=== PATIENT | male | born 1940 | race Caucasian/White ===

== ENCOUNTER 2017-06-05 19:45 | Inpatient (IN) | payer MEDICARE ==
[~2017-06-05] VITALS: Ht 175.3 cm; Wt 98.1 kg
--- NOTE | 2017-06-05 19:52 | PHYS DOC ---
Adult General Chief Complaint Chief Complaint: PSYCH EVALUATION HPI HPI Patient is a 77 year old M who presents with medical clearance for [facility]. Patient is a direct transfer from [facility] [place] as a direct admit to [facility]. Its hospital's policy to have the patient stop in emergency room for medical clearance and have routine blood work drawn prior to being admitted to [facility]. Patient has no complaints. Review of Systems Review of Systems GEN: Denies fevers, chills, sweats HEENT: Denies blurred vision, sore throat CV: Denies chest pain RESP: Denies shortness of air, cough GI: Denies n/v/d NEURO: Denies confusion, dizziness MSK: Denies weakness, joint pain/swelling All other systems were reviewed and found to be within normal limits, except as documented in this note. Allergies Allergies Allergies Coded Allergies Type Severity Reaction Last Updated Verified No Known Drug Allergies 06/05/17 No Physical Exam Physical Exam GEN.: No apparent distress. Alert and oriented. HEENT: Head is normocephalic, atraumatic NECK: Supple. LUNGS: CTAB. HEART: RRR, S1, S2 present. Peripheral pulses intact ABDOMEN: Soft, nontender. Positive bowel sounds. EXTREMITIES: Without any cyanosis. NEUROLOGIC: Normal speech, normal tone PSYCHIATRIC: Normal affect, normal mood. SKIN: No ulcerations Current Patient Data Vital Signs Laboratory Tests Test 06/05/17 19:52 06/05/17 20:05 White Blood Count 6.3 x10^3/uL Red Blood Count 4.32 x10^6/uL Hemoglobin 13.4 g/dL Hematocrit 39.6 % Mean Corpuscular Volume 92 fL Mean Corpuscular Hemoglobin 31 pg Mean Corpuscular Hemoglobin Concent 34 g/dL Red Cell Distribution Width 14.2 % Platelet Count 213 x10^3/uL Neutrophils (%) (Auto) 70 % Lymphocytes (%) (Auto) 17 % Monocytes (%) (Auto) 8 % Eosinophils (%) (Auto) 5 % Basophils (%) (Auto) 1 % Neutrophils # (Auto) 4.4 x10^3uL Lymphocytes # (Auto) 1.0 x10^3/uL Monocytes # (Auto) 0.5 x10^3/uL Eosinophils # (Auto) 0.3 x10^3/uL Basophils # (Auto) 0.0 x10^3/uL Sodium Level 137 mmol/L Potassium Level 3.9 mmol/L Chloride Level 101 mmol/L Carbon Dioxide Level 27 mmol/L Anion Gap 9 Blood Urea Nitrogen 21 mg/dL Creatinine 1.3 mg/dL Estimated GFR (Cockcroft-Gault) 53.5 BUN/Creatinine Ratio 16 Glucose Level 142 mg/dL Calcium Level 8.5 mg/dL Magnesium Level 1.9 mg/dL Total Bilirubin 0.4 mg/dL Aspartate Amino Transf (AST/SGOT) 22 U/L Alanine Aminotransferase (ALT/SGPT) 24 U/L Alkaline Phosphatase 62 U/L Total Protein 7.8 g/dL Albumin 3.6 g/dL Albumin/Globulin Ratio 0.9 Urine Collection Type U cath Urine Color Straw Urine Clarity Clear Urine pH 6.0 Urine Specific [place] 1.015 Urine Protein 30 mg/dl Urine Glucose (UA) Neg mg/dL Urine Ketones (Stick) Neg mg/dL Urine Blood Large Urine Nitrite Neg Urine Bilirubin Neg Urine Urobilinogen Dipstick 1 mg/dL Urine Leukocyte Esterase Neg Urine RBC >40 /HPF Urine WBC 5-10 /HPF Urine Squamous Epithelial Cells Occ /LPF Urine Bacteria 0 /HPF Urine Hyaline Casts Mod /HPF Urine Mucus Mod /LPF Urine Opiates Screen Neg Urine Methadone Screen Neg Urine Barbiturates Neg Urine Phencyclidine Screen Neg Urine Amphetamine/Methamphetamine Neg Urine Benzodiazepines Screen Neg Urine Cocaine Screen Neg Urine Cannabinoids Screen Neg Urine Ethyl Alcohol Neg EKG EKG 2004: EKG shows normal sinus rhythm rate of 61 no STEMI, left bundle-branch block[] Radiology/Procedures Radiology/Procedures [] Course & Med Decision Making Course & Med Decision Making Pertinent Labs and Imaging studies reviewed. (See chart for details) ED course: Patient was seen and examined emergency room [facility] screening labs are ordered Labs were unremarkable patient's cleared to be admitted to [facility] MDM: After reviewing the chart, CC/HPI/PMH, physical exam, [lab results], I do not believe the patient has emergent medical condition warranting further workup and /or admission at this time. Patient is stable to be transferred to [facility] for further psychiatric evaluation and management. [] Dragon Disclaimer Dragon Disclaimer This electronic medical record was generated, in whole or in part, using a voice recognition dictation system. Departure Departure: Impression: Primary Impression: Aggressive behavior Disposition: 65 XFER TO PSYCH HOSP/UNIT Condition: STABLE TOY MUNSON DO Jun 05, 2017 19:52
--- NOTE | 2017-06-05 20:09 | EKG ---
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
[2017-06-05 20:13] LABS: BASO % 1 % (0-3); EOS # 0.3 x10^3/uL (0.0-0.7); EOS % 5 % (0-3); HEMATOCRIT 39.6 % (39.0-53.0); HEMOGLOBIN 13.4 g/dL (13.0-17.5); LYMPH % 17 % (24-48); MEAN CORPUSCULAR HEMOGLOBIN 31 pg (25-35); MEAN CORPUSCULAR HGB CONC 34 g/dL (31-37); MEAN CORPUSCULAR VOLUME 92 fL (79-100); MONO # 0.5 x10^3/uL (0.0-1.1); MONO % 8 % (0-9); NEUT # 4.4 x10^3uL (1.8-7.7); NEUT % 70 % (31-73); PLATELET COUNT 213 x10^3/uL (140-400); RED BLOOD COUNT 4.32 x10^6/uL (4.30-5.70); RED CELL DISTRIBUTION WIDTH 14.2 % (11.5-14.5); WHITE BLOOD COUNT 6.3 x10^3/uL (4.0-11.0)
[2017-06-05 20:24] LABS: ALBUMIN 3.6 g/dL (3.4-5.0); ALBUMIN/GLOBULIN RATIO 0.9 (1.0-1.7); CALCIUM 8.5 mg/dL (8.5-10.1); CREATININE 1.3 mg/dL (0.7-1.3); GFR 53.5; MAGNESIUM 1.9 mg/dL (1.8-2.4); POTASSIUM 3.9 mmol/L (3.5-5.1); TOTAL BILIRUBIN 0.4 mg/dL (0.2-1.0); TOTAL PROTEIN 7.8 g/dL (6.4-8.2)
[2017-06-05 20:55] LABS: BACTERIA,URINE 0 /HPF (0-FEW); BILIRUBIN,URINE NEG (NEG); CLARITY,URINE CLEAR; COLOR,URINE STRAW; GLUCOSE,URINE NEG (NEG); NITRITE,URINE NEG (NEG); RBC,URINE >40 /HPF (0-2); SQUAMOUS EPITHELIAL CELL,UR OCC /LPF; UROBILINOGEN,URINE 1 mg/dL (0.2 mg/dL)
[2017-06-05 20:56] LABS: AMPHETAMINE/METHAMPHETAMINE NEG (NEG); BARBITURATES NEG (NEG); BENZODIAZEPINES NEG (NEG); CANNABINOIDS NEG (NEG); COCAINE NEG (NEG); METHADONE NEG (NEG); OPIATES NEG (NEG); PHENCYCLIDINE NEG (NEG)
[2017-06-05] MEDS ORDERED: MELA3TAB2 PO (20:57)
[2017-06-05] MEDS ORDERED: NYST15CR TP (20:57)
[2017-06-05] MEDS ORDERED: SOTA80TA48 PO (20:57)
[2017-06-05] MEDS ORDERED: LEVO25TA4 PO (20:57)
[2017-06-05] MEDS ORDERED: VITA1TAB3 PO (20:57)
[2017-06-05] MEDS ORDERED: ERGO500027 PO (20:57)
[2017-06-05] MEDS ORDERED: TRAM50TA PO ×2 (20:57)
[2017-06-05] MEDS ORDERED: POLY255P PO (20:57)
[2017-06-05] MEDS ORDERED: ESCITALOPRAM OX10 MG PO (20:57)
[2017-06-05] MEDS ORDERED: AMLO10TA2 PO (20:57)
[2017-06-05] MEDS ORDERED: ATOR20TA58 PO (20:57)
[2017-06-05] MEDS ORDERED: ACET325T9 PO (20:57)
[2017-06-05] MEDS ORDERED: RISP1TAB3 PO (20:57)
[2017-06-05] MEDS ORDERED: LOSA25TA4 PO (20:57)
[2017-06-05] MEDS ORDERED: FOLI100T PO (20:57)
[2017-06-05] MEDS ORDERED: APIX5TAB3 PO (20:57)
[2017-06-05] MEDS ORDERED: LORA2ORA8 SL (20:57)
[2017-06-05 20:58] LABS: HYALINE CASTS, URINE MOD /HPF
[2017-06-05] MEDS ORDERED: METHYL SALICYLATE/MENTHOL TOPICAL OINTMENT 29GM TUBE. TP PRN (22:15)
[2017-06-05] MEDS ORDERED: MAG HYDROX/AL HYDROX/SIMETH 30 ML ORAL.SUSP PO PRN (22:15)
[2017-06-05] MEDS ORDERED: ACETAMINOPHEN 325 MG TABLET PO PRN (22:15)
[2017-06-05] MEDS ORDERED: LORazepam INTENSOL 2 MG/ML BOTTLE SL PRN (22:30)
[2017-06-05] MEDS ORDERED: MELATONIN 3 MG TABLET PO PRN (22:30)
[2017-06-05] MEDS ORDERED: LORazepam 1 MG TABLET PO PRN ×2 (22:45)
[2017-06-06 00:01] VITALS: BP 132/66
[2017-06-06 06:28] VITALS: BP 129/72
[2017-06-06] MEDS: risperiDONE 1 MG TABLET. PO SCH ×2 (09:15→21:20)
[2017-06-06] MEDS: CITALOPRAM 20 MG TABLET. PO SCH (09:15)
[2017-06-06] MEDS ORDERED: ACETAMINOPHEN 325 MG TABLET PO PRN (10:30)
[2017-06-06] MEDS ORDERED: POLYETHYLENE GLYCOL 3350 17 GM PACKET. PO PRN (10:39)
[2017-06-06] MEDS: VITAMIN B COMPLEX CAPSULE. PO SCH (11:55)
[2017-06-06] MEDS: MULTIVITAMIN with MINERAL TABLET. PO SCH (11:55)
[2017-06-06 12:07] VITALS: BP 124/63
[2017-06-06] MEDS: LOSARTAN 25 MG TABLET. PO SCH (12:07)
[2017-06-06] MEDS: traMADol 50 MG TABLET PO SCH (12:08)
[2017-06-06] MEDS: amLODIPine BESYLATE 10 MG TABLET PO SCH (12:08)
[2017-06-06 14:11] LABS: THYROID STIM HORMONE (TSH) 4.73 uIU/mL (0.358-3.740)
[2017-06-06 16:28] VITALS: BP 94/60
--- NOTE | 2017-06-06 19:56 | PDOC ---
Exam Note: Jordy Note: Please also refer to the separate dictated note~for this date of service dictated separately.~Patient seen individually. Discussed the patient with Nursing staff reviewed the chart.~Reviewed interim history and current functioning. Reviewed vital signs,~Labs/ Radiology~and current medications noted below. Continue current treatment with the changes noted in the dictated addendum note Assessment: Vital Signs: Vital Signs Date Time Temp Pulse Resp B/P (MAP) Pulse Ox O2 Delivery O2 Flow Rate FiO2 06/06/17 16:28 97.5 60 18 94/60 (71) 92 Room Air I&O Intake and Output 06/06/17 07:00 Intake Total 0 ml Balance 0 ml Intake Oral 0 ml Labs: Laboratory Tests Test 06/05/17 20:05 Urine Collection Type U cath Urine Color Straw Urine Clarity Clear Urine pH 6.0 Urine Specific [place] 1.015 Urine Protein 30 mg/dl (NEG-TRACE) Urine Glucose (UA) Neg mg/dL (NEG) Urine Ketones (Stick) Neg mg/dL (NEG) Urine Blood Large (NEG) Urine Nitrite Neg (NEG) Urine Bilirubin Neg (NEG) Urine Urobilinogen Dipstick 1 mg/dL (0.2 mg/dL) Urine Leukocyte Esterase Neg (NEG) Urine RBC >40 /HPF (0-2) Urine WBC 5-10 /HPF (0-4) Urine Squamous Epithelial Cells Occ /LPF Urine Bacteria 0 /HPF (0-FEW) Urine Hyaline Casts Mod /HPF Urine Mucus Mod /LPF Urine Opiates Screen Neg (NEG) Urine Methadone Screen Neg (NEG) Urine Barbiturates Neg (NEG) Urine Phencyclidine Screen Neg (NEG) Urine Amphetamine/Methamphetamine Neg (NEG) Urine Benzodiazepines Screen Neg (NEG) Urine Cocaine Screen Neg (NEG) Urine Cannabinoids Screen Neg (NEG) Urine Ethyl Alcohol Neg (NEG) Current Medications: Meds: Current Medications Acetaminophen (Tylenol) 650 mg PRN Q6HRS PRN PO PAIN / TEMP; Start 06/05/17 at 22:15 Multi-Ingredient Ointment (Analgesic [place]) 1 feliciano PRN QID PRN TP MUSCLE PAIN; Start 06/05/17 at 22:15 Al Hydroxide/Mg Hydroxide (Mylanta Plus Xs) 15 ml PRN AFTMEALHC PRN PO DYSPEPSIA; Start 06/05/17 at 22:15 Magnesium Hydroxide (Milk Of Magnesia) 2,400 mg PRN QHS PRN PO CONSTIPATION; Start 06/05/17 at 22:15 Risperidone (RisperDAL) 1 mg BID PO Last administered on 06/06/17at 09:15; Start 06/06/17 at 09:00 Citalopram Hydrobromide (CeleXA) 20 mg DAILY PO Last administered on 06/06/17at 09:15; Start 06/06/17 at 09:00 Melatonin 3 mg PRN QHS PRN PO INSOMNIA; Start 06/05/17 at 22:30 Lorazepam (Ativan Intensol) Give 0.5 ml sublingually every ... PRN Q2HR PRN SL ANXIETY / AGITATION; Start 06/05/17 at 22:30; Status UNV Lorazepam (Ativan) 1 mg PRN Q2HR PRN PO ANXIETY / AGITATION; Start 06/05/17 at 22:45 Lorazepam (Ativan) 2 mg PRN Q2HR PRN PO ANXIETY / AGITATION; Start 06/05/17 at 22:45 Acetaminophen (Tylenol) 650 mg PRN Q4HRS PRN PO PAIN / TEMP; Start 06/06/17 at 10:30 Amlodipine Besylate (Norvasc) 10 mg DAILY PO Last administered on 06/06/17at 12: 08; Start 06/06/17 at 12:00 Apixaban (Eliquis) 5 mg BID PO ; Start 06/06/17 at 21:00 Atorvastatin Calcium (Lipitor) 20 mg QHS PO ; Start 06/06/17 at 21:00 Levothyroxine Sodium (Synthroid) 25 mcg DAILYAC PO ; Start 06/07/17 at 07:30 Losartan Potassium (Cozaar) 25 mg DAILY PO Last administered on 06/06/17at 12:07 ; Start 06/06/17 at 12:00 Nystatin (Mycostatin) 1 feliciano BID TP ; Start 06/06/17 at 21:00 Polyethylene Glycol (miraLAX) 17 gm PRN DAILY PRN PO CONSTIPATION; Start at 10:39 Sotalol HCl (Betapace) 80 mg BID PO ; Start 06/06/17 at 21:00 Tramadol HCl (Ultram) 50 mg DAILY PO Last administered on 06/06/17at 12:08; Start 06/06/17 at 12:00 Tramadol HCl (Ultram) 50 mg PRN Q8HRS PRN PO PAIN; Start 06/06/17 at 10:30 Vitamin D (Vitamin D3) 50,000 unit WEEKLY PO ; Start 06/12/17 at 09:00 Multivitamins/ Calcium (Thera-M Plus) 1 tab DAILY PO Last administered on at 11:55; Start 06/06/17 at 12:00 Vitamin B Complex 1 cap DAILY PO Last administered on 06/06/17at 11:55; Start at 12:00 Active Scripts Active Reported Vitamin B Complex 1 Each Tablet 1 Tab PO DAILY Tramadol Hcl (Tramadol HCl) 50 Mg Tablet 50 Mg PO DAILY Tramadol Hcl (Tramadol HCl) 50 Mg Tablet 50 Mg PO PRN Q4HRS PRN Sotalol (Sotalol Hcl) 80 Mg Tablet 80 Mg PO BID Risperidone 1 Mg Tablet 1 Mg PO BID Polyethylene Glycol 3350 255 Gm Powder 17 Gm PO PRN DAILY PRN Nystatin 15 Gm Cream..g. 1 Feliciano TP BID Centrum Flavor Burst Adult (Multivit with Minerals No.55) 1 Each Tab.chew 1 Tab PO DAILY Melatonin 3 Mg Tablet 3 Mg PO PRN QHS PRN Losartan Potassium 25 Mg Tablet 25 Mg PO DAILY Lorazepam Intensol (Lorazepam) 2 Mg/1 Ml Oral.conc 0.5-1 Ml SL PRN Q2HR PRN Escitalopram Oxalate 10 Mg Tablet 10 Mg PO DAILY Levothyroxine Sodium 25 Mcg Tablet 25 Mcg PO DAILYAC Vitamin D2 (Ergocalciferol (Vitamin D2)) 50,000 Unit Capsule 50,000 Unit PO WEEKLY Eliquis (Apixaban) 5 Mg Tablet 5 Mg PO BID Atorvastatin Calcium 20 Mg Tablet 20 Mg PO QHS Amlodipine Besylate 10 Mg Tablet 10 Mg PO DAILY Tylenol (Acetaminophen) 325 Mg Tablet 650 Mg PO PRN Q4HRS PRN I have reviewed the current psychotropics carefully including drug interactions. Risk benefit ratio favors no change other than as noted in my dictated progress note. 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
--- NOTE | 2017-06-06 20:32 | HP ---
ADMIT DATE: 06/05/2017 This is a late entry for 06/06/2017 and covers elements not covered in my initial note of 06/06/2017. IDENTIFYING DATA: The patient is a 77-year-old male who is referred to us from the [facility] by Dr. Oliver Hodges, his primary care physician on account of yelling, cursing at staff, throwing himself out of the wheelchair, refusing meals and showers. He has had increased anxiety, agitation, delusions, has appeared increasingly confused within the context of his dementia, Alzheimer's vascular type. He has failed outpatient psychiatric interventions resulting in this referral due to failure of outpatient psychiatric interventions. CHIEF COMPLAINT: "No." The patient is seated in his wheelchair, head bent forward, somewhat drooling, oriented just to himself. HISTORY OF PRESENT ILLNESS: The patient has a history of dementia, vascular, status post CVA with worsening symptoms of depression. More recently, he has had marked sleep and appetite changes, worsening agitation, delusions, aggression and using worsening profanities. All of these have worsened for the past 1-2 weeks. Ativan has been ineffective and he has had increased propensity for falls resulting in him being sent to the Emergency Room the night before he was admitted here. No clear history of bipolar disorder, suicidal or homicidal ideation. PAST PSYCHIATRIC HISTORY: As above. MEDICAL HISTORY: Status post CVA, cardiac arrhythmia, dysphagia, hemiparesis, hypothyroidism, hypertension, hyperlipidemia, history of cerebral infarct. DRUG ALLERGIES: Negative. CODE STATUS: Full code. Accu-Cheks None. Diet: Mechanical, soft thin liquids, ambulates in wheelchair and [place] transfer. CURRENT PSYCHOTROPICS: Lexapro 20 mg a day, Ativan p.r.n., Risperdal 1 mg b.i.d., melatonin 3 mg at bedtime. FAMILY HISTORY: Noncontributory. SOCIAL HISTORY: No history of alcohol, drug abuse, physical, sexual or elder abuse history is noted. Not known to be a perpetrator. The patient is not very verbally interactive at all and able to tell me even what work he did in the past. MENTAL STATUS EXAMINATION: Oriented to himself. Insight, judgment, recent and remote memory, attention, concentration, fund of knowledge poor, consistent with his diagnosis. He is oriented, perhaps to himself. Head bent forward, drooling, sitting in group therapy morning of 06/06/2017. No suicidal or homicidal ideation. Reaction to hospitalization: The patient oblivious to this. Assets: Stable living at the [facility], supportive family. 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 Rest as above. PLAN: Admit to geropsychiatry unit at [facility]. I will see the patient daily individually from a psychiatric standpoint, medical followup per Dr. Torres/Dr. Isidro. Continue the patient on current psychotropics, reduce Risperdal down to 0.5 mg twice a day. Consider Depakote as a mood stabilizer, BuSpar for anxiety, but we will make further decisions as the hospitalization progresses. We will also add Remeron 7.5 mg at bedtime to help with insomnia and anxiety. MAN Laverne RIZVI MD DR: YESSENIA/linnette JOB#: [id number] / [id number]
[2017-06-06] MEDS: APIXABAN 5 MG TABLET. PO SCH (21:20)
[2017-06-06] MEDS: ATORVASTATIN CALCIUM 20 MG TABLET PO SCH (21:20)
[2017-06-06] MEDS: SOTALOL 80 MG TABLET. PO SCH (21:20)
[2017-06-06] MEDS: NYSTATIN 100,000 UNIT/GM TOPICAL CREAM 15GM TUBE. TP SCH (21:21)
[2017-06-06 21:25] LABS: T3 TOTAL 74 ng/dL (71-180); THYROXINE 7.4 ug/dL (4.5-12.0)
[2017-06-07 01:11] LABS: HEMOGLOBIN A1C 5.1 % (4.8-5.6)
[2017-06-07 06:21] VITALS: BP 130/71
[2017-06-07] MEDS: VITAMIN B COMPLEX CAPSULE. PO SCH (08:16)
[2017-06-07] MEDS: LEVOTHYROXINE 25 MCG TABLET. PO SCH (08:16)
[2017-06-07] MEDS: amLODIPine BESYLATE 10 MG TABLET PO SCH (08:16)
[2017-06-07] MEDS: LOSARTAN 25 MG TABLET. PO SCH (08:16)
[2017-06-07] MEDS: CITALOPRAM 20 MG TABLET. PO SCH (08:16)
[2017-06-07] MEDS: MULTIVITAMIN with MINERAL TABLET. PO SCH (08:17)
[2017-06-07] MEDS: APIXABAN 5 MG TABLET. PO SCH ×2 (08:17→20:47)
[2017-06-07] MEDS: risperiDONE 1 MG TABLET. PO SCH (08:17)
[2017-06-07] MEDS: traMADol 50 MG TABLET PO SCH (08:19)
[2017-06-07] MEDS: NYSTATIN 100,000 UNIT/GM TOPICAL CREAM 15GM TUBE. TP SCH ×2 (08:19→20:47)
[2017-06-07] MEDS: SOTALOL 80 MG TABLET. PO SCH ×2 (08:20→20:49)
--- NOTE | 2017-06-07 14:21 | HP ---
ADMIT DATE: 06/05/2017 CONTINUATION OF HISTORY AND PHYSICAL ASSESSMENT: 1. Dementia with behavior disturbance. 2. History of stroke. 3. Left hemiplegia. 4. Impaired mobility. 5. History of falls. 6. History of cardiac arrhythmias. 7. Long-term use of anticoagulants, on Coumadin. 8. Major depressive disorder. PLAN: Try PT and OT. Follow along with Dr. Burk. Treat his medical conditions. LATRICE THOMPSON DO DR: GISELLA/linnette JOB#: [id number] / [id number]
[2017-06-07 16:04] VITALS: BP 144/78
--- NOTE | 2017-06-07 19:45 | PDOC ---
Exam Note: Jordy Note: Please also refer to the separate dictated note~for this date of service dictated separately.~Patient seen individually. Discussed the patient with Nursing staff reviewed the chart.~Reviewed interim history and current functioning. Reviewed vital signs,~Labs/ Radiology~and current medications noted below. Continue current treatment with the changes noted in the dictated addendum note Assessment: Vital Signs: Vital Signs Date Time Temp Pulse Resp B/P (MAP) Pulse Ox O2 Delivery O2 Flow Rate FiO2 06/07/17 16:04 97.6 66 18 144/78 (100) 92 06/06/17 16:28 Room Air I&O Intake and Output 06/07/17 07:00 Intake Total 700 ml Balance 700 ml Intake Oral 700 ml Current Medications: Meds: Current Medications Acetaminophen (Tylenol) 650 mg PRN Q6HRS PRN PO PAIN / TEMP; Start 06/05/17 at 22:15 Multi-Ingredient Ointment (Analgesic [place]) 1 feliciano PRN QID PRN TP MUSCLE PAIN; Start 06/05/17 at 22:15 Al Hydroxide/Mg Hydroxide (Mylanta Plus Xs) 15 ml PRN AFTMEALHC PRN PO DYSPEPSIA; Start 06/05/17 at 22:15 Magnesium Hydroxide (Milk Of Magnesia) 2,400 mg PRN QHS PRN PO CONSTIPATION; Start 06/05/17 at 22:15 Risperidone (RisperDAL) 1 mg BID PO Last administered on 06/07/17at 08:17; Start 06/06/17 at 09:00; Stop 06/07/17 at 17:15; Status DC Citalopram Hydrobromide (CeleXA) 20 mg DAILY PO Last administered on 06/07/17at 08:16; Start 06/06/17 at 09:00; Stop 06/07/17 at 18:54; Status DC Melatonin 3 mg PRN QHS PRN PO INSOMNIA; Start 06/05/17 at 22:30 Lorazepam (Ativan Intensol) Give 0.5 ml sublingually every ... PRN Q2HR PRN SL ANXIETY / AGITATION; Start 06/05/17 at 22:30; Status UNV Lorazepam (Ativan) 1 mg PRN Q2HR PRN PO ANXIETY / AGITATION; Start 06/05/17 at 22:45 Lorazepam (Ativan) 2 mg PRN Q2HR PRN PO ANXIETY / AGITATION; Start 06/05/17 at 22:45 Acetaminophen (Tylenol) 650 mg PRN Q4HRS PRN PO PAIN / TEMP; Start 06/06/17 at 10:30 Amlodipine Besylate (Norvasc) 10 mg DAILY PO Last administered on 06/07/17at 08: 16; Start 06/06/17 at 12:00 Apixaban (Eliquis) 5 mg BID PO Last administered on 06/07/17at 08:17; Start at 21:00 Atorvastatin Calcium (Lipitor) 20 mg QHS PO Last administered on 06/06/17at 21: 20; Start 06/06/17 at 21:00 Levothyroxine Sodium (Synthroid) 25 mcg DAILYAC PO Last administered on at 08:16; Start 06/07/17 at 07:30 Losartan Potassium (Cozaar) 25 mg DAILY PO Last administered on 06/07/17at 08:16 ; Start 06/06/17 at 12:00 Nystatin (Mycostatin) 1 feliciano BID TP Last administered on 06/07/17at 08:19; Start 06/06/17 at 21:00 Polyethylene Glycol (miraLAX) 17 gm PRN DAILY PRN PO CONSTIPATION; Start at 10:39 Sotalol HCl (Betapace) 80 mg BID PO Last administered on 06/07/17at 08:20; Start 06/06/17 at 21:00 Tramadol HCl (Ultram) 50 mg DAILY PO Last administered on 06/07/17at 08:19; Start 06/06/17 at 12:00 Tramadol HCl (Ultram) 50 mg PRN Q8HRS PRN PO PAIN; Start 06/06/17 at 10:30 Vitamin D (Vitamin D3) 50,000 unit WEEKLY PO ; Start 06/12/17 at 09:00 Multivitamins/ Calcium (Thera-M Plus) 1 tab DAILY PO Last administered on at 08:17; Start 06/06/17 at 12:00 Vitamin B Complex 1 cap DAILY PO Last administered on 06/07/17at 08:16; Start at 12:00 Warfarin Sodium (Coumadin Per Pharmacy) 1 each PRN DAILY PRN [facility] SEE COMMENTS; Start 06/07/17 at 14:00; Status UNV Risperidone (RisperDAL) 0.5 mg BID PO ; Start 06/07/17 at 21:00 Mirtazapine (Remeron) 7.5 mg QHS PO ; Start 06/07/17 at 21:00 Fluvoxamine Maleate (Luvox) 25 mg DAILY PO ; Start 06/08/17 at 09:00; Stop 06/10 at 08:59 Fluvoxamine Maleate (Luvox) 50 mg DAILY PO ; Start 06/10/17 at 09:00 Active Scripts Active Reported Vitamin B Complex 1 Each Tablet 1 Tab PO DAILY Tramadol Hcl (Tramadol HCl) 50 Mg Tablet 50 Mg PO DAILY Tramadol Hcl (Tramadol HCl) 50 Mg Tablet 50 Mg PO PRN Q4HRS PRN Sotalol (Sotalol Hcl) 80 Mg Tablet 80 Mg PO BID Risperidone 1 Mg Tablet 1 Mg PO BID Polyethylene Glycol 3350 255 Gm Powder 17 Gm PO PRN DAILY PRN Nystatin 15 Gm Cream..g. 1 Feliciano TP BID Centrum Flavor Burst Adult (Multivit with Minerals No.55) 1 Each Tab.chew 1 Tab PO DAILY Melatonin 3 Mg Tablet 3 Mg PO PRN QHS PRN Losartan Potassium 25 Mg Tablet 25 Mg PO DAILY Lorazepam Intensol (Lorazepam) 2 Mg/1 Ml Oral.conc 0.5-1 Ml SL PRN Q2HR PRN Escitalopram Oxalate 10 Mg Tablet 10 Mg PO DAILY Levothyroxine Sodium 25 Mcg Tablet 25 Mcg PO DAILYAC Vitamin D2 (Ergocalciferol (Vitamin D2)) 50,000 Unit Capsule 50,000 Unit PO WEEKLY Eliquis (Apixaban) 5 Mg Tablet 5 Mg PO BID Atorvastatin Calcium 20 Mg Tablet 20 Mg PO QHS Amlodipine Besylate 10 Mg Tablet 10 Mg PO DAILY Tylenol (Acetaminophen) 325 Mg Tablet 650 Mg PO PRN Q4HRS PRN I have reviewed the current psychotropics carefully including drug interactions. Risk benefit ratio favors no change other than as noted in my dictated progress note. 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
[2017-06-07] MEDS: ATORVASTATIN CALCIUM 20 MG TABLET PO SCH (20:48)
[2017-06-07] MEDS: risperiDONE 0.5 MG TABLET. PO SCH (20:50)
[2017-06-07] MEDS: MIRTAZAPINE 7.5 MG TABLET. PO SCH (20:50)
[2017-06-08 06:44] VITALS: BP 144/72
[2017-06-08] MEDS: amLODIPine BESYLATE 10 MG TABLET PO SCH (08:03)
[2017-06-08] MEDS: LEVOTHYROXINE 25 MCG TABLET. PO SCH (08:03)
[2017-06-08] MEDS: risperiDONE 0.5 MG TABLET. PO SCH (08:03)
[2017-06-08] MEDS: VITAMIN B COMPLEX CAPSULE. PO SCH (08:03)
[2017-06-08] MEDS: APIXABAN 5 MG TABLET. PO SCH ×2 (08:04→21:35)
[2017-06-08] MEDS: LOSARTAN 25 MG TABLET. PO SCH (08:04)
[2017-06-08] MEDS: MULTIVITAMIN with MINERAL TABLET. PO SCH (08:04)
[2017-06-08] MEDS: SOTALOL 80 MG TABLET. PO SCH ×2 (08:05→21:37)
[2017-06-08] MEDS: NYSTATIN 100,000 UNIT/GM TOPICAL CREAM 15GM TUBE. TP SCH ×2 (08:06→21:38)
[2017-06-08] MEDS: traMADol 50 MG TABLET PO SCH (08:07)
[2017-06-08 16:11] VITALS: BP 156/59
--- NOTE | 2017-06-08 16:37 | HP ---
ADMIT DATE: MEDICAL HISTORY AND PHYSICAL FOR THE [facility] The patient was seen on 06/07/2017 due to the fact that he was not available on 06/06/2017. REASON FOR ADMISSION TO [facility]IOR [facility]: This is a 77-year-old male who came from the [facility] [place] where he has been yelling, cursing at staff, throwing himself out of his wheelchair, refusing meals, increased anxiety, and refusing showers. Onset of symptoms, 1-2 weeks. Ativan has been tried and has not been effective. He was taken to the Emergency Room the evening of 06/04/2017, because of a fall. PAST MEDICAL HISTORY: CVA with left hemiplegia, major depressive disorder, cardiac arrhythmia , dysphagia, insomnia, anxiety, dementia, hypothyroidism, hypertension, hyperlipidemia, cerebral infarct. ALLERGIES: None. MEDICATIONS: Reviewed and are available on the MAR. SOCIAL HISTORY: Resides in a nursing facility. Smoking status is not known. IMMUNIZATIONS: Received a flu shot in 01/2017. He also was on hospice, which was stopped on 05/29/2017. FUNCTIONALITY: The patient is patient is a Paul lift. Currently, Paul transfer. Previous it states, ambulates with feet and wheelchair. REVIEW OF SYSTEMS: The patient voices no complaints. OBJECTIVE: VITAL SIGNS: Blood pressure 130/71, pulse 60, respirations 20, pulse ox 92% on room air. HEENT: The patient is confined to a Broda chair, 77-year-old, who looks a little bit younger than his stated age. He has a baires. HEENT: Eyes are clear. Vision appears normal. He can identify 2 fingers in the [place]. Hearing is normal. Nose is patent. Throat was clear. NECK: Supple. LUNGS: Clear to auscultation. CARDIOVASCULAR: Regular rhythm and rate. ABDOMEN: Soft, nontender. EXTREMITIES: Without edema. NEUROLOGIC: He has severe left upper arm contracture with hemiplegia and milder left lower extremity hemiplegia. Ankles are swollen. Gait was not examined. Bulk of the cranial nerves are intact. Does not have a facial droop. ____ weakness on left side. LABORATORY DATA: Slight iron deficiency. Normal vitamin D and vitamin B12. DICTATION ENDS HERE LATRICE M. DONNA, DO DR: Luis JOB#: [id number] / [id number]
[2017-06-08] MEDS: ATORVASTATIN CALCIUM 20 MG TABLET PO SCH (21:35)
[2017-06-08] MEDS: MIRTAZAPINE 7.5 MG TABLET. PO SCH (21:35)
[2017-06-08] MEDS: risperiDONE 0.25 MG TABLET. PO SCH (21:38)
--- NOTE | 2017-06-08 22:00 | PDOC ---
Exam Note: Jordy Note: Please also refer to the separate dictated note~for this date of service dictated separately.~Patient seen individually. Discussed the patient with Nursing staff reviewed the chart.~Reviewed interim history and current functioning. Reviewed vital signs,~Labs/ Radiology~and current medications noted below. Continue current treatment with the changes noted in the dictated addendum note Assessment: Vital Signs: Vital Signs Date Time Temp Pulse Resp B/P (MAP) Pulse Ox O2 Delivery O2 Flow Rate FiO2 06/08/17 21:37 60 156/59 06/08/17 16:11 97.6 18 96 06/06/17 16:28 Room Air I&O Intake and Output 06/08/17 07:00 Intake Total 440 ml Balance 440 ml Intake Oral 440 ml Labs: Laboratory Tests Test 06/08/17 07:19 Prothrombin Time 11.8 SEC (9.4-11.4) H Prothrombin Time INR 1.2 (0.9-1.1) H Current Medications: Meds: Current Medications Acetaminophen (Tylenol) 650 mg PRN Q6HRS PRN PO PAIN / TEMP; Start 06/05/17 at 22:15 Multi-Ingredient Ointment (Analgesic [place]) 1 feliciano PRN QID PRN TP MUSCLE PAIN; Start 06/05/17 at 22:15 Al Hydroxide/Mg Hydroxide (Mylanta Plus Xs) 15 ml PRN AFTMEALHC PRN PO DYSPEPSIA; Start 06/05/17 at 22:15 Magnesium Hydroxide (Milk Of Magnesia) 2,400 mg PRN QHS PRN PO CONSTIPATION; Start 06/05/17 at 22:15 Risperidone (RisperDAL) 1 mg BID PO Last administered on 06/07/17at 08:17; Start 06/06/17 at 09:00; Stop 06/07/17 at 17:15; Status DC Citalopram Hydrobromide (CeleXA) 20 mg DAILY PO Last administered on 06/07/17at 08:16; Start 06/06/17 at 09:00; Stop 06/07/17 at 18:54; Status DC Melatonin 3 mg PRN QHS PRN PO INSOMNIA; Start 06/05/17 at 22:30 Lorazepam (Ativan Intensol) Give 0.5 ml sublingually every ... PRN Q2HR PRN SL ANXIETY / AGITATION; Start 06/05/17 at 22:30; Status UNV Lorazepam (Ativan) 1 mg PRN Q2HR PRN PO ANXIETY / AGITATION; Start 06/05/17 at 22:45 Lorazepam (Ativan) 2 mg PRN Q2HR PRN PO ANXIETY / AGITATION; Start 06/05/17 at 22:45 Acetaminophen (Tylenol) 650 mg PRN Q4HRS PRN PO PAIN / TEMP; Start 06/06/17 at 10:30 Amlodipine Besylate (Norvasc) 10 mg DAILY PO Last administered on 06/08/17 08: 03; Start 06/06/17 at 12:00 Apixaban (Eliquis) 5 mg BID PO Last administered on 06/08/17 21:35; Start at 21:00 Atorvastatin Calcium (Lipitor) 20 mg QHS PO Last administered on 06/08/17 21: 35; Start 06/06/17 at 21:00 Levothyroxine Sodium (Synthroid) 25 mcg DAILYAC PO Last administered on 08:03; Start 06/07/17 at 07:30 Losartan Potassium (Cozaar) 25 mg DAILY PO Last administered on 06/08/17 08:04 ; Start 06/06/17 at 12:00 Nystatin (Mycostatin) 1 feliciano BID TP Last administered on 06/08/17 21:38; Start 06/06/17 at 21:00 Polyethylene Glycol (miraLAX) 17 gm PRN DAILY PRN PO CONSTIPATION; Start at 10:39 Sotalol HCl (Betapace) 80 mg BID PO Last administered on 06/08/17 21:37; Start 06/06/17 at 21:00 Tramadol HCl (Ultram) 50 mg DAILY PO Last administered on 06/08/17 08:07; Start 06/06/17 at 12:00 Tramadol HCl (Ultram) 50 mg PRN Q8HRS PRN PO PAIN; Start 06/06/17 at 10:30 Vitamin D (Vitamin D3) 50,000 unit WEEKLY PO ; Start 06/12/17 at 09:00 Multivitamins/ Calcium (Thera-M Plus) 1 tab DAILY PO Last administered on at 08:04; Start 06/06/17 at 12:00 Vitamin B Complex 1 cap DAILY PO Last administered on 06/08/17at 08:03; Start at 12:00 Warfarin Sodium (Coumadin Per Pharmacy) 1 each PRN DAILY PRN [facility] SEE COMMENTS; Start 06/07/17 at 14:00; Status UNV Risperidone (RisperDAL) 0.5 mg BID PO Last administered on 06/08/17at 08:03; Start 06/07/17 at 21:00; Stop 06/08/17 at 19:26; Status DC Mirtazapine (Remeron) 7.5 mg QHS PO Last administered on 06/08/17at 21:35; Start 06/07/17 at 21:00 Fluvoxamine Maleate (Luvox) 25 mg DAILY PO Last administered on 06/08/17at 08:06 ; Start 06/08/17 at 09:00; Stop 06/10/17 at 08:59 Fluvoxamine Maleate (Luvox) 50 mg DAILY PO ; Start 06/10/17 at 09:00 Risperidone (RisperDAL) 0.25 mg BID PO Last administered on 06/08/17at 21:38; Start 06/08/17 at 21:00 Active Scripts Active Reported Vitamin B Complex 1 Each Tablet 1 Tab PO DAILY Tramadol Hcl (Tramadol HCl) 50 Mg Tablet 50 Mg PO DAILY Tramadol Hcl (Tramadol HCl) 50 Mg Tablet 50 Mg PO PRN Q4HRS PRN Sotalol (Sotalol Hcl) 80 Mg Tablet 80 Mg PO BID Risperidone 1 Mg Tablet 1 Mg PO BID Polyethylene Glycol 3350 255 Gm Powder 17 Gm PO PRN DAILY PRN Nystatin 15 Gm Cream..g. 1 Feliciano TP BID Centrum Flavor Burst Adult (Multivit with Minerals No.55) 1 Each Tab.chew 1 Tab PO DAILY Melatonin 3 Mg Tablet 3 Mg PO PRN QHS PRN Losartan Potassium 25 Mg Tablet 25 Mg PO DAILY Lorazepam Intensol (Lorazepam) 2 Mg/1 Ml Oral.conc 0.5-1 Ml SL PRN Q2HR PRN Escitalopram Oxalate 10 Mg Tablet 10 Mg PO DAILY Levothyroxine Sodium 25 Mcg Tablet 25 Mcg PO DAILYAC Vitamin D2 (Ergocalciferol (Vitamin D2)) 50,000 Unit Capsule 50,000 Unit PO WEEKLY Eliquis (Apixaban) 5 Mg Tablet 5 Mg PO BID Atorvastatin Calcium 20 Mg Tablet 20 Mg PO QHS Amlodipine Besylate 10 Mg Tablet 10 Mg PO DAILY Tylenol (Acetaminophen) 325 Mg Tablet 650 Mg PO PRN Q4HRS PRN I have reviewed the current psychotropics carefully including drug interactions. Risk benefit ratio favors no change other than as noted in my dictated progress note. 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
[2017-06-09 06:14] VITALS: BP 161/74
[2017-06-09] MEDS: APIXABAN 5 MG TABLET. PO SCH ×2 (07:49→20:36)
[2017-06-09] MEDS: LEVOTHYROXINE 25 MCG TABLET. PO SCH (07:49)
[2017-06-09] MEDS: traMADol 50 MG TABLET PO SCH (07:49)
[2017-06-09] MEDS: MULTIVITAMIN with MINERAL TABLET. PO SCH (07:49)
[2017-06-09] MEDS: LOSARTAN 25 MG TABLET. PO SCH (07:49)
[2017-06-09] MEDS: VITAMIN B COMPLEX CAPSULE. PO SCH (07:50)
[2017-06-09] MEDS: amLODIPine BESYLATE 10 MG TABLET PO SCH (07:50)
[2017-06-09] MEDS: risperiDONE 0.25 MG TABLET. PO SCH ×2 (07:50→20:36)
[2017-06-09] MEDS: NYSTATIN 100,000 UNIT/GM TOPICAL CREAM 15GM TUBE. TP SCH ×2 (07:52→20:39)
[2017-06-09] MEDS: SOTALOL 80 MG TABLET. PO SCH ×2 (07:52→20:38)
[2017-06-09 16:30] VITALS: BP 128/70
--- NOTE | 2017-06-09 19:37 | PDOC ---
Exam Note: Jordy Note: Please also refer to the separate dictated note~for this date of service dictated separately.~Patient seen individually. Discussed the patient with Nursing staff reviewed the chart.~Reviewed interim history and current functioning. Reviewed vital signs,~Labs/ Radiology~and current medications noted below. Continue current treatment with the changes noted in the dictated addendum note Assessment: Vital Signs: Vital Signs Date Time Temp Pulse Resp B/P (MAP) Pulse Ox O2 Delivery O2 Flow Rate FiO2 06/09/17 16:30 98.7 60 19 128/70 (89) 96 06/06/17 16:28 Room Air I&O Intake and Output 06/09/17 07:00 Intake Total 480 ml Balance 480 ml Intake Oral 480 ml # Voids 1 Current Medications: Meds: Current Medications Acetaminophen (Tylenol) 650 mg PRN Q6HRS PRN PO PAIN / TEMP; Start 06/05/17 at 22:15 Multi-Ingredient Ointment (Analgesic [place]) 1 feliciano PRN QID PRN TP MUSCLE PAIN; Start 06/05/17 at 22:15 Al Hydroxide/Mg Hydroxide (Mylanta Plus Xs) 15 ml PRN AFTMEALHC PRN PO DYSPEPSIA; Start 06/05/17 at 22:15 Magnesium Hydroxide (Milk Of Magnesia) 2,400 mg PRN QHS PRN PO CONSTIPATION; Start 06/05/17 at 22:15 Risperidone (RisperDAL) 1 mg BID PO Last administered on 06/07/17at 08:17; Start 06/06/17 at 09:00; Stop 06/07/17 at 17:15; Status DC Citalopram Hydrobromide (CeleXA) 20 mg DAILY PO Last administered on 06/07/17at 08:16; Start 06/06/17 at 09:00; Stop 06/07/17 at 18:54; Status DC Melatonin 3 mg PRN QHS PRN PO INSOMNIA; Start 06/05/17 at 22:30 Lorazepam (Ativan Intensol) Give 0.5 ml sublingually every ... PRN Q2HR PRN SL ANXIETY / AGITATION; Start 06/05/17 at 22:30; Status UNV Lorazepam (Ativan) 1 mg PRN Q2HR PRN PO ANXIETY / AGITATION; Start 06/05/17 at 22:45 Lorazepam (Ativan) 2 mg PRN Q2HR PRN PO ANXIETY / AGITATION; Start 06/05/17 at 22:45 Acetaminophen (Tylenol) 650 mg PRN Q4HRS PRN PO PAIN / TEMP; Start 06/06/17 at 10:30 Amlodipine Besylate (Norvasc) 10 mg DAILY PO Last administered on 06/09/17 07: 50; Start 06/06/17 at 12:00 Apixaban (Eliquis) 5 mg BID PO Last administered on 06/09/17 07:49; Start at 21:00 Atorvastatin Calcium (Lipitor) 20 mg QHS PO Last administered on 06/08/17 21: 35; Start 06/06/17 at 21:00 Levothyroxine Sodium (Synthroid) 25 mcg DAILYAC PO Last administered on 07:49; Start 06/07/17 at 07:30 Losartan Potassium (Cozaar) 25 mg DAILY PO Last administered on 06/09/17 07:49 ; Start 06/06/17 at 12:00 Nystatin (Mycostatin) 1 feliciano BID TP Last administered on 06/09/17 07:52; Start 06/06/17 at 21:00 Polyethylene Glycol (miraLAX) 17 gm PRN DAILY PRN PO CONSTIPATION; Start at 10:39 Sotalol HCl (Betapace) 80 mg BID PO Last administered on 06/09/17 07:52; Start 06/06/17 at 21:00 Tramadol HCl (Ultram) 50 mg DAILY PO Last administered on 06/09/17 07:49; Start 06/06/17 at 12:00 Tramadol HCl (Ultram) 50 mg PRN Q8HRS PRN PO PAIN; Start 06/06/17 at 10:30 Vitamin D (Vitamin D3) 50,000 unit WEEKLY PO ; Start 06/12/17 at 09:00 Multivitamins/ Calcium (Thera-M Plus) 1 tab DAILY PO Last administered on 07:49; Start 06/06/17 at 12:00 Vitamin B Complex 1 cap DAILY PO Last administered on 06/09/17 07:50; Start at 12:00 Warfarin Sodium (Coumadin Per Pharmacy) 1 each PRN DAILY PRN [facility] SEE COMMENTS; Start 06/07/17 at 14:00; Status UNV Risperidone (RisperDAL) 0.5 mg BID PO Last administered on 06/08/17at 08:03; Start 06/07/17 at 21:00; Stop 06/08/17 at 19:26; Status DC Mirtazapine (Remeron) 7.5 mg QHS PO Last administered on 06/08/17at 21:35; Start 06/07/17 at 21:00 Fluvoxamine Maleate (Luvox) 25 mg DAILY PO Last administered on 06/09/17at 07:49 ; Start 06/08/17 at 09:00; Stop 06/10/17 at 08:59 Fluvoxamine Maleate (Luvox) 50 mg DAILY PO ; Start 06/10/17 at 09:00 Risperidone (RisperDAL) 0.25 mg BID PO Last administered on 06/09/17at 07:50; Start 06/08/17 at 21:00 Active Scripts Active Reported Vitamin B Complex 1 Each Tablet 1 Tab PO DAILY Tramadol Hcl (Tramadol HCl) 50 Mg Tablet 50 Mg PO DAILY Tramadol Hcl (Tramadol HCl) 50 Mg Tablet 50 Mg PO PRN Q4HRS PRN Sotalol (Sotalol Hcl) 80 Mg Tablet 80 Mg PO BID Risperidone 1 Mg Tablet 1 Mg PO BID Polyethylene Glycol 3350 255 Gm Powder 17 Gm PO PRN DAILY PRN Nystatin 15 Gm Cream..g. 1 Feliciano TP BID Centrum Flavor Burst Adult (Multivit with Minerals No.55) 1 Each Tab.chew 1 Tab PO DAILY Melatonin 3 Mg Tablet 3 Mg PO PRN QHS PRN Losartan Potassium 25 Mg Tablet 25 Mg PO DAILY Lorazepam Intensol (Lorazepam) 2 Mg/1 Ml Oral.conc 0.5-1 Ml SL PRN Q2HR PRN Escitalopram Oxalate 10 Mg Tablet 10 Mg PO DAILY Levothyroxine Sodium 25 Mcg Tablet 25 Mcg PO DAILYAC Vitamin D2 (Ergocalciferol (Vitamin D2)) 50,000 Unit Capsule 50,000 Unit PO WEEKLY Eliquis (Apixaban) 5 Mg Tablet 5 Mg PO BID Atorvastatin Calcium 20 Mg Tablet 20 Mg PO QHS Amlodipine Besylate 10 Mg Tablet 10 Mg PO DAILY Tylenol (Acetaminophen) 325 Mg Tablet 650 Mg PO PRN Q4HRS PRN I have reviewed the current psychotropics carefully including drug interactions. Risk benefit ratio favors no change other than as noted in my dictated progress note. 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
[2017-06-09] MEDS: ATORVASTATIN CALCIUM 20 MG TABLET PO SCH (20:35)
[2017-06-09] MEDS: MIRTAZAPINE 7.5 MG TABLET. PO SCH (20:35)
--- NOTE | 2017-06-10 00:57 | PN ---
DATE: 06/07/2017 This late entry 06/07/2017 covers elements not covered in my initial note 06/07/2017. I met with the patient in the evening of 06/07/2017. The patient remains confused, withdrawn, was calm and cooperative. Previous evening, slept 6-1/2 hours, oriented to himself, took his meds whole in the morning, quite obsessive, ruminative, compulsively calling out "help me, help me, help me" and when nursing staff approach him in fact, he needs nothing. MENTAL STATUS EXAM: Oriented to himself. Insight, judgment, recent and remote memory, attention, concentration, fund of knowledge poor consistent with his diagnosis mentioned in my initial note. IMPRESSION: Major neurocognitive disorder, vascular with delusion; depression; behavioral disturbance; anxiety disorder, unspecified. Rest unchanged from initial note. PLAN: Change Lexapro to Luvox 25 mg a day, increasing to 50 mg a day. Maintain the rest unchanged. Risperdal is being reduced given his history of CVA. HANDY RIZVI MD DR: YESSENIA/linnette JOB#: [id number] / [id number]
[2017-06-10] MEDS: LEVOTHYROXINE 25 MCG TABLET. PO SCH ×2 (05:22→06:35)
[2017-06-10 06:55] VITALS: BP 132/73
[2017-06-10] MEDS: VITAMIN B COMPLEX CAPSULE. PO SCH (08:29)
[2017-06-10] MEDS: amLODIPine BESYLATE 10 MG TABLET PO SCH (08:30)
[2017-06-10] MEDS: APIXABAN 5 MG TABLET. PO SCH ×2 (08:30→20:41)
[2017-06-10] MEDS: risperiDONE 0.25 MG TABLET. PO SCH ×2 (08:30→20:41)
[2017-06-10] MEDS: MULTIVITAMIN with MINERAL TABLET. PO SCH (08:30)
[2017-06-10] MEDS: traMADol 50 MG TABLET PO SCH (08:31)
[2017-06-10] MEDS: SOTALOL 80 MG TABLET. PO SCH ×2 (08:33→20:41)
[2017-06-10] MEDS: LOSARTAN 25 MG TABLET. PO SCH (08:33)
[2017-06-10] MEDS: NYSTATIN 100,000 UNIT/GM TOPICAL CREAM 15GM TUBE. TP SCH ×2 (08:33→20:41)
--- NOTE | 2017-06-10 09:13 | PN ---
DATE: 06/08/2017 This late entry 06/08/2017 covers elements not covered in my initial note 06/08/2017. SUBJECTIVE: I met with the patient in the evening of 06/08/2017. The patient remains confused, withdrawn, somewhat sedated. In the morning, he was yelling to go to the bathroom, oriented to himself. REVIEW OF SYSTEMS: Ambulation impaired, in Broda chair. No CV, , pulmonary, eye, ENT system symptoms on review. Reliability poor. MENTAL STATUS EXAM: Oriented to himself. Insight, judgment, recent and remote memory, attention, concentration, fund of knowledge poor, consistent with his diagnosis mentioned in my initial note. IMPRESSION: Major neurocognitive disorder, Alzheimer, vascular with delusion, depression, behavioral disturbance. PLAN: Hold his psychotropics evening of 06/08/2017 due to the sedation and then reduce the Risperdal from 0.5 mg b.i.d. to 0.25 mg b.i.d. given his history of CVA, gradually increase the Luvox. Rest unchanged. Maintain Remeron. MAN Laverne RIZVI MD DR: YESSENIA/linnette JOB#: [id number] / [id number]
[2017-06-10 15:50] VITALS: BP 122/62
--- NOTE | 2017-06-10 18:56 | PDOC ---
Exam Note: Jordy Note: Please also refer to the separate dictated note~for this date of service dictated separately.~Patient seen individually. Discussed the patient with Nursing staff reviewed the chart.~Reviewed interim history and current functioning. Reviewed vital signs,~Labs/ Radiology~and current medications noted below. Continue current treatment with the changes noted in the dictated addendum note Assessment: Vital Signs: Vital Signs Date Time Temp Pulse Resp B/P (MAP) Pulse Ox O2 Delivery O2 Flow Rate FiO2 06/10/17 15:50 98.0 60 20 122/62 (82) 93 06/06/17 16:28 Room Air I&O Intake and Output 06/10/17 07:00 Intake Total 780 ml Balance 780 ml Intake Oral 780 ml # Voids 3 Current Medications: Meds: Current Medications Acetaminophen (Tylenol) 650 mg PRN Q6HRS PRN PO PAIN / TEMP; Start 06/05/17 at 22:15 Multi-Ingredient Ointment (Analgesic [place]) 1 feliciano PRN QID PRN TP MUSCLE PAIN; Start 06/05/17 at 22:15 Al Hydroxide/Mg Hydroxide (Mylanta Plus Xs) 15 ml PRN AFTMEALHC PRN PO DYSPEPSIA; Start 06/05/17 at 22:15 Magnesium Hydroxide (Milk Of Magnesia) 2,400 mg PRN QHS PRN PO CONSTIPATION; Start 06/05/17 at 22:15 Risperidone (RisperDAL) 1 mg BID PO Last administered on 06/07/17at 08:17; Start 06/06/17 at 09:00; Stop 06/07/17 at 17:15; Status DC Citalopram Hydrobromide (CeleXA) 20 mg DAILY PO Last administered on 06/07/17at 08:16; Start 06/06/17 at 09:00; Stop 06/07/17 at 18:54; Status DC Melatonin 3 mg PRN QHS PRN PO INSOMNIA; Start 06/05/17 at 22:30 Lorazepam (Ativan Intensol) Give 0.5 ml sublingually every ... PRN Q2HR PRN SL ANXIETY / AGITATION; Start 06/05/17 at 22:30; Status UNV Lorazepam (Ativan) 1 mg PRN Q2HR PRN PO ANXIETY / AGITATION; Start 06/05/17 at 22:45; Stop 06/10/17 at 18:30; Status DC Lorazepam (Ativan) 2 mg PRN Q2HR PRN PO ANXIETY / AGITATION; Start 06/05/17 at 22:45; Stop 06/10/17 at 18:30; Status DC Acetaminophen (Tylenol) 650 mg PRN Q4HRS PRN PO PAIN / TEMP; Start 06/06/17 at 10:30 Amlodipine Besylate (Norvasc) 10 mg DAILY PO Last administered on 06/10/17 08: 30; Start 06/06/17 at 12:00 Apixaban (Eliquis) 5 mg BID PO Last administered on 06/10/17 08:30; Start at 21:00 Atorvastatin Calcium (Lipitor) 20 mg QHS PO Last administered on 06/09/17 20: 35; Start 06/06/17 at 21:00 Levothyroxine Sodium (Synthroid) 25 mcg DAILYAC PO Last administered on 07:49; Start 06/07/17 at 07:30 Losartan Potassium (Cozaar) 25 mg DAILY PO Last administered on 06/10/17 08:33 ; Start 06/06/17 at 12:00 Nystatin (Mycostatin) 1 feliciano BID TP Last administered on 06/10/17 08:33; Start 06/06/17 at 21:00 Polyethylene Glycol (miraLAX) 17 gm PRN DAILY PRN PO CONSTIPATION; Start at 10:39 Sotalol HCl (Betapace) 80 mg BID PO Last administered on 06/10/17 08:33; Start 06/06/17 at 21:00 Tramadol HCl (Ultram) 50 mg DAILY PO Last administered on 06/10/17at 08:31; Start 06/06/17 at 12:00 Tramadol HCl (Ultram) 50 mg PRN Q8HRS PRN PO PAIN; Start 06/06/17 at 10:30 Vitamin D (Vitamin D3) 50,000 unit WEEKLY PO ; Start 06/12/17 at 09:00 Multivitamins/ Calcium (Thera-M Plus) 1 tab DAILY PO Last administered on at 08:30; Start 06/06/17 at 12:00 Vitamin B Complex 1 cap DAILY PO Last administered on 06/10/17at 08:29; Start at 12:00 Warfarin Sodium (Coumadin Per Pharmacy) 1 each PRN DAILY PRN [facility] SEE COMMENTS; Start 06/07/17 at 14:00; Status UNV Risperidone (RisperDAL) 0.5 mg BID PO Last administered on 06/08/17at 08:03; Start 06/07/17 at 21:00; Stop 06/08/17 at 19:26; Status DC Mirtazapine (Remeron) 7.5 mg QHS PO Last administered on 06/09/17at 20:35; Start 06/07/17 at 21:00 Fluvoxamine Maleate (Luvox) 25 mg DAILY PO Last administered on 06/09/17at 07:49 ; Start 06/08/17 at 09:00; Stop 06/10/17 at 08:59; Status DC Fluvoxamine Maleate (Luvox) 50 mg DAILY PO Last administered on 06/10/17at 08:30 ; Start 06/10/17 at 09:00 Risperidone (RisperDAL) 0.25 mg BID PO Last administered on 06/10/17at 08:30; Start 06/08/17 at 21:00; Stop 06/12/17 at 08:59 Lorazepam (Ativan) 0.25 mg PRN Q2HR PRN PO ANXIETY / AGITATION; Start 06/10/17 at 18:30 Risperidone (RisperDAL) 0.25 mg DAILY PO ; Start 06/12/17 at 09:00; Stop at 08:59 Active Scripts Active Reported Vitamin B Complex 1 Each Tablet 1 Tab PO DAILY Tramadol Hcl (Tramadol HCl) 50 Mg Tablet 50 Mg PO DAILY Tramadol Hcl (Tramadol HCl) 50 Mg Tablet 50 Mg PO PRN Q4HRS PRN Sotalol (Sotalol Hcl) 80 Mg Tablet 80 Mg PO BID Risperidone 1 Mg Tablet 1 Mg PO BID Polyethylene Glycol 3350 255 Gm Powder 17 Gm PO PRN DAILY PRN Nystatin 15 Gm Cream..g. 1 Feliciano TP BID Centrum Flavor Burst Adult (Multivit with Minerals No.55) 1 Each Tab.chew 1 Tab PO DAILY Melatonin 3 Mg Tablet 3 Mg PO PRN QHS PRN Losartan Potassium 25 Mg Tablet 25 Mg PO DAILY Lorazepam Intensol (Lorazepam) 2 Mg/1 Ml Oral.conc 0.5-1 Ml SL PRN Q2HR PRN Escitalopram Oxalate 10 Mg Tablet 10 Mg PO DAILY Levothyroxine Sodium 25 Mcg Tablet 25 Mcg PO DAILYAC Vitamin D2 (Ergocalciferol (Vitamin D2)) 50,000 Unit Capsule 50,000 Unit PO WEEKLY Eliquis (Apixaban) 5 Mg Tablet 5 Mg PO BID Atorvastatin Calcium 20 Mg Tablet 20 Mg PO QHS Amlodipine Besylate 10 Mg Tablet 10 Mg PO DAILY Tylenol (Acetaminophen) 325 Mg Tablet 650 Mg PO PRN Q4HRS PRN I have reviewed the current psychotropics carefully including drug interactions. Risk benefit ratio favors no change other than as noted in my dictated progress note. 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
[2017-06-10] MEDS: MIRTAZAPINE 7.5 MG TABLET. PO SCH (20:41)
[2017-06-10] MEDS: ATORVASTATIN CALCIUM 20 MG TABLET PO SCH (20:41)
[2017-06-11] MEDS: MAGNESIUM HYDROXIDE 2,400 MG/30 ML ORAL.SUSP. PO PRN (05:51)
[2017-06-11 06:36] VITALS: BP 130/66
[2017-06-11] MEDS: LORazepam 0.5 MG TABLET PO PRN (06:59)
[2017-06-11] MEDS: LEVOTHYROXINE 25 MCG TABLET. PO SCH (07:47)
[2017-06-11] MEDS: VITAMIN B COMPLEX CAPSULE. PO SCH (09:11)
[2017-06-11] MEDS: LOSARTAN 25 MG TABLET. PO SCH (09:12)
[2017-06-11] MEDS: traMADol 50 MG TABLET PO SCH (09:12)
[2017-06-11] MEDS: amLODIPine BESYLATE 10 MG TABLET PO SCH (09:13)
[2017-06-11] MEDS: MULTIVITAMIN with MINERAL TABLET. PO SCH (09:13)
[2017-06-11] MEDS: APIXABAN 5 MG TABLET. PO SCH ×2 (09:13→19:10)
[2017-06-11] MEDS: risperiDONE 0.25 MG TABLET. PO SCH ×2 (09:13→19:10)
[2017-06-11] MEDS: NYSTATIN 100,000 UNIT/GM TOPICAL CREAM 15GM TUBE. TP SCH (09:15)
[2017-06-11] MEDS: SOTALOL 80 MG TABLET. PO SCH ×2 (09:15→19:12)
[2017-06-11] MEDS: NYSTATIN TOPICAL POWDER 15GM BOTTLE. TP SCH (09:48)
--- NOTE | 2017-06-11 10:03 | PN ---
DATE: 06/09/2017 This late entry, 06/09/2017, covers elements not covered in my initial note of 06/09/2017. SUBJECTIVE: I met with the patient the evening of 06/09/2017. The patient did reasonably well in the morning, was yelling around breakfast time, agitated, complained of pain, received tramadol. Deferred medical management to Dr. Bae. Slept reasonably well previous evening. REVIEW OF SYSTEMS: No CV, , pulmonary, eye, ENT system symptoms on review. Reliability poor. Gait, in wheelchair. MENTAL STATUS EXAM: Oriented to himself. Insight, judgment, recent and remote memory, attention, concentration, fund of knowledge poor, consistent with his diagnosis mentioned in my initial note. IMPRESSION: Major neurocognitive disorder, Alzheimer, vascular with delusion, depression, behavioral disturbance. PLAN: Risperdal is being tapered. Luvox increased for his obsessive, repetitive compulsive behaviors. Maintain Remeron and melatonin. MAN Laverne RIZVI MD DR: YESSENIA/linnette JOB#: [id number] / [id number]
[2017-06-11] MEDS: DIVALPROEX 125 MG CAP.SPRINK PO SCH ×2 (12:30→17:34)
[2017-06-11 16:33] VITALS: BP 149/80
[2017-06-11] MEDS ORDERED: MAGNESIUM CITRATE 296 ML SOLUTION. PO PRN (18:15)
[2017-06-11] MEDS: ATORVASTATIN CALCIUM 20 MG TABLET PO SCH (19:10)
[2017-06-11] MEDS: MIRTAZAPINE 7.5 MG TABLET. PO SCH (19:10)
--- NOTE | 2017-06-11 19:35 | PDOC ---
Exam Note: Jordy Note: Please also refer to the separate dictated note~for this date of service dictated separately.~Patient seen individually. Discussed the patient with Nursing staff reviewed the chart.~Reviewed interim history and current functioning. Reviewed vital signs,~Labs/ Radiology~and current medications noted below. Continue current treatment with the changes noted in the dictated addendum note Assessment: Vital Signs: Vital Signs Date Time Temp Pulse Resp B/P (MAP) Pulse Ox O2 Delivery O2 Flow Rate FiO2 06/11/17 19:12 60 149/80 06/11/17 16:33 97.4 20 97 06/06/17 16:28 Room Air I&O Intake and Output 06/11/17 07:00 Intake Total 820 ml Balance 820 ml Intake Oral 820 ml # Voids 2 Current Medications: Meds: Current Medications Acetaminophen (Tylenol) 650 mg PRN Q6HRS PRN PO PAIN / TEMP; Start 06/05/17 at 22:15 Multi-Ingredient Ointment (Analgesic [place]) 1 feliciano PRN QID PRN TP MUSCLE PAIN; Start 06/05/17 at 22:15 Al Hydroxide/Mg Hydroxide (Mylanta Plus Xs) 15 ml PRN AFTMEALHC PRN PO DYSPEPSIA; Start 06/05/17 at 22:15 Magnesium Hydroxide (Milk Of Magnesia) 2,400 mg PRN QHS PRN PO CONSTIPATION Last administered on 06/11/17at 05:51; Start 06/05/17 at 22:15 Risperidone (RisperDAL) 1 mg BID PO Last administered on 06/07/17at 08:17; Start 06/06/17 at 09:00; Stop 06/07/17 at 17:15; Status DC Citalopram Hydrobromide (CeleXA) 20 mg DAILY PO Last administered on 06/07/17at 08:16; Start 06/06/17 at 09:00; Stop 06/07/17 at 18:54; Status DC Melatonin 3 mg PRN QHS PRN PO INSOMNIA; Start 06/05/17 at 22:30 Lorazepam (Ativan Intensol) Give 0.5 ml sublingually every ... PRN Q2HR PRN SL ANXIETY / AGITATION; Start 06/05/17 at 22:30; Status UNV Lorazepam (Ativan) 1 mg PRN Q2HR PRN PO ANXIETY / AGITATION; Start 06/05/17 at 22:45; Stop 06/10/17 at 18:30; Status DC Lorazepam (Ativan) 2 mg PRN Q2HR PRN PO ANXIETY / AGITATION; Start 06/05/17 at 22:45; Stop 06/10/17 at 18:30; Status DC Acetaminophen (Tylenol) 650 mg PRN Q4HRS PRN PO PAIN / TEMP; Start 06/06/17 at 10:30 Amlodipine Besylate (Norvasc) 10 mg DAILY PO Last administered on 06/11/17at 09: 13; Start 06/06/17 at 12:00 Apixaban (Eliquis) 5 mg BID PO Last administered on 06/11/17 19:10; Start at 21:00 Atorvastatin Calcium (Lipitor) 20 mg QHS PO Last administered on 06/11/17 19: 10; Start 06/06/17 at 21:00 Levothyroxine Sodium (Synthroid) 25 mcg DAILYAC PO Last administered on at 07:49; Start 06/07/17 at 07:30; Stop 06/11/17 at 07:33; Status DC Losartan Potassium (Cozaar) 25 mg DAILY PO Last administered on 06/11/17 09:12 ; Start 06/06/17 at 12:00 Nystatin (Mycostatin) 1 feliciano BID TP Last administered on 06/11/17 09:15; Start 06/06/17 at 21:00; Stop 06/11/17 at 09:19; Status DC Polyethylene Glycol (miraLAX) 17 gm PRN DAILY PRN PO CONSTIPATION; Start at 10:39 Sotalol HCl (Betapace) 80 mg BID PO Last administered on 06/11/17at 19:12; Start 06/06/17 at 21:00 Tramadol HCl (Ultram) 50 mg DAILY PO Last administered on 06/11/17at 09:12; Start 06/06/17 at 12:00 Tramadol HCl (Ultram) 50 mg PRN Q8HRS PRN PO PAIN; Start 06/06/17 at 10:30 Vitamin D (Vitamin D3) 50,000 unit WEEKLY PO ; Start 06/12/17 at 09:00 Multivitamins/ Calcium (Thera-M Plus) 1 tab DAILY PO Last administered on 09:13; Start 06/06/17 at 12:00 Vitamin B Complex 1 cap DAILY PO Last administered on 06/11/17 09:11; Start at 12:00 Warfarin Sodium (Coumadin Per Pharmacy) 1 each PRN DAILY PRN MC SEE COMMENTS; Start 06/07/17 at 14:00; Status UNV Risperidone (RisperDAL) 0.5 mg BID PO Last administered on 06/08/17 08:03; Start 06/07/17 at 21:00; Stop 06/08/17 at 19:26; Status DC Mirtazapine (Remeron) 7.5 mg QHS PO Last administered on 06/11/17 19:10; Start 06/07/17 at 21:00 Fluvoxamine Maleate (Luvox) 25 mg DAILY PO Last administered on 06/09/17 07:49 ; Start 06/08/17 at 09:00; Stop 06/10/17 at 08:59; Status DC Fluvoxamine Maleate (Luvox) 50 mg DAILY PO Last administered on 06/11/17 09:13 ; Start 06/10/17 at 09:00 Risperidone (RisperDAL) 0.25 mg BID PO Last administered on 06/11/17 19:10; Start 06/08/17 at 21:00; Stop 06/12/17 at 08:59 Lorazepam (Ativan) 0.25 mg PRN Q2HR PRN PO ANXIETY / AGITATION Last administered on 06/11/17 06:59; Start 06/10/17 at 18:30 Risperidone (RisperDAL) 0.25 mg DAILY PO ; Start 06/12/17 at 09:00; Stop at 08:59 Levothyroxine Sodium (Synthroid) 25 mcg DAILY06 PO Last administered on 07:47; Start 06/11/17 at 07:45 Nystatin (Nystop) 1 feliciano BID TP Last administered on 06/11/17 09:48; Start at 09:30 Divalproex Sodium (Depakote Sprinkles) 125 mg TID@0900,1300,1700 PO Last administered on 2/27/18at 17:34; Start 06/11/17 at 13:00 Docusate Sodium (Colace) 100 mg BID PO ; Start 06/11/17 at 21:00 Polyethylene Glycol (miraLAX) 17 gm DAILY PO ; Start 06/12/17 at 09:00 Magnesium Citrate (Citroma) 296 ml PRN 1X PRN PO CONSTIPATION; Start 06/11/17 at 18:15 Active Scripts Active Reported Vitamin B Complex 1 Each Tablet 1 Tab PO DAILY Tramadol Hcl (Tramadol HCl) 50 Mg Tablet 50 Mg PO DAILY Tramadol Hcl (Tramadol HCl) 50 Mg Tablet 50 Mg PO PRN Q4HRS PRN Sotalol (Sotalol Hcl) 80 Mg Tablet 80 Mg PO BID Risperidone 1 Mg Tablet 1 Mg PO BID Polyethylene Glycol 3350 255 Gm Powder 17 Gm PO PRN DAILY PRN Nystatin 15 Gm Cream..g. 1 Feliciano TP BID Centrum Flavor Burst Adult (Multivit with Minerals No.55) 1 Each Tab.chew 1 Tab PO DAILY Melatonin 3 Mg Tablet 3 Mg PO PRN QHS PRN Losartan Potassium 25 Mg Tablet 25 Mg PO DAILY Lorazepam Intensol (Lorazepam) 2 Mg/1 Ml Oral.conc 0.5-1 Ml SL PRN Q2HR PRN Escitalopram Oxalate 10 Mg Tablet 10 Mg PO DAILY Levothyroxine Sodium 25 Mcg Tablet 25 Mcg PO DAILYAC Vitamin D2 (Ergocalciferol (Vitamin D2)) 50,000 Unit Capsule 50,000 Unit PO WEEKLY Eliquis (Apixaban) 5 Mg Tablet 5 Mg PO BID Atorvastatin Calcium 20 Mg Tablet 20 Mg PO QHS Amlodipine Besylate 10 Mg Tablet 10 Mg PO DAILY Tylenol (Acetaminophen) 325 Mg Tablet 650 Mg PO PRN Q4HRS PRN I have reviewed the current psychotropics carefully including drug interactions. Risk benefit ratio favors no change other than as noted in my dictated progress note. 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
[2017-06-11] MEDS: DOCUSATE SODIUM 100 MG CAPSULE PO SCH (21:00)
[2017-06-12] MEDS: NYSTATIN TOPICAL POWDER 15GM BOTTLE. TP SCH ×3 (05:04→21:16)
[2017-06-12 06:10] VITALS: BP 123/70
[2017-06-12] MEDS: LEVOTHYROXINE 25 MCG TABLET. PO SCH (06:44)
[2017-06-12] MEDS: DIVALPROEX 125 MG CAP.SPRINK PO SCH ×3 (08:39→17:01)
[2017-06-12] MEDS: MULTIVITAMIN with MINERAL TABLET. PO SCH (08:39)
[2017-06-12] MEDS: VITAMIN B COMPLEX CAPSULE. PO SCH (08:40)
[2017-06-12] MEDS: DOCUSATE SODIUM 100 MG CAPSULE PO SCH ×2 (08:40→21:13)
[2017-06-12] MEDS: APIXABAN 5 MG TABLET. PO SCH ×2 (08:40→21:14)
[2017-06-12] MEDS: risperiDONE 0.25 MG TABLET. PO SCH (08:40)
[2017-06-12] MEDS: amLODIPine BESYLATE 10 MG TABLET PO SCH (08:41)
[2017-06-12] MEDS: LOSARTAN 25 MG TABLET. PO SCH (08:41)
[2017-06-12] MEDS: SOTALOL 80 MG TABLET. PO SCH ×2 (08:43→21:14)
[2017-06-12] MEDS: POLYETHYLENE GLYCOL 3350 17 GM PACKET. PO SCH (08:44)
[2017-06-12] MEDS: traMADol 50 MG TABLET PO SCH (08:44)
[2017-06-12] MEDS: CHOLECALCIFEROL (VITAMIN D3) 50,000 UNIT CAPSULE PO SCH (08:44)
[2017-06-12 09:51] LABS: BASO % 1 % (0-3); EOS # 0.3 x10^3/uL (0.0-0.7); EOS % 6 % (0-3); HEMATOCRIT 37.5 % (39.0-53.0); HEMOGLOBIN 12.9 g/dL (13.0-17.5); LYMPH # 0.9 x10^3/uL (1.0-4.8); LYMPH % 18 % (24-48); MEAN CORPUSCULAR HEMOGLOBIN 31 pg (25-35); MEAN CORPUSCULAR HGB CONC 34 g/dL (31-37); MEAN CORPUSCULAR VOLUME 91 fL (79-100); MONO # 0.5 x10^3/uL (0.0-1.1); MONO % 10 % (0-9); NEUT # 3.1 x10^3uL (1.8-7.7); NEUT % 65 % (31-73); PLATELET COUNT 256 x10^3/uL (140-400); RED BLOOD COUNT 4.15 x10^6/uL (4.30-5.70); RED CELL DISTRIBUTION WIDTH 13.9 % (11.5-14.5); WHITE BLOOD COUNT 4.8 x10^3/uL (4.0-11.0)
[2017-06-12 10:11] LABS: ALBUMIN 2.9 g/dL (3.4-5.0); ALBUMIN/GLOBULIN RATIO 0.7 (1.0-1.7); CALCIUM 8.4 mg/dL (8.5-10.1); CREATININE 1.1 mg/dL (0.7-1.3); GFR 64.9; POTASSIUM 3.6 mmol/L (3.5-5.1); TOTAL BILIRUBIN 0.5 mg/dL (0.2-1.0); TOTAL PROTEIN 7.1 g/dL (6.4-8.2)
--- NOTE | 2017-06-12 11:22 | PN ---
DATE: 06/10/2017 This late entry, 06/10/2017, covers elements not covered in my initial note of 06/10/2017. SUBJECTIVE: I met with the patient the evening of 06/10/2017. The patient slept 8 hours previous evening, quite irritable previous night, resistive to medications, combative, yelling out at times. REVIEW OF SYSTEMS: Ambulation impaired, in Broda chair. No CV, , pulmonary, eye, ENT system symptoms on review. Reliability poor. MENTAL STATUS EXAM: Oriented to himself. Insight, judgment, recent and remote memory, attention, concentration, fund of knowledge poor, consistent with his diagnosis mentioned in my initial note. IMPRESSION: Major neurocognitive disorder, vascular with delusion, depression, behavioral disturbance. Rest unchanged. PLAN: Continued to increase the Luvox and taper the Risperdal, especially given his CVA and vascular dementia. At the time of this dictation, the patient's yelling and mood lability has been much worse and we will start him on Depakote and gradually adjust this to reach a therapeutic level. Follow CBC, CMP, valproic acid level and taper and stop the Risperdal as noted. We are also tapering the Ativan. HANDY RIZVI MD DR: YESSENIA/linnette JOB#: [id number] / [id number]
[2017-06-12] MEDS: LORazepam 0.5 MG TABLET PO PRN (15:22)
[2017-06-12 15:54] VITALS: BP 133/71
--- NOTE | 2017-06-12 19:56 | PDOC ---
Exam Note: Jordy Note: Please also refer to the separate dictated note~for this date of service dictated separately.~Patient seen individually. Discussed the patient with Nursing staff reviewed the chart.~Reviewed interim history and current functioning. Reviewed vital signs,~Labs/ Radiology~and current medications noted below. Continue current treatment with the changes noted in the dictated addendum note Assessment: Vital Signs: Vital Signs Date Time Temp Pulse Resp B/P (MAP) Pulse Ox O2 Delivery O2 Flow Rate FiO2 06/12/17 15:54 98.6 62 18 133/71 (91) 93 06/06/17 16:28 Room Air I&O Intake and Output 06/12/17 07:00 Intake Total 340 ml Balance 340 ml Intake Oral 340 ml # Voids 2 # Bowel Movements 1 Labs: Laboratory Tests Test 06/12/17 09:33 White Blood Count 4.8 x10^3/uL (4.0-11.0) Red Blood Count 4.15 x10^6/uL (4.30-5.70) L Hemoglobin 12.9 g/dL (13.0-17.5) L Hematocrit 37.5 % (39.0-53.0) L Mean Corpuscular Volume 91 fL (79-100) Mean Corpuscular Hemoglobin 31 pg (25-35) Mean Corpuscular Hemoglobin Concent 34 g/dL (31-37) Red Cell Distribution Width 13.9 % (11.5-14.5) Platelet Count 256 x10^3/uL (140-400) Neutrophils (%) (Auto) 65 % (31-73) Lymphocytes (%) (Auto) 18 % (24-48) L Monocytes (%) (Auto) 10 % (0-9) H Eosinophils (%) (Auto) 6 % (0-3) H Basophils (%) (Auto) 1 % (0-3) Neutrophils # (Auto) 3.1 x10^3uL (1.8-7.7) Lymphocytes # (Auto) 0.9 x10^3/uL (1.0-4.8) L Monocytes # (Auto) 0.5 x10^3/uL (0.0-1.1) Eosinophils # (Auto) 0.3 x10^3/uL (0.0-0.7) Basophils # (Auto) 0.0 x10^3/uL (0.0-0.2) Sodium Level 137 mmol/L (136-145) Potassium Level 3.6 mmol/L (3.5-5.1) Chloride Level 100 mmol/L (98-107) Carbon Dioxide Level 32 mmol/L (21-32) Anion Gap 5 (6-14) L Blood Urea Nitrogen 16 mg/dL (8-26) Creatinine 1.1 mg/dL (0.7-1.3) Estimated GFR (Cockcroft-Gault) 64.9 BUN/Creatinine Ratio 15 (6-20) Glucose Level 116 mg/dL (70-99) H Calcium Level 8.4 mg/dL (8.5-10.1) L Magnesium Level 2.0 mg/dL (1.8-2.4) Total Bilirubin 0.5 mg/dL (0.2-1.0) Aspartate Amino Transferase (AST) 23 U/L (15-37) Alanine Aminotransferase (ALT) 25 U/L (16-63) Alkaline Phosphatase 54 U/L (46-116) Total Protein 7.1 g/dL (6.4-8.2) Albumin 2.9 g/dL (3.4-5.0) L Albumin/Globulin Ratio 0.7 (1.0-1.7) L Current Medications: Meds: Current Medications Acetaminophen (Tylenol) 650 mg PRN Q6HRS PRN PO PAIN / TEMP; Start 06/05/17 at 22:15 Multi-Ingredient Ointment (Analgesic [place]) 1 feliciano PRN QID PRN TP MUSCLE PAIN; Start 06/05/17 at 22:15 Al Hydroxide/Mg Hydroxide (Mylanta Plus Xs) 15 ml PRN AFTMEALHC PRN PO DYSPEPSIA; Start 06/05/17 at 22:15 Magnesium Hydroxide (Milk Of Magnesia) 2,400 mg PRN QHS PRN PO CONSTIPATION Last administered on 06/11/17at 05:51; Start 06/05/17 at 22:15 Risperidone (RisperDAL) 1 mg BID PO Last administered on 06/07/17at 08:17; Start 06/06/17 at 09:00; Stop 06/07/17 at 17:15; Status DC Citalopram Hydrobromide (CeleXA) 20 mg DAILY PO Last administered on 06/07/17at 08:16; Start 06/06/17 at 09:00; Stop 06/07/17 at 18:54; Status DC Melatonin 3 mg PRN QHS PRN PO INSOMNIA; Start 06/05/17 at 22:30 Lorazepam (Ativan Intensol) Give 0.5 ml sublingually every ... PRN Q2HR PRN SL ANXIETY / AGITATION; Start 06/05/17 at 22:30; Status UNV Lorazepam (Ativan) 1 mg PRN Q2HR PRN PO ANXIETY / AGITATION; Start 06/05/17 at 22:45; Stop 06/10/17 at 18:30; Status DC Lorazepam (Ativan) 2 mg PRN Q2HR PRN PO ANXIETY / AGITATION; Start 06/05/17 at 22:45; Stop 06/10/17 at 18:30; Status DC Acetaminophen (Tylenol) 650 mg PRN Q4HRS PRN PO PAIN / TEMP; Start 06/06/17 at 10:30 Amlodipine Besylate (Norvasc) 10 mg DAILY PO Last administered on 06/12/17at 08: 41; Start 06/06/17 at 12:00 Apixaban (Eliquis) 5 mg BID PO Last administered on 06/12/17 08:40; Start at 21:00 Atorvastatin Calcium (Lipitor) 20 mg QHS PO Last administered on 06/11/17at 19: 10; Start 06/06/17 at 21:00 Levothyroxine Sodium (Synthroid) 25 mcg DAILYAC PO Last administered on 07:49; Start 06/07/17 at 07:30; Stop 06/11/17 at 07:33; Status DC Losartan Potassium (Cozaar) 25 mg DAILY PO Last administered on 06/12/17 08:41 ; Start 06/06/17 at 12:00 Nystatin (Mycostatin) 1 feliciano BID TP Last administered on 06/11/17at 09:15; Start 06/06/17 at 21:00; Stop 06/11/17 at 09:19; Status DC Polyethylene Glycol (miraLAX) 17 gm PRN DAILY PRN PO CONSTIPATION; Start at 10:39 Sotalol HCl (Betapace) 80 mg BID PO Last administered on 06/12/17 08:43; Start 06/06/17 at 21:00 Tramadol HCl (Ultram) 50 mg DAILY PO Last administered on 06/12/17 08:44; Start 06/06/17 at 12:00 Tramadol HCl (Ultram) 50 mg PRN Q8HRS PRN PO PAIN; Start 06/06/17 at 10:30 Vitamin D (Vitamin D3) 50,000 unit WEEKLY PO Last administered on 06/12/17 08: 44; Start 06/12/17 at 09:00 Multivitamins/ Calcium (Thera-M Plus) 1 tab DAILY PO Last administered on 08:39; Start 06/06/17 at 12:00 Vitamin B Complex 1 cap DAILY PO Last administered on 06/12/17 08:40; Start at 12:00 Warfarin Sodium (Coumadin Per Pharmacy) 1 each PRN DAILY PRN MC SEE COMMENTS; Start 06/07/17 at 14:00; Status UNV Risperidone (RisperDAL) 0.5 mg BID PO Last administered on 06/08/17 08:03; Start 06/07/17 at 21:00; Stop 06/08/17 at 19:26; Status DC Mirtazapine (Remeron) 7.5 mg QHS PO Last administered on 06/11/17 19:10; Start 06/07/17 at 21:00 Fluvoxamine Maleate (Luvox) 25 mg DAILY PO Last administered on 06/09/17 07:49 ; Start 06/08/17 at 09:00; Stop 06/10/17 at 08:59; Status DC Fluvoxamine Maleate (Luvox) 50 mg DAILY PO Last administered on 06/12/17 08:40 ; Start 06/10/17 at 09:00 Risperidone (RisperDAL) 0.25 mg BID PO Last administered on 06/11/17 19:10; Start 06/08/17 at 21:00; Stop 06/12/17 at 08:59; Status DC Lorazepam (Ativan) 0.25 mg PRN Q2HR PRN PO ANXIETY / AGITATION Last administered on 06/12/17 15:22; Start 06/10/17 at 18:30 Risperidone (RisperDAL) 0.25 mg DAILY PO Last administered on 06/12/17 08:40; Start 06/12/17 at 09:00; Stop 06/15/17 at 08:59 Levothyroxine Sodium (Synthroid) 25 mcg DAILY06 PO Last administered on at 06:44; Start 06/11/17 at 07:45 Nystatin (Nystop) 1 feliciano BID TP Last administered on 06/12/17at 08:39; Start at 09:30 Divalproex Sodium (Depakote Sprinkles) 125 mg TID@0900,1300,1700 PO Last administered on 06/12/17 17:01; Start 06/11/17 at 13:00 Docusate Sodium (Colace) 100 mg BID PO Last administered on 06/12/17at 08:40; Start 06/11/17 at 21:00 Polyethylene Glycol (miraLAX) 17 gm DAILY PO Last administered on 06/12/17at 08: 44; Start 06/12/17 at 09:00 Magnesium Citrate (Citroma) 296 ml PRN 1X PRN PO CONSTIPATION; Start 06/11/17 at 18:15 Active Scripts Active Reported Vitamin B Complex 1 Each Tablet 1 Tab PO DAILY Tramadol Hcl (Tramadol HCl) 50 Mg Tablet 50 Mg PO DAILY Tramadol Hcl (Tramadol HCl) 50 Mg Tablet 50 Mg PO PRN Q4HRS PRN Sotalol (Sotalol Hcl) 80 Mg Tablet 80 Mg PO BID Risperidone 1 Mg Tablet 1 Mg PO BID Polyethylene Glycol 3350 255 Gm Powder 17 Gm PO PRN DAILY PRN Nystatin 15 Gm Cream..g. 1 Feliciano TP BID Centrum Flavor Burst Adult (Multivit with Minerals No.55) 1 Each Tab.chew 1 Tab PO DAILY Melatonin 3 Mg Tablet 3 Mg PO PRN QHS PRN Losartan Potassium 25 Mg Tablet 25 Mg PO DAILY Lorazepam Intensol (Lorazepam) 2 Mg/1 Ml Oral.conc 0.5-1 Ml SL PRN Q2HR PRN Escitalopram Oxalate 10 Mg Tablet 10 Mg PO DAILY Levothyroxine Sodium 25 Mcg Tablet 25 Mcg PO DAILYAC Vitamin D2 (Ergocalciferol (Vitamin D2)) 50,000 Unit Capsule 50,000 Unit PO WEEKLY Eliquis (Apixaban) 5 Mg Tablet 5 Mg PO BID Atorvastatin Calcium 20 Mg Tablet 20 Mg PO QHS Amlodipine Besylate 10 Mg Tablet 10 Mg PO DAILY Tylenol (Acetaminophen) 325 Mg Tablet 650 Mg PO PRN Q4HRS PRN I have reviewed the current psychotropics carefully including drug interactions. Risk benefit ratio favors no change other than as noted in my dictated progress note. Diagnosis: Problems: (1) Anxiety disorder (2) Agitation (3) Confusion (4) Panic disorder with agoraphobia and severe panic attacks (5) Dementia in Alzheimer's disease with delusions (6) Dementia in Alzheimer's disease with depression (7) Dementia, vascular, with delusions (8) Dementia, vascular, with depression (9) Impulse control disorder HANDY RIZVI MD Jun 12, 2017 19:56
[2017-06-12] MEDS: ATORVASTATIN CALCIUM 20 MG TABLET PO SCH (21:14)
[2017-06-12] MEDS: MIRTAZAPINE 7.5 MG TABLET. PO SCH (21:14)
[2017-06-13 05:39] VITALS: BP 121/66
[2017-06-13] MEDS: LEVOTHYROXINE 25 MCG TABLET. PO SCH (06:31)
--- NOTE | 2017-06-13 07:35 | PN ---
DATE: 06/11/2017 This is a late entry for 06/11/2017 and covers elements not covered in my initial note of 06/11/2017. I met with the patient the evening of 06/11/2017. The patient slept 9 hours previous evening. He was extremely loud, disruptive, yelling constantly from 6:00 a.m. to 8:00 a.m. Received Ativan at 6:50 a.m., then little better, saying he needs to go to work. REVIEW OF SYSTEMS: Ambulation impaired, in Broda chair. No CV, , pulmonary, eye, ENT system symptoms on review. Reliability poor. MENTAL STATUS EXAM: Oriented to himself. Insight, judgment, recent and remote memory, attention, concentration, fund of knowledge poor, consistent with his diagnosis as mentioned in my initial note. IMPRESSION: Major neurocognitive disorder, Alzheimer, vascular with depression, delusion, behavioral disturbance. Rest unchanged. PLAN: The patient's Risperdal is being tapered, Luvox adjusted for his OCD and Depakote adjusted poor impulse control problems. MAN Laverne RIZVI MD DR: YESSENIA/linnette JOB#: [id number] / [id number]
[2017-06-13] MEDS: VITAMIN B COMPLEX CAPSULE. PO SCH (08:28)
[2017-06-13] MEDS: DIVALPROEX 125 MG CAP.SPRINK PO SCH ×3 (08:28→16:57)
[2017-06-13] MEDS: DOCUSATE SODIUM 100 MG CAPSULE PO SCH ×2 (08:28→20:11)
[2017-06-13] MEDS: risperiDONE 0.25 MG TABLET. PO SCH (08:28)
[2017-06-13] MEDS: APIXABAN 5 MG TABLET. PO SCH ×2 (08:29→20:11)
[2017-06-13] MEDS: traMADol 50 MG TABLET PO SCH (08:29)
[2017-06-13] MEDS: amLODIPine BESYLATE 10 MG TABLET PO SCH (08:29)
[2017-06-13] MEDS: POLYETHYLENE GLYCOL 3350 17 GM PACKET. PO SCH (08:30)
[2017-06-13] MEDS: MULTIVITAMIN with MINERAL TABLET. PO SCH (08:30)
[2017-06-13] MEDS: LOSARTAN 25 MG TABLET. PO SCH (08:30)
[2017-06-13] MEDS: NYSTATIN TOPICAL POWDER 15GM BOTTLE. TP SCH ×2 (08:31→21:30)
[2017-06-13] MEDS: SOTALOL 80 MG TABLET. PO SCH ×2 (08:31→20:11)
[2017-06-13] MEDS: QUEtiapine 25 MG TABLET. PO SCH ×2 (12:06→16:57)
[2017-06-13 15:43] VITALS: BP 146/71
--- NOTE | 2017-06-13 20:08 | PDOC ---
Exam Note: Jordy Note: Please also refer to the separate dictated note~for this date of service dictated separately.~Patient seen individually. Discussed the patient with Nursing staff reviewed the chart.~Reviewed interim history and current functioning. Reviewed vital signs,~Labs/ Radiology~and current medications noted below. Continue current treatment with the changes noted in the dictated addendum note Assessment: Vital Signs: Vital Signs Date Time Temp Pulse Resp B/P (MAP) Pulse Ox O2 Delivery O2 Flow Rate FiO2 06/13/17 15:43 98.0 62 19 146/71 (96) 98 Room Air I&O Intake and Output 06/13/17 07:00 Intake Total 960 ml Balance 960 ml Intake Oral 960 ml # Bowel Movements 2 Current Medications: Meds: Current Medications Acetaminophen (Tylenol) 650 mg PRN Q6HRS PRN PO PAIN / TEMP; Start 06/05/17 at 22:15 Multi-Ingredient Ointment (Analgesic [place]) 1 feliciano PRN QID PRN TP MUSCLE PAIN; Start 06/05/17 at 22:15 Al Hydroxide/Mg Hydroxide (Mylanta Plus Xs) 15 ml PRN AFTMEALHC PRN PO DYSPEPSIA; Start 06/05/17 at 22:15 Magnesium Hydroxide (Milk Of Magnesia) 2,400 mg PRN QHS PRN PO CONSTIPATION Last administered on 06/11/17at 05:51; Start 06/05/17 at 22:15 Risperidone (RisperDAL) 1 mg BID PO Last administered on 06/07/17at 08:17; Start 06/06/17 at 09:00; Stop 06/07/17 at 17:15; Status DC Citalopram Hydrobromide (CeleXA) 20 mg DAILY PO Last administered on 06/07/17at 08:16; Start 06/06/17 at 09:00; Stop 06/07/17 at 18:54; Status DC Melatonin 3 mg PRN QHS PRN PO INSOMNIA; Start 06/05/17 at 22:30 Lorazepam (Ativan Intensol) Give 0.5 ml sublingually every ... PRN Q2HR PRN SL ANXIETY / AGITATION; Start 06/05/17 at 22:30; Status UNV Lorazepam (Ativan) 1 mg PRN Q2HR PRN PO ANXIETY / AGITATION; Start 06/05/17 at 22:45; Stop 06/10/17 at 18:30; Status DC Lorazepam (Ativan) 2 mg PRN Q2HR PRN PO ANXIETY / AGITATION; Start 06/05/17 at 22:45; Stop 06/10/17 at 18:30; Status DC Acetaminophen (Tylenol) 650 mg PRN Q4HRS PRN PO PAIN / TEMP; Start 06/06/17 at 10:30 Amlodipine Besylate (Norvasc) 10 mg DAILY PO Last administered on 06/13/17 08: 29; Start 06/06/17 at 12:00 Apixaban (Eliquis) 5 mg BID PO Last administered on 06/13/17 08:29; Start 06/06 at 21:00 Atorvastatin Calcium (Lipitor) 20 mg QHS PO Last administered on 06/12/17at 21: 14; Start 06/06/17 at 21:00 Levothyroxine Sodium (Synthroid) 25 mcg DAILYAC PO Last administered on at 07:49; Start 06/07/17 at 07:30; Stop 06/11/17 at 07:33; Status DC Losartan Potassium (Cozaar) 25 mg DAILY PO Last administered on 06/13/17 08:30 ; Start 06/06/17 at 12:00 Nystatin (Mycostatin) 1 feliciano BID TP Last administered on 06/11/17at 09:15; Start 06/06/17 at 21:00; Stop 06/11/17 at 09:19; Status DC Polyethylene Glycol (miraLAX) 17 gm PRN DAILY PRN PO CONSTIPATION; Start at 10:39 Sotalol HCl (Betapace) 80 mg BID PO Last administered on 06/13/17at 08:31; Start 06/06/17 at 21:00 Tramadol HCl (Ultram) 50 mg DAILY PO Last administered on 06/13/17 08:29; Start 06/06/17 at 12:00 Tramadol HCl (Ultram) 50 mg PRN Q8HRS PRN PO PAIN; Start 06/06/17 at 10:30 Vitamin D (Vitamin D3) 50,000 unit WEEKLY PO Last administered on 06/12/17at 08: 44; Start 06/12/17 at 09:00 Multivitamins/ Calcium (Thera-M Plus) 1 tab DAILY PO Last administered on 08:30; Start 06/06/17 at 12:00 Vitamin B Complex 1 cap DAILY PO Last administered on 06/13/17 08:28; Start at 12:00 Warfarin Sodium (Coumadin Per Pharmacy) 1 each PRN DAILY PRN MC SEE COMMENTS; Start 06/07/17 at 14:00; Status UNV Risperidone (RisperDAL) 0.5 mg BID PO Last administered on 06/08/17 08:03; Start 06/07/17 at 21:00; Stop 06/08/17 at 19:26; Status DC Mirtazapine (Remeron) 7.5 mg QHS PO Last administered on 06/12/17at 21:14; Start 06/07/17 at 21:00 Fluvoxamine Maleate (Luvox) 25 mg DAILY PO Last administered on 06/09/17 07:49 ; Start 06/08/17 at 09:00; Stop 06/10/17 at 08:59; Status DC Fluvoxamine Maleate (Luvox) 50 mg DAILY PO Last administered on 06/13/17 08:28 ; Start 06/10/17 at 09:00 Risperidone (RisperDAL) 0.25 mg BID PO Last administered on 06/11/17 19:10; Start 06/08/17 at 21:00; Stop 06/12/17 at 08:59; Status DC Lorazepam (Ativan) 0.25 mg PRN Q2HR PRN PO ANXIETY / AGITATION Last administered on 06/12/17at 15:22; Start 06/10/17 at 18:30 Risperidone (RisperDAL) 0.25 mg DAILY PO Last administered on 06/13/17 08:28; Start 06/12/17 at 09:00; Stop 06/15/17 at 08:59 Levothyroxine Sodium (Synthroid) 25 mcg DAILY06 PO Last administered on 06:31; Start 06/11/17 at 07:45 Nystatin (Nystop) 1 feliciano BID TP Last administered on 06/13/17 08:31; Start 06/11 at 09:30 Divalproex Sodium (Depakote Sprinkles) 125 mg TID@0900,1300,1700 PO Last administered on 06/13/17at 16:57; Start 06/11/17 at 13:00 Docusate Sodium (Colace) 100 mg BID PO Last administered on 06/13/17at 08:28; Start 06/11/17 at 21:00 Polyethylene Glycol (miraLAX) 17 gm DAILY PO Last administered on 06/13/17at 08: 30; Start 06/12/17 at 09:00 Magnesium Citrate (Citroma) 296 ml PRN 1X PRN PO CONSTIPATION; Start 06/11/17 at 18:15 Quetiapine Fumarate (SEROquel) 12.5 mg TID@0600,1200,1700 PO Last administered on 06/13/17at 16:57; Start 06/13/17 at 12:00; Stop 06/13/17 at 19:16; Status DC Quetiapine Fumarate (SEROquel) 12.5 mg DAILY@1200 PO ; Start 06/14/17 at 12:00 Quetiapine Fumarate (SEROquel) 25 mg BID@0600,1700 PO ; Start 06/14/17 at 06:00 Active Scripts Active Reported Vitamin B Complex 1 Each Tablet 1 Tab PO DAILY Tramadol Hcl (Tramadol HCl) 50 Mg Tablet 50 Mg PO DAILY Tramadol Hcl (Tramadol HCl) 50 Mg Tablet 50 Mg PO PRN Q4HRS PRN Sotalol (Sotalol Hcl) 80 Mg Tablet 80 Mg PO BID Risperidone 1 Mg Tablet 1 Mg PO BID Polyethylene Glycol 3350 255 Gm Powder 17 Gm PO PRN DAILY PRN Nystatin 15 Gm Cream..g. 1 Feliciano TP BID Centrum Flavor Burst Adult (Multivit with Minerals No.55) 1 Each Tab.chew 1 Tab PO DAILY Melatonin 3 Mg Tablet 3 Mg PO PRN QHS PRN Losartan Potassium 25 Mg Tablet 25 Mg PO DAILY Lorazepam Intensol (Lorazepam) 2 Mg/1 Ml Oral.conc 0.5-1 Ml SL PRN Q2HR PRN Escitalopram Oxalate 10 Mg Tablet 10 Mg PO DAILY Levothyroxine Sodium 25 Mcg Tablet 25 Mcg PO DAILYAC Vitamin D2 (Ergocalciferol (Vitamin D2)) 50,000 Unit Capsule 50,000 Unit PO WEEKLY Eliquis (Apixaban) 5 Mg Tablet 5 Mg PO BID Atorvastatin Calcium 20 Mg Tablet 20 Mg PO QHS Amlodipine Besylate 10 Mg Tablet 10 Mg PO DAILY Tylenol (Acetaminophen) 325 Mg Tablet 650 Mg PO PRN Q4HRS PRN I have reviewed the current psychotropics carefully including drug interactions. Risk benefit ratio favors no change other than as noted in my dictated progress note. Diagnosis: Problems: (1) Anxiety disorder (2) Agitation (3) Confusion (4) Panic disorder with agoraphobia and severe panic attacks (5) Dementia in Alzheimer's disease with delusions (6) Dementia in Alzheimer's disease with depression (7) Dementia, vascular, with delusions (8) Dementia, vascular, with depression (9) Impulse control disorder HANDY RIZVI MD Jun 13, 2017 20:08
[2017-06-13] MEDS: ATORVASTATIN CALCIUM 20 MG TABLET PO SCH (20:11)
[2017-06-13] MEDS: MIRTAZAPINE 7.5 MG TABLET. PO SCH (20:11)
[2017-06-13] MEDS: traMADol 50 MG TABLET PO PRN (20:15)
[2017-06-14] MEDS: LEVOTHYROXINE 25 MCG TABLET. PO SCH (06:07)
[2017-06-14] MEDS: QUEtiapine 25 MG TABLET. PO SCH ×3 (06:07→17:46)
[2017-06-14] MEDS ORDERED: QUEtiapine 25 MG TABLET. PO ONE (07:15)
[2017-06-14 10:21] VITALS: BP 118/55
[2017-06-14] MEDS: LOSARTAN 25 MG TABLET. PO SCH (10:21)
[2017-06-14] MEDS: MULTIVITAMIN with MINERAL TABLET. PO SCH (10:21)
[2017-06-14] MEDS: DIVALPROEX 125 MG CAP.SPRINK PO SCH ×3 (10:22→17:46)
[2017-06-14] MEDS: SOTALOL 80 MG TABLET. PO SCH ×2 (10:22→20:41)
[2017-06-14] MEDS: DOCUSATE SODIUM 100 MG CAPSULE PO SCH ×2 (10:22→19:35)
[2017-06-14] MEDS: risperiDONE 0.25 MG TABLET. PO SCH (10:22)
[2017-06-14] MEDS: VITAMIN B COMPLEX CAPSULE. PO SCH (10:22)
[2017-06-14] MEDS: amLODIPine BESYLATE 10 MG TABLET PO SCH (10:22)
[2017-06-14] MEDS: traMADol 50 MG TABLET PO SCH (10:22)
[2017-06-14] MEDS: APIXABAN 5 MG TABLET. PO SCH ×2 (10:23→19:35)
[2017-06-14] MEDS: POLYETHYLENE GLYCOL 3350 17 GM PACKET. PO SCH (10:25)
[2017-06-14] MEDS: NYSTATIN TOPICAL POWDER 15GM BOTTLE. TP SCH ×2 (10:25→21:27)
[2017-06-14] MEDS ORDERED: LIDOCAINE 5% TOPICAL OINTMENT 35GM TUBE. TP ONE (13:30)
[2017-06-14 16:20] VITALS: BP 94/65
[2017-06-14] MEDS ORDERED: LIDOCAINE 1% Multi-Dose 20 ML VIAL. INJ ONE (17:15)
[2017-06-14] MEDS ORDERED: NEOMY/BACITR/POLYMYXIN OINT PACKET. TP ONE (18:15)
[2017-06-14] MEDS: MIRTAZAPINE 7.5 MG TABLET. PO SCH (19:35)
[2017-06-14] MEDS: ATORVASTATIN CALCIUM 20 MG TABLET PO SCH (19:35)
[2017-06-14] MEDS: LORazepam 0.5 MG TABLET PO PRN (20:53)
--- NOTE | 2017-06-14 22:24 | PDOC ---
Exam Note: Jordy Note: Please also refer to the separate dictated note~for this date of service dictated separately.~Patient seen individually. Discussed the patient with Nursing staff reviewed the chart.~Reviewed interim history and current functioning. Reviewed vital signs,~Labs/ Radiology~and current medications noted below. Continue current treatment with the changes noted in the dictated addendum note Assessment: Vital Signs: Vital Signs Date Time Temp Pulse Resp B/P (MAP) Pulse Ox O2 Delivery O2 Flow Rate FiO2 06/14/17 20:41 72 138/58 06/14/17 16:20 98.4 18 93 Room Air I&O Intake and Output 06/14/17 07:00 Intake Total 1080 ml Balance 1080 ml Intake Oral 1080 ml Current Medications: Meds: Current Medications Acetaminophen (Tylenol) 650 mg PRN Q6HRS PRN PO PAIN / TEMP; Start 06/05/17 at 22:15; Stop 06/14/17 at 13:43; Status DC Multi-Ingredient Ointment (Analgesic [place]) 1 feliciano PRN QID PRN TP MUSCLE PAIN; Start 06/05/17 at 22:15 Al Hydroxide/Mg Hydroxide (Mylanta Plus Xs) 15 ml PRN AFTMEALHC PRN PO DYSPEPSIA; Start 06/05/17 at 22:15 Magnesium Hydroxide (Milk Of Magnesia) 2,400 mg PRN QHS PRN PO CONSTIPATION Last administered on 06/11/17at 05:51; Start 06/05/17 at 22:15 Risperidone (RisperDAL) 1 mg BID PO Last administered on 06/07/17at 08:17; Start 06/06/17 at 09:00; Stop 06/07/17 at 17:15; Status DC Citalopram Hydrobromide (CeleXA) 20 mg DAILY PO Last administered on 06/07/17at 08:16; Start 06/06/17 at 09:00; Stop 06/07/17 at 18:54; Status DC Melatonin 3 mg PRN QHS PRN PO INSOMNIA; Start 06/05/17 at 22:30 Lorazepam (Ativan Intensol) Give 0.5 ml sublingually every ... PRN Q2HR PRN SL ANXIETY / AGITATION; Start 06/05/17 at 22:30; Status UNV Lorazepam (Ativan) 1 mg PRN Q2HR PRN PO ANXIETY / AGITATION; Start 06/05/17 at 22:45; Stop 06/10/17 at 18:30; Status DC Lorazepam (Ativan) 2 mg PRN Q2HR PRN PO ANXIETY / AGITATION; Start 06/05/17 at 22:45; Stop 06/10/17 at 18:30; Status DC Acetaminophen (Tylenol) 650 mg PRN Q4HRS PRN PO PAIN / TEMP; Start 06/06/17 at 10:30 Amlodipine Besylate (Norvasc) 10 mg DAILY PO Last administered on 06/14/17 10: 22; Start 06/06/17 at 12:00 Apixaban (Eliquis) 5 mg BID PO Last administered on 06/14/17 19:35; Start 06/06 at 21:00 Atorvastatin Calcium (Lipitor) 20 mg QHS PO Last administered on 06/14/17 19:35 ; Start 06/06/17 at 21:00 Levothyroxine Sodium (Synthroid) 25 mcg DAILYAC PO Last administered on 07:49; Start 06/07/17 at 07:30; Stop 06/11/17 at 07:33; Status DC Losartan Potassium (Cozaar) 25 mg DAILY PO Last administered on 06/14/17 10:21 ; Start 06/06/17 at 12:00 Nystatin (Mycostatin) 1 feliciano BID TP Last administered on 06/11/17 09:15; Start 06/06/17 at 21:00; Stop 06/11/17 at 09:19; Status DC Polyethylene Glycol (miraLAX) 17 gm PRN DAILY PRN PO CONSTIPATION; Start at 10:39 Sotalol HCl (Betapace) 80 mg BID PO Last administered on 06/14/17 20:41; Start 06/06/17 at 21:00 Tramadol HCl (Ultram) 50 mg DAILY PO Last administered on 06/14/17 10:22; Start 06/06/17 at 12:00 Tramadol HCl (Ultram) 50 mg PRN Q8HRS PRN PO PAIN Last administered on 20:15; Start 06/06/17 at 10:30 Vitamin D (Vitamin D3) 50,000 unit WEEKLY PO Last administered on 06/12/17at 08: 44; Start 06/12/17 at 09:00 Multivitamins/ Calcium (Thera-M Plus) 1 tab DAILY PO Last administered on 10:21; Start 06/06/17 at 12:00 Vitamin B Complex 1 cap DAILY PO Last administered on 06/14/17 10:22; Start at 12:00 Warfarin Sodium (Coumadin Per Pharmacy) 1 each PRN DAILY PRN MC SEE COMMENTS; Start 06/07/17 at 14:00; Status UNV Risperidone (RisperDAL) 0.5 mg BID PO Last administered on 06/08/17 08:03; Start 06/07/17 at 21:00; Stop 06/08/17 at 19:26; Status DC Mirtazapine (Remeron) 7.5 mg QHS PO Last administered on 06/14/17 19:35; Start 06/07/17 at 21:00 Fluvoxamine Maleate (Luvox) 25 mg DAILY PO Last administered on 06/09/17 07:49 ; Start 06/08/17 at 09:00; Stop 06/10/17 at 08:59; Status DC Fluvoxamine Maleate (Luvox) 50 mg DAILY PO Last administered on 06/14/17 10:23 ; Start 06/10/17 at 09:00 Risperidone (RisperDAL) 0.25 mg BID PO Last administered on 06/11/17 19:10; Start 06/08/17 at 21:00; Stop 06/12/17 at 08:59; Status DC Lorazepam (Ativan) 0.25 mg PRN Q2HR PRN PO ANXIETY / AGITATION Last administered on 06/14/17 20:53; Start 06/10/17 at 18:30 Risperidone (RisperDAL) 0.25 mg DAILY PO Last administered on 06/14/17 10:22; Start 06/12/17 at 09:00; Stop 06/15/17 at 08:59 Levothyroxine Sodium (Synthroid) 25 mcg DAILY06 PO Last administered on 06:07; Start 06/11/17 at 07:45 Nystatin (Nystop) 1 feliciano BID TP Last administered on 06/14/17 21:27; Start 06/11 at 09:30 Divalproex Sodium (Depakote Sprinkles) 125 mg TID@0900,1300,1700 PO Last administered on 06/14/17 17:46; Start 06/11/17 at 13:00 Docusate Sodium (Colace) 100 mg BID PO Last administered on 06/14/17 19:35; Start 06/11/17 at 21:00 Polyethylene Glycol (miraLAX) 17 gm DAILY PO Last administered on 06/14/17at 10: 25; Start 06/12/17 at 09:00 Magnesium Citrate (Citroma) 296 ml PRN 1X PRN PO CONSTIPATION; Start 06/11/17 at 18:15 Quetiapine Fumarate (SEROquel) 12.5 mg TID@0600,1200,1700 PO Last administered on 06/13/17at 16:57; Start 06/13/17 at 12:00; Stop 06/13/17 at 19:16; Status DC Quetiapine Fumarate (SEROquel) 12.5 mg DAILY@1200 PO Last administered on 12:19; Start 06/14/17 at 12:00 Quetiapine Fumarate (SEROquel) 25 mg BID@0600,1700 PO Last administered on 17:46; Start 06/14/17 at 06:00 Quetiapine Fumarate (SEROquel) 25 mg 1X ONCE PO Last administered on 06/14/17 07:07; Start 06/14/17 at 07:15; Stop 06/14/17 at 07:16; Status DC Lidocaine (Xylocaine) 1 feliciano 1X ONCE TP Last administered on 06/14/17 13:30; Start 06/14/17 at 13:30; Stop 06/14/17 at 13:31; Status DC Lidocaine HCl 20 ml 1X ONCE INJ Last administered on 06/14/17 17:47; Start 06/14/17 at 17:15; Stop 06/14/17 at 17:16; Status DC Neomycin/ Polymyxin/ Bacitracin (Triple Antibiotic Ointment) 1 pkt 1X ONCE TP Last administered on 06/14/17 18:15; Start 06/14/17 at 18:15; Stop 06/14/17 at 18: 16; Status DC Active Scripts Active Reported Vitamin B Complex 1 Each Tablet 1 Tab PO DAILY Tramadol Hcl (Tramadol HCl) 50 Mg Tablet 50 Mg PO DAILY Tramadol Hcl (Tramadol HCl) 50 Mg Tablet 50 Mg PO PRN Q4HRS PRN Sotalol (Sotalol Hcl) 80 Mg Tablet 80 Mg PO BID Risperidone 1 Mg Tablet 1 Mg PO BID Polyethylene Glycol 3350 255 Gm Powder 17 Gm PO PRN DAILY PRN Nystatin 15 Gm Cream..g. 1 Feliciano TP BID Centrum Flavor Burst Adult (Multivit with Minerals No.55) 1 Each Tab.chew 1 Tab PO DAILY Melatonin 3 Mg Tablet 3 Mg PO PRN QHS PRN Losartan Potassium 25 Mg Tablet 25 Mg PO DAILY Lorazepam Intensol (Lorazepam) 2 Mg/1 Ml Oral.conc 0.5-1 Ml SL PRN Q2HR PRN Escitalopram Oxalate 10 Mg Tablet 10 Mg PO DAILY Levothyroxine Sodium 25 Mcg Tablet 25 Mcg PO DAILYAC Vitamin D2 (Ergocalciferol (Vitamin D2)) 50,000 Unit Capsule 50,000 Unit PO WEEKLY Eliquis (Apixaban) 5 Mg Tablet 5 Mg PO BID Atorvastatin Calcium 20 Mg Tablet 20 Mg PO QHS Amlodipine Besylate 10 Mg Tablet 10 Mg PO DAILY Tylenol (Acetaminophen) 325 Mg Tablet 650 Mg PO PRN Q4HRS PRN I have reviewed the current psychotropics carefully including drug interactions. Risk benefit ratio favors no change other than as noted in my dictated progress note. 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
--- NOTE | 2017-06-15 00:14 | PN ---
DATE: 06/13/2017 This late entry, 06/13/2017, covers elements not covered in my initial note of 06/13/2017. SUBJECTIVE: I met with the patient the evening of 06/13/2017 and staffed at treatment team meeting with the entire team morning of 06/13/2017. The patient has been yelling out at times, starting in the morning, worsening at times, better at other times, repetitive, labile. She is quite confused. REVIEW OF SYSTEMS: Ambulation impaired, in [employer] chair. No CV, , pulmonary, eye, ENT system symptoms on review. Reliability poor. MENTAL STATUS EXAM: Oriented to himself. Insight, judgment, recent and remote memory, attention, concentration, fund of knowledge poor, consistent with his diagnosis mentioned in my initial note. IMPRESSION: Major neurocognitive disorder, vascular with delusion, depression, behavioral disturbance. PLAN: Increase the 0600 and 1700 Seroquel from 12.5 mg to 25 mg to improve mood, anxiety, and agitation. Continue rest unchanged from initial note. MAN Laverne RIZVI MD DR: YESSENIA/linnette JOB#: [id number] / [id number]
[2017-06-15] MEDS: QUEtiapine 25 MG TABLET. PO SCH ×3 (06:16→18:34)
[2017-06-15] MEDS: LEVOTHYROXINE 25 MCG TABLET. PO SCH (06:16)
[2017-06-15 06:36] VITALS: BP 124/70
[2017-06-15] MEDS: POLYETHYLENE GLYCOL 3350 17 GM PACKET. PO SCH (07:39)
[2017-06-15] MEDS: VITAMIN B COMPLEX CAPSULE. PO SCH (07:39)
[2017-06-15] MEDS: LOSARTAN 25 MG TABLET. PO SCH (07:40)
[2017-06-15] MEDS: DIVALPROEX 125 MG CAP.SPRINK PO SCH ×3 (07:40→18:34)
[2017-06-15] MEDS: SOTALOL 80 MG TABLET. PO SCH ×2 (07:40→20:20)
[2017-06-15] MEDS: DOCUSATE SODIUM 100 MG CAPSULE PO SCH ×2 (07:40→20:19)
[2017-06-15] MEDS: amLODIPine BESYLATE 10 MG TABLET PO SCH (07:41)
[2017-06-15] MEDS: APIXABAN 5 MG TABLET. PO SCH ×2 (07:41→20:19)
[2017-06-15] MEDS: MULTIVITAMIN with MINERAL TABLET. PO SCH (07:41)
[2017-06-15] MEDS: NYSTATIN TOPICAL POWDER 15GM BOTTLE. TP SCH ×2 (07:44→20:21)
[2017-06-15] MEDS: traMADol 50 MG TABLET PO SCH ×2 (07:46→14:16)
[2017-06-15 08:50] LABS: BASO # 0.1 x10^3/uL (0.0-0.2); BASO % 1 % (0-3); EOS # 0.3 x10^3/uL (0.0-0.7); EOS % 4 % (0-3); HEMOGLOBIN 12.6 g/dL (13.0-17.5); LYMPH # 1.2 x10^3/uL (1.0-4.8); LYMPH % 15 % (24-48); MEAN CORPUSCULAR HEMOGLOBIN 31 pg (25-35); MEAN CORPUSCULAR HGB CONC 34 g/dL (31-37); MEAN CORPUSCULAR VOLUME 91 fL (79-100); MONO # 0.7 x10^3/uL (0.0-1.1); MONO % 9 % (0-9); NEUT # 5.7 x10^3uL (1.8-7.7); NEUT % 71 % (31-73); PLATELET COUNT 265 x10^3/uL (140-400); RED BLOOD COUNT 4.06 x10^6/uL (4.30-5.70); RED CELL DISTRIBUTION WIDTH 13.8 % (11.5-14.5)
[2017-06-15 09:03] LABS: ALBUMIN/GLOBULIN RATIO 0.7 (1.0-1.7); ALK PHOS 52 U/L (46-116); ALT (SGPT) 10 U/L (16-63); ANION GAP 8 (6-14); AST (SGOT) 17 U/L (15-37); BLOOD UREA NITROGEN 21 mg/dL (8-26); BUN/CREATININE RATIO 18 (6-20); CALCIUM 8.6 mg/dL (8.5-10.1); CARBON DIOXIDE 28 mmol/L (21-32); CHLORIDE 102 mmol/L (98-107); CREATININE 1.2 mg/dL (0.7-1.3); GFR 58.7; GLUCOSE 91 mg/dL (70-99); POTASSIUM 3.8 mmol/L (3.5-5.1); SODIUM 138 mmol/L (136-145); TOTAL BILIRUBIN 0.4 mg/dL (0.2-1.0); TOTAL PROTEIN 7.3 g/dL (6.4-8.2)
[2017-06-15 09:11] LABS: VAL ACID 21 mcg/mL (50-100)
[2017-06-15 16:42] VITALS: BP 119/70
[2017-06-15] MEDS: ATORVASTATIN CALCIUM 20 MG TABLET PO SCH (20:19)
[2017-06-15] MEDS: MIRTAZAPINE 7.5 MG TABLET. PO SCH (20:19)
--- NOTE | 2017-06-15 21:10 | PDOC ---
Exam Note: Jordy Note: Please also refer to the separate dictated note~for this date of service dictated separately.~Patient seen individually. Discussed the patient with Nursing staff reviewed the chart.~Reviewed interim history and current functioning. Reviewed vital signs,~Labs/ Radiology~and current medications noted below. Continue current treatment with the changes noted in the dictated addendum note Assessment: Vital Signs: Vital Signs Date Time Temp Pulse Resp B/P (MAP) Pulse Ox O2 Delivery O2 Flow Rate FiO2 06/15/17 16:42 97.6 60 19 119/70 (86) 96 Room Air I&O Intake and Output 06/15/17 07:00 Intake Total 720 ml Balance 720 ml Intake Oral 720 ml Labs: Laboratory Tests Test 06/15/17 07:53 White Blood Count 8.0 x10^3/uL (4.0-11.0) # Red Blood Count 4.06 x10^6/uL (4.30-5.70) L Hemoglobin 12.6 g/dL (13.0-17.5) L Hematocrit 37.0 % (39.0-53.0) L Mean Corpuscular Volume 91 fL (79-100) Mean Corpuscular Hemoglobin 31 pg (25-35) Mean Corpuscular Hemoglobin Concent 34 g/dL (31-37) Red Cell Distribution Width 13.8 % (11.5-14.5) Platelet Count 265 x10^3/uL (140-400) Neutrophils (%) (Auto) 71 % (31-73) Lymphocytes (%) (Auto) 15 % (24-48) L Monocytes (%) (Auto) 9 % (0-9) Eosinophils (%) (Auto) 4 % (0-3) H Basophils (%) (Auto) 1 % (0-3) Neutrophils # (Auto) 5.7 x10^3uL (1.8-7.7) Lymphocytes # (Auto) 1.2 x10^3/uL (1.0-4.8) Monocytes # (Auto) 0.7 x10^3/uL (0.0-1.1) Eosinophils # (Auto) 0.3 x10^3/uL (0.0-0.7) Basophils # (Auto) 0.1 x10^3/uL (0.0-0.2) Sodium Level 138 mmol/L (136-145) Potassium Level 3.8 mmol/L (3.5-5.1) Chloride Level 102 mmol/L (98-107) Carbon Dioxide Level 28 mmol/L (21-32) Anion Gap 8 (6-14) Blood Urea Nitrogen 21 mg/dL (8-26) Creatinine 1.2 mg/dL (0.7-1.3) Estimated GFR (Cockcroft-Gault) 58.7 BUN/Creatinine Ratio 18 (6-20) Glucose Level 91 mg/dL (70-99) Calcium Level 8.6 mg/dL (8.5-10.1) Total Bilirubin 0.4 mg/dL (0.2-1.0) Aspartate Amino Transferase (AST) 17 U/L (15-37) Alanine Aminotransferase (ALT) 10 U/L (16-63) L Alkaline Phosphatase 52 U/L (46-116) Total Protein 7.3 g/dL (6.4-8.2) Albumin 3.0 g/dL (3.4-5.0) L Albumin/Globulin Ratio 0.7 (1.0-1.7) L Valproic Acid Level 21 mcg/mL (50-100) L Valproic Acid Last Dose Date 06/14/2017 Valproic Acid Last Dose Time 1700 Current Medications: Meds: Current Medications Acetaminophen (Tylenol) 650 mg PRN Q6HRS PRN PO PAIN / TEMP; Start 06/05/17 at 22:15; Stop 06/14/17 at 13:43; Status DC Multi-Ingredient Ointment (Analgesic [place]) 1 feliciano PRN QID PRN TP MUSCLE PAIN; Start 06/05/17 at 22:15 Al Hydroxide/Mg Hydroxide (Mylanta Plus Xs) 15 ml PRN AFTMEALHC PRN PO DYSPEPSIA; Start 06/05/17 at 22:15 Magnesium Hydroxide (Milk Of Magnesia) 2,400 mg PRN QHS PRN PO CONSTIPATION Last administered on 06/11/17at 05:51; Start 06/05/17 at 22:15 Risperidone (RisperDAL) 1 mg BID PO Last administered on 06/07/17at 08:17; Start 06/06/17 at 09:00; Stop 06/07/17 at 17:15; Status DC Citalopram Hydrobromide (CeleXA) 20 mg DAILY PO Last administered on 06/07/17at 08:16; Start 06/06/17 at 09:00; Stop 06/07/17 at 18:54; Status DC Melatonin 3 mg PRN QHS PRN PO INSOMNIA; Start 06/05/17 at 22:30 Lorazepam (Ativan Intensol) Give 0.5 ml sublingually every ... PRN Q2HR PRN SL ANXIETY / AGITATION; Start 06/05/17 at 22:30; Status UNV Lorazepam (Ativan) 1 mg PRN Q2HR PRN PO ANXIETY / AGITATION; Start 06/05/17 at 22:45; Stop 06/10/17 at 18:30; Status DC Lorazepam (Ativan) 2 mg PRN Q2HR PRN PO ANXIETY / AGITATION; Start 06/05/17 at 22:45; Stop 06/10/17 at 18:30; Status DC Acetaminophen (Tylenol) 650 mg PRN Q4HRS PRN PO PAIN / TEMP; Start 06/06/17 at 10:30 Amlodipine Besylate (Norvasc) 10 mg DAILY PO Last administered on 06/15/17at 07: 41; Start 06/06/17 at 12:00 Apixaban (Eliquis) 5 mg BID PO Last administered on 06/15/17at 07:41; Start 06/06 at 21:00 Atorvastatin Calcium (Lipitor) 20 mg QHS PO Last administered on 06/14/17at 19:35 ; Start 06/06/17 at 21:00 Levothyroxine Sodium (Synthroid) 25 mcg DAILYAC PO Last administered on at 07:49; Start 06/07/17 at 07:30; Stop 06/11/17 at 07:33; Status DC Losartan Potassium (Cozaar) 25 mg DAILY PO Last administered on 06/15/17at 07:40 ; Start 06/06/17 at 12:00 Nystatin (Mycostatin) 1 feliciano BID TP Last administered on 06/11/17at 09:15; Start 06/06/17 at 21:00; Stop 06/11/17 at 09:19; Status DC Polyethylene Glycol (miraLAX) 17 gm PRN DAILY PRN PO CONSTIPATION; Start at 10:39 Sotalol HCl (Betapace) 80 mg BID PO Last administered on 06/15/17 07:40; Start 06/06/17 at 21:00 Tramadol HCl (Ultram) 50 mg DAILY PO Last administered on 06/15/17 14:16; Start 06/06/17 at 12:00 Tramadol HCl (Ultram) 50 mg PRN Q8HRS PRN PO PAIN Last administered on 20:15; Start 06/06/17 at 10:30 Vitamin D (Vitamin D3) 50,000 unit WEEKLY PO Last administered on 06/12/17 08: 44; Start 06/12/17 at 09:00 Multivitamins/ Calcium (Thera-M Plus) 1 tab DAILY PO Last administered on 07:41; Start 06/06/17 at 12:00 Vitamin B Complex 1 cap DAILY PO Last administered on 06/15/17 07:39; Start at 12:00 Warfarin Sodium (Coumadin Per Pharmacy) 1 each PRN DAILY PRN MC SEE COMMENTS; Start 06/07/17 at 14:00; Status UNV Risperidone (RisperDAL) 0.5 mg BID PO Last administered on 06/08/17 08:03; Start 06/07/17 at 21:00; Stop 06/08/17 at 19:26; Status DC Mirtazapine (Remeron) 7.5 mg QHS PO Last administered on 06/14/17 19:35; Start 06/07/17 at 21:00 Fluvoxamine Maleate (Luvox) 25 mg DAILY PO Last administered on 06/09/17 07:49 ; Start 06/08/17 at 09:00; Stop 06/10/17 at 08:59; Status DC Fluvoxamine Maleate (Luvox) 50 mg DAILY PO Last administered on 06/15/17 07:41 ; Start 06/10/17 at 09:00 Risperidone (RisperDAL) 0.25 mg BID PO Last administered on 06/11/17 19:10; Start 06/08/17 at 21:00; Stop 06/12/17 at 08:59; Status DC Lorazepam (Ativan) 0.25 mg PRN Q2HR PRN PO ANXIETY / AGITATION Last administered on 06/14/17 20:53; Start 06/10/17 at 18:30 Risperidone (RisperDAL) 0.25 mg DAILY PO Last administered on 06/14/17 10:22; Start 06/12/17 at 09:00; Stop 06/15/17 at 08:59; Status DC Levothyroxine Sodium (Synthroid) 25 mcg DAILY06 PO Last administered on 06:16; Start 06/11/17 at 07:45 Nystatin (Nystop) 1 feliciano BID TP Last administered on 06/15/17 07:44; Start 06/11 at 09:30 Divalproex Sodium (Depakote Sprinkles) 125 mg TID@0900,1300,1700 PO Last administered on 06/15/17 18:34; Start 06/11/17 at 13:00 Docusate Sodium (Colace) 100 mg BID PO Last administered on 06/15/17 07:40; Start 06/11/17 at 21:00 Polyethylene Glycol (miraLAX) 17 gm DAILY PO Last administered on 06/15/17 07: 39; Start 06/12/17 at 09:00 Magnesium Citrate (Citroma) 296 ml PRN 1X PRN PO CONSTIPATION; Start 06/11/17 at 18:15 Quetiapine Fumarate (SEROquel) 12.5 mg TID@0600,1200,1700 PO Last administered on 06/13/17 16:57; Start 06/13/17 at 12:00; Stop 06/13/17 at 19:16; Status DC Quetiapine Fumarate (SEROquel) 12.5 mg DAILY@1200 PO Last administered on 14:16; Start 06/14/17 at 12:00 Quetiapine Fumarate (SEROquel) 25 mg BID@0600,1700 PO Last administered on 18:34; Start 06/14/17 at 06:00 Quetiapine Fumarate (SEROquel) 25 mg 1X ONCE PO Last administered on 06/14/17 07:07; Start 06/14/17 at 07:15; Stop 06/14/17 at 07:16; Status DC Lidocaine (Xylocaine) 1 feliciano 1X ONCE TP Last administered on 06/14/17at 13:30; Start 06/14/17 at 13:30; Stop 06/14/17 at 13:31; Status DC Lidocaine HCl 20 ml 1X ONCE INJ Last administered on 06/14/17at 17:47; Start 06/14/17 at 17:15; Stop 06/14/17 at 17:16; Status DC Neomycin/ Polymyxin/ Bacitracin (Triple Antibiotic Ointment) 1 pkt 1X ONCE TP Last administered on 06/14/17at 18:15; Start 06/14/17 at 18:15; Stop 06/14/17 at 18: 16; Status DC Active Scripts Active Reported Vitamin B Complex 1 Each Tablet 1 Tab PO DAILY Tramadol Hcl (Tramadol HCl) 50 Mg Tablet 50 Mg PO DAILY Tramadol Hcl (Tramadol HCl) 50 Mg Tablet 50 Mg PO PRN Q4HRS PRN Sotalol (Sotalol Hcl) 80 Mg Tablet 80 Mg PO BID Risperidone 1 Mg Tablet 1 Mg PO BID Polyethylene Glycol 3350 255 Gm Powder 17 Gm PO PRN DAILY PRN Nystatin 15 Gm Cream..g. 1 Feliciano TP BID Centrum Flavor Burst Adult (Multivit with Minerals No.55) 1 Each Tab.chew 1 Tab PO DAILY Melatonin 3 Mg Tablet 3 Mg PO PRN QHS PRN Losartan Potassium 25 Mg Tablet 25 Mg PO DAILY Lorazepam Intensol (Lorazepam) 2 Mg/1 Ml Oral.conc 0.5-1 Ml SL PRN Q2HR PRN Escitalopram Oxalate 10 Mg Tablet 10 Mg PO DAILY Levothyroxine Sodium 25 Mcg Tablet 25 Mcg PO DAILYAC Vitamin D2 (Ergocalciferol (Vitamin D2)) 50,000 Unit Capsule 50,000 Unit PO WEEKLY Eliquis (Apixaban) 5 Mg Tablet 5 Mg PO BID Atorvastatin Calcium 20 Mg Tablet 20 Mg PO QHS Amlodipine Besylate 10 Mg Tablet 10 Mg PO DAILY Tylenol (Acetaminophen) 325 Mg Tablet 650 Mg PO PRN Q4HRS PRN I have reviewed the current psychotropics carefully including drug interactions. Risk benefit ratio favors no change other than as noted in my dictated progress note. 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
[2017-06-16] MEDS: QUEtiapine 25 MG TABLET. PO SCH ×3 (05:23→18:17)
[2017-06-16] MEDS: LEVOTHYROXINE 25 MCG TABLET. PO SCH (05:23)
[2017-06-16] MEDS: MAGNESIUM HYDROXIDE 2,400 MG/30 ML ORAL.SUSP. PO PRN ×2 (05:24→05:27)
[2017-06-16 06:28] VITALS: BP 113/61
[2017-06-16] MEDS: LOSARTAN 25 MG TABLET. PO SCH (07:40)
[2017-06-16] MEDS: POLYETHYLENE GLYCOL 3350 17 GM PACKET. PO SCH (07:40)
[2017-06-16] MEDS: SOTALOL 80 MG TABLET. PO SCH ×2 (07:41→20:40)
[2017-06-16] MEDS: MULTIVITAMIN with MINERAL TABLET. PO SCH (07:41)
[2017-06-16] MEDS: amLODIPine BESYLATE 10 MG TABLET PO SCH (07:41)
[2017-06-16] MEDS: NYSTATIN TOPICAL POWDER 15GM BOTTLE. TP SCH ×2 (07:41→21:35)
[2017-06-16] MEDS: VITAMIN B COMPLEX CAPSULE. PO SCH (07:41)
[2017-06-16] MEDS: APIXABAN 5 MG TABLET. PO SCH ×2 (07:41→20:36)
[2017-06-16] MEDS: DOCUSATE SODIUM 100 MG CAPSULE PO SCH ×2 (07:41→20:36)
[2017-06-16] MEDS: DIVALPROEX 125 MG CAP.SPRINK PO SCH ×3 (07:43→18:17)
[2017-06-16 16:15] VITALS: BP 134/56
--- NOTE | 2017-06-16 19:27 | PN ---
DATE: 06/14/2017 This late entry 06/14/2017 covers elements not covered in my initial note 06/14/2017. SUBJECTIVE: I met with the patient evening of 06/14/2017. The patient has been quite demanding, loud, repetitive, yelling out at times, spends much time in bed between meals, obsessed about his arm band as I met with him wanting it removed. I explained to him the reason for safety checks, especially for medications given by nursing staff. He was oblivious of this. Slept 7-1/2 hours previous evening. 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 REVIEW OF SYSTEMS: No CV, , pulmonary, eye, ENT system symptoms on review. Reliability poor. MENTAL STATUS EXAM: Oriented to himself. Insight, judgment, recent and remote memory, attention, concentration, fund of knowledge poor, consistent with his diagnosis mentioned in my initial note. IMPRESSION: Major neurocognitive disorder, Alzheimer, vascular with delusion, depression, behavioral disturbance. Rest unchanged. PLAN: Increase Seroquel to 25 mg at bedtime. Continue rest unchanged from initial note. MAN Laverne RIZVI MD DR: YESSENIA/linnette JOB#: [id number] / [id number]
--- NOTE | 2017-06-16 19:36 | PN ---
DATE: 06/15/2017 This is a late entry for 06/15/2017 and covers elements not covered in my initial note of 06/15/2017. I met with the patient the evening of 06/15/2017. Per nursing report, he has been hollering a lot at shift change, obsessive, yelling, has a sore throat probably consequent to his yelling. No CV, , pulmonary, eye system symptoms on review. Gait unsteady, in Broda chair. MENTAL STATUS EXAM: Oriented to himself. Insight, judgment, recent and remote memory, attention, concentration, fund of knowledge poor, consistent with his diagnosis. LABORATORY DATA: Reviewed. IMPRESSION: Major neurocognitive disorder, vascular with delusion, depression, behavioral disturbance. Rest unchanged. Valproic acid level 21. PLAN: Increase Depakote from 125 mg t.i.d. to 250 mg t.i.d. Check labs level in 3 days. Continue Luvox, Seroquel, Risperdal was stopped, rest unchanged. MAN Laverne RIZVI MD DR: YESSENIA/linnette JOB#: [id number] / [id number]
--- NOTE | 2017-06-16 20:14 | PDOC ---
Exam Note: Jordy Note: Please also refer to the separate dictated note~for this date of service dictated separately.~Patient seen individually. Discussed the patient with Nursing staff reviewed the chart.~Reviewed interim history and current functioning. Reviewed vital signs,~Labs/ Radiology~and current medications noted below. Continue current treatment with the changes noted in the dictated addendum note Assessment: Vital Signs: Vital Signs Date Time Temp Pulse Resp B/P (MAP) Pulse Ox O2 Delivery O2 Flow Rate FiO2 06/16/17 16:15 97.7 61 18 134/56 (82) 93 06/15/17 16:42 Room Air I&O Intake and Output 06/16/17 07:00 Intake Total 800 ml Balance 800 ml Intake Oral 800 ml Current Medications: Meds: Current Medications Acetaminophen (Tylenol) 650 mg PRN Q6HRS PRN PO PAIN / TEMP; Start 06/05/17 at 22:15; Stop 06/14/17 at 13:43; Status DC Multi-Ingredient Ointment (Analgesic [place]) 1 feliciano PRN QID PRN TP MUSCLE PAIN; Start 06/05/17 at 22:15 Al Hydroxide/Mg Hydroxide (Mylanta Plus Xs) 15 ml PRN AFTMEALHC PRN PO DYSPEPSIA; Start 06/05/17 at 22:15 Magnesium Hydroxide (Milk Of Magnesia) 2,400 mg PRN QHS PRN PO CONSTIPATION Last administered on 06/11/17at 05:51; Start 06/05/17 at 22:15 Risperidone (RisperDAL) 1 mg BID PO Last administered on 06/07/17at 08:17; Start 06/06/17 at 09:00; Stop 06/07/17 at 17:15; Status DC Citalopram Hydrobromide (CeleXA) 20 mg DAILY PO Last administered on 06/07/17at 08:16; Start 06/06/17 at 09:00; Stop 06/07/17 at 18:54; Status DC Melatonin 3 mg PRN QHS PRN PO INSOMNIA; Start 06/05/17 at 22:30 Lorazepam (Ativan Intensol) Give 0.5 ml sublingually every ... PRN Q2HR PRN SL ANXIETY / AGITATION; Start 06/05/17 at 22:30; Status UNV Lorazepam (Ativan) 1 mg PRN Q2HR PRN PO ANXIETY / AGITATION; Start 06/05/17 at 22:45; Stop 06/10/17 at 18:30; Status DC Lorazepam (Ativan) 2 mg PRN Q2HR PRN PO ANXIETY / AGITATION; Start 06/05/17 at 22:45; Stop 06/10/17 at 18:30; Status DC Acetaminophen (Tylenol) 650 mg PRN Q4HRS PRN PO PAIN / TEMP; Start 06/06/17 at 10:30 Amlodipine Besylate (Norvasc) 10 mg DAILY PO Last administered on 06/16/17 07: 41; Start 06/06/17 at 12:00 Apixaban (Eliquis) 5 mg BID PO Last administered on 06/16/17 07:41; Start 06/06 at 21:00 Atorvastatin Calcium (Lipitor) 20 mg QHS PO Last administered on 06/15/17 20:19 ; Start 06/06/17 at 21:00 Levothyroxine Sodium (Synthroid) 25 mcg DAILYAC PO Last administered on 07:49; Start 06/07/17 at 07:30; Stop 06/11/17 at 07:33; Status DC Losartan Potassium (Cozaar) 25 mg DAILY PO Last administered on 06/16/17 07:40 ; Start 06/06/17 at 12:00 Nystatin (Mycostatin) 1 feliciano BID TP Last administered on 06/11/17 09:15; Start 06/06/17 at 21:00; Stop 06/11/17 at 09:19; Status DC Polyethylene Glycol (miraLAX) 17 gm PRN DAILY PRN PO CONSTIPATION; Start at 10:39 Sotalol HCl (Betapace) 80 mg BID PO Last administered on 06/16/17 07:41; Start 06/06/17 at 21:00 Tramadol HCl (Ultram) 50 mg DAILY PO Last administered on 06/15/17 14:16; Start 06/06/17 at 12:00 Tramadol HCl (Ultram) 50 mg PRN Q8HRS PRN PO PAIN Last administered on 20:15; Start 06/06/17 at 10:30 Vitamin D (Vitamin D3) 50,000 unit WEEKLY PO Last administered on 06/12/17 08: 44; Start 06/12/17 at 09:00 Multivitamins/ Calcium (Thera-M Plus) 1 tab DAILY PO Last administered on 07:41; Start 06/06/17 at 12:00 Vitamin B Complex 1 cap DAILY PO Last administered on 06/16/17 07:41; Start at 12:00 Warfarin Sodium (Coumadin Per Pharmacy) 1 each PRN DAILY PRN MC SEE COMMENTS; Start 06/07/17 at 14:00; Status UNV Risperidone (RisperDAL) 0.5 mg BID PO Last administered on 06/08/17 08:03; Start 06/07/17 at 21:00; Stop 06/08/17 at 19:26; Status DC Mirtazapine (Remeron) 7.5 mg QHS PO Last administered on 06/15/17 20:19; Start 06/07/17 at 21:00 Fluvoxamine Maleate (Luvox) 25 mg DAILY PO Last administered on 06/09/17 07:49 ; Start 06/08/17 at 09:00; Stop 06/10/17 at 08:59; Status DC Fluvoxamine Maleate (Luvox) 50 mg DAILY PO Last administered on 06/16/17 07:41 ; Start 06/10/17 at 09:00; Stop 06/16/17 at 18:42; Status DC Risperidone (RisperDAL) 0.25 mg BID PO Last administered on 06/11/17at 19:10; Start 06/08/17 at 21:00; Stop 06/12/17 at 08:59; Status DC Lorazepam (Ativan) 0.25 mg PRN Q2HR PRN PO ANXIETY / AGITATION Last administered on 06/14/17 20:53; Start 06/10/17 at 18:30 Risperidone (RisperDAL) 0.25 mg DAILY PO Last administered on 06/14/17 10:22; Start 06/12/17 at 09:00; Stop 06/15/17 at 08:59; Status DC Levothyroxine Sodium (Synthroid) 25 mcg DAILY06 PO Last administered on 05:23; Start 06/11/17 at 07:45 Nystatin (Nystop) 1 feliciano BID TP Last administered on 06/16/17 07:41; Start 06/11 at 09:30 Divalproex Sodium (Depakote Sprinkles) 125 mg TID@0900,1300,1700 PO Last administered on 06/15/17 18:34; Start 06/11/17 at 13:00; Stop 06/15/17 at 22:29; Status DC Docusate Sodium (Colace) 100 mg BID PO Last administered on 06/16/17at 07:41; Start 06/11/17 at 21:00 Polyethylene Glycol (miraLAX) 17 gm DAILY PO Last administered on 06/16/17at 07: 40; Start 06/12/17 at 09:00 Magnesium Citrate (Citroma) 296 ml PRN 1X PRN PO CONSTIPATION; Start 06/11/17 at 18:15 Quetiapine Fumarate (SEROquel) 12.5 mg TID@0600,1200,1700 PO Last administered on 06/13/17at 16:57; Start 06/13/17 at 12:00; Stop 06/13/17 at 19:16; Status DC Quetiapine Fumarate (SEROquel) 12.5 mg DAILY@1200 PO Last administered on at 12:00; Start 06/14/17 at 12:00; Stop 06/16/17 at 18:42; Status DC Quetiapine Fumarate (SEROquel) 25 mg BID@0600,1700 PO Last administered on at 18:17; Start 06/14/17 at 06:00 Quetiapine Fumarate (SEROquel) 25 mg 1X ONCE PO Last administered on 06/14/17at 07:07; Start 06/14/17 at 07:15; Stop 06/14/17 at 07:16; Status DC Lidocaine (Xylocaine) 1 feliciano 1X ONCE TP Last administered on 06/14/17 13:30; Start 06/14/17 at 13:30; Stop 06/14/17 at 13:31; Status DC Lidocaine HCl 20 ml 1X ONCE INJ Last administered on 06/14/17at 17:47; Start 06/14/17 at 17:15; Stop 06/14/17 at 17:16; Status DC Neomycin/ Polymyxin/ Bacitracin (Triple Antibiotic Ointment) 1 pkt 1X ONCE TP Last administered on 06/14/17at 18:15; Start 06/14/17 at 18:15; Stop 06/14/17 at 18: 16; Status DC Divalproex Sodium (Depakote Sprinkles) 250 mg TID@0900,1300,1700 PO Last administered on 06/16/17at 18:17; Start 06/16/17 at 09:00 Fluvoxamine Maleate (Luvox) 75 mg DAILY PO ; Start 06/17/17 at 09:00 Quetiapine Fumarate (SEROquel) 25 mg DAILY@1200 PO ; Start 06/17/17 at 12:00 Hydrocortisone (Cortaid) 1 feliciano BID TP ; Start 06/16/17 at 21:00 Active Scripts Active Reported Vitamin B Complex 1 Each Tablet 1 Tab PO DAILY Tramadol Hcl (Tramadol HCl) 50 Mg Tablet 50 Mg PO DAILY Tramadol Hcl (Tramadol HCl) 50 Mg Tablet 50 Mg PO PRN Q4HRS PRN Sotalol (Sotalol Hcl) 80 Mg Tablet 80 Mg PO BID Risperidone 1 Mg Tablet 1 Mg PO BID Polyethylene Glycol 3350 255 Gm Powder 17 Gm PO PRN DAILY PRN Nystatin 15 Gm Cream..g. 1 Feliciano TP BID Centrum Flavor Burst Adult (Multivit with Minerals No.55) 1 Each Tab.chew 1 Tab PO DAILY Melatonin 3 Mg Tablet 3 Mg PO PRN QHS PRN Losartan Potassium 25 Mg Tablet 25 Mg PO DAILY Lorazepam Intensol (Lorazepam) 2 Mg/1 Ml Oral.conc 0.5-1 Ml SL PRN Q2HR PRN Escitalopram Oxalate 10 Mg Tablet 10 Mg PO DAILY Levothyroxine Sodium 25 Mcg Tablet 25 Mcg PO DAILYAC Vitamin D2 (Ergocalciferol (Vitamin D2)) 50,000 Unit Capsule 50,000 Unit PO WEEKLY Eliquis (Apixaban) 5 Mg Tablet 5 Mg PO BID Atorvastatin Calcium 20 Mg Tablet 20 Mg PO QHS Amlodipine Besylate 10 Mg Tablet 10 Mg PO DAILY Tylenol (Acetaminophen) 325 Mg Tablet 650 Mg PO PRN Q4HRS PRN I have reviewed the current psychotropics carefully including drug interactions. Risk benefit ratio favors no change other than as noted in my dictated progress note. 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
[2017-06-16] MEDS: MIRTAZAPINE 7.5 MG TABLET. PO SCH (20:36)
[2017-06-16] MEDS: ATORVASTATIN CALCIUM 20 MG TABLET PO SCH (20:36)
[2017-06-16] MEDS: HYDROCORTISONE 1% TOPICAL OINTMENT 30GM TUBE. TP SCH (21:00)
[2017-06-17] MEDS: QUEtiapine 25 MG TABLET. PO SCH ×3 (06:11→16:27)
[2017-06-17] MEDS: LEVOTHYROXINE 25 MCG TABLET. PO SCH (06:12)
[2017-06-17 06:28] VITALS: BP 106/67
[2017-06-17] MEDS: VITAMIN B COMPLEX CAPSULE. PO SCH (08:10)
[2017-06-17] MEDS: DOCUSATE SODIUM 100 MG CAPSULE PO SCH ×2 (08:10→20:21)
[2017-06-17] MEDS: SOTALOL 80 MG TABLET. PO SCH ×2 (08:10→20:42)
[2017-06-17] MEDS: DIVALPROEX 125 MG CAP.SPRINK PO SCH ×3 (08:10→16:27)
[2017-06-17] MEDS: POLYETHYLENE GLYCOL 3350 17 GM PACKET. PO SCH (08:10)
[2017-06-17] MEDS: APIXABAN 5 MG TABLET. PO SCH ×2 (08:10→20:21)
[2017-06-17] MEDS: amLODIPine BESYLATE 10 MG TABLET PO SCH (08:11)
[2017-06-17] MEDS: MULTIVITAMIN with MINERAL TABLET. PO SCH (08:11)
[2017-06-17] MEDS: LOSARTAN 25 MG TABLET. PO SCH (08:11)
[2017-06-17] MEDS: traMADol 50 MG TABLET PO SCH (08:11)
[2017-06-17] MEDS: NYSTATIN TOPICAL POWDER 15GM BOTTLE. TP SCH ×2 (08:13→20:24)
--- NOTE | 2017-06-17 09:04 | PN ---
DATE: 06/12/2017 PSYCHIATRIC PROGRESS NOTE This is a late entry for 06/12/2017, covers elements not covered in my initial note of 06/12/2017. SUBJECTIVE: I met with the patient the evening of 06/12/2017. The patient slept 8-1/2 hours previous evening. He was yelling out repeatedly starting at 6:00 a.m., quite confused, delusional, believes he is running a [employer]. REVIEW OF SYSTEMS: Ambulation impaired, in Broda chair. No CV, , pulmonary, eye system symptoms on review. 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 MENTAL STATUS EXAM: Oriented to himself. Insight, judgment, recent and remote memory, attention, concentration, fund of knowledge poor, consistent with his diagnosis mentioned in my initial note. IMPRESSION: Major neurocognitive disorder, vascular with delusion, depression, behavioral disturbance. Rest unchanged. OCD symptoms. PLAN: Continue current psychotropics mentioned in my initial note. Luvox has been adjusted. MAN Laverne RIZVI MD DR: YESSENIA/linnette JOB#: [id number] / [id number]
[2017-06-17] MEDS: HYDROCORTISONE 1% TOPICAL OINTMENT 30GM TUBE. TP SCH ×2 (09:31→20:24)
[2017-06-17 16:07] VITALS: BP 105/55
[2017-06-17] MEDS ORDERED: traZODone 50 MG TABLET. PO ONE (18:00)
[2017-06-17] MEDS: traMADol 50 MG TABLET PO PRN (18:24)
--- NOTE | 2017-06-17 20:02 | PDOC ---
Exam Note: Jordy Note: Please also refer to the separate dictated note~for this date of service dictated separately.~Patient seen individually. Discussed the patient with Nursing staff reviewed the chart.~Reviewed interim history and current functioning. Reviewed vital signs,~Labs/ Radiology~and current medications noted below. Continue current treatment with the changes noted in the dictated addendum note Assessment: Vital Signs: Vital Signs Date Time Temp Pulse Resp B/P (MAP) Pulse Ox O2 Delivery O2 Flow Rate FiO2 06/17/17 16:29 98.6 60 22 92 06/17/17 16:07 105/55 (72) 06/15/17 16:42 Room Air I&O Intake and Output 06/17/17 07:00 Intake Total 1200 ml Balance 1200 ml Intake Oral 1200 ml # Bowel Movements 1 Current Medications: Meds: Current Medications Acetaminophen (Tylenol) 650 mg PRN Q6HRS PRN PO PAIN / TEMP; Start 06/05/17 at 22:15; Stop 06/14/17 at 13:43; Status DC Multi-Ingredient Ointment (Analgesic [place]) 1 feliciano PRN QID PRN TP MUSCLE PAIN; Start 06/05/17 at 22:15 Al Hydroxide/Mg Hydroxide (Mylanta Plus Xs) 15 ml PRN AFTMEALHC PRN PO DYSPEPSIA; Start 06/05/17 at 22:15 Magnesium Hydroxide (Milk Of Magnesia) 2,400 mg PRN QHS PRN PO CONSTIPATION Last administered on 06/11/17at 05:51; Start 06/05/17 at 22:15 Risperidone (RisperDAL) 1 mg BID PO Last administered on 06/07/17at 08:17; Start 06/06/17 at 09:00; Stop 06/07/17 at 17:15; Status DC Citalopram Hydrobromide (CeleXA) 20 mg DAILY PO Last administered on 06/07/17at 08:16; Start 06/06/17 at 09:00; Stop 06/07/17 at 18:54; Status DC Melatonin 3 mg PRN QHS PRN PO INSOMNIA Last administered on 06/16/17at 20:40; Start 06/05/17 at 22:30 Lorazepam (Ativan Intensol) Give 0.5 ml sublingually every ... PRN Q2HR PRN SL ANXIETY / AGITATION; Start 06/05/17 at 22:30; Status UNV Lorazepam (Ativan) 1 mg PRN Q2HR PRN PO ANXIETY / AGITATION; Start 06/05/17 at 22:45; Stop 06/10/17 at 18:30; Status DC Lorazepam (Ativan) 2 mg PRN Q2HR PRN PO ANXIETY / AGITATION; Start 06/05/17 at 22:45; Stop 06/10/17 at 18:30; Status DC Acetaminophen (Tylenol) 650 mg PRN Q4HRS PRN PO PAIN / TEMP; Start 06/06/17 at 10:30 Amlodipine Besylate (Norvasc) 10 mg DAILY PO Last administered on 06/17/17 08: 11; Start 06/06/17 at 12:00 Apixaban (Eliquis) 5 mg BID PO Last administered on 06/17/17 08:10; Start 06/06 at 21:00 Atorvastatin Calcium (Lipitor) 20 mg QHS PO Last administered on 06/16/17at 20:36 ; Start 06/06/17 at 21:00 Levothyroxine Sodium (Synthroid) 25 mcg DAILYAC PO Last administered on 07:49; Start 06/07/17 at 07:30; Stop 06/11/17 at 07:33; Status DC Losartan Potassium (Cozaar) 25 mg DAILY PO Last administered on 06/17/17 08:11 ; Start 06/06/17 at 12:00 Nystatin (Mycostatin) 1 feliciano BID TP Last administered on 06/11/17 09:15; Start 06/06/17 at 21:00; Stop 06/11/17 at 09:19; Status DC Polyethylene Glycol (miraLAX) 17 gm PRN DAILY PRN PO CONSTIPATION; Start at 10:39 Sotalol HCl (Betapace) 80 mg BID PO Last administered on 06/17/17 08:10; Start 06/06/17 at 21:00 Tramadol HCl (Ultram) 50 mg DAILY PO Last administered on 06/17/17 08:11; Start 06/06/17 at 12:00 Tramadol HCl (Ultram) 50 mg PRN Q8HRS PRN PO PAIN Last administered on 18:24; Start 06/06/17 at 10:30 Vitamin D (Vitamin D3) 50,000 unit WEEKLY PO Last administered on 06/12/17 08: 44; Start 06/12/17 at 09:00 Multivitamins/ Calcium (Thera-M Plus) 1 tab DAILY PO Last administered on 08:11; Start 06/06/17 at 12:00 Vitamin B Complex 1 cap DAILY PO Last administered on 06/17/17 08:10; Start at 12:00 Warfarin Sodium (Coumadin Per Pharmacy) 1 each PRN DAILY PRN MC SEE COMMENTS; Start 06/07/17 at 14:00; Status UNV Risperidone (RisperDAL) 0.5 mg BID PO Last administered on 06/08/17 08:03; Start 06/07/17 at 21:00; Stop 06/08/17 at 19:26; Status DC Mirtazapine (Remeron) 7.5 mg QHS PO Last administered on 06/16/17 20:36; Start 06/07/17 at 21:00 Fluvoxamine Maleate (Luvox) 25 mg DAILY PO Last administered on 06/09/17 07:49 ; Start 06/08/17 at 09:00; Stop 06/10/17 at 08:59; Status DC Fluvoxamine Maleate (Luvox) 50 mg DAILY PO Last administered on 06/16/17 07:41 ; Start 06/10/17 at 09:00; Stop 06/16/17 at 18:42; Status DC Risperidone (RisperDAL) 0.25 mg BID PO Last administered on 06/11/17at 19:10; Start 06/08/17 at 21:00; Stop 06/12/17 at 08:59; Status DC Lorazepam (Ativan) 0.25 mg PRN Q2HR PRN PO ANXIETY / AGITATION Last administered on 06/14/17 20:53; Start 06/10/17 at 18:30 Risperidone (RisperDAL) 0.25 mg DAILY PO Last administered on 06/14/17 10:22; Start 06/12/17 at 09:00; Stop 06/15/17 at 08:59; Status DC Levothyroxine Sodium (Synthroid) 25 mcg DAILY06 PO Last administered on 3/5/ 18at 06:12; Start 06/11/17 at 07:45 Nystatin (Nystop) 1 feliciano BID TP Last administered on 06/17/17 08:13; Start 06/11 at 09:30 Divalproex Sodium (Depakote Sprinkles) 125 mg TID@0900,1300,1700 PO Last administered on 06/15/17 18:34; Start 06/11/17 at 13:00; Stop 06/15/17 at 22:29; Status DC Docusate Sodium (Colace) 100 mg BID PO Last administered on 06/17/17 08:10; Start 06/11/17 at 21:00 Polyethylene Glycol (miraLAX) 17 gm DAILY PO Last administered on 06/17/17 08: 10; Start 06/12/17 at 09:00 Magnesium Citrate (Citroma) 296 ml PRN 1X PRN PO CONSTIPATION; Start 06/11/17 at 18:15 Quetiapine Fumarate (SEROquel) 12.5 mg TID@0600,1200,1700 PO Last administered on 06/13/17at 16:57; Start 06/13/17 at 12:00; Stop 06/13/17 at 19:16; Status DC Quetiapine Fumarate (SEROquel) 12.5 mg DAILY@1200 PO Last administered on at 12:00; Start 06/14/17 at 12:00; Stop 06/16/17 at 18:42; Status DC Quetiapine Fumarate (SEROquel) 25 mg BID@0600,1700 PO Last administered on at 16:27; Start 06/14/17 at 06:00 Quetiapine Fumarate (SEROquel) 25 mg 1X ONCE PO Last administered on 06/14/17 07:07; Start 06/14/17 at 07:15; Stop 06/14/17 at 07:16; Status DC Lidocaine (Xylocaine) 1 feliciano 1X ONCE TP Last administered on 06/14/17 13:30; Start 06/14/17 at 13:30; Stop 06/14/17 at 13:31; Status DC Lidocaine HCl 20 ml 1X ONCE INJ Last administered on 06/14/17 17:47; Start 06/14/17 at 17:15; Stop 06/14/17 at 17:16; Status DC Neomycin/ Polymyxin/ Bacitracin (Triple Antibiotic Ointment) 1 pkt 1X ONCE TP Last administered on 06/14/17at 18:15; Start 06/14/17 at 18:15; Stop 06/14/17 at 18: 16; Status DC Divalproex Sodium (Depakote Sprinkles) 250 mg TID@0900,1300,1700 PO Last administered on 06/17/17at 16:27; Start 06/16/17 at 09:00 Fluvoxamine Maleate (Luvox) 75 mg DAILY PO Last administered on 06/17/17at 08:13 ; Start 06/17/17 at 09:00 Quetiapine Fumarate (SEROquel) 25 mg DAILY@1200 PO Last administered on at 13:23; Start 06/17/17 at 12:00 Hydrocortisone (Cortaid) 1 feliciano BID TP Last administered on 06/17/17at 09:31; Start 06/16/17 at 21:00 Trazodone HCl (Desyrel) 25 mg 1X ONCE PO Last administered on 06/17/17at 18:00; Start 06/17/17 at 18:00; Stop 06/17/17 at 18:02; Status DC Trazodone HCl (Desyrel) 12.5 mg TID@0900,1300,1700 PO ; Start 06/18/17 at 09:00 Active Scripts Active Reported Vitamin B Complex 1 Each Tablet 1 Tab PO DAILY Tramadol Hcl (Tramadol HCl) 50 Mg Tablet 50 Mg PO DAILY Tramadol Hcl (Tramadol HCl) 50 Mg Tablet 50 Mg PO PRN Q4HRS PRN Sotalol (Sotalol Hcl) 80 Mg Tablet 80 Mg PO BID Risperidone 1 Mg Tablet 1 Mg PO BID Polyethylene Glycol 3350 255 Gm Powder 17 Gm PO PRN DAILY PRN Nystatin 15 Gm Cream..g. 1 Feliciano TP BID Centrum Flavor Burst Adult (Multivit with Minerals No.55) 1 Each Tab.chew 1 Tab PO DAILY Melatonin 3 Mg Tablet 3 Mg PO PRN QHS PRN Losartan Potassium 25 Mg Tablet 25 Mg PO DAILY Lorazepam Intensol (Lorazepam) 2 Mg/1 Ml Oral.conc 0.5-1 Ml SL PRN Q2HR PRN Escitalopram Oxalate 10 Mg Tablet 10 Mg PO DAILY Levothyroxine Sodium 25 Mcg Tablet 25 Mcg PO DAILYAC Vitamin D2 (Ergocalciferol (Vitamin D2)) 50,000 Unit Capsule 50,000 Unit PO WEEKLY Eliquis (Apixaban) 5 Mg Tablet 5 Mg PO BID Atorvastatin Calcium 20 Mg Tablet 20 Mg PO QHS Amlodipine Besylate 10 Mg Tablet 10 Mg PO DAILY Tylenol (Acetaminophen) 325 Mg Tablet 650 Mg PO PRN Q4HRS PRN I have reviewed the current psychotropics carefully including drug interactions. Risk benefit ratio favors no change other than as noted in my dictated progress note. 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
[2017-06-17] MEDS: MIRTAZAPINE 7.5 MG TABLET. PO SCH (20:21)
[2017-06-17] MEDS: ATORVASTATIN CALCIUM 20 MG TABLET PO SCH (20:21)
[2017-06-18 06:13] VITALS: BP 177/75
[2017-06-18] MEDS: LEVOTHYROXINE 25 MCG TABLET. PO SCH (06:35)
[2017-06-18] MEDS: QUEtiapine 25 MG TABLET. PO SCH ×3 (06:36→17:04)
[2017-06-18] MEDS: VITAMIN B COMPLEX CAPSULE. PO SCH (07:59)
[2017-06-18] MEDS: LOSARTAN 25 MG TABLET. PO SCH (08:00)
[2017-06-18] MEDS: MULTIVITAMIN with MINERAL TABLET. PO SCH (08:00)
[2017-06-18] MEDS: DIVALPROEX 125 MG CAP.SPRINK PO SCH ×3 (08:00→17:05)
[2017-06-18] MEDS: amLODIPine BESYLATE 10 MG TABLET PO SCH (08:01)
[2017-06-18] MEDS: APIXABAN 5 MG TABLET. PO SCH ×2 (08:01→19:26)
[2017-06-18] MEDS: DOCUSATE SODIUM 100 MG CAPSULE PO SCH ×2 (08:01→19:26)
[2017-06-18] MEDS: POLYETHYLENE GLYCOL 3350 17 GM PACKET. PO SCH (08:02)
[2017-06-18] MEDS: traZODone 50 MG TABLET. PO SCH ×3 (08:04→17:04)
[2017-06-18] MEDS: SOTALOL 80 MG TABLET. PO SCH ×2 (08:05→19:29)
[2017-06-18] MEDS: HYDROCORTISONE 1% TOPICAL OINTMENT 30GM TUBE. TP SCH ×2 (08:05→21:00)
[2017-06-18] MEDS: traMADol 50 MG TABLET PO SCH (08:05)
[2017-06-18] MEDS: NYSTATIN TOPICAL POWDER 15GM BOTTLE. TP SCH ×2 (08:06→21:00)
--- NOTE | 2017-06-18 08:50 | PN ---
DATE: 06/16/2017 This is a late entry for 06/16/2017, covers elements not covered in my initial note of 06/16/2017. SUBJECTIVE: I met with the patient the evening of 06/16/2017. The patient slept 5-1/4 hours previous evening, was yelling in the evening, still obsessive, loud, disruptive, more so in the evening, difficult to redirect. REVIEW OF SYSTEMS: Ambulation impaired, in Broda chair. No CV, , pulmonary, eye, ENT system symptoms on review. Reliability poor. MENTAL STATUS EXAMINATION: Oriented to himself. Insight, judgment, recent and remote memory, attention, concentration, fund of knowledge poor, consistent with his diagnosis mentioned in my initial note. PLAN: Increase Luvox to 75 mg p.o. daily, Seroquel will be increased to 25 mg at 0600 hours, noon and 1700 hours. Rest unchanged including Depakote and check CBC, CMP, valproic acid level 37, adjust Depakote thereafter. MAN Laverne RIZVI MD DR: YESSENIA/linnette JOB#: [id number] / [id number]
[2017-06-18] MEDS: LORazepam 0.5 MG TABLET PO PRN ×2 (10:39→19:26)
[2017-06-18 15:57] VITALS: BP 128/68
[2017-06-18] MEDS: traMADol 50 MG TABLET PO PRN (18:15)
[2017-06-18] MEDS: ATORVASTATIN CALCIUM 20 MG TABLET PO SCH (19:26)
[2017-06-18] MEDS: MIRTAZAPINE 7.5 MG TABLET. PO SCH (19:26)
--- NOTE | 2017-06-18 19:57 | PDOC ---
Exam Note: Jordy Note: Please also refer to the separate dictated note~for this date of service dictated separately.~Patient seen individually. Discussed the patient with Nursing staff reviewed the chart.~Reviewed interim history and current functioning. Reviewed vital signs,~Labs/ Radiology~and current medications noted below. Continue current treatment with the changes noted in the dictated addendum note Assessment: Vital Signs: Vital Signs Date Time Temp Pulse Resp B/P (MAP) Pulse Ox O2 Delivery O2 Flow Rate FiO2 06/18/17 19:29 60 128/68 06/18/17 19:25 18 Room Air 06/18/17 15:57 98.8 95 I&O Intake and Output 06/18/17 07:00 Intake Total 1220 ml Balance 1220 ml Intake Oral 1220 ml Current Medications: Meds: Current Medications Acetaminophen (Tylenol) 650 mg PRN Q6HRS PRN PO PAIN / TEMP; Start 06/05/17 at 22:15; Stop 06/14/17 at 13:43; Status DC Multi-Ingredient Ointment (Analgesic [place]) 1 feliciano PRN QID PRN TP MUSCLE PAIN; Start 06/05/17 at 22:15 Al Hydroxide/Mg Hydroxide (Mylanta Plus Xs) 15 ml PRN AFTMEALHC PRN PO DYSPEPSIA; Start 06/05/17 at 22:15 Magnesium Hydroxide (Milk Of Magnesia) 2,400 mg PRN QHS PRN PO CONSTIPATION Last administered on 06/11/17at 05:51; Start 06/05/17 at 22:15 Risperidone (RisperDAL) 1 mg BID PO Last administered on 06/07/17at 08:17; Start 06/06/17 at 09:00; Stop 06/07/17 at 17:15; Status DC Citalopram Hydrobromide (CeleXA) 20 mg DAILY PO Last administered on 06/07/17at 08:16; Start 06/06/17 at 09:00; Stop 06/07/17 at 18:54; Status DC Melatonin 3 mg PRN QHS PRN PO INSOMNIA Last administered on 06/16/17at 20:40; Start 06/05/17 at 22:30 Lorazepam (Ativan Intensol) Give 0.5 ml sublingually every ... PRN Q2HR PRN SL ANXIETY / AGITATION; Start 06/05/17 at 22:30; Status UNV Lorazepam (Ativan) 1 mg PRN Q2HR PRN PO ANXIETY / AGITATION; Start 06/05/17 at 22:45; Stop 06/10/17 at 18:30; Status DC Lorazepam (Ativan) 2 mg PRN Q2HR PRN PO ANXIETY / AGITATION; Start 06/05/17 at 22:45; Stop 06/10/17 at 18:30; Status DC Acetaminophen (Tylenol) 650 mg PRN Q4HRS PRN PO PAIN / TEMP Last administered on 06/18/17 19:31; Start 06/06/17 at 10:30 Amlodipine Besylate (Norvasc) 10 mg DAILY PO Last administered on 06/18/17 08: 01; Start 06/06/17 at 12:00 Apixaban (Eliquis) 5 mg BID PO Last administered on 06/18/17 19:26; Start 06/06 at 21:00 Atorvastatin Calcium (Lipitor) 20 mg QHS PO Last administered on 06/18/17 19:26 ; Start 06/06/17 at 21:00 Levothyroxine Sodium (Synthroid) 25 mcg DAILYAC PO Last administered on 07:49; Start 06/07/17 at 07:30; Stop 06/11/17 at 07:33; Status DC Losartan Potassium (Cozaar) 25 mg DAILY PO Last administered on 06/18/17 08:00 ; Start 06/06/17 at 12:00 Nystatin (Mycostatin) 1 feliciano BID TP Last administered on 06/11/17 09:15; Start 06/06/17 at 21:00; Stop 06/11/17 at 09:19; Status DC Polyethylene Glycol (miraLAX) 17 gm PRN DAILY PRN PO CONSTIPATION; Start at 10:39 Sotalol HCl (Betapace) 80 mg BID PO Last administered on 06/18/17 19:29; Start 06/06/17 at 21:00 Tramadol HCl (Ultram) 50 mg DAILY PO Last administered on 06/18/17 08:05; Start 06/06/17 at 12:00 Tramadol HCl (Ultram) 50 mg PRN Q8HRS PRN PO PAIN Last administered on 18:15; Start 06/06/17 at 10:30 Vitamin D (Vitamin D3) 50,000 unit WEEKLY PO Last administered on 06/12/17 08: 44; Start 06/12/17 at 09:00 Multivitamins/ Calcium (Thera-M Plus) 1 tab DAILY PO Last administered on 08:00; Start 06/06/17 at 12:00 Vitamin B Complex 1 cap DAILY PO Last administered on 06/18/17 07:59; Start at 12:00 Warfarin Sodium (Coumadin Per Pharmacy) 1 each PRN DAILY PRN MC SEE COMMENTS; Start 06/07/17 at 14:00; Status UNV Risperidone (RisperDAL) 0.5 mg BID PO Last administered on 06/08/17 08:03; Start 06/07/17 at 21:00; Stop 06/08/17 at 19:26; Status DC Mirtazapine (Remeron) 7.5 mg QHS PO Last administered on 06/18/17 19:26; Start 06/07/17 at 21:00 Fluvoxamine Maleate (Luvox) 25 mg DAILY PO Last administered on 06/09/17 07:49 ; Start 06/08/17 at 09:00; Stop 06/10/17 at 08:59; Status DC Fluvoxamine Maleate (Luvox) 50 mg DAILY PO Last administered on 06/16/17 07:41 ; Start 06/10/17 at 09:00; Stop 06/16/17 at 18:42; Status DC Risperidone (RisperDAL) 0.25 mg BID PO Last administered on 06/11/17 19:10; Start 06/08/17 at 21:00; Stop 06/12/17 at 08:59; Status DC Lorazepam (Ativan) 0.25 mg PRN Q2HR PRN PO ANXIETY / AGITATION Last administered on 06/18/17 19:26; Start 06/10/17 at 18:30 Risperidone (RisperDAL) 0.25 mg DAILY PO Last administered on 06/14/17 10:22; Start 06/12/17 at 09:00; Stop 06/15/17 at 08:59; Status DC Levothyroxine Sodium (Synthroid) 25 mcg DAILY06 PO Last administered on at 06:35; Start 06/11/17 at 07:45 Nystatin (Nystop) 1 feliciano BID TP Last administered on 06/18/17 08:06; Start 06/11 at 09:30 Divalproex Sodium (Depakote Sprinkles) 125 mg TID@0900,1300,1700 PO Last administered on 06/15/17 18:34; Start 06/11/17 at 13:00; Stop 06/15/17 at 22:29; Status DC Docusate Sodium (Colace) 100 mg BID PO Last administered on 06/18/17 19:26; Start 06/11/17 at 21:00 Polyethylene Glycol (miraLAX) 17 gm DAILY PO Last administered on 06/18/17 08: 02; Start 06/12/17 at 09:00 Magnesium Citrate (Citroma) 296 ml PRN 1X PRN PO CONSTIPATION; Start 06/11/17 at 18:15 Quetiapine Fumarate (SEROquel) 12.5 mg TID@0600,1200,1700 PO Last administered on 06/13/17at 16:57; Start 06/13/17 at 12:00; Stop 06/13/17 at 19:16; Status DC Quetiapine Fumarate (SEROquel) 12.5 mg DAILY@1200 PO Last administered on at 12:00; Start 06/14/17 at 12:00; Stop 06/16/17 at 18:42; Status DC Quetiapine Fumarate (SEROquel) 25 mg BID@0600,1700 PO Last administered on at 17:04; Start 06/14/17 at 06:00 Quetiapine Fumarate (SEROquel) 25 mg 1X ONCE PO Last administered on 06/14/17 07:07; Start 06/14/17 at 07:15; Stop 06/14/17 at 07:16; Status DC Lidocaine (Xylocaine) 1 feliciano 1X ONCE TP Last administered on 06/14/17at 13:30; Start 06/14/17 at 13:30; Stop 06/14/17 at 13:31; Status DC Lidocaine HCl 20 ml 1X ONCE INJ Last administered on 06/14/17at 17:47; Start 06/14/17 at 17:15; Stop 06/14/17 at 17:16; Status DC Neomycin/ Polymyxin/ Bacitracin (Triple Antibiotic Ointment) 1 pkt 1X ONCE TP Last administered on 06/14/17at 18:15; Start 06/14/17 at 18:15; Stop 06/14/17 at 18: 16; Status DC Divalproex Sodium (Depakote Sprinkles) 250 mg TID@0900,1300,1700 PO Last administered on 06/18/17at 17:05; Start 06/16/17 at 09:00 Fluvoxamine Maleate (Luvox) 75 mg DAILY PO Last administered on 06/18/17at 08:00 ; Start 06/17/17 at 09:00 Quetiapine Fumarate (SEROquel) 25 mg DAILY@1200 PO Last administered on at 11:50; Start 06/17/17 at 12:00 Hydrocortisone (Cortaid) 1 feliciano BID TP Last administered on 06/18/17at 08:05; Start 06/16/17 at 21:00 Trazodone HCl (Desyrel) 25 mg 1X ONCE PO Last administered on 06/17/17at 18:00; Start 06/17/17 at 18:00; Stop 06/17/17 at 18:02; Status DC Trazodone HCl (Desyrel) 12.5 mg TID@0900,1300,1700 PO Last administered on at 17:04; Start 06/18/17 at 09:00; Stop 06/18/17 at 18:09; Status DC Trazodone HCl (Desyrel) 12.5 mg BID@1300,1700 PO ; Start 06/19/17 at 13:00 Trazodone HCl (Desyrel) 25 mg DAILY PO ; Start 06/19/17 at 09:00 Active Scripts Active Reported Vitamin B Complex 1 Each Tablet 1 Tab PO DAILY Tramadol Hcl (Tramadol HCl) 50 Mg Tablet 50 Mg PO DAILY Tramadol Hcl (Tramadol HCl) 50 Mg Tablet 50 Mg PO PRN Q4HRS PRN Sotalol (Sotalol Hcl) 80 Mg Tablet 80 Mg PO BID Risperidone 1 Mg Tablet 1 Mg PO BID Polyethylene Glycol 3350 255 Gm Powder 17 Gm PO PRN DAILY PRN Nystatin 15 Gm Cream..g. 1 Feliciano TP BID Centrum Flavor Burst Adult (Multivit with Minerals No.55) 1 Each Tab.chew 1 Tab PO DAILY Melatonin 3 Mg Tablet 3 Mg PO PRN QHS PRN Losartan Potassium 25 Mg Tablet 25 Mg PO DAILY Lorazepam Intensol (Lorazepam) 2 Mg/1 Ml Oral.conc 0.5-1 Ml SL PRN Q2HR PRN Escitalopram Oxalate 10 Mg Tablet 10 Mg PO DAILY Levothyroxine Sodium 25 Mcg Tablet 25 Mcg PO DAILYAC Vitamin D2 (Ergocalciferol (Vitamin D2)) 50,000 Unit Capsule 50,000 Unit PO WEEKLY Eliquis (Apixaban) 5 Mg Tablet 5 Mg PO BID Atorvastatin Calcium 20 Mg Tablet 20 Mg PO QHS Amlodipine Besylate 10 Mg Tablet 10 Mg PO DAILY Tylenol (Acetaminophen) 325 Mg Tablet 650 Mg PO PRN Q4HRS PRN I have reviewed the current psychotropics carefully including drug interactions. Risk benefit ratio favors no change other than as noted in my dictated progress note. 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
--- NOTE | 2017-06-18 21:37 | PN ---
DATE: 06/17/2017 This is a late entry for 06/17/2017 covers elements not covered in my initial note of 06/17/2017. SUBJECTIVE: I met with the patient evening of 06/17/2017. The patient has had a rather difficult day. He has been yelling, screaming, labile, rude, physically attacking staff when they attempt to change his clothes and do other ADLs. REVIEW OF SYSTEMS: Ambulation impaired, in Broda chair. No CV, , pulmonary, eye, ENT system symptoms on review. Reliability poor. MENTAL STATUS EXAM: Oriented to himself. Insight, judgment, recent and remote memory, attention, concentration, fund of knowledge poor, consistent with his diagnosis mentioned in my initial note. PLAN: Carefully reviewed the patient's psychotropics. Mood has been extremely labile, loud, yelling, disruptive, intrusive for the entire unit. Start trazodone 12.5 mg 3 times a day. Continue rest unchanged. MAN Laverne RIZVI MD DR: YESSENIA/linnette JOB#: [id number] / [id number]
[2017-06-19] MEDS: LEVOTHYROXINE 25 MCG TABLET. PO SCH (06:22)
[2017-06-19] MEDS: QUEtiapine 25 MG TABLET. PO SCH ×3 (06:22→16:54)
[2017-06-19 06:26] VITALS: BP 96/60
[2017-06-19] MEDS: APIXABAN 5 MG TABLET. PO SCH ×2 (09:14→19:10)
[2017-06-19] MEDS: DIVALPROEX 125 MG CAP.SPRINK PO SCH ×3 (09:14→16:55)
[2017-06-19] MEDS: POLYETHYLENE GLYCOL 3350 17 GM PACKET. PO SCH (09:14)
[2017-06-19] MEDS: DOCUSATE SODIUM 100 MG CAPSULE PO SCH ×2 (09:14→19:10)
[2017-06-19] MEDS: MULTIVITAMIN with MINERAL TABLET. PO SCH (09:14)
[2017-06-19] MEDS: VITAMIN B COMPLEX CAPSULE. PO SCH (09:14)
[2017-06-19 09:34] VITALS: BP 103/65
[2017-06-19] MEDS: LOSARTAN 25 MG TABLET. PO SCH (09:36)
[2017-06-19] MEDS: amLODIPine BESYLATE 10 MG TABLET PO SCH (09:37)
[2017-06-19] MEDS: NYSTATIN TOPICAL POWDER 15GM BOTTLE. TP SCH ×2 (09:40→19:10)
[2017-06-19] MEDS: traZODone 50 MG TABLET. PO SCH ×3 (09:41→16:54)
[2017-06-19] MEDS: CHOLECALCIFEROL (VITAMIN D3) 50,000 UNIT CAPSULE PO SCH (09:41)
[2017-06-19] MEDS: SOTALOL 80 MG TABLET. PO SCH ×2 (09:41→19:10)
[2017-06-19] MEDS: traMADol 50 MG TABLET PO SCH (09:42)
[2017-06-19] MEDS: HYDROCORTISONE 1% TOPICAL OINTMENT 30GM TUBE. TP SCH ×2 (09:42→19:11)
[2017-06-19 09:43] LABS: HEMATOCRIT 37.6 % (39.0-53.0); HEMOGLOBIN 12.7 g/dL (13.0-17.5); RED BLOOD COUNT 4.14 x10^6/uL (4.30-5.70); WHITE BLOOD COUNT 8.1 x10^3/uL (4.0-11.0)
[2017-06-19 10:01] LABS: ALBUMIN 2.8 g/dL (3.4-5.0); ALBUMIN/GLOBULIN RATIO 0.7 (1.0-1.7); ALK PHOS 44 U/L (46-116); ALT (SGPT) 26 U/L (16-63); ANION GAP 4 (6-14); AST (SGOT) 18 U/L (15-37); BLOOD UREA NITROGEN 25 mg/dL (8-26); BUN/CREATININE RATIO 23 (6-20); CALCIUM 8.5 mg/dL (8.5-10.1); CARBON DIOXIDE 32 mmol/L (21-32); CHLORIDE 104 mmol/L (98-107); CREATININE 1.1 mg/dL (0.7-1.3); GFR 64.9; GLUCOSE 101 mg/dL (70-99); POTASSIUM 4.1 mmol/L (3.5-5.1); SODIUM 140 mmol/L (136-145); TOTAL BILIRUBIN 0.3 mg/dL (0.2-1.0)
[2017-06-19 10:07] LABS: VAL ACID 35 mcg/mL (50-100)
[2017-06-19 16:24] VITALS: BP 114/57
[2017-06-19] MEDS: MIRTAZAPINE 7.5 MG TABLET. PO SCH (19:10)
[2017-06-19] MEDS: ATORVASTATIN CALCIUM 20 MG TABLET PO SCH (19:10)
--- NOTE | 2017-06-19 19:52 | PN ---
DATE: 06/18/2017 PSYCHIATRIC PROGRESS NOTE This is a late entry for 06/18/2017, covers elements not covered in my initial note of 06/18/2017. SUBJECTIVE: I met with the patient the evening of 06/18/2017. The patient was better in the morning until about 10:00 a.m., then he has been yelling in the day room, loud, disruptive, swinging and hitting at staff, calling patients by rather derogatory names, repeatedly calling out "help me, help me, help me" for no real reason. Confused, talking about getting buckets for chicken, believes [place] is [place] a farm. REVIEW OF SYSTEMS: Ambulation impaired, in Broda chair. No CV, , pulmonary, eye, ENT system symptoms on review. Reliability poor. MENTAL STATUS EXAM: Oriented to himself. Insight, judgment, recent and remote memory, attention, concentration, fund of knowledge poor, consistent with his diagnosis mentioned in my initial note. IMPRESSION: Major neurocognitive disorder, vascular, Alzheimer with delusion, depression, behavioral disturbance. Rest unchanged. PLAN: Increased scheduled trazodone from 12.5 mg 3 times a day to 25 mg in the morning and 12.5 mg twice a day. Continue rest unchanged per initial note. HANDY RIZVI MD DR: YESSENIA/linnette JOB#: [id number] / [id number]
--- NOTE | 2017-06-19 20:01 | PDOC ---
Exam Note: Jordy Note: Please also refer to the separate dictated note~for this date of service dictated separately.~Patient seen individually. Discussed the patient with Nursing staff reviewed the chart.~Reviewed interim history and current functioning. Reviewed vital signs,~Labs/ Radiology~and current medications noted below. Continue current treatment with the changes noted in the dictated addendum note Assessment: Vital Signs: Vital Signs Date Time Temp Pulse Resp B/P (MAP) Pulse Ox O2 Delivery O2 Flow Rate FiO2 06/19/17 19:10 67 114/57 06/19/17 16:24 98.2 24 93 06/18/17 19:25 Room Air I&O Intake and Output 06/19/17 07:00 Intake Total 1200 ml Balance 1200 ml Intake Oral 1200 ml # Voids 1 Labs: Laboratory Tests Test 06/19/17 09:25 White Blood Count 8.1 x10^3/uL (4.0-11.0) Red Blood Count 4.14 x10^6/uL (4.30-5.70) L Hemoglobin 12.7 g/dL (13.0-17.5) L Hematocrit 37.6 % (39.0-53.0) L Mean Corpuscular Volume 91 fL (79-100) Mean Corpuscular Hemoglobin 31 pg (25-35) Mean Corpuscular Hemoglobin Concent 34 g/dL (31-37) Red Cell Distribution Width 14.0 % (11.5-14.5) Platelet Count 294 x10^3/uL (140-400) Sodium Level 140 mmol/L (136-145) Potassium Level 4.1 mmol/L (3.5-5.1) Chloride Level 104 mmol/L (98-107) Carbon Dioxide Level 32 mmol/L (21-32) Anion Gap 4 (6-14) L Blood Urea Nitrogen 25 mg/dL (8-26) Creatinine 1.1 mg/dL (0.7-1.3) Estimated GFR (Cockcroft-Gault) 64.9 BUN/Creatinine Ratio 23 (6-20) H Glucose Level 101 mg/dL (70-99) H Calcium Level 8.5 mg/dL (8.5-10.1) Total Bilirubin 0.3 mg/dL (0.2-1.0) Aspartate Amino Transferase (AST) 18 U/L (15-37) Alanine Aminotransferase (ALT) 26 U/L (16-63) Alkaline Phosphatase 44 U/L (46-116) L Total Protein 7.0 g/dL (6.4-8.2) Albumin 2.8 g/dL (3.4-5.0) L Albumin/Globulin Ratio 0.7 (1.0-1.7) L Valproic Acid Level 35 mcg/mL (50-100) L Valproic Acid Last Dose Date 06/18/2016 Valproic Acid Last Dose Time 1700 Current Medications: Meds: Current Medications Acetaminophen (Tylenol) 650 mg PRN Q6HRS PRN PO PAIN / TEMP; Start 06/05/17 at 22:15; Stop 06/14/17 at 13:43; Status DC Multi-Ingredient Ointment (Analgesic [place]) 1 feliciano PRN QID PRN TP MUSCLE PAIN; Start 06/05/17 at 22:15 Al Hydroxide/Mg Hydroxide (Mylanta Plus Xs) 15 ml PRN AFTMEALHC PRN PO DYSPEPSIA; Start 06/05/17 at 22:15 Magnesium Hydroxide (Milk Of Magnesia) 2,400 mg PRN QHS PRN PO CONSTIPATION Last administered on 06/11/17at 05:51; Start 06/05/17 at 22:15 Risperidone (RisperDAL) 1 mg BID PO Last administered on 06/07/17at 08:17; Start 06/06/17 at 09:00; Stop 06/07/17 at 17:15; Status DC Citalopram Hydrobromide (CeleXA) 20 mg DAILY PO Last administered on 06/07/17at 08:16; Start 06/06/17 at 09:00; Stop 06/07/17 at 18:54; Status DC Melatonin 3 mg PRN QHS PRN PO INSOMNIA Last administered on 06/16/17at 20:40; Start 06/05/17 at 22:30 Lorazepam (Ativan Intensol) Give 0.5 ml sublingually every ... PRN Q2HR PRN SL ANXIETY / AGITATION; Start 06/05/17 at 22:30; Status UNV Lorazepam (Ativan) 1 mg PRN Q2HR PRN PO ANXIETY / AGITATION; Start 06/05/17 at 22:45; Stop 06/10/17 at 18:30; Status DC Lorazepam (Ativan) 2 mg PRN Q2HR PRN PO ANXIETY / AGITATION; Start 06/05/17 at 22:45; Stop 06/10/17 at 18:30; Status DC Acetaminophen (Tylenol) 650 mg PRN Q4HRS PRN PO PAIN / TEMP Last administered on 06/18/17 19:31; Start 06/06/17 at 10:30 Amlodipine Besylate (Norvasc) 10 mg DAILY PO Last administered on 06/19/17 09: 37; Start 06/06/17 at 12:00 Apixaban (Eliquis) 5 mg BID PO Last administered on 06/19/17 19:10; Start 06/06 at 21:00 Atorvastatin Calcium (Lipitor) 20 mg QHS PO Last administered on 06/19/17 19:10 ; Start 06/06/17 at 21:00 Levothyroxine Sodium (Synthroid) 25 mcg DAILYAC PO Last administered on 07:49; Start 06/07/17 at 07:30; Stop 06/11/17 at 07:33; Status DC Losartan Potassium (Cozaar) 25 mg DAILY PO Last administered on 06/19/17 09:36 ; Start 06/06/17 at 12:00 Nystatin (Mycostatin) 1 feliciano BID TP Last administered on 06/11/17 09:15; Start 06/06/17 at 21:00; Stop 06/11/17 at 09:19; Status DC Polyethylene Glycol (miraLAX) 17 gm PRN DAILY PRN PO CONSTIPATION; Start at 10:39 Sotalol HCl (Betapace) 80 mg BID PO Last administered on 06/19/17 19:10; Start 06/06/17 at 21:00 Tramadol HCl (Ultram) 50 mg DAILY PO Last administered on 06/19/17 09:42; Start 06/06/17 at 12:00 Tramadol HCl (Ultram) 50 mg PRN Q8HRS PRN PO PAIN Last administered on 18:15; Start 06/06/17 at 10:30 Vitamin D (Vitamin D3) 50,000 unit WEEKLY PO Last administered on 06/19/17 09: 41; Start 06/12/17 at 09:00 Multivitamins/ Calcium (Thera-M Plus) 1 tab DAILY PO Last administered on 09:14; Start 06/06/17 at 12:00 Vitamin B Complex 1 cap DAILY PO Last administered on 06/19/17 09:14; Start at 12:00 Warfarin Sodium (Coumadin Per Pharmacy) 1 each PRN DAILY PRN MC SEE COMMENTS; Start 06/07/17 at 14:00; Status UNV Risperidone (RisperDAL) 0.5 mg BID PO Last administered on 06/08/17 08:03; Start 06/07/17 at 21:00; Stop 06/08/17 at 19:26; Status DC Mirtazapine (Remeron) 7.5 mg QHS PO Last administered on 06/19/17 19:10; Start 06/07/17 at 21:00 Fluvoxamine Maleate (Luvox) 25 mg DAILY PO Last administered on 06/09/17 07:49 ; Start 06/08/17 at 09:00; Stop 06/10/17 at 08:59; Status DC Fluvoxamine Maleate (Luvox) 50 mg DAILY PO Last administered on 06/16/17 07:41 ; Start 06/10/17 at 09:00; Stop 06/16/17 at 18:42; Status DC Risperidone (RisperDAL) 0.25 mg BID PO Last administered on 06/11/17 19:10; Start 06/08/17 at 21:00; Stop 06/12/17 at 08:59; Status DC Lorazepam (Ativan) 0.25 mg PRN Q2HR PRN PO ANXIETY / AGITATION Last administered on 06/18/17 19:26; Start 06/10/17 at 18:30 Risperidone (RisperDAL) 0.25 mg DAILY PO Last administered on 06/14/17 10:22; Start 06/12/17 at 09:00; Stop 06/15/17 at 08:59; Status DC Levothyroxine Sodium (Synthroid) 25 mcg DAILY06 PO Last administered on 06:22; Start 06/11/17 at 07:45 Nystatin (Nystop) 1 feliciano BID TP Last administered on 06/19/17 19:10; Start 06/11 at 09:30 Divalproex Sodium (Depakote Sprinkles) 125 mg TID@0900,1300,1700 PO Last administered on 06/15/17 18:34; Start 06/11/17 at 13:00; Stop 06/15/17 at 22:29; Status DC Docusate Sodium (Colace) 100 mg BID PO Last administered on 06/19/17at 19:10; Start 06/11/17 at 21:00 Polyethylene Glycol (miraLAX) 17 gm DAILY PO Last administered on 06/19/17at 09: 14; Start 06/12/17 at 09:00 Magnesium Citrate (Citroma) 296 ml PRN 1X PRN PO CONSTIPATION; Start 06/11/17 at 18:15 Quetiapine Fumarate (SEROquel) 12.5 mg TID@0600,1200,1700 PO Last administered on 06/13/17at 16:57; Start 06/13/17 at 12:00; Stop 06/13/17 at 19:16; Status DC Quetiapine Fumarate (SEROquel) 12.5 mg DAILY@1200 PO Last administered on at 12:00; Start 06/14/17 at 12:00; Stop 06/16/17 at 18:42; Status DC Quetiapine Fumarate (SEROquel) 25 mg BID@0600,1700 PO Last administered on at 16:54; Start 06/14/17 at 06:00 Quetiapine Fumarate (SEROquel) 25 mg 1X ONCE PO Last administered on 06/14/17at 07:07; Start 06/14/17 at 07:15; Stop 06/14/17 at 07:16; Status DC Lidocaine (Xylocaine) 1 feliciano 1X ONCE TP Last administered on 06/14/17at 13:30; Start 06/14/17 at 13:30; Stop 06/14/17 at 13:31; Status DC Lidocaine HCl 20 ml 1X ONCE INJ Last administered on 06/14/17at 17:47; Start 06/14/17 at 17:15; Stop 06/14/17 at 17:16; Status DC Neomycin/ Polymyxin/ Bacitracin (Triple Antibiotic Ointment) 1 pkt 1X ONCE TP Last administered on 06/14/17at 18:15; Start 06/14/17 at 18:15; Stop 06/14/17 at 18: 16; Status DC Divalproex Sodium (Depakote Sprinkles) 250 mg TID@0900,1300,1700 PO Last administered on 06/19/17at 16:55; Start 06/16/17 at 09:00; Stop 06/19/17 at 18:30; Status DC Fluvoxamine Maleate (Luvox) 75 mg DAILY PO Last administered on 06/19/17at 09:15 ; Start 06/17/17 at 09:00 Quetiapine Fumarate (SEROquel) 25 mg DAILY@1200 PO Last administered on at 12:19; Start 06/17/17 at 12:00 Hydrocortisone (Cortaid) 1 feliciano BID TP Last administered on 06/19/17at 19:11; Start 06/16/17 at 21:00 Trazodone HCl (Desyrel) 25 mg 1X ONCE PO Last administered on 06/17/17at 18:00; Start 06/17/17 at 18:00; Stop 06/17/17 at 18:02; Status DC Trazodone HCl (Desyrel) 12.5 mg TID@0900,1300,1700 PO Last administered on at 17:04; Start 06/18/17 at 09:00; Stop 06/18/17 at 18:09; Status DC Trazodone HCl (Desyrel) 12.5 mg BID@1300,1700 PO Last administered on 06/19/17at 16:54; Start 06/19/17 at 13:00 Trazodone HCl (Desyrel) 25 mg DAILY PO Last administered on 06/19/17at 09:41; Start 06/19/17 at 09:00 Divalproex Sodium (Depakote Sprinkles) 375 mg TID@0900,1300,1700 PO ; Start 06/20 at 09:00 Active Scripts Active Reported Vitamin B Complex 1 Each Tablet 1 Tab PO DAILY Tramadol Hcl (Tramadol HCl) 50 Mg Tablet 50 Mg PO DAILY Tramadol Hcl (Tramadol HCl) 50 Mg Tablet 50 Mg PO PRN Q4HRS PRN Sotalol (Sotalol Hcl) 80 Mg Tablet 80 Mg PO BID Risperidone 1 Mg Tablet 1 Mg PO BID Polyethylene Glycol 3350 255 Gm Powder 17 Gm PO PRN DAILY PRN Nystatin 15 Gm Cream..g. 1 Feliciano TP BID Centrum Flavor Burst Adult (Multivit with Minerals No.55) 1 Each Tab.chew 1 Tab PO DAILY Melatonin 3 Mg Tablet 3 Mg PO PRN QHS PRN Losartan Potassium 25 Mg Tablet 25 Mg PO DAILY Lorazepam Intensol (Lorazepam) 2 Mg/1 Ml Oral.conc 0.5-1 Ml SL PRN Q2HR PRN Escitalopram Oxalate 10 Mg Tablet 10 Mg PO DAILY Levothyroxine Sodium 25 Mcg Tablet 25 Mcg PO DAILYAC Vitamin D2 (Ergocalciferol (Vitamin D2)) 50,000 Unit Capsule 50,000 Unit PO WEEKLY Eliquis (Apixaban) 5 Mg Tablet 5 Mg PO BID Atorvastatin Calcium 20 Mg Tablet 20 Mg PO QHS Amlodipine Besylate 10 Mg Tablet 10 Mg PO DAILY Tylenol (Acetaminophen) 325 Mg Tablet 650 Mg PO PRN Q4HRS PRN I have reviewed the current psychotropics carefully including drug interactions. Risk benefit ratio favors no change other than as noted in my dictated progress note. 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
[2017-06-20] MEDS: LEVOTHYROXINE 25 MCG TABLET. PO SCH (06:13)
[2017-06-20] MEDS: QUEtiapine 25 MG TABLET. PO SCH ×3 (06:14→16:51)
[2017-06-20 06:18] VITALS: BP 107/54
[2017-06-20] MEDS: MULTIVITAMIN with MINERAL TABLET. PO SCH (08:56)
[2017-06-20] MEDS: APIXABAN 5 MG TABLET. PO SCH ×2 (08:56→19:51)
[2017-06-20] MEDS: VITAMIN B COMPLEX CAPSULE. PO SCH (08:56)
[2017-06-20] MEDS: POLYETHYLENE GLYCOL 3350 17 GM PACKET. PO SCH (08:56)
[2017-06-20] MEDS: traZODone 50 MG TABLET. PO SCH ×4 (08:57→16:52)
[2017-06-20] MEDS: SOTALOL 80 MG TABLET. PO SCH ×2 (08:58→19:52)
[2017-06-20] MEDS: LOSARTAN 25 MG TABLET. PO SCH (08:58)
[2017-06-20] MEDS: DOCUSATE SODIUM 100 MG CAPSULE PO SCH ×2 (08:58→19:51)
[2017-06-20] MEDS: NYSTATIN TOPICAL POWDER 15GM BOTTLE. TP SCH ×2 (09:01→19:51)
[2017-06-20] MEDS: traMADol 50 MG TABLET PO SCH (09:02)
[2017-06-20] MEDS: DIVALPROEX 125 MG CAP.SPRINK PO SCH ×3 (09:02→16:52)
[2017-06-20] MEDS: HYDROCORTISONE 1% TOPICAL OINTMENT 30GM TUBE. TP SCH ×2 (09:02→19:52)
[2017-06-20] MEDS: amLODIPine BESYLATE 10 MG TABLET PO SCH (09:07)
[2017-06-20 16:21] VITALS: BP 104/68
[2017-06-20] MEDS: MIRTAZAPINE 7.5 MG TABLET. PO SCH (19:51)
[2017-06-20] MEDS: ATORVASTATIN CALCIUM 20 MG TABLET PO SCH (19:51)
--- NOTE | 2017-06-20 20:04 | PDOC ---
Exam Note: Jordy Note: Please also refer to the separate dictated note~for this date of service dictated separately.~Patient seen individually. Discussed the patient with Nursing staff reviewed the chart.~Reviewed interim history and current functioning. Reviewed vital signs,~Labs/ Radiology~and current medications noted below. Continue current treatment with the changes noted in the dictated addendum note Assessment: Vital Signs: Vital Signs Date Time Temp Pulse Resp B/P (MAP) Pulse Ox O2 Delivery O2 Flow Rate FiO2 06/20/17 19:52 75 104/68 06/20/17 16:21 97.6 19 94 06/18/17 19:25 Room Air I&O Intake and Output 06/20/17 07:00 Intake Total 720 ml Balance 720 ml Intake Oral 720 ml # Voids 2 # Bowel Movements 1 Current Medications: Meds: Current Medications Acetaminophen (Tylenol) 650 mg PRN Q6HRS PRN PO PAIN / TEMP; Start 06/05/17 at 22:15; Stop 06/14/17 at 13:43; Status DC Multi-Ingredient Ointment (Analgesic [place]) 1 feliciano PRN QID PRN TP MUSCLE PAIN; Start 06/05/17 at 22:15 Al Hydroxide/Mg Hydroxide (Mylanta Plus Xs) 15 ml PRN AFTMEALHC PRN PO DYSPEPSIA; Start 06/05/17 at 22:15 Magnesium Hydroxide (Milk Of Magnesia) 2,400 mg PRN QHS PRN PO CONSTIPATION Last administered on 06/11/17at 05:51; Start 06/05/17 at 22:15 Risperidone (RisperDAL) 1 mg BID PO Last administered on 06/07/17at 08:17; Start 06/06/17 at 09:00; Stop 06/07/17 at 17:15; Status DC Citalopram Hydrobromide (CeleXA) 20 mg DAILY PO Last administered on 06/07/17at 08:16; Start 06/06/17 at 09:00; Stop 06/07/17 at 18:54; Status DC Melatonin 3 mg PRN QHS PRN PO INSOMNIA Last administered on 06/16/17at 20:40; Start 06/05/17 at 22:30 Lorazepam (Ativan Intensol) Give 0.5 ml sublingually every ... PRN Q2HR PRN SL ANXIETY / AGITATION; Start 06/05/17 at 22:30; Status UNV Lorazepam (Ativan) 1 mg PRN Q2HR PRN PO ANXIETY / AGITATION; Start 06/05/17 at 22:45; Stop 06/10/17 at 18:30; Status DC Lorazepam (Ativan) 2 mg PRN Q2HR PRN PO ANXIETY / AGITATION; Start 06/05/17 at 22:45; Stop 06/10/17 at 18:30; Status DC Acetaminophen (Tylenol) 650 mg PRN Q4HRS PRN PO PAIN / TEMP Last administered on 06/18/17 19:31; Start 06/06/17 at 10:30 Amlodipine Besylate (Norvasc) 10 mg DAILY PO Last administered on 06/20/17 09: 07; Start 06/06/17 at 12:00 Apixaban (Eliquis) 5 mg BID PO Last administered on 06/20/17 19:51; Start 06/06 at 21:00 Atorvastatin Calcium (Lipitor) 20 mg QHS PO Last administered on 06/20/17 19:51 ; Start 06/06/17 at 21:00 Levothyroxine Sodium (Synthroid) 25 mcg DAILYAC PO Last administered on 07:49; Start 06/07/17 at 07:30; Stop 06/11/17 at 07:33; Status DC Losartan Potassium (Cozaar) 25 mg DAILY PO Last administered on 06/20/17 08:58 ; Start 06/06/17 at 12:00 Nystatin (Mycostatin) 1 feliciano BID TP Last administered on 06/11/17 09:15; Start 06/06/17 at 21:00; Stop 06/11/17 at 09:19; Status DC Polyethylene Glycol (miraLAX) 17 gm PRN DAILY PRN PO CONSTIPATION; Start at 10:39 Sotalol HCl (Betapace) 80 mg BID PO Last administered on 06/20/17 19:52; Start 06/06/17 at 21:00 Tramadol HCl (Ultram) 50 mg DAILY PO Last administered on 06/20/17 09:02; Start 06/06/17 at 12:00 Tramadol HCl (Ultram) 50 mg PRN Q8HRS PRN PO PAIN Last administered on 18:15; Start 06/06/17 at 10:30 Vitamin D (Vitamin D3) 50,000 unit WEEKLY PO Last administered on 06/19/17 09: 41; Start 06/12/17 at 09:00 Multivitamins/ Calcium (Thera-M Plus) 1 tab DAILY PO Last administered on 08:56; Start 06/06/17 at 12:00 Vitamin B Complex 1 cap DAILY PO Last administered on 06/20/17 08:56; Start at 12:00 Warfarin Sodium (Coumadin Per Pharmacy) 1 each PRN DAILY PRN MC SEE COMMENTS; Start 06/07/17 at 14:00; Status UNV Risperidone (RisperDAL) 0.5 mg BID PO Last administered on 06/08/17 08:03; Start 06/07/17 at 21:00; Stop 06/08/17 at 19:26; Status DC Mirtazapine (Remeron) 7.5 mg QHS PO Last administered on 06/20/17 19:51; Start 06/07/17 at 21:00 Fluvoxamine Maleate (Luvox) 25 mg DAILY PO Last administered on 06/09/17 07:49 ; Start 06/08/17 at 09:00; Stop 06/10/17 at 08:59; Status DC Fluvoxamine Maleate (Luvox) 50 mg DAILY PO Last administered on 06/16/17 07:41 ; Start 06/10/17 at 09:00; Stop 06/16/17 at 18:42; Status DC Risperidone (RisperDAL) 0.25 mg BID PO Last administered on 06/11/17 19:10; Start 06/08/17 at 21:00; Stop 06/12/17 at 08:59; Status DC Lorazepam (Ativan) 0.25 mg PRN Q2HR PRN PO ANXIETY / AGITATION Last administered on 06/18/17 19:26; Start 06/10/17 at 18:30 Risperidone (RisperDAL) 0.25 mg DAILY PO Last administered on 06/14/17 10:22; Start 06/12/17 at 09:00; Stop 06/15/17 at 08:59; Status DC Levothyroxine Sodium (Synthroid) 25 mcg DAILY06 PO Last administered on 06:13; Start 06/11/17 at 07:45 Nystatin (Nystop) 1 feliciano BID TP Last administered on 06/20/17 19:51; Start 06/11 at 09:30 Divalproex Sodium (Depakote Sprinkles) 125 mg TID@0900,1300,1700 PO Last administered on 06/15/17 18:34; Start 06/11/17 at 13:00; Stop 06/15/17 at 22:29; Status DC Docusate Sodium (Colace) 100 mg BID PO Last administered on 06/20/17 19:51; Start 06/11/17 at 21:00 Polyethylene Glycol (miraLAX) 17 gm DAILY PO Last administered on 06/20/17 08: 56; Start 06/12/17 at 09:00 Magnesium Citrate (Citroma) 296 ml PRN 1X PRN PO CONSTIPATION; Start 06/11/17 at 18:15 Quetiapine Fumarate (SEROquel) 12.5 mg TID@0600,1200,1700 PO Last administered on 06/13/17 16:57; Start 06/13/17 at 12:00; Stop 06/13/17 at 19:16; Status DC Quetiapine Fumarate (SEROquel) 12.5 mg DAILY@1200 PO Last administered on at 12:00; Start 06/14/17 at 12:00; Stop 06/16/17 at 18:42; Status DC Quetiapine Fumarate (SEROquel) 25 mg BID@0600,1700 PO Last administered on 16:51; Start 06/14/17 at 06:00 Quetiapine Fumarate (SEROquel) 25 mg 1X ONCE PO Last administered on 06/14/17 07:07; Start 06/14/17 at 07:15; Stop 06/14/17 at 07:16; Status DC Lidocaine (Xylocaine) 1 feliciano 1X ONCE TP Last administered on 06/14/17 13:30; Start 06/14/17 at 13:30; Stop 06/14/17 at 13:31; Status DC Lidocaine HCl 20 ml 1X ONCE INJ Last administered on 06/14/17 17:47; Start 06/14/17 at 17:15; Stop 06/14/17 at 17:16; Status DC Neomycin/ Polymyxin/ Bacitracin (Triple Antibiotic Ointment) 1 pkt 1X ONCE TP Last administered on 06/14/17 18:15; Start 06/14/17 at 18:15; Stop 06/14/17 at 18: 16; Status DC Divalproex Sodium (Depakote Sprinkles) 250 mg TID@0900,1300,1700 PO Last administered on 06/19/17 16:55; Start 06/16/17 at 09:00; Stop 06/19/17 at 18:30; Status DC Fluvoxamine Maleate (Luvox) 75 mg DAILY PO Last administered on 06/20/17 08:56 ; Start 06/17/17 at 09:00 Quetiapine Fumarate (SEROquel) 25 mg DAILY@1200 PO Last administered on 12:11; Start 06/17/17 at 12:00 Hydrocortisone (Cortaid) 1 feliciano BID TP Last administered on 06/20/17 19:52; Start 06/16/17 at 21:00 Trazodone HCl (Desyrel) 25 mg 1X ONCE PO Last administered on 06/17/17 18:00; Start 06/17/17 at 18:00; Stop 06/17/17 at 18:02; Status DC Trazodone HCl (Desyrel) 12.5 mg TID@0900,1300,1700 PO Last administered on 17:04; Start 06/18/17 at 09:00; Stop 06/18/17 at 18:09; Status DC Trazodone HCl (Desyrel) 12.5 mg BID@1300,1700 PO Last administered on 06/20/17 12:12; Start 06/19/17 at 13:00; Stop 06/20/17 at 12:28; Status DC Trazodone HCl (Desyrel) 25 mg DAILY PO Last administered on 06/20/17 08:57; Start 06/19/17 at 09:00 Divalproex Sodium (Depakote Sprinkles) 375 mg TID@0900,1300,1700 PO Last administered on 3/8/18at 16:52; Start 06/20/17 at 09:00 Trazodone HCl (Desyrel) 25 mg BID@1300,1700 PO Last administered on 06/20/17at 16 :52; Start 06/20/17 at 13:00 Active Scripts Active Reported Vitamin B Complex 1 Each Tablet 1 Tab PO DAILY Tramadol Hcl (Tramadol HCl) 50 Mg Tablet 50 Mg PO DAILY Tramadol Hcl (Tramadol HCl) 50 Mg Tablet 50 Mg PO PRN Q4HRS PRN Sotalol (Sotalol Hcl) 80 Mg Tablet 80 Mg PO BID Risperidone 1 Mg Tablet 1 Mg PO BID Polyethylene Glycol 3350 255 Gm Powder 17 Gm PO PRN DAILY PRN Nystatin 15 Gm Cream..g. 1 Feliciano TP BID Centrum Flavor Burst Adult (Multivit with Minerals No.55) 1 Each Tab.chew 1 Tab PO DAILY Melatonin 3 Mg Tablet 3 Mg PO PRN QHS PRN Losartan Potassium 25 Mg Tablet 25 Mg PO DAILY Lorazepam Intensol (Lorazepam) 2 Mg/1 Ml Oral.conc 0.5-1 Ml SL PRN Q2HR PRN Escitalopram Oxalate 10 Mg Tablet 10 Mg PO DAILY Levothyroxine Sodium 25 Mcg Tablet 25 Mcg PO DAILYAC Vitamin D2 (Ergocalciferol (Vitamin D2)) 50,000 Unit Capsule 50,000 Unit PO WEEKLY Eliquis (Apixaban) 5 Mg Tablet 5 Mg PO BID Atorvastatin Calcium 20 Mg Tablet 20 Mg PO QHS Amlodipine Besylate 10 Mg Tablet 10 Mg PO DAILY Tylenol (Acetaminophen) 325 Mg Tablet 650 Mg PO PRN Q4HRS PRN I have reviewed the current psychotropics carefully including drug interactions. Risk benefit ratio favors no change other than as noted in my dictated progress note. Diagnosis: Problems: (1) Anxiety disorder (2) Agitation (3) Confusion (4) Panic disorder with agoraphobia and severe panic attacks (5) Dementia in Alzheimer's disease with delusions (6) Dementia in Alzheimer's disease with depression (7) Dementia, vascular, with delusions (8) Dementia, vascular, with depression (9) Impulse control disorder HANDY RIZVI MD Jun 20, 2017 20:04
[2017-06-21 05:30] LABS: BACTERIA,URINE MOD /HPF (0-FEW); BILIRUBIN,URINE NEG (NEG); CLARITY,URINE HAZY; COLOR,URINE YELLOW; GLUCOSE,URINE NEG (NEG); NITRITE,URINE NEG (NEG); RBC,URINE >40 /HPF (0-2); SQUAMOUS EPITHELIAL CELL,UR OCC /LPF; UROBILINOGEN,URINE 0.2 mg/dL (0.2 mg/dL); WBC,URINE >40 /HPF (0-4)
[2017-06-21] MEDS: QUEtiapine 25 MG TABLET. PO SCH ×3 (05:50→16:57)
[2017-06-21] MEDS: LEVOTHYROXINE 25 MCG TABLET. PO SCH (05:50)
[2017-06-21 06:19] VITALS: BP 168/75
[2017-06-21] MEDS: DOCUSATE SODIUM 100 MG CAPSULE PO SCH ×2 (08:35→19:45)
[2017-06-21] MEDS: VITAMIN B COMPLEX CAPSULE. PO SCH (08:35)
[2017-06-21] MEDS: POLYETHYLENE GLYCOL 3350 17 GM PACKET. PO SCH (08:35)
[2017-06-21] MEDS: traZODone 50 MG TABLET. PO SCH ×3 (08:36→16:57)
[2017-06-21] MEDS: MULTIVITAMIN with MINERAL TABLET. PO SCH (08:36)
[2017-06-21] MEDS: APIXABAN 5 MG TABLET. PO SCH ×2 (08:36→19:46)
[2017-06-21] MEDS: amLODIPine BESYLATE 10 MG TABLET PO SCH (08:37)
[2017-06-21] MEDS: LOSARTAN 25 MG TABLET. PO SCH (08:37)
[2017-06-21] MEDS: traMADol 50 MG TABLET PO SCH (08:38)
[2017-06-21] MEDS: DIVALPROEX 125 MG CAP.SPRINK PO SCH ×3 (08:38→16:56)
[2017-06-21] MEDS: NYSTATIN TOPICAL POWDER 15GM BOTTLE. TP SCH ×2 (08:39→19:45)
[2017-06-21] MEDS: HYDROCORTISONE 1% TOPICAL OINTMENT 30GM TUBE. TP SCH ×2 (08:39→19:57)
[2017-06-21] MEDS: SOTALOL 80 MG TABLET. PO SCH ×2 (08:40→19:55)
[2017-06-21 16:31] VITALS: BP 95/53
[2017-06-21] MEDS: ATORVASTATIN CALCIUM 20 MG TABLET PO SCH (19:46)
[2017-06-21] MEDS: MIRTAZAPINE 7.5 MG TABLET. PO SCH (19:46)
--- NOTE | 2017-06-21 20:01 | PDOC ---
Exam Note: Jordy Note: Please also refer to the separate dictated note~for this date of service dictated separately.~Patient seen individually. Discussed the patient with Nursing staff reviewed the chart.~Reviewed interim history and current functioning. Reviewed vital signs,~Labs/ Radiology~and current medications noted below. Continue current treatment with the changes noted in the dictated addendum note Assessment: Vital Signs: Vital Signs Date Time Temp Pulse Resp B/P (MAP) Pulse Ox O2 Delivery O2 Flow Rate FiO2 06/21/17 19:55 70 115/64 06/21/17 16:31 97.4 17 93 06/18/17 19:25 Room Air I&O Intake and Output 06/21/17 07:00 Intake Total 1320 ml Balance 1320 ml Intake Oral 1320 ml # Voids 2 Labs: Laboratory Tests Test 06/21/17 05:13 Urine Collection Type U cath Urine Color Yellow Urine Clarity Hazy Urine pH 8.0 Urine Specific [place] 1.015 Urine Protein Neg (NEG-TRACE) Urine Glucose (UA) Neg mg/dL (NEG) Urine Ketones (Stick) Neg mg/dL (NEG) Urine Blood Large (NEG) Urine Nitrite Neg (NEG) Urine Bilirubin Neg (NEG) Urine Urobilinogen Dipstick 0.2 mg/dL (0.2 mg/dL) Urine Leukocyte Esterase Mod (NEG) Urine RBC >40 /HPF (0-2) Urine WBC >40 /HPF (0-4) Urine Squamous Epithelial Cells Occ /LPF Urine Transitional Epithelial Cells Occ /LPF Urine Renal Epithelial Cells Occ /LPF Urine Bacteria Mod /HPF (0-FEW) Current Medications: Meds: Current Medications Acetaminophen (Tylenol) 650 mg PRN Q6HRS PRN PO PAIN / TEMP; Start 06/05/17 at 22:15; Stop 06/14/17 at 13:43; Status DC Multi-Ingredient Ointment (Analgesic [place]) 1 feliciano PRN QID PRN TP MUSCLE PAIN; Start 06/05/17 at 22:15 Al Hydroxide/Mg Hydroxide (Mylanta Plus Xs) 15 ml PRN AFTMEALHC PRN PO DYSPEPSIA; Start 06/05/17 at 22:15 Magnesium Hydroxide (Milk Of Magnesia) 2,400 mg PRN QHS PRN PO CONSTIPATION Last administered on 06/11/17at 05:51; Start 06/05/17 at 22:15 Risperidone (RisperDAL) 1 mg BID PO Last administered on 06/07/17 08:17; Start 06/06/17 at 09:00; Stop 06/07/17 at 17:15; Status DC Citalopram Hydrobromide (CeleXA) 20 mg DAILY PO Last administered on 06/07/17 08:16; Start 06/06/17 at 09:00; Stop 06/07/17 at 18:54; Status DC Melatonin 3 mg PRN QHS PRN PO INSOMNIA Last administered on 06/16/17at 20:40; Start 06/05/17 at 22:30 Lorazepam (Ativan Intensol) Give 0.5 ml sublingually every ... PRN Q2HR PRN SL ANXIETY / AGITATION; Start 06/05/17 at 22:30; Status UNV Lorazepam (Ativan) 1 mg PRN Q2HR PRN PO ANXIETY / AGITATION; Start 06/05/17 at 22:45; Stop 06/10/17 at 18:30; Status DC Lorazepam (Ativan) 2 mg PRN Q2HR PRN PO ANXIETY / AGITATION; Start 06/05/17 at 22:45; Stop 06/10/17 at 18:30; Status DC Acetaminophen (Tylenol) 650 mg PRN Q4HRS PRN PO PAIN / TEMP Last administered on 06/18/17 19:31; Start 06/06/17 at 10:30 Amlodipine Besylate (Norvasc) 10 mg DAILY PO Last administered on 06/21/17 08: 37; Start 06/06/17 at 12:00 Apixaban (Eliquis) 5 mg BID PO Last administered on 06/21/17 19:46; Start 06/06 at 21:00 Atorvastatin Calcium (Lipitor) 20 mg QHS PO Last administered on 06/21/17 19:46 ; Start 06/06/17 at 21:00 Levothyroxine Sodium (Synthroid) 25 mcg DAILYAC PO Last administered on 07:49; Start 06/07/17 at 07:30; Stop 06/11/17 at 07:33; Status DC Losartan Potassium (Cozaar) 25 mg DAILY PO Last administered on 06/21/17 08:37 ; Start 06/06/17 at 12:00 Nystatin (Mycostatin) 1 feliciano BID TP Last administered on 06/11/17 09:15; Start 06/06/17 at 21:00; Stop 06/11/17 at 09:19; Status DC Polyethylene Glycol (miraLAX) 17 gm PRN DAILY PRN PO CONSTIPATION; Start at 10:39 Sotalol HCl (Betapace) 80 mg BID PO Last administered on 06/21/17 19:55; Start 06/06/17 at 21:00 Tramadol HCl (Ultram) 50 mg DAILY PO Last administered on 06/21/17 08:38; Start 06/06/17 at 12:00 Tramadol HCl (Ultram) 50 mg PRN Q8HRS PRN PO PAIN Last administered on 18:15; Start 06/06/17 at 10:30 Vitamin D (Vitamin D3) 50,000 unit WEEKLY PO Last administered on 06/19/17 09: 41; Start 06/12/17 at 09:00 Multivitamins/ Calcium (Thera-M Plus) 1 tab DAILY PO Last administered on 08:36; Start 06/06/17 at 12:00 Vitamin B Complex 1 cap DAILY PO Last administered on 06/21/17 08:35; Start at 12:00 Warfarin Sodium (Coumadin Per Pharmacy) 1 each PRN DAILY PRN MC SEE COMMENTS; Start 06/07/17 at 14:00; Status UNV Risperidone (RisperDAL) 0.5 mg BID PO Last administered on 06/08/17 08:03; Start 06/07/17 at 21:00; Stop 06/08/17 at 19:26; Status DC Mirtazapine (Remeron) 7.5 mg QHS PO Last administered on 06/21/17 19:46; Start 06/07/17 at 21:00 Fluvoxamine Maleate (Luvox) 25 mg DAILY PO Last administered on 06/09/17 07:49 ; Start 06/08/17 at 09:00; Stop 06/10/17 at 08:59; Status DC Fluvoxamine Maleate (Luvox) 50 mg DAILY PO Last administered on 06/16/17 07:41 ; Start 06/10/17 at 09:00; Stop 06/16/17 at 18:42; Status DC Risperidone (RisperDAL) 0.25 mg BID PO Last administered on 06/11/17 19:10; Start 06/08/17 at 21:00; Stop 06/12/17 at 08:59; Status DC Lorazepam (Ativan) 0.25 mg PRN Q2HR PRN PO ANXIETY / AGITATION Last administered on 06/18/17 19:26; Start 06/10/17 at 18:30 Risperidone (RisperDAL) 0.25 mg DAILY PO Last administered on 06/14/17 10:22; Start 06/12/17 at 09:00; Stop 06/15/17 at 08:59; Status DC Levothyroxine Sodium (Synthroid) 25 mcg DAILY06 PO Last administered on 05:50; Start 06/11/17 at 07:45 Nystatin (Nystop) 1 feliciano BID TP Last administered on 06/21/17 19:45; Start 06/11 at 09:30 Divalproex Sodium (Depakote Sprinkles) 125 mg TID@0900,1300,1700 PO Last administered on 06/15/17 18:34; Start 06/11/17 at 13:00; Stop 06/15/17 at 22:29; Status DC Docusate Sodium (Colace) 100 mg BID PO Last administered on 06/21/17 19:45; Start 06/11/17 at 21:00 Polyethylene Glycol (miraLAX) 17 gm DAILY PO Last administered on 06/21/17at 08: 35; Start 06/12/17 at 09:00 Magnesium Citrate (Citroma) 296 ml PRN 1X PRN PO CONSTIPATION; Start 06/11/17 at 18:15 Quetiapine Fumarate (SEROquel) 12.5 mg TID@0600,1200,1700 PO Last administered on 06/13/17 16:57; Start 06/13/17 at 12:00; Stop 06/13/17 at 19:16; Status DC Quetiapine Fumarate (SEROquel) 12.5 mg DAILY@1200 PO Last administered on at 12:00; Start 06/14/17 at 12:00; Stop 06/16/17 at 18:42; Status DC Quetiapine Fumarate (SEROquel) 25 mg BID@0600,1700 PO Last administered on 16:57; Start 06/14/17 at 06:00 Quetiapine Fumarate (SEROquel) 25 mg 1X ONCE PO Last administered on 06/14/17 07:07; Start 06/14/17 at 07:15; Stop 06/14/17 at 07:16; Status DC Lidocaine (Xylocaine) 1 feliciano 1X ONCE TP Last administered on 06/14/17 13:30; Start 06/14/17 at 13:30; Stop 06/14/17 at 13:31; Status DC Lidocaine HCl 20 ml 1X ONCE INJ Last administered on 06/14/17 17:47; Start 06/14/17 at 17:15; Stop 06/14/17 at 17:16; Status DC Neomycin/ Polymyxin/ Bacitracin (Triple Antibiotic Ointment) 1 pkt 1X ONCE TP Last administered on 06/14/17 18:15; Start 06/14/17 at 18:15; Stop 06/14/17 at 18: 16; Status DC Divalproex Sodium (Depakote Sprinkles) 250 mg TID@0900,1300,1700 PO Last administered on 06/19/17 16:55; Start 06/16/17 at 09:00; Stop 06/19/17 at 18:30; Status DC Fluvoxamine Maleate (Luvox) 75 mg DAILY PO Last administered on 06/21/17 08:36 ; Start 06/17/17 at 09:00 Quetiapine Fumarate (SEROquel) 25 mg DAILY@1200 PO Last administered on 12:21; Start 06/17/17 at 12:00 Hydrocortisone (Cortaid) 1 feliciano BID TP Last administered on 06/21/17 19:57; Start 06/16/17 at 21:00 Trazodone HCl (Desyrel) 25 mg 1X ONCE PO Last administered on 06/17/17 18:00; Start 06/17/17 at 18:00; Stop 06/17/17 at 18:02; Status DC Trazodone HCl (Desyrel) 12.5 mg TID@0900,1300,1700 PO Last administered on at 17:04; Start 06/18/17 at 09:00; Stop 06/18/17 at 18:09; Status DC Trazodone HCl (Desyrel) 12.5 mg BID@1300,1700 PO Last administered on 06/20/17at 12:12; Start 06/19/17 at 13:00; Stop 06/20/17 at 12:28; Status DC Trazodone HCl (Desyrel) 25 mg DAILY PO Last administered on 06/21/17at 08:36; Start 06/19/17 at 09:00 Divalproex Sodium (Depakote Sprinkles) 375 mg TID@0900,1300,1700 PO Last administered on 06/21/17at 16:56; Start 06/20/17 at 09:00 Trazodone HCl (Desyrel) 25 mg BID@1300,1700 PO Last administered on 06/21/17at 16 :57; Start 06/20/17 at 13:00 Active Scripts Active Reported Vitamin B Complex 1 Each Tablet 1 Tab PO DAILY Tramadol Hcl (Tramadol HCl) 50 Mg Tablet 50 Mg PO DAILY Tramadol Hcl (Tramadol HCl) 50 Mg Tablet 50 Mg PO PRN Q4HRS PRN Sotalol (Sotalol Hcl) 80 Mg Tablet 80 Mg PO BID Risperidone 1 Mg Tablet 1 Mg PO BID Polyethylene Glycol 3350 255 Gm Powder 17 Gm PO PRN DAILY PRN Nystatin 15 Gm Cream..g. 1 Feliciano TP BID Centrum Flavor Burst Adult (Multivit with Minerals No.55) 1 Each Tab.chew 1 Tab PO DAILY Melatonin 3 Mg Tablet 3 Mg PO PRN QHS PRN Losartan Potassium 25 Mg Tablet 25 Mg PO DAILY Lorazepam Intensol (Lorazepam) 2 Mg/1 Ml Oral.conc 0.5-1 Ml SL PRN Q2HR PRN Escitalopram Oxalate 10 Mg Tablet 10 Mg PO DAILY Levothyroxine Sodium 25 Mcg Tablet 25 Mcg PO DAILYAC Vitamin D2 (Ergocalciferol (Vitamin D2)) 50,000 Unit Capsule 50,000 Unit PO WEEKLY Eliquis (Apixaban) 5 Mg Tablet 5 Mg PO BID Atorvastatin Calcium 20 Mg Tablet 20 Mg PO QHS Amlodipine Besylate 10 Mg Tablet 10 Mg PO DAILY Tylenol (Acetaminophen) 325 Mg Tablet 650 Mg PO PRN Q4HRS PRN I have reviewed the current psychotropics carefully including drug interactions. Risk benefit ratio favors no change other than as noted in my dictated progress note. Diagnosis: Problems: (1) Anxiety disorder (2) Agitation (3) Confusion (4) Panic disorder with agoraphobia and severe panic attacks (5) Dementia in Alzheimer's disease with delusions (6) Dementia in Alzheimer's disease with depression (7) Dementia, vascular, with delusions (8) Dementia, vascular, with depression (9) Impulse control disorder HANDY RIZVI MD Jun 21, 2017 20:01
--- NOTE | 2017-06-21 20:54 | PN ---
DATE: 06/19/2017 This is a late entry, 06/19/2017, covers the elements not covered in my initial note, 06/19/2017. SUBJECTIVE: I met with the patient evening of 06/19/2017. Previous evening, the patient was yelling, remained on one-on-one status. Slept 7-3/4 hours previous evening, compliant with medications, yelling about wanting to feed the cats and dogs, [place]. REVIEW OF SYSTEMS: Ambulation impaired, in Broda chair. No CV, , pulmonary, eye, ENT system symptoms on review. Reliability poor. MENTAL STATUS EXAM: Oriented to himself. Insight, judgment, recent and remote memory, attention, concentration, fund of knowledge poor, consistent with his diagnosis. IMPRESSION: Major neurocognitive disorder, vascular with delusion, depression, behavioral disturbance. PLAN: Valproic acid level subtherapeutic at 35. Increase Depakote from 250 three times a day to 375 mg three times a day. Check CBC, CMP, valproic acid level in 3 days to reach the therapeutic level. Continue rest unchanged. MAN Laverne RIZVI MD DR: YESSENIA/linnette JOB#: [id number] / [id number]
--- NOTE | 2017-06-21 23:36 | PN ---
DATE: 06/20/2017 PSYCHIATRIC PROGRESS NOTE This is a late entry 06/20/2017 covers elements not covered in my initial note 06/20/2017. SUBJECTIVE: I met with the patient evening of 06/20/2017, staffed at a treatment team meeting with the entire team morning of 06/20/2017. The patient's yelling is better during the day, sleeping 7 to 7-1/2 hours, appetite 60%, yells killed for lab draw help help gianna katz. Questionably psychotic at times, felt a hanging above his bed, does not participate in occupational therapy groups per report. REVIEW OF SYSTEMS: Ambulation impaired, in Broda chair. No CV, , pulmonary, eye, ENT system symptoms on review. Reliability poor. MENTAL STATUS EXAM: Oriented to himself. Insight, judgment, recent and remote memory, attention, concentration, fund of knowledge poor, consistent with his diagnosis mentioned in my initial note. PLAN: Increase trazodone from 12.5 mg b.i.d. to 25 mg 3 times a day. Maintain rest psychotropics unchanged. Check UA to make sure UTI is not worsening his agitation. MAN Laverne RIZVI MD DR: YESSENIA/linnette JOB#: [id number] / [id number]
[2017-06-22] MEDS: LEVOTHYROXINE 25 MCG TABLET. PO SCH (06:08)
[2017-06-22] MEDS: QUEtiapine 25 MG TABLET. PO SCH ×3 (06:08→16:47)
[2017-06-22 07:13] VITALS: BP 120/60
[2017-06-22] MEDS: DOCUSATE SODIUM 100 MG CAPSULE PO SCH ×2 (09:00→19:34)
[2017-06-22] MEDS: POLYETHYLENE GLYCOL 3350 17 GM PACKET. PO SCH (09:00)
[2017-06-22] MEDS: APIXABAN 5 MG TABLET. PO SCH ×2 (09:00→19:34)
[2017-06-22] MEDS: VITAMIN B COMPLEX CAPSULE. PO SCH (09:00)
[2017-06-22] MEDS: MULTIVITAMIN with MINERAL TABLET. PO SCH (09:00)
[2017-06-22] MEDS: DIVALPROEX 125 MG CAP.SPRINK PO SCH ×3 (09:01→16:48)
[2017-06-22] MEDS: NYSTATIN TOPICAL POWDER 15GM BOTTLE. TP SCH ×2 (09:02→19:35)
[2017-06-22] MEDS: traMADol 50 MG TABLET PO SCH (09:02)
[2017-06-22] MEDS: HYDROCORTISONE 1% TOPICAL OINTMENT 30GM TUBE. TP SCH ×2 (09:02→19:35)
[2017-06-22] MEDS: LOSARTAN 25 MG TABLET. PO SCH (09:02)
[2017-06-22] MEDS: traZODone 50 MG TABLET. PO SCH ×3 (09:03→16:48)
[2017-06-22] MEDS: SOTALOL 80 MG TABLET. PO SCH ×2 (09:04→19:35)
[2017-06-22] MEDS: amLODIPine BESYLATE 10 MG TABLET PO SCH (09:11)
[2017-06-22 16:28] VITALS: BP 126/57
[2017-06-22] MEDS: ATORVASTATIN CALCIUM 20 MG TABLET PO SCH (19:34)
[2017-06-22] MEDS: MIRTAZAPINE 7.5 MG TABLET. PO SCH (19:34)
--- NOTE | 2017-06-22 21:15 | PDOC ---
Exam Note: Jordy Note: Please also refer to the separate dictated note~for this date of service dictated separately.~Patient seen individually. Discussed the patient with Nursing staff reviewed the chart.~Reviewed interim history and current functioning. Reviewed vital signs,~Labs/ Radiology~and current medications noted below. Continue current treatment with the changes noted in the dictated addendum note Assessment: Vital Signs: Vital Signs Date Time Temp Pulse Resp B/P (MAP) Pulse Ox O2 Delivery O2 Flow Rate FiO2 06/22/17 19:35 60 126/68 06/22/17 16:28 97.2 20 96 Room Air I&O Intake and Output 06/22/17 07:00 Intake Total 1020 ml Balance 1020 ml Intake Oral 1020 ml # Voids 1 Current Medications: Meds: Current Medications Acetaminophen (Tylenol) 650 mg PRN Q6HRS PRN PO PAIN / TEMP; Start 06/05/17 at 22:15; Stop 06/14/17 at 13:43; Status DC Multi-Ingredient Ointment (Analgesic [place]) 1 feliciano PRN QID PRN TP MUSCLE PAIN; Start 06/05/17 at 22:15 Al Hydroxide/Mg Hydroxide (Mylanta Plus Xs) 15 ml PRN AFTMEALHC PRN PO DYSPEPSIA; Start 06/05/17 at 22:15 Magnesium Hydroxide (Milk Of Magnesia) 2,400 mg PRN QHS PRN PO CONSTIPATION Last administered on 06/11/17at 05:51; Start 06/05/17 at 22:15 Risperidone (RisperDAL) 1 mg BID PO Last administered on 06/07/17at 08:17; Start 06/06/17 at 09:00; Stop 06/07/17 at 17:15; Status DC Citalopram Hydrobromide (CeleXA) 20 mg DAILY PO Last administered on 06/07/17at 08:16; Start 06/06/17 at 09:00; Stop 06/07/17 at 18:54; Status DC Melatonin 3 mg PRN QHS PRN PO INSOMNIA Last administered on 06/16/17at 20:40; Start 06/05/17 at 22:30 Lorazepam (Ativan Intensol) Give 0.5 ml sublingually every ... PRN Q2HR PRN SL ANXIETY / AGITATION; Start 06/05/17 at 22:30; Status UNV Lorazepam (Ativan) 1 mg PRN Q2HR PRN PO ANXIETY / AGITATION; Start 06/05/17 at 22:45; Stop 06/10/17 at 18:30; Status DC Lorazepam (Ativan) 2 mg PRN Q2HR PRN PO ANXIETY / AGITATION; Start 06/05/17 at 22:45; Stop 06/10/17 at 18:30; Status DC Acetaminophen (Tylenol) 650 mg PRN Q4HRS PRN PO PAIN / TEMP Last administered on 06/18/17 19:31; Start 06/06/17 at 10:30 Amlodipine Besylate (Norvasc) 10 mg DAILY PO Last administered on 06/22/17 09: 11; Start 06/06/17 at 12:00 Apixaban (Eliquis) 5 mg BID PO Last administered on 06/22/17 19:34; Start at 21:00 Atorvastatin Calcium (Lipitor) 20 mg QHS PO Last administered on 06/22/17 19: 34; Start 06/06/17 at 21:00 Levothyroxine Sodium (Synthroid) 25 mcg DAILYAC PO Last administered on 07:49; Start 06/07/17 at 07:30; Stop 06/11/17 at 07:33; Status DC Losartan Potassium (Cozaar) 25 mg DAILY PO Last administered on 06/22/17 09:02 ; Start 06/06/17 at 12:00 Nystatin (Mycostatin) 1 feliciano BID TP Last administered on 06/11/17 09:15; Start 06/06/17 at 21:00; Stop 06/11/17 at 09:19; Status DC Polyethylene Glycol (miraLAX) 17 gm PRN DAILY PRN PO CONSTIPATION; Start at 10:39 Sotalol HCl (Betapace) 80 mg BID PO Last administered on 06/22/17 19:35; Start 06/06/17 at 21:00 Tramadol HCl (Ultram) 50 mg DAILY PO Last administered on 06/22/17 09:02; Start 06/06/17 at 12:00 Tramadol HCl (Ultram) 50 mg PRN Q8HRS PRN PO PAIN Last administered on 18:15; Start 06/06/17 at 10:30 Vitamin D (Vitamin D3) 50,000 unit WEEKLY PO Last administered on 06/19/17 09: 41; Start 06/12/17 at 09:00 Multivitamins/ Calcium (Thera-M Plus) 1 tab DAILY PO Last administered on 09:00; Start 06/06/17 at 12:00 Vitamin B Complex 1 cap DAILY PO Last administered on 06/22/17 09:00; Start at 12:00 Warfarin Sodium (Coumadin Per Pharmacy) 1 each PRN DAILY PRN MC SEE COMMENTS; Start 06/07/17 at 14:00; Status UNV Risperidone (RisperDAL) 0.5 mg BID PO Last administered on 06/08/17 08:03; Start 06/07/17 at 21:00; Stop 06/08/17 at 19:26; Status DC Mirtazapine (Remeron) 7.5 mg QHS PO Last administered on 06/22/17 19:34; Start 06/07/17 at 21:00 Fluvoxamine Maleate (Luvox) 25 mg DAILY PO Last administered on 06/09/17 07:49 ; Start 06/08/17 at 09:00; Stop 06/10/17 at 08:59; Status DC Fluvoxamine Maleate (Luvox) 50 mg DAILY PO Last administered on 06/16/17 07:41 ; Start 06/10/17 at 09:00; Stop 06/16/17 at 18:42; Status DC Risperidone (RisperDAL) 0.25 mg BID PO Last administered on 06/11/17 19:10; Start 06/08/17 at 21:00; Stop 06/12/17 at 08:59; Status DC Lorazepam (Ativan) 0.25 mg PRN Q2HR PRN PO ANXIETY / AGITATION Last administered on 06/18/17 19:26; Start 06/10/17 at 18:30 Risperidone (RisperDAL) 0.25 mg DAILY PO Last administered on 06/14/17 10:22; Start 06/12/17 at 09:00; Stop 06/15/17 at 08:59; Status DC Levothyroxine Sodium (Synthroid) 25 mcg DAILY06 PO Last administered on 06:08; Start 06/11/17 at 07:45 Nystatin (Nystop) 1 feliciano BID TP Last administered on 06/22/17 19:35; Start at 09:30 Divalproex Sodium (Depakote Sprinkles) 125 mg TID@0900,1300,1700 PO Last administered on 06/15/17 18:34; Start 06/11/17 at 13:00; Stop 06/15/17 at 22:29; Status DC Docusate Sodium (Colace) 100 mg BID PO Last administered on 06/22/17 19:34; Start 06/11/17 at 21:00 Polyethylene Glycol (miraLAX) 17 gm DAILY PO Last administered on 06/22/17 09: 00; Start 06/12/17 at 09:00 Magnesium Citrate (Citroma) 296 ml PRN 1X PRN PO CONSTIPATION; Start 06/11/17 at 18:15 Quetiapine Fumarate (SEROquel) 12.5 mg TID@0600,1200,1700 PO Last administered on 06/13/17at 16:57; Start 06/13/17 at 12:00; Stop 06/13/17 at 19:16; Status DC Quetiapine Fumarate (SEROquel) 12.5 mg DAILY@1200 PO Last administered on at 12:00; Start 06/14/17 at 12:00; Stop 06/16/17 at 18:42; Status DC Quetiapine Fumarate (SEROquel) 25 mg BID@0600,1700 PO Last administered on 06/22at 16:47; Start 06/14/17 at 06:00 Quetiapine Fumarate (SEROquel) 25 mg 1X ONCE PO Last administered on 06/14/17 07:07; Start 06/14/17 at 07:15; Stop 06/14/17 at 07:16; Status DC Lidocaine (Xylocaine) 1 feliciano 1X ONCE TP Last administered on 06/14/17 13:30; Start 06/14/17 at 13:30; Stop 06/14/17 at 13:31; Status DC Lidocaine HCl 20 ml 1X ONCE INJ Last administered on 06/14/17at 17:47; Start 06/14/17 at 17:15; Stop 06/14/17 at 17:16; Status DC Neomycin/ Polymyxin/ Bacitracin (Triple Antibiotic Ointment) 1 pkt 1X ONCE TP Last administered on 06/14/17at 18:15; Start 06/14/17 at 18:15; Stop 06/14/17 at 18: 16; Status DC Divalproex Sodium (Depakote Sprinkles) 250 mg TID@0900,1300,1700 PO Last administered on 06/19/17at 16:55; Start 06/16/17 at 09:00; Stop 06/19/17 at 18:30; Status DC Fluvoxamine Maleate (Luvox) 75 mg DAILY PO Last administered on 06/22/17 09:01 ; Start 06/17/17 at 09:00 Quetiapine Fumarate (SEROquel) 25 mg DAILY@1200 PO Last administered on 12:50; Start 06/17/17 at 12:00 Hydrocortisone (Cortaid) 1 feliciano BID TP Last administered on 06/22/17 19:35; Start 06/16/17 at 21:00 Trazodone HCl (Desyrel) 25 mg 1X ONCE PO Last administered on 06/17/17at 18:00; Start 06/17/17 at 18:00; Stop 06/17/17 at 18:02; Status DC Trazodone HCl (Desyrel) 12.5 mg TID@0900,1300,1700 PO Last administered on 17:04; Start 06/18/17 at 09:00; Stop 06/18/17 at 18:09; Status DC Trazodone HCl (Desyrel) 12.5 mg BID@1300,1700 PO Last administered on 06/20/17 12:12; Start 06/19/17 at 13:00; Stop 06/20/17 at 12:28; Status DC Trazodone HCl (Desyrel) 25 mg DAILY PO Last administered on 06/22/17at 09:03; Start 06/19/17 at 09:00 Divalproex Sodium (Depakote Sprinkles) 375 mg TID@0900,1300,1700 PO Last administered on 06/22/17at 16:48; Start 06/20/17 at 09:00 Trazodone HCl (Desyrel) 25 mg BID@1300,1700 PO Last administered on 06/22/17at 16:48; Start 06/20/17 at 13:00 Active Scripts Active Reported Vitamin B Complex 1 Each Tablet 1 Tab PO DAILY Tramadol Hcl (Tramadol HCl) 50 Mg Tablet 50 Mg PO DAILY Tramadol Hcl (Tramadol HCl) 50 Mg Tablet 50 Mg PO PRN Q4HRS PRN Sotalol (Sotalol Hcl) 80 Mg Tablet 80 Mg PO BID Risperidone 1 Mg Tablet 1 Mg PO BID Polyethylene Glycol 3350 255 Gm Powder 17 Gm PO PRN DAILY PRN Nystatin 15 Gm Cream..g. 1 Feliciano TP BID Centrum Flavor Burst Adult (Multivit with Minerals No.55) 1 Each Tab.chew 1 Tab PO DAILY Melatonin 3 Mg Tablet 3 Mg PO PRN QHS PRN Losartan Potassium 25 Mg Tablet 25 Mg PO DAILY Lorazepam Intensol (Lorazepam) 2 Mg/1 Ml Oral.conc 0.5-1 Ml SL PRN Q2HR PRN Escitalopram Oxalate 10 Mg Tablet 10 Mg PO DAILY Levothyroxine Sodium 25 Mcg Tablet 25 Mcg PO DAILYAC Vitamin D2 (Ergocalciferol (Vitamin D2)) 50,000 Unit Capsule 50,000 Unit PO WEEKLY Eliquis (Apixaban) 5 Mg Tablet 5 Mg PO BID Atorvastatin Calcium 20 Mg Tablet 20 Mg PO QHS Amlodipine Besylate 10 Mg Tablet 10 Mg PO DAILY Tylenol (Acetaminophen) 325 Mg Tablet 650 Mg PO PRN Q4HRS PRN I have reviewed the current psychotropics carefully including drug interactions. Risk benefit ratio favors no change other than as noted in my dictated progress note. 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
[2017-06-23 06:28] VITALS: BP 168/68
[2017-06-23] MEDS: LEVOTHYROXINE 25 MCG TABLET. PO SCH (06:37)
[2017-06-23] MEDS: QUEtiapine 25 MG TABLET. PO SCH ×3 (06:37→17:03)
[2017-06-23 07:30] LABS: BASO % 0 % (0-3); EOS # 0.1 x10^3/uL (0.0-0.7); EOS % 2 % (0-3); HEMATOCRIT 32.6 % (39.0-53.0); HEMOGLOBIN 11.1 g/dL (13.0-17.5); LYMPH # 1.7 x10^3/uL (1.0-4.8); LYMPH % 17 % (24-48); MEAN CORPUSCULAR HEMOGLOBIN 31 pg (25-35); MEAN CORPUSCULAR HGB CONC 34 g/dL (31-37); MEAN CORPUSCULAR VOLUME 91 fL (79-100); MONO # 0.6 x10^3/uL (0.0-1.1); MONO % 7 % (0-9); NEUT # 7.3 x10^3uL (1.8-7.7); NEUT % 75 % (31-73); PLATELET COUNT 252 x10^3/uL (140-400); RED BLOOD COUNT 3.56 x10^6/uL (4.30-5.70); RED CELL DISTRIBUTION WIDTH 13.6 % (11.5-14.5); WHITE BLOOD COUNT 9.8 x10^3/uL (4.0-11.0)
[2017-06-23 07:36] LABS: ALBUMIN 2.4 g/dL (3.4-5.0); ALBUMIN/GLOBULIN RATIO 0.6 (1.0-1.7); ALK PHOS 37 U/L (46-116); ALT (SGPT) 26 U/L (16-63); AST (SGOT) 20 U/L (15-37); BLOOD UREA NITROGEN 31 mg/dL (8-26); BUN/CREATININE RATIO 28 (6-20); CALCIUM 7.9 mg/dL (8.5-10.1); CHLORIDE 103 mmol/L (98-107); CREATININE 1.1 mg/dL (0.7-1.3); GFR 64.9; GLUCOSE 78 mg/dL (70-99); POTASSIUM 4.2 mmol/L (3.5-5.1); SODIUM 138 mmol/L (136-145); TOTAL BILIRUBIN 0.2 mg/dL (0.2-1.0); TOTAL PROTEIN 6.5 g/dL (6.4-8.2)
[2017-06-23 07:52] LABS: ANION GAP 7 (6-14); CARBON DIOXIDE 28 mmol/L (21-32); VAL ACID 65 mcg/mL (50-100)
[2017-06-23] MEDS: traZODone 50 MG TABLET. PO SCH ×4 (09:00→17:03)
[2017-06-23] MEDS: VITAMIN B COMPLEX CAPSULE. PO SCH (09:32)
[2017-06-23] MEDS: MULTIVITAMIN with MINERAL TABLET. PO SCH (09:32)
[2017-06-23] MEDS: APIXABAN 5 MG TABLET. PO SCH ×2 (09:33→19:44)
[2017-06-23] MEDS: POLYETHYLENE GLYCOL 3350 17 GM PACKET. PO SCH (09:33)
[2017-06-23] MEDS: DOCUSATE SODIUM 100 MG CAPSULE PO SCH ×2 (09:33→19:44)
[2017-06-23] MEDS: DIVALPROEX 125 MG CAP.SPRINK PO SCH ×3 (09:34→17:03)
[2017-06-23] MEDS: LOSARTAN 25 MG TABLET. PO SCH (09:35)
[2017-06-23] MEDS: traMADol 50 MG TABLET PO SCH (09:35)
[2017-06-23] MEDS: amLODIPine BESYLATE 10 MG TABLET PO SCH (09:36)
[2017-06-23] MEDS: HYDROCORTISONE 1% TOPICAL OINTMENT 30GM TUBE. TP SCH ×2 (09:38→19:50)
[2017-06-23] MEDS: NYSTATIN TOPICAL POWDER 15GM BOTTLE. TP SCH ×2 (09:38→19:50)
[2017-06-23] MEDS: SOTALOL 80 MG TABLET. PO SCH ×2 (09:38→19:46)
--- NOTE | 2017-06-23 14:29 | PN ---
DATE: 06/21/2017 This late entry 06/21/2017 covers elements not covered in my initial note of 06/21/2017. SUBJECTIVE: I met with the patient evening of 06/21/2017. The patient continues to yell out unless he is sleepy and tired. I discussed with nursing staff providing him headphones and music to help stimulate him without him having to shout to stimulate himself auditorily. Ambulation impaired, in Broda chair. REVIEW OF SYSTEMS: No CV, , pulmonary, eye system symptoms on review. Reliability poor. MENTAL STATUS EXAM: Oriented to himself. Insight, judgment, recent and remote memory, attention, concentration, fund of knowledge poor, consistent with his diagnosis. IMPRESSION: Major neurocognitive disorder, vascular with depression, delusion, behavioral disturbance. Rest unchanged including obsessive-compulsive disorder. PLAN: Continue current psychotropics, Luvox along with Ativan p.r.n., melatonin, Remeron, Depakote, Seroquel, ____ trazodone 25 mg t.i.d. Depakote has been adjusted since the previous level was subtherapeutic at 35. We will repeat labs level on 06/23/2017. HANDY RIZVI MD DR: YESSENIA/linnette JOB#: [id number] / [id number]
[2017-06-23 16:24] VITALS: BP 114/70
--- NOTE | 2017-06-23 19:29 | PN ---
DATE: 06/22/2017 This is a late entry for 06/22/2017 and covers the elements not covered in my initial note of 06/22/2017. SUBJECTIVE: I met with the patient afternoon of 06/22/2017 in his room. Previous night, he was yelling, loud, disruptive. 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 Isidro. Discussed with nursing staff to provide him headphones and music to help stimulate himself, so he is not yelling as much post self-stimulation. REVIEW OF SYSTEMS: No CV, , pulmonary, eye, ENT system symptoms on review. Reliability poor. MENTAL STATUS EXAM: Oriented to himself. Insight, judgment, recent and remote memory, attention, concentration, fund of knowledge poor, consistent with his diagnosis mentioned in my initial note. PLAN: Continue current psychotropics mentioned in my initial note. Repeat labs level on the increased Depakote on 06/23/2017. Adjust as clinically indicated. MAN Laverne RIZVI MD DR: YESSENIA/linnette JOB#: [id number] / [id number]
[2017-06-23] MEDS: MIRTAZAPINE 7.5 MG TABLET. PO SCH (19:44)
[2017-06-23] MEDS: ATORVASTATIN CALCIUM 20 MG TABLET PO SCH (19:44)
[2017-06-23] MEDS: CEPHALEXIN 250 MG CAPSULE PO SCH (19:46)
--- NOTE | 2017-06-23 21:11 | PDOC ---
Exam Note: Jordy Note: Please also refer to the separate dictated note~for this date of service dictated separately.~Patient seen individually. Discussed the patient with Nursing staff reviewed the chart.~Reviewed interim history and current functioning. Reviewed vital signs,~Labs/ Radiology~and current medications noted below. Continue current treatment with the changes noted in the dictated addendum note Assessment: Vital Signs: Vital Signs Date Time Temp Pulse Resp B/P (MAP) Pulse Ox O2 Delivery O2 Flow Rate FiO2 06/23/17 19:46 66 114/70 06/23/17 16:24 97.7 17 91 06/22/17 16:28 Room Air I&O Intake and Output 06/23/17 07:00 Intake Total 1180 ml Balance 1180 ml Intake Oral 1180 ml # Voids 1 # Bowel Movements 1 Labs: Laboratory Tests Test 06/23/17 07:01 White Blood Count 9.8 x10^3/uL (4.0-11.0) Red Blood Count 3.56 x10^6/uL (4.30-5.70) L Hemoglobin 11.1 g/dL (13.0-17.5) L Hematocrit 32.6 % (39.0-53.0) L Mean Corpuscular Volume 91 fL (79-100) Mean Corpuscular Hemoglobin 31 pg (25-35) Mean Corpuscular Hemoglobin Concent 34 g/dL (31-37) Red Cell Distribution Width 13.6 % (11.5-14.5) Platelet Count 252 x10^3/uL (140-400) Neutrophils (%) (Auto) 75 % (31-73) H Lymphocytes (%) (Auto) 17 % (24-48) L Monocytes (%) (Auto) 7 % (0-9) Eosinophils (%) (Auto) 2 % (0-3) Basophils (%) (Auto) 0 % (0-3) Neutrophils # (Auto) 7.3 x10^3uL (1.8-7.7) Lymphocytes # (Auto) 1.7 x10^3/uL (1.0-4.8) Monocytes # (Auto) 0.6 x10^3/uL (0.0-1.1) Eosinophils # (Auto) 0.1 x10^3/uL (0.0-0.7) Basophils # (Auto) 0.0 x10^3/uL (0.0-0.2) Sodium Level 138 mmol/L (136-145) Potassium Level 4.2 mmol/L (3.5-5.1) Chloride Level 103 mmol/L (98-107) Carbon Dioxide Level 28 mmol/L (21-32) Anion Gap 7 (6-14) Blood Urea Nitrogen 31 mg/dL (8-26) H Creatinine 1.1 mg/dL (0.7-1.3) Estimated GFR (Cockcroft-Gault) 64.9 BUN/Creatinine Ratio 28 (6-20) H Glucose Level 78 mg/dL (70-99) Calcium Level 7.9 mg/dL (8.5-10.1) L Magnesium Level 2.0 mg/dL (1.8-2.4) Total Bilirubin 0.2 mg/dL (0.2-1.0) Aspartate Amino Transferase (AST) 20 U/L (15-37) Alanine Aminotransferase (ALT) 26 U/L (16-63) Alkaline Phosphatase 37 U/L (46-116) L Total Protein 6.5 g/dL (6.4-8.2) Albumin 2.4 g/dL (3.4-5.0) L Albumin/Globulin Ratio 0.6 (1.0-1.7) L Valproic Acid Level 65 mcg/mL (50-100) Valproic Acid Last Dose Date 06/22/17 Valproic Acid Last Dose Time 1700 Current Medications: Meds: Current Medications Acetaminophen (Tylenol) 650 mg PRN Q6HRS PRN PO PAIN / TEMP; Start 06/05/17 at 22:15; Stop 06/14/17 at 13:43; Status DC Multi-Ingredient Ointment (Analgesic [place]) 1 feliciano PRN QID PRN TP MUSCLE PAIN; Start 06/05/17 at 22:15 Al Hydroxide/Mg Hydroxide (Mylanta Plus Xs) 15 ml PRN AFTMEALHC PRN PO DYSPEPSIA; Start 06/05/17 at 22:15 Magnesium Hydroxide (Milk Of Magnesia) 2,400 mg PRN QHS PRN PO CONSTIPATION Last administered on 06/11/17at 05:51; Start 06/05/17 at 22:15 Risperidone (RisperDAL) 1 mg BID PO Last administered on 06/07/17 08:17; Start 06/06/17 at 09:00; Stop 06/07/17 at 17:15; Status DC Citalopram Hydrobromide (CeleXA) 20 mg DAILY PO Last administered on 06/07/17 08:16; Start 06/06/17 at 09:00; Stop 06/07/17 at 18:54; Status DC Melatonin 3 mg PRN QHS PRN PO INSOMNIA Last administered on 06/16/17 20:40; Start 06/05/17 at 22:30 Lorazepam (Ativan Intensol) Give 0.5 ml sublingually every ... PRN Q2HR PRN SL ANXIETY / AGITATION; Start 06/05/17 at 22:30; Status UNV Lorazepam (Ativan) 1 mg PRN Q2HR PRN PO ANXIETY / AGITATION; Start 06/05/17 at 22:45; Stop 06/10/17 at 18:30; Status DC Lorazepam (Ativan) 2 mg PRN Q2HR PRN PO ANXIETY / AGITATION; Start 06/05/17 at 22:45; Stop 06/10/17 at 18:30; Status DC Acetaminophen (Tylenol) 650 mg PRN Q4HRS PRN PO PAIN / TEMP Last administered on 06/18/17 19:31; Start 06/06/17 at 10:30 Amlodipine Besylate (Norvasc) 10 mg DAILY PO Last administered on 06/23/17 09: 36; Start 06/06/17 at 12:00 Apixaban (Eliquis) 5 mg BID PO Last administered on 06/23/17 19:44; Start at 21:00 Atorvastatin Calcium (Lipitor) 20 mg QHS PO Last administered on 06/23/17 19: 44; Start 06/06/17 at 21:00 Levothyroxine Sodium (Synthroid) 25 mcg DAILYAC PO Last administered on 07:49; Start 06/07/17 at 07:30; Stop 06/11/17 at 07:33; Status DC Losartan Potassium (Cozaar) 25 mg DAILY PO Last administered on 06/23/17 09:35 ; Start 06/06/17 at 12:00 Nystatin (Mycostatin) 1 feliciano BID TP Last administered on 06/11/17 09:15; Start 06/06/17 at 21:00; Stop 06/11/17 at 09:19; Status DC Polyethylene Glycol (miraLAX) 17 gm PRN DAILY PRN PO CONSTIPATION; Start at 10:39 Sotalol HCl (Betapace) 80 mg BID PO Last administered on 06/23/17 19:46; Start 06/06/17 at 21:00 Tramadol HCl (Ultram) 50 mg DAILY PO Last administered on 06/23/17 09:35; Start 06/06/17 at 12:00 Tramadol HCl (Ultram) 50 mg PRN Q8HRS PRN PO PAIN Last administered on 18:15; Start 06/06/17 at 10:30 Vitamin D (Vitamin D3) 50,000 unit WEEKLY PO Last administered on 06/19/17 09: 41; Start 06/12/17 at 09:00 Multivitamins/ Calcium (Thera-M Plus) 1 tab DAILY PO Last administered on 09:32; Start 06/06/17 at 12:00 Vitamin B Complex 1 cap DAILY PO Last administered on 06/23/17 09:32; Start at 12:00 Warfarin Sodium (Coumadin Per Pharmacy) 1 each PRN DAILY PRN MC SEE COMMENTS; Start 06/07/17 at 14:00; Status UNV Risperidone (RisperDAL) 0.5 mg BID PO Last administered on 06/08/17 08:03; Start 06/07/17 at 21:00; Stop 06/08/17 at 19:26; Status DC Mirtazapine (Remeron) 7.5 mg QHS PO Last administered on 06/23/17 19:44; Start 06/07/17 at 21:00 Fluvoxamine Maleate (Luvox) 25 mg DAILY PO Last administered on 06/09/17 07:49 ; Start 06/08/17 at 09:00; Stop 06/10/17 at 08:59; Status DC Fluvoxamine Maleate (Luvox) 50 mg DAILY PO Last administered on 06/16/17 07:41 ; Start 06/10/17 at 09:00; Stop 06/16/17 at 18:42; Status DC Risperidone (RisperDAL) 0.25 mg BID PO Last administered on 06/11/17 19:10; Start 06/08/17 at 21:00; Stop 06/12/17 at 08:59; Status DC Lorazepam (Ativan) 0.25 mg PRN Q2HR PRN PO ANXIETY / AGITATION Last administered on 06/18/17 19:26; Start 06/10/17 at 18:30 Risperidone (RisperDAL) 0.25 mg DAILY PO Last administered on 06/14/17 10:22; Start 06/12/17 at 09:00; Stop 06/15/17 at 08:59; Status DC Levothyroxine Sodium (Synthroid) 25 mcg DAILY06 PO Last administered on 06:37; Start 06/11/17 at 07:45 Nystatin (Nystop) 1 feliciano BID TP Last administered on 06/23/17 19:50; Start at 09:30 Divalproex Sodium (Depakote Sprinkles) 125 mg TID@0900,1300,1700 PO Last administered on 06/15/17 18:34; Start 06/11/17 at 13:00; Stop 06/15/17 at 22:29; Status DC Docusate Sodium (Colace) 100 mg BID PO Last administered on 06/23/17 19:44; Start 06/11/17 at 21:00 Polyethylene Glycol (miraLAX) 17 gm DAILY PO Last administered on 06/23/17 09: 33; Start 06/12/17 at 09:00 Magnesium Citrate (Citroma) 296 ml PRN 1X PRN PO CONSTIPATION; Start 06/11/17 at 18:15 Quetiapine Fumarate (SEROquel) 12.5 mg TID@0600,1200,1700 PO Last administered on 06/13/17 16:57; Start 06/13/17 at 12:00; Stop 06/13/17 at 19:16; Status DC Quetiapine Fumarate (SEROquel) 12.5 mg DAILY@1200 PO Last administered on at 12:00; Start 06/14/17 at 12:00; Stop 06/16/17 at 18:42; Status DC Quetiapine Fumarate (SEROquel) 25 mg BID@0600,1700 PO Last administered on 06/23at 17:03; Start 06/14/17 at 06:00 Quetiapine Fumarate (SEROquel) 25 mg 1X ONCE PO Last administered on 06/14/17 07:07; Start 06/14/17 at 07:15; Stop 06/14/17 at 07:16; Status DC Lidocaine (Xylocaine) 1 feliciano 1X ONCE TP Last administered on 06/14/17at 13:30; Start 06/14/17 at 13:30; Stop 06/14/17 at 13:31; Status DC Lidocaine HCl 20 ml 1X ONCE INJ Last administered on 06/14/17at 17:47; Start 06/14/17 at 17:15; Stop 06/14/17 at 17:16; Status DC Neomycin/ Polymyxin/ Bacitracin (Triple Antibiotic Ointment) 1 pkt 1X ONCE TP Last administered on 06/14/17at 18:15; Start 06/14/17 at 18:15; Stop 06/14/17 at 18: 16; Status DC Divalproex Sodium (Depakote Sprinkles) 250 mg TID@0900,1300,1700 PO Last administered on 06/19/17at 16:55; Start 06/16/17 at 09:00; Stop 06/19/17 at 18:30; Status DC Fluvoxamine Maleate (Luvox) 75 mg DAILY PO Last administered on 06/23/17at 09:34 ; Start 06/17/17 at 09:00; Stop 06/23/17 at 19:27; Status DC Quetiapine Fumarate (SEROquel) 25 mg DAILY@1200 PO Last administered on at 12:28; Start 06/17/17 at 12:00 Hydrocortisone (Cortaid) 1 feliciano BID TP Last administered on 06/23/17at 19:50; Start 06/16/17 at 21:00 Trazodone HCl (Desyrel) 25 mg 1X ONCE PO Last administered on 06/17/17at 18:00; Start 06/17/17 at 18:00; Stop 06/17/17 at 18:02; Status DC Trazodone HCl (Desyrel) 12.5 mg TID@0900,1300,1700 PO Last administered on 3/6/ 18at 17:04; Start 06/18/17 at 09:00; Stop 06/18/17 at 18:09; Status DC Trazodone HCl (Desyrel) 12.5 mg BID@1300,1700 PO Last administered on 06/20/17at 12:12; Start 06/19/17 at 13:00; Stop 06/20/17 at 12:28; Status DC Trazodone HCl (Desyrel) 25 mg DAILY PO Last administered on 06/22/17at 09:03; Start 06/19/17 at 09:00; Stop 06/23/17 at 03:43; Status DC Divalproex Sodium (Depakote Sprinkles) 375 mg TID@0900,1300,1700 PO Last administered on 06/23/17at 17:03; Start 06/20/17 at 09:00 Trazodone HCl (Desyrel) 25 mg BID@1300,1700 PO Last administered on 06/22/17at 16:48; Start 06/20/17 at 13:00; Stop 06/23/17 at 03:43; Status DC Trazodone HCl (Desyrel) 25 mg TID@0900,1300,1700 PO Last administered on at 17:03; Start 06/23/17 at 09:00 Cephalexin HCl (Keflex) 500 mg TID PO Last administered on 06/23/17at 19:46; Start 06/23/17 at 21:00; Stop 06/30/17 at 20:59 Fluvoxamine Maleate (Luvox) 100 mg DAILY PO ; Start 06/24/17 at 09:00 Active Scripts Active Reported Vitamin B Complex 1 Each Tablet 1 Tab PO DAILY Tramadol Hcl (Tramadol HCl) 50 Mg Tablet 50 Mg PO DAILY Tramadol Hcl (Tramadol HCl) 50 Mg Tablet 50 Mg PO PRN Q4HRS PRN Sotalol (Sotalol Hcl) 80 Mg Tablet 80 Mg PO BID Risperidone 1 Mg Tablet 1 Mg PO BID Polyethylene Glycol 3350 255 Gm Powder 17 Gm PO PRN DAILY PRN Nystatin 15 Gm Cream..g. 1 Feliciano TP BID Centrum Flavor Burst Adult (Multivit with Minerals No.55) 1 Each Tab.chew 1 Tab PO DAILY Melatonin 3 Mg Tablet 3 Mg PO PRN QHS PRN Losartan Potassium 25 Mg Tablet 25 Mg PO DAILY Lorazepam Intensol (Lorazepam) 2 Mg/1 Ml Oral.conc 0.5-1 Ml SL PRN Q2HR PRN Escitalopram Oxalate 10 Mg Tablet 10 Mg PO DAILY Levothyroxine Sodium 25 Mcg Tablet 25 Mcg PO DAILYAC Vitamin D2 (Ergocalciferol (Vitamin D2)) 50,000 Unit Capsule 50,000 Unit PO WEEKLY Eliquis (Apixaban) 5 Mg Tablet 5 Mg PO BID Atorvastatin Calcium 20 Mg Tablet 20 Mg PO QHS Amlodipine Besylate 10 Mg Tablet 10 Mg PO DAILY Tylenol (Acetaminophen) 325 Mg Tablet 650 Mg PO PRN Q4HRS PRN I have reviewed the current psychotropics carefully including drug interactions. Risk benefit ratio favors no change other than as noted in my dictated progress note. Diagnosis: Problems: (1) Anxiety disorder (2) Agitation (3) Confusion (4) Panic disorder with agoraphobia and severe panic attacks (5) Dementia in Alzheimer's disease with delusions (6) Dementia in Alzheimer's disease with depression (7) Dementia, vascular, with delusions (8) Dementia, vascular, with depression (9) Impulse control disorder HANDY RIZVI MD Jun 23, 2017 21:11
[2017-06-24] MEDS: QUEtiapine 25 MG TABLET. PO SCH ×3 (04:59→17:29)
[2017-06-24] MEDS: LEVOTHYROXINE 25 MCG TABLET. PO SCH (04:59)
[2017-06-24 06:01] VITALS: BP 107/60
[2017-06-24] MEDS: APIXABAN 5 MG TABLET. PO SCH ×2 (08:50→20:20)
[2017-06-24] MEDS: MULTIVITAMIN with MINERAL TABLET. PO SCH (08:50)
[2017-06-24] MEDS: DIVALPROEX 125 MG CAP.SPRINK PO SCH ×3 (08:50→17:29)
[2017-06-24] MEDS: CEPHALEXIN 250 MG CAPSULE PO SCH ×3 (08:51→20:20)
[2017-06-24] MEDS: DOCUSATE SODIUM 100 MG CAPSULE PO SCH ×2 (08:51→20:20)
[2017-06-24] MEDS: traMADol 50 MG TABLET PO SCH (08:51)
[2017-06-24] MEDS: VITAMIN B COMPLEX CAPSULE. PO SCH (08:51)
[2017-06-24] MEDS: amLODIPine BESYLATE 10 MG TABLET PO SCH (08:52)
[2017-06-24] MEDS: LOSARTAN 25 MG TABLET. PO SCH (08:52)
[2017-06-24] MEDS: POLYETHYLENE GLYCOL 3350 17 GM PACKET. PO SCH (08:52)
[2017-06-24] MEDS: traZODone 50 MG TABLET. PO SCH ×3 (08:52→17:29)
[2017-06-24] MEDS: NYSTATIN TOPICAL POWDER 15GM BOTTLE. TP SCH ×2 (08:54→20:20)
[2017-06-24] MEDS: HYDROCORTISONE 1% TOPICAL OINTMENT 30GM TUBE. TP SCH ×2 (08:54→20:20)
[2017-06-24] MEDS: SOTALOL 80 MG TABLET. PO SCH ×2 (08:57→20:21)
[2017-06-24 16:10] VITALS: BP 139/72
[2017-06-24] MEDS: MIRTAZAPINE 7.5 MG TABLET. PO SCH (20:20)
[2017-06-24] MEDS: ATORVASTATIN CALCIUM 20 MG TABLET PO SCH (20:20)
--- NOTE | 2017-06-24 20:34 | PDOC ---
Exam Note: Jordy Note: Please also refer to the separate dictated note~for this date of service dictated separately.~Patient seen individually. Discussed the patient with Nursing staff reviewed the chart.~Reviewed interim history and current functioning. Reviewed vital signs,~Labs/ Radiology~and current medications noted below. Continue current treatment with the changes noted in the dictated addendum note Assessment: Vital Signs: Vital Signs Date Time Temp Pulse Resp B/P (MAP) Pulse Ox O2 Delivery O2 Flow Rate FiO2 06/24/17 20:21 60 139/72 06/24/17 16:10 98.1 20 92 06/22/17 16:28 Room Air I&O Intake and Output 06/24/17 07:00 Intake Total 340 ml Balance 340 ml Intake Oral 340 ml # Voids 1 Current Medications: Meds: Current Medications Acetaminophen (Tylenol) 650 mg PRN Q6HRS PRN PO PAIN / TEMP; Start 06/05/17 at 22:15; Stop 06/14/17 at 13:43; Status DC Multi-Ingredient Ointment (Analgesic [place]) 1 feliciano PRN QID PRN TP MUSCLE PAIN; Start 06/05/17 at 22:15 Al Hydroxide/Mg Hydroxide (Mylanta Plus Xs) 15 ml PRN AFTMEALHC PRN PO DYSPEPSIA; Start 06/05/17 at 22:15 Magnesium Hydroxide (Milk Of Magnesia) 2,400 mg PRN QHS PRN PO CONSTIPATION Last administered on 06/11/17at 05:51; Start 06/05/17 at 22:15 Risperidone (RisperDAL) 1 mg BID PO Last administered on 06/07/17at 08:17; Start 06/06/17 at 09:00; Stop 06/07/17 at 17:15; Status DC Citalopram Hydrobromide (CeleXA) 20 mg DAILY PO Last administered on 06/07/17at 08:16; Start 06/06/17 at 09:00; Stop 06/07/17 at 18:54; Status DC Melatonin 3 mg PRN QHS PRN PO INSOMNIA Last administered on 06/16/17at 20:40; Start 06/05/17 at 22:30 Lorazepam (Ativan Intensol) Give 0.5 ml sublingually every ... PRN Q2HR PRN SL ANXIETY / AGITATION; Start 06/05/17 at 22:30; Status UNV Lorazepam (Ativan) 1 mg PRN Q2HR PRN PO ANXIETY / AGITATION; Start 06/05/17 at 22:45; Stop 06/10/17 at 18:30; Status DC Lorazepam (Ativan) 2 mg PRN Q2HR PRN PO ANXIETY / AGITATION; Start 06/05/17 at 22:45; Stop 06/10/17 at 18:30; Status DC Acetaminophen (Tylenol) 650 mg PRN Q4HRS PRN PO PAIN / TEMP Last administered on 06/18/17 19:31; Start 06/06/17 at 10:30 Amlodipine Besylate (Norvasc) 10 mg DAILY PO Last administered on 06/24/17 08: 52; Start 06/06/17 at 12:00 Apixaban (Eliquis) 5 mg BID PO Last administered on 06/24/17 20:20; Start at 21:00 Atorvastatin Calcium (Lipitor) 20 mg QHS PO Last administered on 06/24/17 20: 20; Start 06/06/17 at 21:00 Levothyroxine Sodium (Synthroid) 25 mcg DAILYAC PO Last administered on 07:49; Start 06/07/17 at 07:30; Stop 06/11/17 at 07:33; Status DC Losartan Potassium (Cozaar) 25 mg DAILY PO Last administered on 06/24/17 08:52 ; Start 06/06/17 at 12:00 Nystatin (Mycostatin) 1 feliciano BID TP Last administered on 06/11/17 09:15; Start 06/06/17 at 21:00; Stop 06/11/17 at 09:19; Status DC Polyethylene Glycol (miraLAX) 17 gm PRN DAILY PRN PO CONSTIPATION; Start at 10:39 Sotalol HCl (Betapace) 80 mg BID PO Last administered on 06/24/17 20:21; Start 06/06/17 at 21:00 Tramadol HCl (Ultram) 50 mg DAILY PO Last administered on 06/24/17 08:51; Start 06/06/17 at 12:00 Tramadol HCl (Ultram) 50 mg PRN Q8HRS PRN PO PAIN Last administered on 18:15; Start 06/06/17 at 10:30 Vitamin D (Vitamin D3) 50,000 unit WEEKLY PO Last administered on 06/19/17 09: 41; Start 06/12/17 at 09:00 Multivitamins/ Calcium (Thera-M Plus) 1 tab DAILY PO Last administered on 08:50; Start 06/06/17 at 12:00 Vitamin B Complex 1 cap DAILY PO Last administered on 06/24/17 08:51; Start at 12:00 Warfarin Sodium (Coumadin Per Pharmacy) 1 each PRN DAILY PRN MC SEE COMMENTS; Start 06/07/17 at 14:00; Status UNV Risperidone (RisperDAL) 0.5 mg BID PO Last administered on 06/08/17 08:03; Start 06/07/17 at 21:00; Stop 06/08/17 at 19:26; Status DC Mirtazapine (Remeron) 7.5 mg QHS PO Last administered on 06/24/17at 20:20; Start 06/07/17 at 21:00 Fluvoxamine Maleate (Luvox) 25 mg DAILY PO Last administered on 06/09/17 07:49 ; Start 06/08/17 at 09:00; Stop 06/10/17 at 08:59; Status DC Fluvoxamine Maleate (Luvox) 50 mg DAILY PO Last administered on 06/16/17 07:41 ; Start 06/10/17 at 09:00; Stop 06/16/17 at 18:42; Status DC Risperidone (RisperDAL) 0.25 mg BID PO Last administered on 06/11/17at 19:10; Start 06/08/17 at 21:00; Stop 06/12/17 at 08:59; Status DC Lorazepam (Ativan) 0.25 mg PRN Q2HR PRN PO ANXIETY / AGITATION Last administered on 06/18/17 19:26; Start 06/10/17 at 18:30 Risperidone (RisperDAL) 0.25 mg DAILY PO Last administered on 06/14/17 10:22; Start 06/12/17 at 09:00; Stop 06/15/17 at 08:59; Status DC Levothyroxine Sodium (Synthroid) 25 mcg DAILY06 PO Last administered on at 04:59; Start 06/11/17 at 07:45 Nystatin (Nystop) 1 feliciano BID TP Last administered on 06/24/17at 20:20; Start at 09:30 Divalproex Sodium (Depakote Sprinkles) 125 mg TID@0900,1300,1700 PO Last administered on 06/15/17 18:34; Start 06/11/17 at 13:00; Stop 06/15/17 at 22:29; Status DC Docusate Sodium (Colace) 100 mg BID PO Last administered on 06/24/17 20:20; Start 06/11/17 at 21:00 Polyethylene Glycol (miraLAX) 17 gm DAILY PO Last administered on 06/24/17 08: 52; Start 06/12/17 at 09:00 Magnesium Citrate (Citroma) 296 ml PRN 1X PRN PO CONSTIPATION; Start 06/11/17 at 18:15 Quetiapine Fumarate (SEROquel) 12.5 mg TID@0600,1200,1700 PO Last administered on 06/13/17at 16:57; Start 06/13/17 at 12:00; Stop 06/13/17 at 19:16; Status DC Quetiapine Fumarate (SEROquel) 12.5 mg DAILY@1200 PO Last administered on at 12:00; Start 06/14/17 at 12:00; Stop 06/16/17 at 18:42; Status DC Quetiapine Fumarate (SEROquel) 25 mg BID@0600,1700 PO Last administered on 06/24at 17:29; Start 06/14/17 at 06:00 Quetiapine Fumarate (SEROquel) 25 mg 1X ONCE PO Last administered on 06/14/17 07:07; Start 06/14/17 at 07:15; Stop 06/14/17 at 07:16; Status DC Lidocaine (Xylocaine) 1 feliciano 1X ONCE TP Last administered on 06/14/17at 13:30; Start 06/14/17 at 13:30; Stop 06/14/17 at 13:31; Status DC Lidocaine HCl 20 ml 1X ONCE INJ Last administered on 06/14/17at 17:47; Start 06/14/17 at 17:15; Stop 06/14/17 at 17:16; Status DC Neomycin/ Polymyxin/ Bacitracin (Triple Antibiotic Ointment) 1 pkt 1X ONCE TP Last administered on 06/14/17at 18:15; Start 06/14/17 at 18:15; Stop 06/14/17 at 18: 16; Status DC Divalproex Sodium (Depakote Sprinkles) 250 mg TID@0900,1300,1700 PO Last administered on 06/19/17at 16:55; Start 06/16/17 at 09:00; Stop 06/19/17 at 18:30; Status DC Fluvoxamine Maleate (Luvox) 75 mg DAILY PO Last administered on 06/23/17at 09:34 ; Start 06/17/17 at 09:00; Stop 06/23/17 at 19:27; Status DC Quetiapine Fumarate (SEROquel) 25 mg DAILY@1200 PO Last administered on at 12:48; Start 06/17/17 at 12:00 Hydrocortisone (Cortaid) 1 feliciano BID TP Last administered on 06/24/17at 20:20; Start 06/16/17 at 21:00 Trazodone HCl (Desyrel) 25 mg 1X ONCE PO Last administered on 06/17/17at 18:00; Start 06/17/17 at 18:00; Stop 06/17/17 at 18:02; Status DC Trazodone HCl (Desyrel) 12.5 mg TID@0900,1300,1700 PO Last administered on at 17:04; Start 06/18/17 at 09:00; Stop 06/18/17 at 18:09; Status DC Trazodone HCl (Desyrel) 12.5 mg BID@1300,1700 PO Last administered on 06/20/17at 12:12; Start 06/19/17 at 13:00; Stop 06/20/17 at 12:28; Status DC Trazodone HCl (Desyrel) 25 mg DAILY PO Last administered on 06/22/17at 09:03; Start 06/19/17 at 09:00; Stop 06/23/17 at 03:43; Status DC Divalproex Sodium (Depakote Sprinkles) 375 mg TID@0900,1300,1700 PO Last administered on 06/24/17at 17:29; Start 06/20/17 at 09:00 Trazodone HCl (Desyrel) 25 mg BID@1300,1700 PO Last administered on 06/22/17at 16:48; Start 06/20/17 at 13:00; Stop 06/23/17 at 03:43; Status DC Trazodone HCl (Desyrel) 25 mg TID@0900,1300,1700 PO Last administered on at 17:29; Start 06/23/17 at 09:00 Cephalexin HCl (Keflex) 500 mg TID PO Last administered on 06/24/17at 20:20; Start 06/23/17 at 21:00; Stop 06/30/17 at 20:59 Fluvoxamine Maleate (Luvox) 100 mg DAILY PO Last administered on 06/24/17at 08: 54; Start 06/24/17 at 09:00 Active Scripts Active Reported Vitamin B Complex 1 Each Tablet 1 Tab PO DAILY Tramadol Hcl (Tramadol HCl) 50 Mg Tablet 50 Mg PO DAILY Tramadol Hcl (Tramadol HCl) 50 Mg Tablet 50 Mg PO PRN Q4HRS PRN Sotalol (Sotalol Hcl) 80 Mg Tablet 80 Mg PO BID Risperidone 1 Mg Tablet 1 Mg PO BID Polyethylene Glycol 3350 255 Gm Powder 17 Gm PO PRN DAILY PRN Nystatin 15 Gm Cream..g. 1 Fel[place] TP BID Centrum Flavor Burst Adult (Multivit with Minerals No.55) 1 Each Tab.chew 1 Tab PO DAILY Melatonin 3 Mg Tablet 3 Mg PO PRN QHS PRN Losartan Potassium 25 Mg Tablet 25 Mg PO DAILY Lorazepam Intensol (Lorazepam) 2 Mg/1 Ml Oral.conc 0.5-1 Ml SL PRN Q2HR PRN Escitalopram Oxalate 10 Mg Tablet 10 Mg PO DAILY Levothyroxine Sodium 25 Mcg Tablet 25 Mcg PO DAILYAC Vitamin D2 (Ergocalciferol (Vitamin D2)) 50,000 Unit Capsule 50,000 Unit PO WEEKLY Eliquis (Apixaban) 5 Mg Tablet 5 Mg PO BID Atorvastatin Calcium 20 Mg Tablet 20 Mg PO QHS Amlodipine Besylate 10 Mg Tablet 10 Mg PO DAILY Tylenol (Acetaminophen) 325 Mg Tablet 650 Mg PO PRN Q4HRS PRN I have reviewed the current psychotropics carefully including drug interactions. Risk benefit ratio favors no change other than as noted in my dictated progress note. 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
--- NOTE | 2017-06-24 22:02 | PN ---
DATE: 06/23/2017 PSYCHIATRIC PROGRESS NOTE This is a late entry for 06/23/2017, covers elements not covered in my initial note of 06/23/2017. SUBJECTIVE: I met with the patient the evening of 06/23/2017. The patient has been yelling all night and intermittently during the day as well. Staff will provide headphones and music to see if this helps reduce the agitation. REVIEW OF SYSTEMS: Ambulation impaired, in Broda chair. No CV, , pulmonary, eye, ENT system symptoms on review. Reliability poor. MENTAL STATUS EXAM: Oriented to himself. Insight, judgment, recent and remote memory, attention, concentration, fund of knowledge poor, consistent with his diagnosis mentioned in my initial note. PLAN: Increase Luvox to 100 mg a day. Valproic acid level therapeutic at 65 on 06/23/2017. Continue rest of the psychotropics unchanged. MAN Laverne RIZVI MD DR: YESSENIA/linnette JOB#: [id number] / [id number]
[2017-06-25] MEDS: QUEtiapine 25 MG TABLET. PO SCH ×3 (05:29→17:19)
[2017-06-25] MEDS: LEVOTHYROXINE 25 MCG TABLET. PO SCH (05:29)
[2017-06-25 06:04] VITALS: BP 133/69
[2017-06-25] MEDS: VITAMIN B COMPLEX CAPSULE. PO SCH (07:57)
[2017-06-25] MEDS: traZODone 50 MG TABLET. PO SCH ×3 (07:58→17:19)
[2017-06-25] MEDS: traMADol 50 MG TABLET PO SCH (07:58)
[2017-06-25] MEDS: amLODIPine BESYLATE 10 MG TABLET PO SCH (07:58)
[2017-06-25] MEDS: CEPHALEXIN 250 MG CAPSULE PO SCH ×3 (07:58→20:14)
[2017-06-25] MEDS: APIXABAN 5 MG TABLET. PO SCH ×2 (07:58→20:13)
[2017-06-25] MEDS: DIVALPROEX 125 MG CAP.SPRINK PO SCH ×3 (07:58→17:18)
[2017-06-25] MEDS: DOCUSATE SODIUM 100 MG CAPSULE PO SCH ×2 (07:58→20:13)
[2017-06-25] MEDS: MULTIVITAMIN with MINERAL TABLET. PO SCH (07:59)
[2017-06-25] MEDS: POLYETHYLENE GLYCOL 3350 17 GM PACKET. PO SCH (07:59)
[2017-06-25] MEDS: LOSARTAN 25 MG TABLET. PO SCH (07:59)
[2017-06-25] MEDS: NYSTATIN TOPICAL POWDER 15GM BOTTLE. TP SCH ×2 (08:00→20:17)
[2017-06-25] MEDS: SOTALOL 80 MG TABLET. PO SCH ×2 (08:00→20:16)
[2017-06-25] MEDS: HYDROCORTISONE 1% TOPICAL OINTMENT 30GM TUBE. TP SCH ×2 (08:01→20:16)
[2017-06-25 16:01] VITALS: BP 115/78
[2017-06-25] MEDS: MIRTAZAPINE 7.5 MG TABLET. PO SCH (20:13)
[2017-06-25] MEDS: ATORVASTATIN CALCIUM 20 MG TABLET PO SCH (20:14)
--- NOTE | 2017-06-25 22:27 | PDOC ---
Exam Note: Jordy Note: Please also refer to the separate dictated note~for this date of service dictated separately.~Patient seen individually. Discussed the patient with Nursing staff reviewed the chart.~Reviewed interim history and current functioning. Reviewed vital signs,~Labs/ Radiology~and current medications noted below. Continue current treatment with the changes noted in the dictated addendum note Assessment: Vital Signs: Vital Signs Date Time Temp Pulse Resp B/P (MAP) Pulse Ox O2 Delivery O2 Flow Rate FiO2 06/25/17 20:16 60 115/78 06/25/17 16:01 98.1 18 95 06/22/17 16:28 Room Air I&O Intake and Output 06/25/17 07:00 Intake Total 1200 ml Balance 1200 ml Intake Oral 1200 ml # Voids 1 # Bowel Movements 1 Current Medications: Meds: Current Medications Acetaminophen (Tylenol) 650 mg PRN Q6HRS PRN PO PAIN / TEMP; Start 06/05/17 at 22:15; Stop 06/14/17 at 13:43; Status DC Multi-Ingredient Ointment (Analgesic [place]) 1 feliciano PRN QID PRN TP MUSCLE PAIN; Start 06/05/17 at 22:15 Al Hydroxide/Mg Hydroxide (Mylanta Plus Xs) 15 ml PRN AFTMEALHC PRN PO DYSPEPSIA; Start 06/05/17 at 22:15 Magnesium Hydroxide (Milk Of Magnesia) 2,400 mg PRN QHS PRN PO CONSTIPATION Last administered on 06/11/17at 05:51; Start 06/05/17 at 22:15 Risperidone (RisperDAL) 1 mg BID PO Last administered on 06/07/17at 08:17; Start 06/06/17 at 09:00; Stop 06/07/17 at 17:15; Status DC Citalopram Hydrobromide (CeleXA) 20 mg DAILY PO Last administered on 06/07/17at 08:16; Start 06/06/17 at 09:00; Stop 06/07/17 at 18:54; Status DC Melatonin 3 mg PRN QHS PRN PO INSOMNIA Last administered on 06/16/17at 20:40; Start 06/05/17 at 22:30 Lorazepam (Ativan Intensol) Give 0.5 ml sublingually every ... PRN Q2HR PRN SL ANXIETY / AGITATION; Start 06/05/17 at 22:30; Status UNV Lorazepam (Ativan) 1 mg PRN Q2HR PRN PO ANXIETY / AGITATION; Start 06/05/17 at 22:45; Stop 06/10/17 at 18:30; Status DC Lorazepam (Ativan) 2 mg PRN Q2HR PRN PO ANXIETY / AGITATION; Start 06/05/17 at 22:45; Stop 06/10/17 at 18:30; Status DC Acetaminophen (Tylenol) 650 mg PRN Q4HRS PRN PO PAIN / TEMP Last administered on 06/18/17 19:31; Start 06/06/17 at 10:30 Amlodipine Besylate (Norvasc) 10 mg DAILY PO Last administered on 06/25/17 07: 58; Start 06/06/17 at 12:00 Apixaban (Eliquis) 5 mg BID PO Last administered on 06/25/17 20:13; Start at 21:00 Atorvastatin Calcium (Lipitor) 20 mg QHS PO Last administered on 06/25/17 20: 14; Start 06/06/17 at 21:00 Levothyroxine Sodium (Synthroid) 25 mcg DAILYAC PO Last administered on 07:49; Start 06/07/17 at 07:30; Stop 06/11/17 at 07:33; Status DC Losartan Potassium (Cozaar) 25 mg DAILY PO Last administered on 06/25/17 07:59 ; Start 06/06/17 at 12:00 Nystatin (Mycostatin) 1 feliciano BID TP Last administered on 06/11/17at 09:15; Start 06/06/17 at 21:00; Stop 06/11/17 at 09:19; Status DC Polyethylene Glycol (miraLAX) 17 gm PRN DAILY PRN PO CONSTIPATION; Start at 10:39 Sotalol HCl (Betapace) 80 mg BID PO Last administered on 06/25/17 20:16; Start 06/06/17 at 21:00 Tramadol HCl (Ultram) 50 mg DAILY PO Last administered on 06/25/17 07:58; Start 06/06/17 at 12:00 Tramadol HCl (Ultram) 50 mg PRN Q8HRS PRN PO PAIN Last administered on 18:15; Start 06/06/17 at 10:30 Vitamin D (Vitamin D3) 50,000 unit WEEKLY PO Last administered on 06/19/17 09: 41; Start 06/12/17 at 09:00 Multivitamins/ Calcium (Thera-M Plus) 1 tab DAILY PO Last administered on 07:59; Start 06/06/17 at 12:00 Vitamin B Complex 1 cap DAILY PO Last administered on 06/25/17 07:57; Start at 12:00 Warfarin Sodium (Coumadin Per Pharmacy) 1 each PRN DAILY PRN MC SEE COMMENTS; Start 06/07/17 at 14:00; Status UNV Risperidone (RisperDAL) 0.5 mg BID PO Last administered on 06/08/17 08:03; Start 06/07/17 at 21:00; Stop 06/08/17 at 19:26; Status DC Mirtazapine (Remeron) 7.5 mg QHS PO Last administered on 06/25/17 20:13; Start 06/07/17 at 21:00 Fluvoxamine Maleate (Luvox) 25 mg DAILY PO Last administered on 06/09/17 07:49 ; Start 06/08/17 at 09:00; Stop 06/10/17 at 08:59; Status DC Fluvoxamine Maleate (Luvox) 50 mg DAILY PO Last administered on 06/16/17 07:41 ; Start 06/10/17 at 09:00; Stop 06/16/17 at 18:42; Status DC Risperidone (RisperDAL) 0.25 mg BID PO Last administered on 06/11/17 19:10; Start 06/08/17 at 21:00; Stop 06/12/17 at 08:59; Status DC Lorazepam (Ativan) 0.25 mg PRN Q2HR PRN PO ANXIETY / AGITATION Last administered on 06/18/17 19:26; Start 06/10/17 at 18:30 Risperidone (RisperDAL) 0.25 mg DAILY PO Last administered on 06/14/17 10:22; Start 06/12/17 at 09:00; Stop 06/15/17 at 08:59; Status DC Levothyroxine Sodium (Synthroid) 25 mcg DAILY06 PO Last administered on 05:29; Start 06/11/17 at 07:45 Nystatin (Nystop) 1 feliciano BID TP Last administered on 06/25/17 20:17; Start at 09:30 Divalproex Sodium (Depakote Sprinkles) 125 mg TID@0900,1300,1700 PO Last administered on 06/15/17 18:34; Start 06/11/17 at 13:00; Stop 06/15/17 at 22:29; Status DC Docusate Sodium (Colace) 100 mg BID PO Last administered on 06/25/17 20:13; Start 06/11/17 at 21:00 Polyethylene Glycol (miraLAX) 17 gm DAILY PO Last administered on 06/25/17 07: 59; Start 06/12/17 at 09:00 Magnesium Citrate (Citroma) 296 ml PRN 1X PRN PO CONSTIPATION; Start 06/11/17 at 18:15 Quetiapine Fumarate (SEROquel) 12.5 mg TID@0600,1200,1700 PO Last administered on 06/13/17 16:57; Start 06/13/17 at 12:00; Stop 06/13/17 at 19:16; Status DC Quetiapine Fumarate (SEROquel) 12.5 mg DAILY@1200 PO Last administered on at 12:00; Start 06/14/17 at 12:00; Stop 06/16/17 at 18:42; Status DC Quetiapine Fumarate (SEROquel) 25 mg BID@0600,1700 PO Last administered on 06/25 17:19; Start 06/14/17 at 06:00 Quetiapine Fumarate (SEROquel) 25 mg 1X ONCE PO Last administered on 06/14/17 07:07; Start 06/14/17 at 07:15; Stop 06/14/17 at 07:16; Status DC Lidocaine (Xylocaine) 1 feliciano 1X ONCE TP Last administered on 06/14/17 13:30; Start 06/14/17 at 13:30; Stop 06/14/17 at 13:31; Status DC Lidocaine HCl 20 ml 1X ONCE INJ Last administered on 06/14/17at 17:47; Start 06/14/17 at 17:15; Stop 06/14/17 at 17:16; Status DC Neomycin/ Polymyxin/ Bacitracin (Triple Antibiotic Ointment) 1 pkt 1X ONCE TP Last administered on 06/14/17at 18:15; Start 06/14/17 at 18:15; Stop 06/14/17 at 18: 16; Status DC Divalproex Sodium (Depakote Sprinkles) 250 mg TID@0900,1300,1700 PO Last administered on 06/19/17at 16:55; Start 06/16/17 at 09:00; Stop 06/19/17 at 18:30; Status DC Fluvoxamine Maleate (Luvox) 75 mg DAILY PO Last administered on 06/23/17at 09:34 ; Start 06/17/17 at 09:00; Stop 06/23/17 at 19:27; Status DC Quetiapine Fumarate (SEROquel) 25 mg DAILY@1200 PO Last administered on at 12:28; Start 06/17/17 at 12:00 Hydrocortisone (Cortaid) 1 feliciano BID TP Last administered on 06/25/17at 20:16; Start 06/16/17 at 21:00 Trazodone HCl (Desyrel) 25 mg 1X ONCE PO Last administered on 06/17/17at 18:00; Start 06/17/17 at 18:00; Stop 06/17/17 at 18:02; Status DC Trazodone HCl (Desyrel) 12.5 mg TID@0900,1300,1700 PO Last administered on at 17:04; Start 06/18/17 at 09:00; Stop 06/18/17 at 18:09; Status DC Trazodone HCl (Desyrel) 12.5 mg BID@1300,1700 PO Last administered on 06/20/17at 12:12; Start 06/19/17 at 13:00; Stop 06/20/17 at 12:28; Status DC Trazodone HCl (Desyrel) 25 mg DAILY PO Last administered on 06/22/17at 09:03; Start 06/19/17 at 09:00; Stop 06/23/17 at 03:43; Status DC Divalproex Sodium (Depakote Sprinkles) 375 mg TID@0900,1300,1700 PO Last administered on 06/25/17at 17:18; Start 06/20/17 at 09:00 Trazodone HCl (Desyrel) 25 mg BID@1300,1700 PO Last administered on 06/22/17at 16:48; Start 06/20/17 at 13:00; Stop 06/23/17 at 03:43; Status DC Trazodone HCl (Desyrel) 25 mg TID@0900,1300,1700 PO Last administered on at 17:19; Start 06/23/17 at 09:00 Cephalexin HCl (Keflex) 500 mg TID PO Last administered on 06/25/17at 20:14; Start 06/23/17 at 21:00; Stop 06/30/17 at 20:59 Fluvoxamine Maleate (Luvox) 100 mg DAILY PO Last administered on 06/25/17at 07: 59; Start 06/24/17 at 09:00 Active Scripts Active Reported Vitamin B Complex 1 Each Tablet 1 Tab PO DAILY Tramadol Hcl (Tramadol HCl) 50 Mg Tablet 50 Mg PO DAILY Tramadol Hcl (Tramadol HCl) 50 Mg Tablet 50 Mg PO PRN Q4HRS PRN Sotalol (Sotalol Hcl) 80 Mg Tablet 80 Mg PO BID Risperidone 1 Mg Tablet 1 Mg PO BID Polyethylene Glycol 3350 255 Gm Powder 17 Gm PO PRN DAILY PRN Nystatin 15 Gm Cream..g. 1 Felician[place] TP BID Centrum Flavor Burst Adult (Multivit with Minerals No.55) 1 Each Tab.chew 1 Tab PO DAILY Melatonin 3 Mg Tablet 3 Mg PO PRN QHS PRN Losartan Potassium 25 Mg Tablet 25 Mg PO DAILY Lorazepam Intensol (Lorazepam) 2 Mg/1 Ml Oral.conc 0.5-1 Ml SL PRN Q2HR PRN Escitalopram Oxalate 10 Mg Tablet 10 Mg PO DAILY Levothyroxine Sodium 25 Mcg Tablet 25 Mcg PO DAILYAC Vitamin D2 (Ergocalciferol (Vitamin D2)) 50,000 Unit Capsule 50,000 Unit PO WEEKLY Eliquis (Apixaban) 5 Mg Tablet 5 Mg PO BID Atorvastatin Calcium 20 Mg Tablet 20 Mg PO QHS Amlodipine Besylate 10 Mg Tablet 10 Mg PO DAILY Tylenol (Acetaminophen) 325 Mg Tablet 650 Mg PO PRN Q4HRS PRN I have reviewed the current psychotropics carefully including drug interactions. Risk benefit ratio favors no change other than as noted in my dictated progress note. 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
--- NOTE | 2017-06-25 22:46 | PN ---
DATE: 06/24/2017 PSYCHIATRIC PROGRESS NOTE This late entry 06/24/2017 covers elements not covered in my initial note of 06/24/2017. SUBJECTIVE: Met with the patient in the evening of 06/24/2017. The patient slept 8-3/4 hours previous evening, has had a better day with less yelling out. REVIEW OF SYSTEMS: Impaired ambulation in a Broda chair. No CV, , pulmonary, eye, ENT system symptoms on review. Reliability is poor. MENTAL STATUS EXAM: Oriented to himself. Insight, judgment, recent and remote memory, attention, concentration, fund of knowledge is poor, consistent with his diagnoses mentioned in my initial note. PLAN: Continue current psychotropics and the trazodone during the day has been helpful with anxiety, agitation. MAN Laverne RIZVI MD DR: YESSENIA/linnette JOB#: [id number] / [id number]
[2017-06-26 06:09] VITALS: BP 164/62
[2017-06-26] MEDS: LEVOTHYROXINE 25 MCG TABLET. PO SCH (06:12)
[2017-06-26] MEDS: QUEtiapine 25 MG TABLET. PO SCH ×3 (06:12→16:53)
[2017-06-26] MEDS: DOCUSATE SODIUM 100 MG CAPSULE PO SCH ×2 (09:07→20:47)
[2017-06-26] MEDS: APIXABAN 5 MG TABLET. PO SCH ×2 (09:07→20:47)
[2017-06-26] MEDS: DIVALPROEX 125 MG CAP.SPRINK PO SCH ×3 (09:08→16:53)
[2017-06-26] MEDS: CEPHALEXIN 250 MG CAPSULE PO SCH ×3 (09:10→20:48)
[2017-06-26] MEDS: amLODIPine BESYLATE 10 MG TABLET PO SCH (09:10)
[2017-06-26] MEDS: LOSARTAN 25 MG TABLET. PO SCH (09:10)
[2017-06-26] MEDS: VITAMIN B COMPLEX CAPSULE. PO SCH (09:10)
[2017-06-26] MEDS: traZODone 50 MG TABLET. PO SCH ×3 (09:10→16:53)
[2017-06-26] MEDS: MULTIVITAMIN with MINERAL TABLET. PO SCH (09:10)
[2017-06-26] MEDS: POLYETHYLENE GLYCOL 3350 17 GM PACKET. PO SCH (09:11)
[2017-06-26] MEDS: HYDROCORTISONE 1% TOPICAL OINTMENT 30GM TUBE. TP SCH (09:12)
[2017-06-26] MEDS: CHOLECALCIFEROL (VITAMIN D3) 50,000 UNIT CAPSULE PO SCH (09:12)
[2017-06-26] MEDS: NYSTATIN TOPICAL POWDER 15GM BOTTLE. TP SCH ×2 (09:12→20:48)
[2017-06-26] MEDS: traMADol 50 MG TABLET PO SCH ×2 (09:13→20:49)
[2017-06-26] MEDS: SOTALOL 80 MG TABLET. PO SCH ×2 (09:13→20:47)
[2017-06-26 16:34] VITALS: BP 126/74
[2017-06-26] MEDS ORDERED: HYDROCORTISONE 1% TOPICAL OINTMENT 30GM TUBE. TP PRN (17:30)
[2017-06-26] MEDS: ATORVASTATIN CALCIUM 20 MG TABLET PO SCH (20:48)
[2017-06-26] MEDS: MIRTAZAPINE 7.5 MG TABLET. PO SCH (20:48)
--- NOTE | 2017-06-26 20:50 | PDOC ---
Exam Note: Jordy Note: Please also refer to the separate dictated note~for this date of service dictated separately.~Patient seen individually. Discussed the patient with Nursing staff reviewed the chart.~Reviewed interim history and current functioning. Reviewed vital signs,~Labs/ Radiology~and current medications noted below. Continue current treatment with the changes noted in the dictated addendum note Assessment: Vital Signs: Vital Signs Date Time Temp Pulse Resp B/P (MAP) Pulse Ox O2 Delivery O2 Flow Rate FiO2 06/26/17 20:49 96 Room Air 06/26/17 20:47 60 126/74 06/26/17 16:34 97.6 18 I&O Intake and Output 06/26/17 07:00 Intake Total 1440 ml Balance 1440 ml Intake Oral 1440 ml # Voids 1 # Bowel Movements 1 Current Medications: Meds: Current Medications Acetaminophen (Tylenol) 650 mg PRN Q6HRS PRN PO PAIN / TEMP; Start 06/05/17 at 22:15; Stop 06/14/17 at 13:43; Status DC Multi-Ingredient Ointment (Analgesic Alpha) 1 feliciano PRN QID PRN TP MUSCLE PAIN; Start 06/05/17 at 22:15 Al Hydroxide/Mg Hydroxide (Mylanta Plus Xs) 15 ml PRN AFTMEALHC PRN PO DYSPEPSIA; Start 06/05/17 at 22:15 Magnesium Hydroxide (Milk Of Magnesia) 2,400 mg PRN QHS PRN PO CONSTIPATION Last administered on 06/11/17at 05:51; Start 06/05/17 at 22:15 Risperidone (RisperDAL) 1 mg BID PO Last administered on 06/07/17at 08:17; Start 06/06/17 at 09:00; Stop 06/07/17 at 17:15; Status DC Citalopram Hydrobromide (CeleXA) 20 mg DAILY PO Last administered on 06/07/17at 08:16; Start 06/06/17 at 09:00; Stop 06/07/17 at 18:54; Status DC Melatonin 3 mg PRN QHS PRN PO INSOMNIA Last administered on 06/16/17at 20:40; Start 06/05/17 at 22:30 Lorazepam (Ativan Intensol) Give 0.5 ml sublingually every ... PRN Q2HR PRN SL ANXIETY / AGITATION; Start 06/05/17 at 22:30; Status UNV Lorazepam (Ativan) 1 mg PRN Q2HR PRN PO ANXIETY / AGITATION; Start 06/05/17 at 22:45; Stop 06/10/17 at 18:30; Status DC Lorazepam (Ativan) 2 mg PRN Q2HR PRN PO ANXIETY / AGITATION; Start 06/05/17 at 22:45; Stop 06/10/17 at 18:30; Status DC Acetaminophen (Tylenol) 650 mg PRN Q4HRS PRN PO PAIN / TEMP Last administered on 06/18/17 19:31; Start 06/06/17 at 10:30 Amlodipine Besylate (Norvasc) 10 mg DAILY PO Last administered on 06/26/17 09: 10; Start 06/06/17 at 12:00 Apixaban (Eliquis) 5 mg BID PO Last administered on 06/26/17at 20:47; Start at 21:00 Atorvastatin Calcium (Lipitor) 20 mg QHS PO Last administered on 06/26/17at 20: 48; Start 06/06/17 at 21:00 Levothyroxine Sodium (Synthroid) 25 mcg DAILYAC PO Last administered on 07:49; Start 06/07/17 at 07:30; Stop 06/11/17 at 07:33; Status DC Losartan Potassium (Cozaar) 25 mg DAILY PO Last administered on 06/26/17 09:10 ; Start 06/06/17 at 12:00 Nystatin (Mycostatin) 1 feliciano BID TP Last administered on 06/11/17at 09:15; Start 06/06/17 at 21:00; Stop 06/11/17 at 09:19; Status DC Polyethylene Glycol (miraLAX) 17 gm PRN DAILY PRN PO CONSTIPATION; Start at 10:39 Sotalol HCl (Betapace) 80 mg BID PO Last administered on 06/26/17 20:47; Start 06/06/17 at 21:00 Tramadol HCl (Ultram) 50 mg DAILY PO Last administered on 06/26/17 09:13; Start 06/06/17 at 12:00; Stop 06/26/17 at 17:20; Status DC Tramadol HCl (Ultram) 50 mg PRN Q8HRS PRN PO PAIN Last administered on 18:15; Start 06/06/17 at 10:30 Vitamin D (Vitamin D3) 50,000 unit WEEKLY PO Last administered on 06/26/17 09: 12; Start 06/12/17 at 09:00 Multivitamins/ Calcium (Thera-M Plus) 1 tab DAILY PO Last administered on 09:10; Start 06/06/17 at 12:00 Vitamin B Complex 1 cap DAILY PO Last administered on 06/26/17 09:10; Start at 12:00 Warfarin Sodium (Coumadin Per Pharmacy) 1 each PRN DAILY PRN MC SEE COMMENTS; Start 06/07/17 at 14:00; Status UNV Risperidone (RisperDAL) 0.5 mg BID PO Last administered on 06/08/17 08:03; Start 06/07/17 at 21:00; Stop 06/08/17 at 19:26; Status DC Mirtazapine (Remeron) 7.5 mg QHS PO Last administered on 06/26/17at 20:48; Start 06/07/17 at 21:00 Fluvoxamine Maleate (Luvox) 25 mg DAILY PO Last administered on 06/09/17 07:49 ; Start 06/08/17 at 09:00; Stop 06/10/17 at 08:59; Status DC Fluvoxamine Maleate (Luvox) 50 mg DAILY PO Last administered on 06/16/17 07:41 ; Start 06/10/17 at 09:00; Stop 06/16/17 at 18:42; Status DC Risperidone (RisperDAL) 0.25 mg BID PO Last administered on 06/11/17 19:10; Start 06/08/17 at 21:00; Stop 06/12/17 at 08:59; Status DC Lorazepam (Ativan) 0.25 mg PRN Q2HR PRN PO ANXIETY / AGITATION Last administered on 06/18/17 19:26; Start 06/10/17 at 18:30 Risperidone (RisperDAL) 0.25 mg DAILY PO Last administered on 06/14/17 10:22; Start 06/12/17 at 09:00; Stop 06/15/17 at 08:59; Status DC Levothyroxine Sodium (Synthroid) 25 mcg DAILY06 PO Last administered on at 06:12; Start 06/11/17 at 07:45 Nystatin (Nystop) 1 feliciano BID TP Last administered on 06/26/17at 20:48; Start at 09:30 Divalproex Sodium (Depakote Sprinkles) 125 mg TID@0900,1300,1700 PO Last administered on 06/15/17at 18:34; Start 06/11/17 at 13:00; Stop 06/15/17 at 22:29; Status DC Docusate Sodium (Colace) 100 mg BID PO Last administered on 06/26/17at 20:47; Start 06/11/17 at 21:00 Polyethylene Glycol (miraLAX) 17 gm DAILY PO Last administered on 06/26/17at 09: 11; Start 06/12/17 at 09:00 Magnesium Citrate (Citroma) 296 ml PRN 1X PRN PO CONSTIPATION; Start 06/11/17 at 18:15 Quetiapine Fumarate (SEROquel) 12.5 mg TID@0600,1200,1700 PO Last administered on 06/13/17at 16:57; Start 06/13/17 at 12:00; Stop 06/13/17 at 19:16; Status DC Quetiapine Fumarate (SEROquel) 12.5 mg DAILY@1200 PO Last administered on at 12:00; Start 06/14/17 at 12:00; Stop 06/16/17 at 18:42; Status DC Quetiapine Fumarate (SEROquel) 25 mg BID@0600,1700 PO Last administered on 06/26at 16:53; Start 06/14/17 at 06:00 Quetiapine Fumarate (SEROquel) 25 mg 1X ONCE PO Last administered on 06/14/17at 07:07; Start 06/14/17 at 07:15; Stop 06/14/17 at 07:16; Status DC Lidocaine (Xylocaine) 1 feliciano 1X ONCE TP Last administered on 06/14/17at 13:30; Start 06/14/17 at 13:30; Stop 06/14/17 at 13:31; Status DC Lidocaine HCl 20 ml 1X ONCE INJ Last administered on 06/14/17at 17:47; Start 06/14/17 at 17:15; Stop 06/14/17 at 17:16; Status DC Neomycin/ Polymyxin/ Bacitracin (Triple Antibiotic Ointment) 1 pkt 1X ONCE TP Last administered on 06/14/17at 18:15; Start 06/14/17 at 18:15; Stop 06/14/17 at 18: 16; Status DC Divalproex Sodium (Depakote Sprinkles) 250 mg TID@0900,1300,1700 PO Last administered on 06/19/17at 16:55; Start 06/16/17 at 09:00; Stop 06/19/17 at 18:30; Status DC Fluvoxamine Maleate (Luvox) 75 mg DAILY PO Last administered on 06/23/17at 09:34 ; Start 06/17/17 at 09:00; Stop 06/23/17 at 19:27; Status DC Quetiapine Fumarate (SEROquel) 25 mg DAILY@1200 PO Last administered on at 12:44; Start 06/17/17 at 12:00 Hydrocortisone (Cortaid) 1 feliciano BID TP Last administered on 06/26/17at 09:12; Start 06/16/17 at 21:00; Stop 06/26/17 at 17:20; Status DC Trazodone HCl (Desyrel) 25 mg 1X ONCE PO Last administered on 06/17/17at 18:00; Start 06/17/17 at 18:00; Stop 06/17/17 at 18:02; Status DC Trazodone HCl (Desyrel) 12.5 mg TID@0900,1300,1700 PO Last administered on at 17:04; Start 06/18/17 at 09:00; Stop 06/18/17 at 18:09; Status DC Trazodone HCl (Desyrel) 12.5 mg BID@1300,1700 PO Last administered on 06/20/17at 12:12; Start 06/19/17 at 13:00; Stop 06/20/17 at 12:28; Status DC Trazodone HCl (Desyrel) 25 mg DAILY PO Last administered on 06/22/17at 09:03; Start 06/19/17 at 09:00; Stop 06/23/17 at 03:43; Status DC Divalproex Sodium (Depakote Sprinkles) 375 mg TID@0900,1300,1700 PO Last administered on 06/26/17at 16:53; Start 06/20/17 at 09:00 Trazodone HCl (Desyrel) 25 mg BID@1300,1700 PO Last administered on 06/22/17at 16:48; Start 06/20/17 at 13:00; Stop 06/23/17 at 03:43; Status DC Trazodone HCl (Desyrel) 25 mg TID@0900,1300,1700 PO Last administered on at 16:53; Start 06/23/17 at 09:00 Cephalexin HCl (Keflex) 500 mg TID PO Last administered on 06/26/17at 20:48; Start 06/23/17 at 21:00; Stop 06/30/17 at 20:59 Fluvoxamine Maleate (Luvox) 100 mg DAILY PO Last administered on 06/26/17at 09: 11; Start 06/24/17 at 09:00 Tramadol HCl (Ultram) 50 mg BID PO Last administered on 06/26/17at 20:49; Start 06/26/17 at 21:00 Hydrocortisone (Cortaid) 1 feliciano PRN BID PRN TP ITCHING; Start 06/26/17 at 17:30 Active Scripts Active Reported Vitamin B Complex 1 Each Tablet 1 Tab PO DAILY Tramadol Hcl (Tramadol HCl) 50 Mg Tablet 50 Mg PO DAILY Tramadol Hcl (Tramadol HCl) 50 Mg Tablet 50 Mg PO PRN Q4HRS PRN Sotalol (Sotalol Hcl) 80 Mg Tablet 80 Mg PO BID Risperidone 1 Mg Tablet 1 Mg PO BID Polyethylene Glycol 3350 255 Gm Powder 17 Gm PO PRN DAILY PRN Nystatin 15 Gm Cream..g. 1 Feliciano TP BID Centrum Flavor Burst Adult (Multivit with Minerals No.55) 1 Each Tab.chew 1 Tab PO DAILY Melatonin 3 Mg Tablet 3 Mg PO PRN QHS PRN Losartan Potassium 25 Mg Tablet 25 Mg PO DAILY Lorazepam Intensol (Lorazepam) 2 Mg/1 Ml Oral.conc 0.5-1 Ml SL PRN Q2HR PRN Escitalopram Oxalate 10 Mg Tablet 10 Mg PO DAILY Levothyroxine Sodium 25 Mcg Tablet 25 Mcg PO DAILYAC Vitamin D2 (Ergocalciferol (Vitamin D2)) 50,000 Unit Capsule 50,000 Unit PO WEEKLY Eliquis (Apixaban) 5 Mg Tablet 5 Mg PO BID Atorvastatin Calcium 20 Mg Tablet 20 Mg PO QHS Amlodipine Besylate 10 Mg Tablet 10 Mg PO DAILY Tylenol (Acetaminophen) 325 Mg Tablet 650 Mg PO PRN Q4HRS PRN I have reviewed the current psychotropics carefully including drug interactions. Risk benefit ratio favors no change other than as noted in my dictated progress note. Diagnosis: Problems: (1) Anxiety disorder (2) Agitation (3) Confusion (4) Panic disorder with agoraphobia and severe panic attacks (5) Dementia in Alzheimer's disease with delusions (6) Dementia in Alzheimer's disease with depression (7) Dementia, vascular, with delusions (8) Dementia, vascular, with depression (9) Impulse control disorder HANDY RIZVI MD Jun 26, 2017 20:50
[2017-06-27] MEDS: LEVOTHYROXINE 25 MCG TABLET. PO SCH (05:48)
[2017-06-27] MEDS: QUEtiapine 25 MG TABLET. PO SCH ×3 (05:48→18:02)
[2017-06-27 06:24] VITALS: BP 118/78
[2017-06-27] MEDS: amLODIPine BESYLATE 10 MG TABLET PO SCH ×2 (09:28→10:34)
[2017-06-27] MEDS: LOSARTAN 25 MG TABLET. PO SCH ×2 (09:29→10:33)
[2017-06-27] MEDS: DIVALPROEX 125 MG CAP.SPRINK PO SCH ×3 (09:29→18:02)
[2017-06-27] MEDS: MULTIVITAMIN with MINERAL TABLET. PO SCH ×2 (09:29→10:32)
[2017-06-27] MEDS: VITAMIN B COMPLEX CAPSULE. PO SCH ×2 (09:29→10:34)
[2017-06-27] MEDS: CEPHALEXIN 250 MG CAPSULE PO SCH ×3 (09:30→21:06)
[2017-06-27] MEDS: APIXABAN 5 MG TABLET. PO SCH ×2 (09:30→10:32)
[2017-06-27] MEDS: POLYETHYLENE GLYCOL 3350 17 GM PACKET. PO SCH ×2 (09:30→10:34)
[2017-06-27] MEDS: DOCUSATE SODIUM 100 MG CAPSULE PO SCH ×2 (09:30→21:06)
[2017-06-27] MEDS: traZODone 50 MG TABLET. PO SCH ×3 (09:30→18:05)
[2017-06-27] MEDS: NYSTATIN TOPICAL POWDER 15GM BOTTLE. TP SCH ×2 (09:31→21:08)
[2017-06-27] MEDS: LACTOBACILLUS RHAMNOSUS GG 1 CAPSULE. PO SCH ×2 (09:33→21:06)
[2017-06-27] MEDS: traMADol 50 MG TABLET PO SCH ×2 (09:34→21:06)
[2017-06-27] MEDS: SOTALOL 80 MG TABLET. PO SCH ×2 (10:31→21:08)
[2017-06-27 16:31] VITALS: BP 123/63
--- NOTE | 2017-06-27 20:34 | PDOC ---
Exam Note: Jordy Note: Please also refer to the separate dictated note~for this date of service dictated separately.~Patient seen individually. Discussed the patient with Nursing staff reviewed the chart.~Reviewed interim history and current functioning. Reviewed vital signs,~Labs/ Radiology~and current medications noted below. Continue current treatment with the changes noted in the dictated addendum note Assessment: Vital Signs: Vital Signs Date Time Temp Pulse Resp B/P (MAP) Pulse Ox O2 Delivery O2 Flow Rate FiO2 06/27/17 16:31 97.5 60 16 123/63 (83) 93 Room Air I&O Intake and Output 06/27/17 07:00 Intake Total 720 ml Balance 720 ml Intake Oral 720 ml # Voids 1 # Bowel Movements 1 Current Medications: Meds: Current Medications Acetaminophen (Tylenol) 650 mg PRN Q6HRS PRN PO PAIN / TEMP; Start 06/05/17 at 22:15; Stop 06/14/17 at 13:43; Status DC Multi-Ingredient Ointment (Analgesic [place]) 1 feliciano PRN QID PRN TP MUSCLE PAIN; Start 06/05/17 at 22:15 Al Hydroxide/Mg Hydroxide (Mylanta Plus Xs) 15 ml PRN AFTMEALHC PRN PO DYSPEPSIA; Start 06/05/17 at 22:15 Magnesium Hydroxide (Milk Of Magnesia) 2,400 mg PRN QHS PRN PO CONSTIPATION Last administered on 06/11/17at 05:51; Start 06/05/17 at 22:15 Risperidone (RisperDAL) 1 mg BID PO Last administered on 06/07/17at 08:17; Start 06/06/17 at 09:00; Stop 06/07/17 at 17:15; Status DC Citalopram Hydrobromide (CeleXA) 20 mg DAILY PO Last administered on 06/07/17at 08:16; Start 06/06/17 at 09:00; Stop 06/07/17 at 18:54; Status DC Melatonin 3 mg PRN QHS PRN PO INSOMNIA Last administered on 06/16/17at 20:40; Start 06/05/17 at 22:30 Lorazepam (Ativan Intensol) Give 0.5 ml sublingually every ... PRN Q2HR PRN SL ANXIETY / AGITATION; Start 06/05/17 at 22:30; Status UNV Lorazepam (Ativan) 1 mg PRN Q2HR PRN PO ANXIETY / AGITATION; Start 06/05/17 at 22:45; Stop 06/10/17 at 18:30; Status DC Lorazepam (Ativan) 2 mg PRN Q2HR PRN PO ANXIETY / AGITATION; Start 06/05/17 at 22:45; Stop 06/10/17 at 18:30; Status DC Acetaminophen (Tylenol) 650 mg PRN Q4HRS PRN PO PAIN / TEMP Last administered on 06/18/17 19:31; Start 06/06/17 at 10:30 Amlodipine Besylate (Norvasc) 10 mg DAILY PO Last administered on 06/27/17 10: 34; Start 06/06/17 at 12:00 Apixaban (Eliquis) 5 mg BID PO Last administered on 06/27/17 10:32; Start at 21:00 Atorvastatin Calcium (Lipitor) 20 mg QHS PO Last administered on 06/26/17 20: 48; Start 06/06/17 at 21:00 Levothyroxine Sodium (Synthroid) 25 mcg DAILYAC PO Last administered on 07:49; Start 06/07/17 at 07:30; Stop 06/11/17 at 07:33; Status DC Losartan Potassium (Cozaar) 25 mg DAILY PO Last administered on 06/27/17 10:33 ; Start 06/06/17 at 12:00 Nystatin (Mycostatin) 1 feliciano BID TP Last administered on 06/11/17 09:15; Start 06/06/17 at 21:00; Stop 06/11/17 at 09:19; Status DC Polyethylene Glycol (miraLAX) 17 gm PRN DAILY PRN PO CONSTIPATION; Start at 10:39 Sotalol HCl (Betapace) 80 mg BID PO Last administered on 06/27/17 10:31; Start 06/06/17 at 21:00 Tramadol HCl (Ultram) 50 mg DAILY PO Last administered on 06/26/17 09:13; Start 06/06/17 at 12:00; Stop 06/26/17 at 17:20; Status DC Tramadol HCl (Ultram) 50 mg PRN Q8HRS PRN PO PAIN Last administered on 18:15; Start 06/06/17 at 10:30 Vitamin D (Vitamin D3) 50,000 unit WEEKLY PO Last administered on 06/26/17 09: 12; Start 06/12/17 at 09:00 Multivitamins/ Calcium (Thera-M Plus) 1 tab DAILY PO Last administered on 10:32; Start 06/06/17 at 12:00 Vitamin B Complex 1 cap DAILY PO Last administered on 06/27/17 10:34; Start at 12:00 Warfarin Sodium (Coumadin Per Pharmacy) 1 each PRN DAILY PRN MC SEE COMMENTS; Start 06/07/17 at 14:00; Status UNV Risperidone (RisperDAL) 0.5 mg BID PO Last administered on 06/08/17 08:03; Start 06/07/17 at 21:00; Stop 06/08/17 at 19:26; Status DC Mirtazapine (Remeron) 7.5 mg QHS PO Last administered on 06/26/17at 20:48; Start 06/07/17 at 21:00 Fluvoxamine Maleate (Luvox) 25 mg DAILY PO Last administered on 06/09/17 07:49 ; Start 06/08/17 at 09:00; Stop 06/10/17 at 08:59; Status DC Fluvoxamine Maleate (Luvox) 50 mg DAILY PO Last administered on 06/16/17 07:41 ; Start 06/10/17 at 09:00; Stop 06/16/17 at 18:42; Status DC Risperidone (RisperDAL) 0.25 mg BID PO Last administered on 06/11/17 19:10; Start 06/08/17 at 21:00; Stop 06/12/17 at 08:59; Status DC Lorazepam (Ativan) 0.25 mg PRN Q2HR PRN PO ANXIETY / AGITATION Last administered on 06/18/17 19:26; Start 06/10/17 at 18:30 Risperidone (RisperDAL) 0.25 mg DAILY PO Last administered on 06/14/17 10:22; Start 06/12/17 at 09:00; Stop 06/15/17 at 08:59; Status DC Levothyroxine Sodium (Synthroid) 25 mcg DAILY06 PO Last administered on at 05:48; Start 06/11/17 at 07:45 Nystatin (Nystop) 1 feliciano BID TP Last administered on 06/27/17at 09:31; Start at 09:30 Divalproex Sodium (Depakote Sprinkles) 125 mg TID@0900,1300,1700 PO Last administered on 06/15/17 18:34; Start 06/11/17 at 13:00; Stop 06/15/17 at 22:29; Status DC Docusate Sodium (Colace) 100 mg BID PO Last administered on 06/27/17 09:30; Start 06/11/17 at 21:00 Polyethylene Glycol (miraLAX) 17 gm DAILY PO Last administered on 06/27/17at 10: 34; Start 06/12/17 at 09:00 Magnesium Citrate (Citroma) 296 ml PRN 1X PRN PO CONSTIPATION; Start 06/11/17 at 18:15 Quetiapine Fumarate (SEROquel) 12.5 mg TID@0600,1200,1700 PO Last administered on 06/13/17 16:57; Start 06/13/17 at 12:00; Stop 06/13/17 at 19:16; Status DC Quetiapine Fumarate (SEROquel) 12.5 mg DAILY@1200 PO Last administered on at 12:00; Start 06/14/17 at 12:00; Stop 06/16/17 at 18:42; Status DC Quetiapine Fumarate (SEROquel) 25 mg BID@0600,1700 PO Last administered on 06/27at 18:02; Start 06/14/17 at 06:00 Quetiapine Fumarate (SEROquel) 25 mg 1X ONCE PO Last administered on 06/14/17at 07:07; Start 06/14/17 at 07:15; Stop 06/14/17 at 07:16; Status DC Lidocaine (Xylocaine) 1 feliciano 1X ONCE TP Last administered on 06/14/17at 13:30; Start 06/14/17 at 13:30; Stop 06/14/17 at 13:31; Status DC Lidocaine HCl 20 ml 1X ONCE INJ Last administered on 06/14/17at 17:47; Start 06/14/17 at 17:15; Stop 06/14/17 at 17:16; Status DC Neomycin/ Polymyxin/ Bacitracin (Triple Antibiotic Ointment) 1 pkt 1X ONCE TP Last administered on 06/14/17at 18:15; Start 06/14/17 at 18:15; Stop 06/14/17 at 18: 16; Status DC Divalproex Sodium (Depakote Sprinkles) 250 mg TID@0900,1300,1700 PO Last administered on 06/19/17at 16:55; Start 06/16/17 at 09:00; Stop 06/19/17 at 18:30; Status DC Fluvoxamine Maleate (Luvox) 75 mg DAILY PO Last administered on 06/23/17at 09:34 ; Start 06/17/17 at 09:00; Stop 06/23/17 at 19:27; Status DC Quetiapine Fumarate (SEROquel) 25 mg DAILY@1200 PO Last administered on at 13:48; Start 06/17/17 at 12:00 Hydrocortisone (Cortaid) 1 feliciano BID TP Last administered on 06/26/17at 09:12; Start 06/16/17 at 21:00; Stop 06/26/17 at 17:20; Status DC Trazodone HCl (Desyrel) 25 mg 1X ONCE PO Last administered on 06/17/17at 18:00; Start 06/17/17 at 18:00; Stop 06/17/17 at 18:02; Status DC Trazodone HCl (Desyrel) 12.5 mg TID@0900,1300,1700 PO Last administered on at 17:04; Start 06/18/17 at 09:00; Stop 06/18/17 at 18:09; Status DC Trazodone HCl (Desyrel) 12.5 mg BID@1300,1700 PO Last administered on 06/20/17at 12:12; Start 06/19/17 at 13:00; Stop 06/20/17 at 12:28; Status DC Trazodone HCl (Desyrel) 25 mg DAILY PO Last administered on 06/22/17at 09:03; Start 06/19/17 at 09:00; Stop 06/23/17 at 03:43; Status DC Divalproex Sodium (Depakote Sprinkles) 375 mg TID@0900,1300,1700 PO Last administered on 06/27/17at 18:02; Start 06/20/17 at 09:00 Trazodone HCl (Desyrel) 25 mg BID@1300,1700 PO Last administered on 06/22/17at 16:48; Start 06/20/17 at 13:00; Stop 06/23/17 at 03:43; Status DC Trazodone HCl (Desyrel) 25 mg TID@0900,1300,1700 PO Last administered on at 18:05; Start 06/23/17 at 09:00 Cephalexin HCl (Keflex) 500 mg TID PO Last administered on 06/27/17at 13:49; Start 06/23/17 at 21:00; Stop 06/30/17 at 20:59 Fluvoxamine Maleate (Luvox) 100 mg DAILY PO Last administered on 06/27/17at 10: 34; Start 06/24/17 at 09:00 Tramadol HCl (Ultram) 50 mg BID PO Last administered on 06/27/17at 09:34; Start 06/26/17 at 21:00 Hydrocortisone (Cortaid) 1 feliciano PRN BID PRN TP ITCHING; Start 06/26/17 at 17:30 Lactobacillus Rhamnosus (Culturelle) 1 cap BID PO Last administered on at 09:33; Start 06/27/17 at 09:00 Active Scripts Active Reported Vitamin B Complex 1 Each Tablet 1 Tab PO DAILY Tramadol Hcl (Tramadol HCl) 50 Mg Tablet 50 Mg PO DAILY Tramadol Hcl (Tramadol HCl) 50 Mg Tablet 50 Mg PO PRN Q4HRS PRN Sotalol (Sotalol Hcl) 80 Mg Tablet 80 Mg PO BID Risperidone 1 Mg Tablet 1 Mg PO BID Polyethylene Glycol 3350 255 Gm Powder 17 Gm PO PRN DAILY PRN Nystatin 15 Gm Cream..g. 1 Feliciano TP BID Centrum Flavor Burst Adult (Multivit with Minerals No.55) 1 Each Tab.chew 1 Tab PO DAILY Melatonin 3 Mg Tablet 3 Mg PO PRN QHS PRN Losartan Potassium 25 Mg Tablet 25 Mg PO DAILY Lorazepam Intensol (Lorazepam) 2 Mg/1 Ml Oral.conc 0.5-1 Ml SL PRN Q2HR PRN Escitalopram Oxalate 10 Mg Tablet 10 Mg PO DAILY Levothyroxine Sodium 25 Mcg Tablet 25 Mcg PO DAILYAC Vitamin D2 (Ergocalciferol (Vitamin D2)) 50,000 Unit Capsule 50,000 Unit PO WEEKLY Eliquis (Apixaban) 5 Mg Tablet 5 Mg PO BID Atorvastatin Calcium 20 Mg Tablet 20 Mg PO QHS Amlodipine Besylate 10 Mg Tablet 10 Mg PO DAILY Tylenol (Acetaminophen) 325 Mg Tablet 650 Mg PO PRN Q4HRS PRN I have reviewed the current psychotropics carefully including drug interactions. Risk benefit ratio favors no change other than as noted in my dictated progress note. 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
[2017-06-27] MEDS: ATORVASTATIN CALCIUM 20 MG TABLET PO SCH (21:06)
[2017-06-27] MEDS: MIRTAZAPINE 7.5 MG TABLET. PO SCH (21:06)
--- NOTE | 2017-06-28 00:18 | PN ---
DATE: 06/25/2017 This late entry 06/25/2017 covers elements not covered in my initial note 06/25/2017. Met with the patient evening of 06/25/2017. SUBJECTIVE: The patient was yelling in the morning, but then doing better later in the day. He is quite delusional, confused, believes he was selling lawnmowers. REVIEW OF SYSTEMS: Ambulation impaired, in Broda chair. No CV, , pulmonary, eye, ENT system symptoms on review. Reliability poor. MENTAL STATUS EXAM: Oriented to himself. Insight, judgment, recent and remote memory, attention, concentration, fund of knowledge poor, consistent with his diagnosis mentioned in my initial note. PLAN: Continue current psychotropics mentioned in my initial note. Valproic acid level therapeutic at 65. MAN Laverne RIZVI MD DR: YESSENIA/linnette JOB#: [id number] / [id number]
[2017-06-28] MEDS: LEVOTHYROXINE 25 MCG TABLET. PO SCH (05:34)
[2017-06-28] MEDS: QUEtiapine 25 MG TABLET. PO SCH ×3 (05:34→17:09)
[2017-06-28 06:09] VITALS: BP 131/68
[2017-06-28] MEDS: LACTOBACILLUS RHAMNOSUS GG 1 CAPSULE. PO SCH ×2 (10:15→19:50)
[2017-06-28] MEDS: MULTIVITAMIN with MINERAL TABLET. PO SCH (10:15)
[2017-06-28] MEDS: VITAMIN B COMPLEX CAPSULE. PO SCH (10:16)
[2017-06-28] MEDS: LOSARTAN 25 MG TABLET. PO SCH (10:16)
[2017-06-28] MEDS: DOCUSATE SODIUM 100 MG CAPSULE PO SCH ×2 (10:16→19:50)
[2017-06-28] MEDS: amLODIPine BESYLATE 10 MG TABLET PO SCH (10:16)
[2017-06-28] MEDS: DIVALPROEX 125 MG CAP.SPRINK PO SCH ×3 (10:16→17:08)
[2017-06-28] MEDS: APIXABAN 5 MG TABLET. PO SCH ×2 (10:17→19:50)
[2017-06-28] MEDS: traZODone 50 MG TABLET. PO SCH ×3 (10:17→17:09)
[2017-06-28] MEDS: CEPHALEXIN 250 MG CAPSULE PO SCH ×3 (10:18→19:50)
[2017-06-28] MEDS: traMADol 50 MG TABLET PO SCH ×2 (10:21→19:51)
[2017-06-28] MEDS: NYSTATIN TOPICAL POWDER 15GM BOTTLE. TP SCH ×2 (10:23→19:52)
[2017-06-28] MEDS: SOTALOL 80 MG TABLET. PO SCH ×2 (10:23→19:50)
[2017-06-28 16:08] VITALS: BP 129/67
[2017-06-28] MEDS: MIRTAZAPINE 7.5 MG TABLET. PO SCH (19:50)
[2017-06-28] MEDS: ATORVASTATIN CALCIUM 20 MG TABLET PO SCH (19:50)
--- NOTE | 2017-06-28 20:39 | PDOC ---
Exam Note: Jordy Note: Please also refer to the separate dictated note~for this date of service dictated separately.~Patient seen individually. Discussed the patient with Nursing staff reviewed the chart.~Reviewed interim history and current functioning. Reviewed vital signs,~Labs/ Radiology~and current medications noted below. Continue current treatment with the changes noted in the dictated addendum note Assessment: Vital Signs: Vital Signs Date Time Temp Pulse Resp B/P (MAP) Pulse Ox O2 Delivery O2 Flow Rate FiO2 06/28/17 19:51 97 Room Air 06/28/17 19:50 60 129/67 06/28/17 16:08 97.5 18 I&O Intake and Output 06/28/17 07:00 Intake Total 840 ml Balance 840 ml Intake Oral 840 ml # Voids 1 # Bowel Movements 1 Current Medications: Meds: Current Medications Acetaminophen (Tylenol) 650 mg PRN Q6HRS PRN PO PAIN / TEMP; Start 06/05/17 at 22:15; Stop 06/14/17 at 13:43; Status DC Multi-Ingredient Ointment (Analgesic [place]) 1 feliciano PRN QID PRN TP MUSCLE PAIN; Start 06/05/17 at 22:15 Al Hydroxide/Mg Hydroxide (Mylanta Plus Xs) 15 ml PRN AFTMEALHC PRN PO DYSPEPSIA; Start 06/05/17 at 22:15 Magnesium Hydroxide (Milk Of Magnesia) 2,400 mg PRN QHS PRN PO CONSTIPATION Last administered on 06/11/17at 05:51; Start 06/05/17 at 22:15 Risperidone (RisperDAL) 1 mg BID PO Last administered on 06/07/17at 08:17; Start 06/06/17 at 09:00; Stop 06/07/17 at 17:15; Status DC Citalopram Hydrobromide (CeleXA) 20 mg DAILY PO Last administered on 06/07/17at 08:16; Start 06/06/17 at 09:00; Stop 06/07/17 at 18:54; Status DC Melatonin 3 mg PRN QHS PRN PO INSOMNIA Last administered on 06/16/17at 20:40; Start 06/05/17 at 22:30 Lorazepam (Ativan Intensol) Give 0.5 ml sublingually every ... PRN Q2HR PRN SL ANXIETY / AGITATION; Start 06/05/17 at 22:30; Status UNV Lorazepam (Ativan) 1 mg PRN Q2HR PRN PO ANXIETY / AGITATION; Start 06/05/17 at 22:45; Stop 06/10/17 at 18:30; Status DC Lorazepam (Ativan) 2 mg PRN Q2HR PRN PO ANXIETY / AGITATION; Start 06/05/17 at 22:45; Stop 06/10/17 at 18:30; Status DC Acetaminophen (Tylenol) 650 mg PRN Q4HRS PRN PO PAIN / TEMP Last administered on 06/18/17at 19:31; Start 06/06/17 at 10:30 Amlodipine Besylate (Norvasc) 10 mg DAILY PO Last administered on 06/28/17 10: 16; Start 06/06/17 at 12:00 Apixaban (Eliquis) 5 mg BID PO Last administered on 06/28/17at 19:50; Start at 21:00 Atorvastatin Calcium (Lipitor) 20 mg QHS PO Last administered on 06/28/17at 19: 50; Start 06/06/17 at 21:00 Levothyroxine Sodium (Synthroid) 25 mcg DAILYAC PO Last administered on 07:49; Start 06/07/17 at 07:30; Stop 06/11/17 at 07:33; Status DC Losartan Potassium (Cozaar) 25 mg DAILY PO Last administered on 06/28/17at 10:16 ; Start 06/06/17 at 12:00 Nystatin (Mycostatin) 1 feliciano BID TP Last administered on 06/11/17at 09:15; Start 06/06/17 at 21:00; Stop 06/11/17 at 09:19; Status DC Polyethylene Glycol (miraLAX) 17 gm PRN DAILY PRN PO CONSTIPATION; Start at 10:39 Sotalol HCl (Betapace) 80 mg BID PO Last administered on 06/28/17 19:50; Start 06/06/17 at 21:00 Tramadol HCl (Ultram) 50 mg DAILY PO Last administered on 06/26/17at 09:13; Start 06/06/17 at 12:00; Stop 06/26/17 at 17:20; Status DC Tramadol HCl (Ultram) 50 mg PRN Q8HRS PRN PO PAIN Last administered on 18:15; Start 06/06/17 at 10:30 Vitamin D (Vitamin D3) 50,000 unit WEEKLY PO Last administered on 06/26/17at 09: 12; Start 06/12/17 at 09:00 Multivitamins/ Calcium (Thera-M Plus) 1 tab DAILY PO Last administered on 10:15; Start 06/06/17 at 12:00 Vitamin B Complex 1 cap DAILY PO Last administered on 06/28/17at 10:16; Start at 12:00 Warfarin Sodium (Coumadin Per Pharmacy) 1 each PRN DAILY PRN MC SEE COMMENTS; Start 06/07/17 at 14:00; Status UNV Risperidone (RisperDAL) 0.5 mg BID PO Last administered on 06/08/17 08:03; Start 06/07/17 at 21:00; Stop 06/08/17 at 19:26; Status DC Mirtazapine (Remeron) 7.5 mg QHS PO Last administered on 06/28/17at 19:50; Start 06/07/17 at 21:00 Fluvoxamine Maleate (Luvox) 25 mg DAILY PO Last administered on 06/09/17 07:49 ; Start 06/08/17 at 09:00; Stop 06/10/17 at 08:59; Status DC Fluvoxamine Maleate (Luvox) 50 mg DAILY PO Last administered on 06/16/17 07:41 ; Start 06/10/17 at 09:00; Stop 06/16/17 at 18:42; Status DC Risperidone (RisperDAL) 0.25 mg BID PO Last administered on 06/11/17 19:10; Start 06/08/17 at 21:00; Stop 06/12/17 at 08:59; Status DC Lorazepam (Ativan) 0.25 mg PRN Q2HR PRN PO ANXIETY / AGITATION Last administered on 06/18/17 19:26; Start 06/10/17 at 18:30 Risperidone (RisperDAL) 0.25 mg DAILY PO Last administered on 06/14/17 10:22; Start 06/12/17 at 09:00; Stop 06/15/17 at 08:59; Status DC Levothyroxine Sodium (Synthroid) 25 mcg DAILY06 PO Last administered on at 05:34; Start 06/11/17 at 07:45 Nystatin (Nystop) 1 feliciano BID TP Last administered on 06/28/17at 19:52; Start at 09:30 Divalproex Sodium (Depakote Sprinkles) 125 mg TID@0900,1300,1700 PO Last administered on 06/15/17at 18:34; Start 06/11/17 at 13:00; Stop 06/15/17 at 22:29; Status DC Docusate Sodium (Colace) 100 mg BID PO Last administered on 06/28/17at 19:50; Start 06/11/17 at 21:00 Polyethylene Glycol (miraLAX) 17 gm DAILY PO Last administered on 06/27/17at 10: 34; Start 06/12/17 at 09:00 Magnesium Citrate (Citroma) 296 ml PRN 1X PRN PO CONSTIPATION; Start 06/11/17 at 18:15 Quetiapine Fumarate (SEROquel) 12.5 mg TID@0600,1200,1700 PO Last administered on 06/13/17at 16:57; Start 06/13/17 at 12:00; Stop 06/13/17 at 19:16; Status DC Quetiapine Fumarate (SEROquel) 12.5 mg DAILY@1200 PO Last administered on at 12:00; Start 06/14/17 at 12:00; Stop 06/16/17 at 18:42; Status DC Quetiapine Fumarate (SEROquel) 25 mg BID@0600,1700 PO Last administered on 06/28at 17:09; Start 06/14/17 at 06:00 Quetiapine Fumarate (SEROquel) 25 mg 1X ONCE PO Last administered on 06/14/17at 07:07; Start 06/14/17 at 07:15; Stop 06/14/17 at 07:16; Status DC Lidocaine (Xylocaine) 1 feliciano 1X ONCE TP Last administered on 06/14/17at 13:30; Start 06/14/17 at 13:30; Stop 06/14/17 at 13:31; Status DC Lidocaine HCl 20 ml 1X ONCE INJ Last administered on 06/14/17at 17:47; Start 06/14/17 at 17:15; Stop 06/14/17 at 17:16; Status DC Neomycin/ Polymyxin/ Bacitracin (Triple Antibiotic Ointment) 1 pkt 1X ONCE TP Last administered on 06/14/17at 18:15; Start 06/14/17 at 18:15; Stop 06/14/17 at 18: 16; Status DC Divalproex Sodium (Depakote Sprinkles) 250 mg TID@0900,1300,1700 PO Last administered on 06/19/17at 16:55; Start 06/16/17 at 09:00; Stop 06/19/17 at 18:30; Status DC Fluvoxamine Maleate (Luvox) 75 mg DAILY PO Last administered on 06/23/17at 09:34 ; Start 06/17/17 at 09:00; Stop 06/23/17 at 19:27; Status DC Quetiapine Fumarate (SEROquel) 25 mg DAILY@1200 PO Last administered on at 12:38; Start 06/17/17 at 12:00 Hydrocortisone (Cortaid) 1 feliciano BID TP Last administered on 06/26/17at 09:12; Start 06/16/17 at 21:00; Stop 06/26/17 at 17:20; Status DC Trazodone HCl (Desyrel) 25 mg 1X ONCE PO Last administered on 06/17/17at 18:00; Start 06/17/17 at 18:00; Stop 06/17/17 at 18:02; Status DC Trazodone HCl (Desyrel) 12.5 mg TID@0900,1300,1700 PO Last administered on at 17:04; Start 06/18/17 at 09:00; Stop 06/18/17 at 18:09; Status DC Trazodone HCl (Desyrel) 12.5 mg BID@1300,1700 PO Last administered on 06/20/17at 12:12; Start 06/19/17 at 13:00; Stop 06/20/17 at 12:28; Status DC Trazodone HCl (Desyrel) 25 mg DAILY PO Last administered on 06/22/17at 09:03; Start 06/19/17 at 09:00; Stop 06/23/17 at 03:43; Status DC Divalproex Sodium (Depakote Sprinkles) 375 mg TID@0900,1300,1700 PO Last administered on 06/28/17at 17:08; Start 06/20/17 at 09:00 Trazodone HCl (Desyrel) 25 mg BID@1300,1700 PO Last administered on 06/22/17at 16:48; Start 06/20/17 at 13:00; Stop 06/23/17 at 03:43; Status DC Trazodone HCl (Desyrel) 25 mg TID@0900,1300,1700 PO Last administered on at 17:09; Start 06/23/17 at 09:00 Cephalexin HCl (Keflex) 500 mg TID PO Last administered on 06/28/17at 19:50; Start 06/23/17 at 21:00; Stop 06/30/17 at 20:59 Fluvoxamine Maleate (Luvox) 100 mg DAILY PO Last administered on 06/28/17at 10: 16; Start 06/24/17 at 09:00 Tramadol HCl (Ultram) 50 mg BID PO Last administered on 06/28/17 19:51; Start 06/26/17 at 21:00 Hydrocortisone (Cortaid) 1 feliciano PRN BID PRN TP ITCHING Last administered on 06/27at 21:07; Start 06/26/17 at 17:30 Lactobacillus Rhamnosus (Culturelle) 1 cap BID PO Last administered on at 19:50; Start 06/27/17 at 09:00 Active Scripts Active Reported Vitamin B Complex 1 Each Tablet 1 Tab PO DAILY Tramadol Hcl (Tramadol HCl) 50 Mg Tablet 50 Mg PO DAILY Tramadol Hcl (Tramadol HCl) 50 Mg Tablet 50 Mg PO PRN Q4HRS PRN Sotalol (Sotalol Hcl) 80 Mg Tablet 80 Mg PO BID Risperidone 1 Mg Tablet 1 Mg PO BID Polyethylene Glycol 3350 255 Gm Powder 17 Gm PO PRN DAILY PRN Nystatin 15 Gm Cream..g. 1 Feliciano TP BID Centrum Flavor Burst Adult (Multivit with Minerals No.55) 1 Each Tab.chew 1 Tab PO DAILY Melatonin 3 Mg Tablet 3 Mg PO PRN QHS PRN Losartan Potassium 25 Mg Tablet 25 Mg PO DAILY Lorazepam Intensol (Lorazepam) 2 Mg/1 Ml Oral.conc 0.5-1 Ml SL PRN Q2HR PRN Escitalopram Oxalate 10 Mg Tablet 10 Mg PO DAILY Levothyroxine Sodium 25 Mcg Tablet 25 Mcg PO DAILYAC Vitamin D2 (Ergocalciferol (Vitamin D2)) 50,000 Unit Capsule 50,000 Unit PO WEEKLY Eliquis (Apixaban) 5 Mg Tablet 5 Mg PO BID Atorvastatin Calcium 20 Mg Tablet 20 Mg PO QHS Amlodipine Besylate 10 Mg Tablet 10 Mg PO DAILY Tylenol (Acetaminophen) 325 Mg Tablet 650 Mg PO PRN Q4HRS PRN I have reviewed the current psychotropics carefully including drug interactions. Risk benefit ratio favors no change other than as noted in my dictated progress note. Diagnosis: Problems: (1) Anxiety disorder (2) Agitation (3) Confusion (4) Panic disorder with agoraphobia and severe panic attacks (5) Dementia in Alzheimer's disease with delusions (6) Dementia in Alzheimer's disease with depression (7) Dementia, vascular, with delusions (8) Dementia, vascular, with depression (9) Impulse control disorder HANDY RIZVI MD Jun 28, 2017 20:39
--- NOTE | 2017-06-29 03:52 | PN ---
DATE: 06/26/2017 This is a late entry for 06/26/2017 covers elements not covered in my initial note of 06/26/2017. SUBJECTIVE: I met with the patient evening of 06/26/2017. Overall, the patient's yelling is better, still confused. He has been coming out more to day activities. REVIEW OF SYSTEMS: Ambulation impaired, in Broda chair. No CV, , pulmonary, eye system symptoms on review. MENTAL STATUS EXAM: Oriented to himself. Insight, judgment, recent and remote memory, attention, concentration, fund of knowledge poor, consistent with his diagnosis mentioned in my initial note. IMPRESSION: Unchanged from initial note. PLAN: Continue current psychotropics. MAN Laverne RIZVI MD DR: YESSENIA/linnette JOB#: [id number] / [id number]
[2017-06-29] MEDS: QUEtiapine 25 MG TABLET. PO SCH ×3 (06:17→17:34)
[2017-06-29] MEDS: LEVOTHYROXINE 25 MCG TABLET. PO SCH (06:17)
[2017-06-29] MEDS: SOTALOL 80 MG TABLET. PO SCH ×2 (09:00→20:33)
[2017-06-29 09:40] LABS: BASO # 0.1 x10^3/uL (0.0-0.2); BASO % 1 % (0-3); EOS # 0.3 x10^3/uL (0.0-0.7); EOS % 5 % (0-3); HEMATOCRIT 37.6 % (39.0-53.0); HEMOGLOBIN 12.7 g/dL (13.0-17.5); LYMPH # 1.2 x10^3/uL (1.0-4.8); LYMPH % 18 % (24-48); MEAN CORPUSCULAR HEMOGLOBIN 31 pg (25-35); MEAN CORPUSCULAR HGB CONC 34 g/dL (31-37); MEAN CORPUSCULAR VOLUME 92 fL (79-100); MONO # 0.6 x10^3/uL (0.0-1.1); MONO % 9 % (0-9); NEUT # 4.7 x10^3uL (1.8-7.7); NEUT % 68 % (31-73); PLATELET COUNT 230 x10^3/uL (140-400); RED BLOOD COUNT 4.07 x10^6/uL (4.30-5.70); RED CELL DISTRIBUTION WIDTH 14.2 % (11.5-14.5)
[2017-06-29 09:52] LABS: ALBUMIN 2.8 g/dL (3.4-5.0); ALBUMIN/GLOBULIN RATIO 0.6 (1.0-1.7); CALCIUM 8.5 mg/dL (8.5-10.1); CREATININE 1.1 mg/dL (0.7-1.3); GFR 64.9; TOTAL BILIRUBIN 0.3 mg/dL (0.2-1.0); TOTAL PROTEIN 7.5 g/dL (6.4-8.2)
[2017-06-29] MEDS: DOCUSATE SODIUM 100 MG CAPSULE PO SCH ×2 (10:08→20:34)
[2017-06-29] MEDS: LACTOBACILLUS RHAMNOSUS GG 1 CAPSULE. PO SCH ×2 (10:08→20:32)
[2017-06-29] MEDS: CEPHALEXIN 250 MG CAPSULE PO SCH ×3 (10:09→20:33)
[2017-06-29] MEDS: APIXABAN 5 MG TABLET. PO SCH ×2 (10:09→20:34)
[2017-06-29] MEDS: traZODone 50 MG TABLET. PO SCH ×3 (10:09→17:32)
[2017-06-29] MEDS: DIVALPROEX 125 MG CAP.SPRINK PO SCH ×3 (10:09→17:32)
[2017-06-29] MEDS: POLYETHYLENE GLYCOL 3350 17 GM PACKET. PO SCH (10:09)
[2017-06-29 10:22] VITALS: BP 122/58
[2017-06-29] MEDS: traMADol 50 MG TABLET PO SCH ×2 (10:25→20:34)
[2017-06-29] MEDS: NYSTATIN TOPICAL POWDER 15GM BOTTLE. TP SCH (10:25)
[2017-06-29 16:08] VITALS: BP 135/66
[2017-06-29] MEDS: ATORVASTATIN CALCIUM 20 MG TABLET PO SCH (20:33)
[2017-06-29] MEDS: MIRTAZAPINE 7.5 MG TABLET. PO SCH (20:33)
--- NOTE | 2017-06-29 22:54 | PDOC ---
Exam Note: Jordy Note: Please also refer to the separate dictated note~for this date of service dictated separately.~Patient seen individually. Discussed the patient with Nursing staff reviewed the chart.~Reviewed interim history and current functioning. Reviewed vital signs,~Labs/ Radiology~and current medications noted below. Continue current treatment with the changes noted in the dictated addendum note Assessment: Vital Signs: Vital Signs Date Time Temp Pulse Resp B/P (MAP) Pulse Ox O2 Delivery O2 Flow Rate FiO2 06/29/17 20:34 18 Room Air 06/29/17 20:33 60 135/66 06/29/17 16:08 97.4 95 I&O Intake and Output 06/29/17 07:00 Intake Total 840 ml Balance 840 ml Intake Oral 840 ml # Bowel Movements 2 Labs: Laboratory Tests Test 06/29/17 09:18 White Blood Count 7.0 x10^3/uL (4.0-11.0) Red Blood Count 4.07 x10^6/uL (4.30-5.70) L Hemoglobin 12.7 g/dL (13.0-17.5) L Hematocrit 37.6 % (39.0-53.0) L Mean Corpuscular Volume 92 fL (79-100) Mean Corpuscular Hemoglobin 31 pg (25-35) Mean Corpuscular Hemoglobin Concent 34 g/dL (31-37) Red Cell Distribution Width 14.2 % (11.5-14.5) Platelet Count 230 x10^3/uL (140-400) Neutrophils (%) (Auto) 68 % (31-73) Lymphocytes (%) (Auto) 18 % (24-48) L Monocytes (%) (Auto) 9 % (0-9) Eosinophils (%) (Auto) 5 % (0-3) H Basophils (%) (Auto) 1 % (0-3) Neutrophils # (Auto) 4.7 x10^3uL (1.8-7.7) Lymphocytes # (Auto) 1.2 x10^3/uL (1.0-4.8) Monocytes # (Auto) 0.6 x10^3/uL (0.0-1.1) Eosinophils # (Auto) 0.3 x10^3/uL (0.0-0.7) Basophils # (Auto) 0.1 x10^3/uL (0.0-0.2) Sodium Level 141 mmol/L (136-145) Potassium Level 4.0 mmol/L (3.5-5.1) Chloride Level 105 mmol/L (98-107) Carbon Dioxide Level 28 mmol/L (21-32) Anion Gap 8 (6-14) Blood Urea Nitrogen 29 mg/dL (8-26) H Creatinine 1.1 mg/dL (0.7-1.3) Estimated GFR (Cockcroft-Gault) 64.9 BUN/Creatinine Ratio 26 (6-20) H Glucose Level 90 mg/dL (70-99) Calcium Level 8.5 mg/dL (8.5-10.1) Total Bilirubin 0.3 mg/dL (0.2-1.0) Aspartate Amino Transferase (AST) 26 U/L (15-37) Alanine Aminotransferase (ALT) 35 U/L (16-63) Alkaline Phosphatase 44 U/L (46-116) L Total Protein 7.5 g/dL (6.4-8.2) Albumin 2.8 g/dL (3.4-5.0) L Albumin/Globulin Ratio 0.6 (1.0-1.7) L Current Medications: Meds: Current Medications Acetaminophen (Tylenol) 650 mg PRN Q6HRS PRN PO PAIN / TEMP; Start 06/05/17 at 22:15; Stop 06/14/17 at 13:43; Status DC Multi-Ingredient Ointment (Analgesic [place]) 1 feliciano PRN QID PRN TP MUSCLE PAIN; Start 06/05/17 at 22:15 Al Hydroxide/Mg Hydroxide (Mylanta Plus Xs) 15 ml PRN AFTMEALHC PRN PO DYSPEPSIA; Start 06/05/17 at 22:15 Magnesium Hydroxide (Milk Of Magnesia) 2,400 mg PRN QHS PRN PO CONSTIPATION Last administered on 06/11/17at 05:51; Start 06/05/17 at 22:15 Risperidone (RisperDAL) 1 mg BID PO Last administered on 06/07/17at 08:17; Start 06/06/17 at 09:00; Stop 06/07/17 at 17:15; Status DC Citalopram Hydrobromide (CeleXA) 20 mg DAILY PO Last administered on 06/07/17at 08:16; Start 06/06/17 at 09:00; Stop 06/07/17 at 18:54; Status DC Melatonin 3 mg PRN QHS PRN PO INSOMNIA Last administered on 06/16/17at 20:40; Start 06/05/17 at 22:30 Lorazepam (Ativan Intensol) Give 0.5 ml sublingually every ... PRN Q2HR PRN SL ANXIETY / AGITATION; Start 06/05/17 at 22:30; Status UNV Lorazepam (Ativan) 1 mg PRN Q2HR PRN PO ANXIETY / AGITATION; Start 06/05/17 at 22:45; Stop 06/10/17 at 18:30; Status DC Lorazepam (Ativan) 2 mg PRN Q2HR PRN PO ANXIETY / AGITATION; Start 06/05/17 at 22:45; Stop 06/10/17 at 18:30; Status DC Acetaminophen (Tylenol) 650 mg PRN Q4HRS PRN PO PAIN / TEMP Last administered on 06/18/17at 19:31; Start 06/06/17 at 10:30 Amlodipine Besylate (Norvasc) 10 mg DAILY PO Last administered on 06/28/17at 10: 16; Start 06/06/17 at 12:00 Apixaban (Eliquis) 5 mg BID PO Last administered on 06/29/17at 20:34; Start at 21:00 Atorvastatin Calcium (Lipitor) 20 mg QHS PO Last administered on 06/29/17at 20: 33; Start 06/06/17 at 21:00 Levothyroxine Sodium (Synthroid) 25 mcg DAILYAC PO Last administered on at 07:49; Start 06/07/17 at 07:30; Stop 06/11/17 at 07:33; Status DC Losartan Potassium (Cozaar) 25 mg DAILY PO Last administered on 06/28/17at 10:16 ; Start 06/06/17 at 12:00 Nystatin (Mycostatin) 1 feliciano BID TP Last administered on 06/11/17at 09:15; Start 06/06/17 at 21:00; Stop 06/11/17 at 09:19; Status DC Polyethylene Glycol (miraLAX) 17 gm PRN DAILY PRN PO CONSTIPATION; Start at 10:39 Sotalol HCl (Betapace) 80 mg BID PO Last administered on 06/29/17at 20:33; Start 06/06/17 at 21:00 Tramadol HCl (Ultram) 50 mg DAILY PO Last administered on 06/26/17at 09:13; Start 06/06/17 at 12:00; Stop 06/26/17 at 17:20; Status DC Tramadol HCl (Ultram) 50 mg PRN Q8HRS PRN PO PAIN Last administered on at 18:15; Start 06/06/17 at 10:30 Vitamin D (Vitamin D3) 50,000 unit WEEKLY PO Last administered on 06/26/17at 09: 12; Start 06/12/17 at 09:00 Multivitamins/ Calcium (Thera-M Plus) 1 tab DAILY PO Last administered on 10:15; Start 06/06/17 at 12:00 Vitamin B Complex 1 cap DAILY PO Last administered on 06/28/17at 10:16; Start at 12:00 Warfarin Sodium (Coumadin Per Pharmacy) 1 each PRN DAILY PRN MC SEE COMMENTS; Start 06/07/17 at 14:00; Status UNV Risperidone (RisperDAL) 0.5 mg BID PO Last administered on 06/08/17at 08:03; Start 06/07/17 at 21:00; Stop 06/08/17 at 19:26; Status DC Mirtazapine (Remeron) 7.5 mg QHS PO Last administered on 06/29/17at 20:33; Start 06/07/17 at 21:00 Fluvoxamine Maleate (Luvox) 25 mg DAILY PO Last administered on 06/09/17at 07:49 ; Start 06/08/17 at 09:00; Stop 06/10/17 at 08:59; Status DC Fluvoxamine Maleate (Luvox) 50 mg DAILY PO Last administered on 06/16/17at 07:41 ; Start 06/10/17 at 09:00; Stop 06/16/17 at 18:42; Status DC Risperidone (RisperDAL) 0.25 mg BID PO Last administered on 06/11/17at 19:10; Start 06/08/17 at 21:00; Stop 06/12/17 at 08:59; Status DC Lorazepam (Ativan) 0.25 mg PRN Q2HR PRN PO ANXIETY / AGITATION Last administered on 06/18/17 19:26; Start 06/10/17 at 18:30 Risperidone (RisperDAL) 0.25 mg DAILY PO Last administered on 06/14/17 10:22; Start 06/12/17 at 09:00; Stop 06/15/17 at 08:59; Status DC Levothyroxine Sodium (Synthroid) 25 mcg DAILY06 PO Last administered on at 06:17; Start 06/11/17 at 07:45 Nystatin (Nystop) 1 feliciano BID TP Last administered on 06/29/17at 10:25; Start at 09:30 Divalproex Sodium (Depakote Sprinkles) 125 mg TID@0900,1300,1700 PO Last administered on 06/15/17 18:34; Start 06/11/17 at 13:00; Stop 06/15/17 at 22:29; Status DC Docusate Sodium (Colace) 100 mg BID PO Last administered on 06/29/17 20:34; Start 06/11/17 at 21:00 Polyethylene Glycol (miraLAX) 17 gm DAILY PO Last administered on 06/29/17at 10: 09; Start 06/12/17 at 09:00 Magnesium Citrate (Citroma) 296 ml PRN 1X PRN PO CONSTIPATION; Start 06/11/17 at 18:15 Quetiapine Fumarate (SEROquel) 12.5 mg TID@0600,1200,1700 PO Last administered on 06/13/17at 16:57; Start 06/13/17 at 12:00; Stop 06/13/17 at 19:16; Status DC Quetiapine Fumarate (SEROquel) 12.5 mg DAILY@1200 PO Last administered on at 12:00; Start 06/14/17 at 12:00; Stop 06/16/17 at 18:42; Status DC Quetiapine Fumarate (SEROquel) 25 mg BID@0600,1700 PO Last administered on 06/29at 17:34; Start 06/14/17 at 06:00 Quetiapine Fumarate (SEROquel) 25 mg 1X ONCE PO Last administered on 06/14/17 07:07; Start 06/14/17 at 07:15; Stop 06/14/17 at 07:16; Status DC Lidocaine (Xylocaine) 1 feliciano 1X ONCE TP Last administered on 06/14/17at 13:30; Start 06/14/17 at 13:30; Stop 06/14/17 at 13:31; Status DC Lidocaine HCl 20 ml 1X ONCE INJ Last administered on 06/14/17at 17:47; Start 06/14/17 at 17:15; Stop 06/14/17 at 17:16; Status DC Neomycin/ Polymyxin/ Bacitracin (Triple Antibiotic Ointment) 1 pkt 1X ONCE TP Last administered on 06/14/17at 18:15; Start 06/14/17 at 18:15; Stop 06/14/17 at 18: 16; Status DC Divalproex Sodium (Depakote Sprinkles) 250 mg TID@0900,1300,1700 PO Last administered on 06/19/17at 16:55; Start 06/16/17 at 09:00; Stop 06/19/17 at 18:30; Status DC Fluvoxamine Maleate (Luvox) 75 mg DAILY PO Last administered on 06/23/17at 09:34 ; Start 06/17/17 at 09:00; Stop 06/23/17 at 19:27; Status DC Quetiapine Fumarate (SEROquel) 25 mg DAILY@1200 PO Last administered on at 13:17; Start 06/17/17 at 12:00 Hydrocortisone (Cortaid) 1 feliciano BID TP Last administered on 06/26/17at 09:12; Start 06/16/17 at 21:00; Stop 06/26/17 at 17:20; Status DC Trazodone HCl (Desyrel) 25 mg 1X ONCE PO Last administered on 06/17/17at 18:00; Start 06/17/17 at 18:00; Stop 06/17/17 at 18:02; Status DC Trazodone HCl (Desyrel) 12.5 mg TID@0900,1300,1700 PO Last administered on at 17:04; Start 06/18/17 at 09:00; Stop 06/18/17 at 18:09; Status DC Trazodone HCl (Desyrel) 12.5 mg BID@1300,1700 PO Last administered on 06/20/17at 12:12; Start 06/19/17 at 13:00; Stop 06/20/17 at 12:28; Status DC Trazodone HCl (Desyrel) 25 mg DAILY PO Last administered on 06/22/17at 09:03; Start 06/19/17 at 09:00; Stop 06/23/17 at 03:43; Status DC Divalproex Sodium (Depakote Sprinkles) 375 mg TID@0900,1300,1700 PO Last administered on 06/29/17at 17:32; Start 06/20/17 at 09:00 Trazodone HCl (Desyrel) 25 mg BID@1300,1700 PO Last administered on 06/22/17at 16:48; Start 06/20/17 at 13:00; Stop 06/23/17 at 03:43; Status DC Trazodone HCl (Desyrel) 25 mg TID@0900,1300,1700 PO Last administered on at 17:32; Start 06/23/17 at 09:00 Cephalexin HCl (Keflex) 500 mg TID PO Last administered on 06/29/17at 20:33; Start 06/23/17 at 21:00; Stop 06/30/17 at 20:59 Fluvoxamine Maleate (Luvox) 100 mg DAILY PO Last administered on 06/28/17at 10: 16; Start 06/24/17 at 09:00 Tramadol HCl (Ultram) 50 mg BID PO Last administered on 06/29/17at 20:34; Start 06/26/17 at 21:00 Hydrocortisone (Cortaid) 1 feliciano PRN BID PRN TP ITCHING Last administered on 06/27 21:07; Start 06/26/17 at 17:30 Lactobacillus Rhamnosus (Culturelle) 1 cap BID PO Last administered on at 20:32; Start 06/27/17 at 09:00 Active Scripts Active Reported Vitamin B Complex 1 Each Tablet 1 Tab PO DAILY Tramadol Hcl (Tramadol HCl) 50 Mg Tablet 50 Mg PO DAILY Tramadol Hcl (Tramadol HCl) 50 Mg Tablet 50 Mg PO PRN Q4HRS PRN Sotalol (Sotalol Hcl) 80 Mg Tablet 80 Mg PO BID Risperidone 1 Mg Tablet 1 Mg PO BID Polyethylene Glycol 3350 255 Gm Powder 17 Gm PO PRN DAILY PRN Nystatin 15 Gm Cream..g. 1 Feliciano TP BID Centrum Flavor Burst Adult (Multivit with Minerals No.55) 1 Each Tab.chew 1 Tab PO DAILY Melatonin 3 Mg Tablet 3 Mg PO PRN QHS PRN Losartan Potassium 25 Mg Tablet 25 Mg PO DAILY Lorazepam Intensol (Lorazepam) 2 Mg/1 Ml Oral.conc 0.5-1 Ml SL PRN Q2HR PRN Escitalopram Oxalate 10 Mg Tablet 10 Mg PO DAILY Levothyroxine Sodium 25 Mcg Tablet 25 Mcg PO DAILYAC Vitamin D2 (Ergocalciferol (Vitamin D2)) 50,000 Unit Capsule 50,000 Unit PO WEEKLY Eliquis (Apixaban) 5 Mg Tablet 5 Mg PO BID Atorvastatin Calcium 20 Mg Tablet 20 Mg PO QHS Amlodipine Besylate 10 Mg Tablet 10 Mg PO DAILY Tylenol (Acetaminophen) 325 Mg Tablet 650 Mg PO PRN Q4HRS PRN I have reviewed the current psychotropics carefully including drug interactions. Risk benefit ratio favors no change other than as noted in my dictated progress note. 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
--- NOTE | 2017-06-29 23:45 | PN ---
DATE: 06/27/2017 This is a late entry, 06/27/2017, covers the elements not covered in my initial note, 06/27/2017. SUBJECTIVE: The patient was staffed at a treatment team meeting with the entire team in the morning, seen individually by myself in the evening, slept 7-3/4 hours, compliant with medications. Has complained of pain, started on Ultram. Ambulation impaired, in Broda chair. REVIEW OF SYSTEMS: No CV, , pulmonary, eye, ENT system symptoms on review. Much less anxious, agitated, labile, and aggressive, which is an improvement, less yelling. MENTAL STATUS EXAM: Oriented to himself. Insight, judgment, recent and remote memory, attention, concentration, fund of knowledge poor, consistent with his diagnosis as mentioned in my initial note. PLAN: Continue current psychotropics with change as noted above. MAN Laverne RIZVI MD DR: YESSENIA/linnette JOB#: [id number] / [id number]
[2017-06-30] MEDS: NYSTATIN TOPICAL POWDER 15GM BOTTLE. TP SCH ×3 (00:18→20:48)
[2017-06-30] MEDS: LEVOTHYROXINE 25 MCG TABLET. PO SCH (06:05)
[2017-06-30] MEDS: QUEtiapine 25 MG TABLET. PO SCH ×3 (06:05→17:42)
[2017-06-30 06:07] VITALS: BP 134/77
--- NOTE | 2017-06-30 07:45 | PN ---
DATE: 06/28/2017 This late entry, 06/28/2017, covers elements not covered in my initial note of 06/28/2017. SUBJECTIVE: I met with the patient the evening of 06/28/2017. The patient slept 10 hours previous evening. Calm, compliant, no yelling, which is quite an improvement, remains confused. REVIEW OF SYSTEMS: Ambulation impaired, in Broda chair. No CV, , pulmonary, eye system symptoms on review. MENTAL STATUS EXAM: Oriented to himself. Insight, judgment, recent and remote memory, attention, concentration, fund of knowledge poor consistent with his diagnosis, not very verbal. LABORATORY DATA: Reviewed. IMPRESSION: Unchanged from initial note. PLAN: Continue current psychotropics. Adjust as clinically indicated. MAN Laverne RIZVI MD DR: YESSENIA/linnette JOB#: [id number] / [id number]
[2017-06-30] MEDS: POLYETHYLENE GLYCOL 3350 17 GM PACKET. PO SCH (09:08)
[2017-06-30] MEDS: VITAMIN B COMPLEX CAPSULE. PO SCH (09:08)
[2017-06-30] MEDS: MULTIVITAMIN with MINERAL TABLET. PO SCH (09:08)
[2017-06-30] MEDS: LACTOBACILLUS RHAMNOSUS GG 1 CAPSULE. PO SCH ×2 (09:08→20:48)
[2017-06-30] MEDS: DOCUSATE SODIUM 100 MG CAPSULE PO SCH ×2 (09:08→20:46)
[2017-06-30] MEDS: APIXABAN 5 MG TABLET. PO SCH ×2 (09:08→20:46)
[2017-06-30] MEDS: CEPHALEXIN 250 MG CAPSULE PO SCH ×3 (09:08→20:46)
[2017-06-30] MEDS: DIVALPROEX 125 MG CAP.SPRINK PO SCH ×3 (09:08→17:42)
[2017-06-30] MEDS: traZODone 50 MG TABLET. PO SCH ×3 (09:09→17:42)
[2017-06-30] MEDS: amLODIPine BESYLATE 10 MG TABLET PO SCH (09:09)
[2017-06-30] MEDS: LOSARTAN 25 MG TABLET. PO SCH (09:10)
[2017-06-30] MEDS: traMADol 50 MG TABLET PO SCH ×2 (09:12→20:48)
[2017-06-30] MEDS: SOTALOL 80 MG TABLET. PO SCH ×2 (09:13→20:49)
[2017-06-30 16:08] VITALS: BP 118/63
[2017-06-30] MEDS: MIRTAZAPINE 7.5 MG TABLET. PO SCH (20:48)
[2017-06-30] MEDS: ATORVASTATIN CALCIUM 20 MG TABLET PO SCH (20:48)
--- NOTE | 2017-06-30 20:53 | PDOC ---
Exam Note: Jordy Note: Please also refer to the separate dictated note~for this date of service dictated separately.~Patient seen individually. Discussed the patient with Nursing staff reviewed the chart.~Reviewed interim history and current functioning. Reviewed vital signs,~Labs/ Radiology~and current medications noted below. Continue current treatment with the changes noted in the dictated addendum note Assessment: Vital Signs: Vital Signs Date Time Temp Pulse Resp B/P (MAP) Pulse Ox O2 Delivery O2 Flow Rate FiO2 06/30/17 20:49 60 118/63 06/30/17 20:48 20 Room Air 06/30/17 16:08 97.6 92 I&O Intake and Output 06/30/17 07:00 Intake Total 960 ml Balance 960 ml Intake Oral 960 ml # Bowel Movements 2 Current Medications: Meds: Current Medications Acetaminophen (Tylenol) 650 mg PRN Q6HRS PRN PO PAIN / TEMP; Start 06/05/17 at 22:15; Stop 06/14/17 at 13:43; Status DC Multi-Ingredient Ointment (Analgesic [place]) 1 feliciano PRN QID PRN TP MUSCLE PAIN; Start 06/05/17 at 22:15 Al Hydroxide/Mg Hydroxide (Mylanta Plus Xs) 15 ml PRN AFTMEALHC PRN PO DYSPEPSIA; Start 06/05/17 at 22:15 Magnesium Hydroxide (Milk Of Magnesia) 2,400 mg PRN QHS PRN PO CONSTIPATION Last administered on 06/11/17at 05:51; Start 06/05/17 at 22:15 Risperidone (RisperDAL) 1 mg BID PO Last administered on 06/07/17at 08:17; Start 06/06/17 at 09:00; Stop 06/07/17 at 17:15; Status DC Citalopram Hydrobromide (CeleXA) 20 mg DAILY PO Last administered on 06/07/17at 08:16; Start 06/06/17 at 09:00; Stop 06/07/17 at 18:54; Status DC Melatonin 3 mg PRN QHS PRN PO INSOMNIA Last administered on 06/16/17at 20:40; Start 06/05/17 at 22:30 Lorazepam (Ativan Intensol) Give 0.5 ml sublingually every ... PRN Q2HR PRN SL ANXIETY / AGITATION; Start 06/05/17 at 22:30; Status UNV Lorazepam (Ativan) 1 mg PRN Q2HR PRN PO ANXIETY / AGITATION; Start 06/05/17 at 22:45; Stop 06/10/17 at 18:30; Status DC Lorazepam (Ativan) 2 mg PRN Q2HR PRN PO ANXIETY / AGITATION; Start 06/05/17 at 22:45; Stop 06/10/17 at 18:30; Status DC Acetaminophen (Tylenol) 650 mg PRN Q4HRS PRN PO PAIN / TEMP Last administered on 06/18/17 19:31; Start 06/06/17 at 10:30 Amlodipine Besylate (Norvasc) 10 mg DAILY PO Last administered on 06/30/17 09: 09; Start 06/06/17 at 12:00 Apixaban (Eliquis) 5 mg BID PO Last administered on 06/30/17at 20:46; Start at 21:00 Atorvastatin Calcium (Lipitor) 20 mg QHS PO Last administered on 06/30/17at 20: 48; Start 06/06/17 at 21:00 Levothyroxine Sodium (Synthroid) 25 mcg DAILYAC PO Last administered on 07:49; Start 06/07/17 at 07:30; Stop 06/11/17 at 07:33; Status DC Losartan Potassium (Cozaar) 25 mg DAILY PO Last administered on 06/30/17 09:10 ; Start 06/06/17 at 12:00 Nystatin (Mycostatin) 1 feliciano BID TP Last administered on 06/11/17at 09:15; Start 06/06/17 at 21:00; Stop 06/11/17 at 09:19; Status DC Polyethylene Glycol (miraLAX) 17 gm PRN DAILY PRN PO CONSTIPATION; Start at 10:39 Sotalol HCl (Betapace) 80 mg BID PO Last administered on 06/30/17at 20:49; Start 06/06/17 at 21:00 Tramadol HCl (Ultram) 50 mg DAILY PO Last administered on 06/26/17at 09:13; Start 06/06/17 at 12:00; Stop 06/26/17 at 17:20; Status DC Tramadol HCl (Ultram) 50 mg PRN Q8HRS PRN PO PAIN Last administered on 18:15; Start 06/06/17 at 10:30 Vitamin D (Vitamin D3) 50,000 unit WEEKLY PO Last administered on 06/26/17 09: 12; Start 06/12/17 at 09:00 Multivitamins/ Calcium (Thera-M Plus) 1 tab DAILY PO Last administered on 09:08; Start 06/06/17 at 12:00 Vitamin B Complex 1 cap DAILY PO Last administered on 06/30/17 09:08; Start at 12:00 Warfarin Sodium (Coumadin Per Pharmacy) 1 each PRN DAILY PRN MC SEE COMMENTS; Start 06/07/17 at 14:00; Status UNV Risperidone (RisperDAL) 0.5 mg BID PO Last administered on 06/08/17 08:03; Start 06/07/17 at 21:00; Stop 06/08/17 at 19:26; Status DC Mirtazapine (Remeron) 7.5 mg QHS PO Last administered on 06/30/17at 20:48; Start 06/07/17 at 21:00 Fluvoxamine Maleate (Luvox) 25 mg DAILY PO Last administered on 06/09/17 07:49 ; Start 06/08/17 at 09:00; Stop 06/10/17 at 08:59; Status DC Fluvoxamine Maleate (Luvox) 50 mg DAILY PO Last administered on 06/16/17 07:41 ; Start 06/10/17 at 09:00; Stop 06/16/17 at 18:42; Status DC Risperidone (RisperDAL) 0.25 mg BID PO Last administered on 06/11/17 19:10; Start 06/08/17 at 21:00; Stop 06/12/17 at 08:59; Status DC Lorazepam (Ativan) 0.25 mg PRN Q2HR PRN PO ANXIETY / AGITATION Last administered on 06/18/17 19:26; Start 06/10/17 at 18:30 Risperidone (RisperDAL) 0.25 mg DAILY PO Last administered on 06/14/17 10:22; Start 06/12/17 at 09:00; Stop 06/15/17 at 08:59; Status DC Levothyroxine Sodium (Synthroid) 25 mcg DAILY06 PO Last administered on at 06:05; Start 06/11/17 at 07:45 Nystatin (Nystop) 1 feliciano BID TP Last administered on 06/30/17at 20:48; Start at 09:30 Divalproex Sodium (Depakote Sprinkles) 125 mg TID@0900,1300,1700 PO Last administered on 06/15/17at 18:34; Start 06/11/17 at 13:00; Stop 06/15/17 at 22:29; Status DC Docusate Sodium (Colace) 100 mg BID PO Last administered on 06/30/17at 20:46; Start 06/11/17 at 21:00 Polyethylene Glycol (miraLAX) 17 gm DAILY PO Last administered on 06/30/17at 09: 08; Start 06/12/17 at 09:00 Magnesium Citrate (Citroma) 296 ml PRN 1X PRN PO CONSTIPATION; Start 06/11/17 at 18:15 Quetiapine Fumarate (SEROquel) 12.5 mg TID@0600,1200,1700 PO Last administered on 06/13/17at 16:57; Start 06/13/17 at 12:00; Stop 06/13/17 at 19:16; Status DC Quetiapine Fumarate (SEROquel) 12.5 mg DAILY@1200 PO Last administered on at 12:00; Start 06/14/17 at 12:00; Stop 06/16/17 at 18:42; Status DC Quetiapine Fumarate (SEROquel) 25 mg BID@0600,1700 PO Last administered on 06/30at 17:42; Start 06/14/17 at 06:00 Quetiapine Fumarate (SEROquel) 25 mg 1X ONCE PO Last administered on 06/14/17at 07:07; Start 06/14/17 at 07:15; Stop 06/14/17 at 07:16; Status DC Lidocaine (Xylocaine) 1 feliciano 1X ONCE TP Last administered on 06/14/17at 13:30; Start 06/14/17 at 13:30; Stop 06/14/17 at 13:31; Status DC Lidocaine HCl 20 ml 1X ONCE INJ Last administered on 06/14/17at 17:47; Start 06/14/17 at 17:15; Stop 06/14/17 at 17:16; Status DC Neomycin/ Polymyxin/ Bacitracin (Triple Antibiotic Ointment) 1 pkt 1X ONCE TP Last administered on 06/14/17at 18:15; Start 06/14/17 at 18:15; Stop 06/14/17 at 18: 16; Status DC Divalproex Sodium (Depakote Sprinkles) 250 mg TID@0900,1300,1700 PO Last administered on 06/19/17at 16:55; Start 06/16/17 at 09:00; Stop 06/19/17 at 18:30; Status DC Fluvoxamine Maleate (Luvox) 75 mg DAILY PO Last administered on 06/23/17at 09:34 ; Start 06/17/17 at 09:00; Stop 06/23/17 at 19:27; Status DC Quetiapine Fumarate (SEROquel) 25 mg DAILY@1200 PO Last administered on at 12:27; Start 06/17/17 at 12:00 Hydrocortisone (Cortaid) 1 feliciano BID TP Last administered on 06/26/17at 09:12; Start 06/16/17 at 21:00; Stop 06/26/17 at 17:20; Status DC Trazodone HCl (Desyrel) 25 mg 1X ONCE PO Last administered on 06/17/17 18:00; Start 06/17/17 at 18:00; Stop 06/17/17 at 18:02; Status DC Trazodone HCl (Desyrel) 12.5 mg TID@0900,1300,1700 PO Last administered on at 17:04; Start 06/18/17 at 09:00; Stop 06/18/17 at 18:09; Status DC Trazodone HCl (Desyrel) 12.5 mg BID@1300,1700 PO Last administered on 06/20/17at 12:12; Start 06/19/17 at 13:00; Stop 06/20/17 at 12:28; Status DC Trazodone HCl (Desyrel) 25 mg DAILY PO Last administered on 06/22/17at 09:03; Start 06/19/17 at 09:00; Stop 06/23/17 at 03:43; Status DC Divalproex Sodium (Depakote Sprinkles) 375 mg TID@0900,1300,1700 PO Last administered on 06/30/17at 17:42; Start 06/20/17 at 09:00 Trazodone HCl (Desyrel) 25 mg BID@1300,1700 PO Last administered on 06/22/17at 16:48; Start 06/20/17 at 13:00; Stop 06/23/17 at 03:43; Status DC Trazodone HCl (Desyrel) 25 mg TID@0900,1300,1700 PO Last administered on 17:42; Start 06/23/17 at 09:00 Cephalexin HCl (Keflex) 500 mg TID PO Last administered on 06/30/17at 20:46; Start 06/23/17 at 21:00; Stop 06/30/17 at 20:59 Fluvoxamine Maleate (Luvox) 100 mg DAILY PO Last administered on 06/30/17at 09: 09; Start 06/24/17 at 09:00 Tramadol HCl (Ultram) 50 mg BID PO Last administered on 06/30/17at 20:48; Start 06/26/17 at 21:00 Hydrocortisone (Cortaid) 1 feliciano PRN BID PRN TP ITCHING Last administered on 06/27at 21:07; Start 06/26/17 at 17:30 Lactobacillus Rhamnosus (Culturelle) 1 cap BID PO Last administered on at 20:48; Start 06/27/17 at 09:00 Active Scripts Active Reported Vitamin B Complex 1 Each Tablet 1 Tab PO DAILY Tramadol Hcl (Tramadol HCl) 50 Mg Tablet 50 Mg PO DAILY Tramadol Hcl (Tramadol HCl) 50 Mg Tablet 50 Mg PO PRN Q4HRS PRN Sotalol (Sotalol Hcl) 80 Mg Tablet 80 Mg PO BID Risperidone 1 Mg Tablet 1 Mg PO BID Polyethylene Glycol 3350 255 Gm Powder 17 Gm PO PRN DAILY PRN Nystatin 15 Gm Cream..g. 1 Feliciano TP BID Centrum Flavor Burst Adult (Multivit with Minerals No.55) 1 Each Tab.chew 1 Tab PO DAILY Melatonin 3 Mg Tablet 3 Mg PO PRN QHS PRN Losartan Potassium 25 Mg Tablet 25 Mg PO DAILY Lorazepam Intensol (Lorazepam) 2 Mg/1 Ml Oral.conc 0.5-1 Ml SL PRN Q2HR PRN Escitalopram Oxalate 10 Mg Tablet 10 Mg PO DAILY Levothyroxine Sodium 25 Mcg Tablet 25 Mcg PO DAILYAC Vitamin D2 (Ergocalciferol (Vitamin D2)) 50,000 Unit Capsule 50,000 Unit PO WEEKLY Eliquis (Apixaban) 5 Mg Tablet 5 Mg PO BID Atorvastatin Calcium 20 Mg Tablet 20 Mg PO QHS Amlodipine Besylate 10 Mg Tablet 10 Mg PO DAILY Tylenol (Acetaminophen) 325 Mg Tablet 650 Mg PO PRN Q4HRS PRN I have reviewed the current psychotropics carefully including drug interactions. Risk benefit ratio favors no change other than as noted in my dictated progress note. 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
--- NOTE | 2017-06-30 21:42 | PN ---
DATE: 06/29/2017 PSYCHIATRIC PROGRESS NOTE This is a late entry for 06/29/2017, covers elements not covered in my initial note of 06/29/2017. SUBJECTIVE: I met with the patient in the evening of 06/29/2017. Per nursing report, the patient has been a little better. He is more appreciative, thankful to staff, less yelling, wants Boost with his medications, able to express his needs more appropriately without yelling. REVIEW OF SYSTEMS: Ambulation impaired, in Broda chair. No CV, , pulmonary, eye, ENT system symptoms on review. Status post cerebrovascular accident. MENTAL STATUS EXAM: Oriented to himself. Insight, judgment, recent and remote memory, attention, concentration, fund of knowledge poor, consistent with his diagnosis mentioned in my initial note. PLAN: Continue current psychotropics. Adjust further as clinically indicated. MAN Laverne RIZVI MD DR: YESSENIA/linnette JOB#: [id number] / [id number]
[2017-07-01] MEDS: LEVOTHYROXINE 25 MCG TABLET. PO SCH (05:51)
[2017-07-01] MEDS: QUEtiapine 25 MG TABLET. PO SCH ×3 (05:51→16:55)
[2017-07-01 06:22] VITALS: BP 124/68
[2017-07-01] MEDS: amLODIPine BESYLATE 10 MG TABLET PO SCH (09:28)
[2017-07-01] MEDS: DOCUSATE SODIUM 100 MG CAPSULE PO SCH ×2 (09:28→19:28)
[2017-07-01] MEDS: APIXABAN 5 MG TABLET. PO SCH ×2 (09:29→19:29)
[2017-07-01] MEDS: MULTIVITAMIN with MINERAL TABLET. PO SCH (09:29)
[2017-07-01] MEDS: traZODone 50 MG TABLET. PO SCH ×3 (09:29→16:54)
[2017-07-01] MEDS: DIVALPROEX 125 MG CAP.SPRINK PO SCH ×3 (09:30→16:55)
[2017-07-01] MEDS: VITAMIN B COMPLEX CAPSULE. PO SCH (09:31)
[2017-07-01] MEDS: LACTOBACILLUS RHAMNOSUS GG 1 CAPSULE. PO SCH ×2 (09:31→19:28)
[2017-07-01] MEDS: traMADol 50 MG TABLET PO SCH ×2 (09:31→19:31)
[2017-07-01] MEDS: LOSARTAN 25 MG TABLET. PO SCH (09:31)
[2017-07-01] MEDS: NYSTATIN TOPICAL POWDER 15GM BOTTLE. TP SCH ×2 (09:32→19:29)
[2017-07-01] MEDS: SOTALOL 80 MG TABLET. PO SCH ×2 (09:32→19:28)
[2017-07-01] MEDS: POLYETHYLENE GLYCOL 3350 17 GM PACKET. PO SCH (09:32)
[2017-07-01 15:20] VITALS: BP 120/73
[2017-07-01] MEDS: MIRTAZAPINE 7.5 MG TABLET. PO SCH (19:29)
[2017-07-01] MEDS: ATORVASTATIN CALCIUM 20 MG TABLET PO SCH (19:29)
--- NOTE | 2017-07-01 20:47 | PN ---
DATE: 07/01/2017 This late entry 06/30/2017 covers elements not covered in my initial note 06/30/2017. Met with the patient in the evening of 06/30/2017 in his room. He has been confused, but calmer, compliant, less yelling and less labile. REVIEW OF SYSTEMS: Ambulation impaired, in Broda chair. No CV, , pulmonary, eye system symptoms on review. Reliability poor. MENTAL STATUS EXAM: Oriented to himself. Insight, judgment, recent and remote memory, attention, concentration, fund of knowledge poor, consistent with his diagnosis mentioned in my initial note. PLAN: Continue current psychotropics. Adjust as clinically indicated. Overall, the patient was yelling, mood lability, obsessiveness, disruptive behaviors are much improved. MAN Laverne RIZVI MD DR: YESSENIA/linnette JOB#: [id number] / [id number]
--- NOTE | 2017-07-01 21:01 | PDOC ---
Exam Note: Jordy Note: Please also refer to the separate dictated note~for this date of service dictated separately.~Patient seen individually. Discussed the patient with Nursing staff reviewed the chart.~Reviewed interim history and current functioning. Reviewed vital signs,~Labs/ Radiology~and current medications noted below. Continue current treatment with the changes noted in the dictated addendum note Assessment: Vital Signs: Vital Signs Date Time Temp Pulse Resp B/P (MAP) Pulse Ox O2 Delivery O2 Flow Rate FiO2 07/01/17 20:34 95 Room Air 07/01/17 19:28 60 120/73 07/01/17 15:20 97.5 18 I&O Intake and Output 07/01/17 07:00 Intake Total 1350 ml Balance 1350 ml Intake Oral 1350 ml Current Medications: Meds: Current Medications Acetaminophen (Tylenol) 650 mg PRN Q6HRS PRN PO PAIN / TEMP; Start 06/05/17 at 22:15; Stop 06/14/17 at 13:43; Status DC Multi-Ingredient Ointment (Analgesic [place]) 1 feliciano PRN QID PRN TP MUSCLE PAIN; Start 06/05/17 at 22:15 Al Hydroxide/Mg Hydroxide (Mylanta Plus Xs) 15 ml PRN AFTMEALHC PRN PO DYSPEPSIA; Start 06/05/17 at 22:15 Magnesium Hydroxide (Milk Of Magnesia) 2,400 mg PRN QHS PRN PO CONSTIPATION Last administered on 06/11/17at 05:51; Start 06/05/17 at 22:15 Risperidone (RisperDAL) 1 mg BID PO Last administered on 06/07/17at 08:17; Start 06/06/17 at 09:00; Stop 06/07/17 at 17:15; Status DC Citalopram Hydrobromide (CeleXA) 20 mg DAILY PO Last administered on 06/07/17at 08:16; Start 06/06/17 at 09:00; Stop 06/07/17 at 18:54; Status DC Melatonin 3 mg PRN QHS PRN PO INSOMNIA Last administered on 06/16/17at 20:40; Start 06/05/17 at 22:30 Lorazepam (Ativan Intensol) Give 0.5 ml sublingually every ... PRN Q2HR PRN SL ANXIETY / AGITATION; Start 06/05/17 at 22:30; Status UNV Lorazepam (Ativan) 1 mg PRN Q2HR PRN PO ANXIETY / AGITATION; Start 06/05/17 at 22:45; Stop 06/10/17 at 18:30; Status DC Lorazepam (Ativan) 2 mg PRN Q2HR PRN PO ANXIETY / AGITATION; Start 06/05/17 at 22:45; Stop 06/10/17 at 18:30; Status DC Acetaminophen (Tylenol) 650 mg PRN Q4HRS PRN PO PAIN / TEMP Last administered on 06/18/17 19:31; Start 06/06/17 at 10:30 Amlodipine Besylate (Norvasc) 10 mg DAILY PO Last administered on 07/01/17 09: 28; Start 06/06/17 at 12:00 Apixaban (Eliquis) 5 mg BID PO Last administered on 07/01/17 19:29; Start at 21:00 Atorvastatin Calcium (Lipitor) 20 mg QHS PO Last administered on 07/01/17 19: 29; Start 06/06/17 at 21:00 Levothyroxine Sodium (Synthroid) 25 mcg DAILYAC PO Last administered on 07:49; Start 06/07/17 at 07:30; Stop 06/11/17 at 07:33; Status DC Losartan Potassium (Cozaar) 25 mg DAILY PO Last administered on 07/01/17 09:31 ; Start 06/06/17 at 12:00 Nystatin (Mycostatin) 1 feliciano BID TP Last administered on 06/11/17at 09:15; Start 06/06/17 at 21:00; Stop 06/11/17 at 09:19; Status DC Polyethylene Glycol (miraLAX) 17 gm PRN DAILY PRN PO CONSTIPATION; Start at 10:39 Sotalol HCl (Betapace) 80 mg BID PO Last administered on 07/01/17 19:28; Start 06/06/17 at 21:00 Tramadol HCl (Ultram) 50 mg DAILY PO Last administered on 06/26/17at 09:13; Start 06/06/17 at 12:00; Stop 06/26/17 at 17:20; Status DC Tramadol HCl (Ultram) 50 mg PRN Q8HRS PRN PO PAIN Last administered on 18:15; Start 06/06/17 at 10:30 Vitamin D (Vitamin D3) 50,000 unit WEEKLY PO Last administered on 06/26/17at 09: 12; Start 06/12/17 at 09:00 Multivitamins/ Calcium (Thera-M Plus) 1 tab DAILY PO Last administered on 09:29; Start 06/06/17 at 12:00 Vitamin B Complex 1 cap DAILY PO Last administered on 07/01/17 09:31; Start at 12:00 Warfarin Sodium (Coumadin Per Pharmacy) 1 each PRN DAILY PRN MC SEE COMMENTS; Start 06/07/17 at 14:00; Status UNV Risperidone (RisperDAL) 0.5 mg BID PO Last administered on 06/08/17 08:03; Start 06/07/17 at 21:00; Stop 06/08/17 at 19:26; Status DC Mirtazapine (Remeron) 7.5 mg QHS PO Last administered on 07/01/17at 19:29; Start 06/07/17 at 21:00 Fluvoxamine Maleate (Luvox) 25 mg DAILY PO Last administered on 06/09/17 07:49 ; Start 06/08/17 at 09:00; Stop 06/10/17 at 08:59; Status DC Fluvoxamine Maleate (Luvox) 50 mg DAILY PO Last administered on 06/16/17 07:41 ; Start 06/10/17 at 09:00; Stop 06/16/17 at 18:42; Status DC Risperidone (RisperDAL) 0.25 mg BID PO Last administered on 06/11/17 19:10; Start 06/08/17 at 21:00; Stop 06/12/17 at 08:59; Status DC Lorazepam (Ativan) 0.25 mg PRN Q2HR PRN PO ANXIETY / AGITATION Last administered on 06/18/17 19:26; Start 06/10/17 at 18:30 Risperidone (RisperDAL) 0.25 mg DAILY PO Last administered on 06/14/17 10:22; Start 06/12/17 at 09:00; Stop 06/15/17 at 08:59; Status DC Levothyroxine Sodium (Synthroid) 25 mcg DAILY06 PO Last administered on at 05:51; Start 06/11/17 at 07:45 Nystatin (Nystop) 1 feliciano BID TP Last administered on 07/01/17at 19:29; Start at 09:30 Divalproex Sodium (Depakote Sprinkles) 125 mg TID@0900,1300,1700 PO Last administered on 06/15/17 18:34; Start 06/11/17 at 13:00; Stop 06/15/17 at 22:29; Status DC Docusate Sodium (Colace) 100 mg BID PO Last administered on 07/01/17 19:28; Start 06/11/17 at 21:00 Polyethylene Glycol (miraLAX) 17 gm DAILY PO Last administered on 07/01/17at 09: 32; Start 06/12/17 at 09:00 Magnesium Citrate (Citroma) 296 ml PRN 1X PRN PO CONSTIPATION; Start 06/11/17 at 18:15 Quetiapine Fumarate (SEROquel) 12.5 mg TID@0600,1200,1700 PO Last administered on 06/13/17at 16:57; Start 06/13/17 at 12:00; Stop 06/13/17 at 19:16; Status DC Quetiapine Fumarate (SEROquel) 12.5 mg DAILY@1200 PO Last administered on at 12:00; Start 06/14/17 at 12:00; Stop 06/16/17 at 18:42; Status DC Quetiapine Fumarate (SEROquel) 25 mg BID@0600,1700 PO Last administered on 07/01at 16:55; Start 06/14/17 at 06:00 Quetiapine Fumarate (SEROquel) 25 mg 1X ONCE PO Last administered on 06/14/17at 07:07; Start 06/14/17 at 07:15; Stop 06/14/17 at 07:16; Status DC Lidocaine (Xylocaine) 1 feliciano 1X ONCE TP Last administered on 06/14/17 13:30; Start 06/14/17 at 13:30; Stop 06/14/17 at 13:31; Status DC Lidocaine HCl 20 ml 1X ONCE INJ Last administered on 3/2/18at 17:47; Start 06/14/17 at 17:15; Stop 06/14/17 at 17:16; Status DC Neomycin/ Polymyxin/ Bacitracin (Triple Antibiotic Ointment) 1 pkt 1X ONCE TP Last administered on 06/14/17at 18:15; Start 06/14/17 at 18:15; Stop 06/14/17 at 18: 16; Status DC Divalproex Sodium (Depakote Sprinkles) 250 mg TID@0900,1300,1700 PO Last administered on 06/19/17at 16:55; Start 06/16/17 at 09:00; Stop 06/19/17 at 18:30; Status DC Fluvoxamine Maleate (Luvox) 75 mg DAILY PO Last administered on 06/23/17at 09:34 ; Start 06/17/17 at 09:00; Stop 06/23/17 at 19:27; Status DC Quetiapine Fumarate (SEROquel) 25 mg DAILY@1200 PO Last administered on at 12:51; Start 06/17/17 at 12:00 Hydrocortisone (Cortaid) 1 feliciano BID TP Last administered on 06/26/17at 09:12; Start 06/16/17 at 21:00; Stop 06/26/17 at 17:20; Status DC Trazodone HCl (Desyrel) 25 mg 1X ONCE PO Last administered on 06/17/17at 18:00; Start 06/17/17 at 18:00; Stop 06/17/17 at 18:02; Status DC Trazodone HCl (Desyrel) 12.5 mg TID@0900,1300,1700 PO Last administered on at 17:04; Start 06/18/17 at 09:00; Stop 06/18/17 at 18:09; Status DC Trazodone HCl (Desyrel) 12.5 mg BID@1300,1700 PO Last administered on 06/20/17at 12:12; Start 06/19/17 at 13:00; Stop 06/20/17 at 12:28; Status DC Trazodone HCl (Desyrel) 25 mg DAILY PO Last administered on 06/22/17at 09:03; Start 06/19/17 at 09:00; Stop 06/23/17 at 03:43; Status DC Divalproex Sodium (Depakote Sprinkles) 375 mg TID@0900,1300,1700 PO Last administered on 07/01/17at 16:55; Start 06/20/17 at 09:00 Trazodone HCl (Desyrel) 25 mg BID@1300,1700 PO Last administered on 06/22/17at 16:48; Start 06/20/17 at 13:00; Stop 06/23/17 at 03:43; Status DC Trazodone HCl (Desyrel) 25 mg TID@0900,1300,1700 PO Last administered on at 16:54; Start 06/23/17 at 09:00 Cephalexin HCl (Keflex) 500 mg TID PO Last administered on 06/30/17at 20:46; Start 06/23/17 at 21:00; Stop 06/30/17 at 21:00; Status DC Fluvoxamine Maleate (Luvox) 100 mg DAILY PO Last administered on 07/01/17at 09: 31; Start 06/24/17 at 09:00 Tramadol HCl (Ultram) 50 mg BID PO Last administered on 07/01/17at 19:31; Start 06/26/17 at 21:00 Hydrocortisone (Cortaid) 1 feliciano PRN BID PRN TP ITCHING Last administered on 06/27at 21:07; Start 06/26/17 at 17:30 Lactobacillus Rhamnosus (Culturelle) 1 cap BID PO Last administered on at 19:28; Start 06/27/17 at 09:00 Active Scripts Active Reported Vitamin B Complex 1 Each Tablet 1 Tab PO DAILY Tramadol Hcl (Tramadol HCl) 50 Mg Tablet 50 Mg PO DAILY Tramadol Hcl (Tramadol HCl) 50 Mg Tablet 50 Mg PO PRN Q4HRS PRN Sotalol (Sotalol Hcl) 80 Mg Tablet 80 Mg PO BID Risperidone 1 Mg Tablet 1 Mg PO BID Polyethylene Glycol 3350 255 Gm Powder 17 Gm PO PRN DAILY PRN Nystatin 15 Gm Cream..g. 1 Feliciano TP BID Centrum Flavor Burst Adult (Multivit with Minerals No.55) 1 Each Tab.chew 1 Tab PO DAILY Melatonin 3 Mg Tablet 3 Mg PO PRN QHS PRN Losartan Potassium 25 Mg Tablet 25 Mg PO DAILY Lorazepam Intensol (Lorazepam) 2 Mg/1 Ml Oral.conc 0.5-1 Ml SL PRN Q2HR PRN Escitalopram Oxalate 10 Mg Tablet 10 Mg PO DAILY Levothyroxine Sodium 25 Mcg Tablet 25 Mcg PO DAILYAC Vitamin D2 (Ergocalciferol (Vitamin D2)) 50,000 Unit Capsule 50,000 Unit PO WEEKLY Eliquis (Apixaban) 5 Mg Tablet 5 Mg PO BID Atorvastatin Calcium 20 Mg Tablet 20 Mg PO QHS Amlodipine Besylate 10 Mg Tablet 10 Mg PO DAILY Tylenol (Acetaminophen) 325 Mg Tablet 650 Mg PO PRN Q4HRS PRN I have reviewed the current psychotropics carefully including drug interactions. Risk benefit ratio favors no change other than as noted in my dictated progress note. 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
[2017-07-02] MEDS: QUEtiapine 25 MG TABLET. PO SCH ×3 (05:38→17:19)
[2017-07-02] MEDS: LEVOTHYROXINE 25 MCG TABLET. PO SCH (05:38)
[2017-07-02 06:08] VITALS: BP 157/96
[2017-07-02] MEDS: POLYETHYLENE GLYCOL 3350 17 GM PACKET. PO SCH (08:44)
[2017-07-02] MEDS: VITAMIN B COMPLEX CAPSULE. PO SCH (08:44)
[2017-07-02] MEDS: LOSARTAN 25 MG TABLET. PO SCH (08:45)
[2017-07-02] MEDS: NYSTATIN TOPICAL POWDER 15GM BOTTLE. TP SCH ×2 (08:45→19:18)
[2017-07-02] MEDS: MULTIVITAMIN with MINERAL TABLET. PO SCH (08:45)
[2017-07-02] MEDS: APIXABAN 5 MG TABLET. PO SCH ×2 (08:45→19:17)
[2017-07-02] MEDS: amLODIPine BESYLATE 10 MG TABLET PO SCH (08:45)
[2017-07-02] MEDS: DOCUSATE SODIUM 100 MG CAPSULE PO SCH ×2 (08:45→19:17)
[2017-07-02] MEDS: traZODone 50 MG TABLET. PO SCH ×3 (08:46→17:20)
[2017-07-02] MEDS: DIVALPROEX 125 MG CAP.SPRINK PO SCH ×3 (08:46→17:19)
[2017-07-02] MEDS: LACTOBACILLUS RHAMNOSUS GG 1 CAPSULE. PO SCH ×2 (08:46→19:17)
[2017-07-02] MEDS: SOTALOL 80 MG TABLET. PO SCH ×2 (08:49→19:17)
[2017-07-02] MEDS: traMADol 50 MG TABLET PO SCH ×2 (08:49→19:19)
[2017-07-02 15:55] VITALS: BP 128/70
--- NOTE | 2017-07-02 18:03 | PN ---
DATE: 07/01/2017 This is a late entry for 07/01/2017 and covers the elements not covered in my initial note of 07/01/2017. SUBJECTIVE: I met with the patient in the evening of 07/01/2017. The patient slept 8 hours previous evening, somewhat calm, compliant with medications though he takes them hidden in food. He is drowsy at times, but mood lability, yelling, agitation is much improved. REVIEW OF SYSTEMS: Ambulation impaired, in Broda chair. No CV, , pulmonary, eye, ENT system symptoms on review. Reliability poor. MENTAL STATUS EXAM: Oriented to himself. Insight, judgment, recent and remote memory, attention, concentration, fund of knowledge poor, consistent with his diagnosis mentioned in my initial note. PLAN: Continue current psychotropics. Discussed with social service staff. Transition to [facility]dc later this week. MAN Laverne RIZVI MD DR: YESSENIA/linnette JOB#: [id number] / [id number]
[2017-07-02] MEDS: ATORVASTATIN CALCIUM 20 MG TABLET PO SCH (19:17)
[2017-07-02] MEDS: MIRTAZAPINE 7.5 MG TABLET. PO SCH (19:18)
--- NOTE | 2017-07-02 20:49 | PDOC ---
Exam Note: Jordy Note: Please also refer to the separate dictated note~for this date of service dictated separately.~Patient seen individually. Discussed the patient with Nursing staff reviewed the chart.~Reviewed interim history and current functioning. Reviewed vital signs,~Labs/ Radiology~and current medications noted below. Continue current treatment with the changes noted in the dictated addendum note Assessment: Vital Signs: Vital Signs Date Time Temp Pulse Resp B/P (MAP) Pulse Ox O2 Delivery O2 Flow Rate FiO2 07/02/17 20:19 18 Room Air 07/02/17 19:19 93 07/02/17 19:17 62 128/70 07/02/17 15:55 97.9 I&O Intake and Output 07/02/17 07:00 Intake Total 960 ml Balance 960 ml Intake Oral 960 ml Current Medications: Meds: Current Medications Acetaminophen (Tylenol) 650 mg PRN Q6HRS PRN PO PAIN / TEMP; Start 06/05/17 at 22:15; Stop 06/14/17 at 13:43; Status DC Multi-Ingredient Ointment (Analgesic [place]) 1 feliciano PRN QID PRN TP MUSCLE PAIN; Start 06/05/17 at 22:15 Al Hydroxide/Mg Hydroxide (Mylanta Plus Xs) 15 ml PRN AFTMEALHC PRN PO DYSPEPSIA; Start 06/05/17 at 22:15 Magnesium Hydroxide (Milk Of Magnesia) 2,400 mg PRN QHS PRN PO CONSTIPATION Last administered on 06/11/17at 05:51; Start 06/05/17 at 22:15 Risperidone (RisperDAL) 1 mg BID PO Last administered on 06/07/17at 08:17; Start 06/06/17 at 09:00; Stop 06/07/17 at 17:15; Status DC Citalopram Hydrobromide (CeleXA) 20 mg DAILY PO Last administered on 06/07/17at 08:16; Start 06/06/17 at 09:00; Stop 06/07/17 at 18:54; Status DC Melatonin 3 mg PRN QHS PRN PO INSOMNIA Last administered on 06/16/17at 20:40; Start 06/05/17 at 22:30 Lorazepam (Ativan Intensol) Give 0.5 ml sublingually every ... PRN Q2HR PRN SL ANXIETY / AGITATION; Start 06/05/17 at 22:30; Status UNV Lorazepam (Ativan) 1 mg PRN Q2HR PRN PO ANXIETY / AGITATION; Start 06/05/17 at 22:45; Stop 06/10/17 at 18:30; Status DC Lorazepam (Ativan) 2 mg PRN Q2HR PRN PO ANXIETY / AGITATION; Start 06/05/17 at 22:45; Stop 06/10/17 at 18:30; Status DC Acetaminophen (Tylenol) 650 mg PRN Q4HRS PRN PO PAIN / TEMP Last administered on 06/18/17 19:31; Start 06/06/17 at 10:30 Amlodipine Besylate (Norvasc) 10 mg DAILY PO Last administered on 07/02/17at 08: 45; Start 06/06/17 at 12:00 Apixaban (Eliquis) 5 mg BID PO Last administered on 07/02/17 19:17; Start at 21:00 Atorvastatin Calcium (Lipitor) 20 mg QHS PO Last administered on 07/02/17 19: 17; Start 06/06/17 at 21:00 Levothyroxine Sodium (Synthroid) 25 mcg DAILYAC PO Last administered on 07:49; Start 06/07/17 at 07:30; Stop 06/11/17 at 07:33; Status DC Losartan Potassium (Cozaar) 25 mg DAILY PO Last administered on 07/02/17 08:45 ; Start 06/06/17 at 12:00 Nystatin (Mycostatin) 1 feliciano BID TP Last administered on 06/11/17at 09:15; Start 06/06/17 at 21:00; Stop 06/11/17 at 09:19; Status DC Polyethylene Glycol (miraLAX) 17 gm PRN DAILY PRN PO CONSTIPATION; Start at 10:39 Sotalol HCl (Betapace) 80 mg BID PO Last administered on 07/02/17 19:17; Start 06/06/17 at 21:00 Tramadol HCl (Ultram) 50 mg DAILY PO Last administered on 06/26/17at 09:13; Start 06/06/17 at 12:00; Stop 06/26/17 at 17:20; Status DC Tramadol HCl (Ultram) 50 mg PRN Q8HRS PRN PO PAIN Last administered on 18:15; Start 06/06/17 at 10:30 Vitamin D (Vitamin D3) 50,000 unit WEEKLY PO Last administered on 06/26/17at 09: 12; Start 06/12/17 at 09:00 Multivitamins/ Calcium (Thera-M Plus) 1 tab DAILY PO Last administered on 08:45; Start 06/06/17 at 12:00 Vitamin B Complex 1 cap DAILY PO Last administered on 07/02/17 08:44; Start at 12:00 Warfarin Sodium (Coumadin Per Pharmacy) 1 each PRN DAILY PRN MC SEE COMMENTS; Start 06/07/17 at 14:00; Status UNV Risperidone (RisperDAL) 0.5 mg BID PO Last administered on 06/08/17 08:03; Start 06/07/17 at 21:00; Stop 06/08/17 at 19:26; Status DC Mirtazapine (Remeron) 7.5 mg QHS PO Last administered on 07/02/17 19:18; Start 06/07/17 at 21:00 Fluvoxamine Maleate (Luvox) 25 mg DAILY PO Last administered on 06/09/17 07:49 ; Start 06/08/17 at 09:00; Stop 06/10/17 at 08:59; Status DC Fluvoxamine Maleate (Luvox) 50 mg DAILY PO Last administered on 06/16/17 07:41 ; Start 06/10/17 at 09:00; Stop 06/16/17 at 18:42; Status DC Risperidone (RisperDAL) 0.25 mg BID PO Last administered on 06/11/17 19:10; Start 06/08/17 at 21:00; Stop 06/12/17 at 08:59; Status DC Lorazepam (Ativan) 0.25 mg PRN Q2HR PRN PO ANXIETY / AGITATION Last administered on 06/18/17 19:26; Start 06/10/17 at 18:30 Risperidone (RisperDAL) 0.25 mg DAILY PO Last administered on 06/14/17 10:22; Start 06/12/17 at 09:00; Stop 06/15/17 at 08:59; Status DC Levothyroxine Sodium (Synthroid) 25 mcg DAILY06 PO Last administered on at 05:38; Start 06/11/17 at 07:45 Nystatin (Nystop) 1 feliciano BID TP Last administered on 07/02/17at 19:18; Start at 09:30 Divalproex Sodium (Depakote Sprinkles) 125 mg TID@0900,1300,1700 PO Last administered on 06/15/17at 18:34; Start 06/11/17 at 13:00; Stop 06/15/17 at 22:29; Status DC Docusate Sodium (Colace) 100 mg BID PO Last administered on 07/02/17at 19:17; Start 06/11/17 at 21:00 Polyethylene Glycol (miraLAX) 17 gm DAILY PO Last administered on 07/02/17at 08: 44; Start 06/12/17 at 09:00 Magnesium Citrate (Citroma) 296 ml PRN 1X PRN PO CONSTIPATION; Start 06/11/17 at 18:15 Quetiapine Fumarate (SEROquel) 12.5 mg TID@0600,1200,1700 PO Last administered on 06/13/17at 16:57; Start 06/13/17 at 12:00; Stop 06/13/17 at 19:16; Status DC Quetiapine Fumarate (SEROquel) 12.5 mg DAILY@1200 PO Last administered on at 12:00; Start 06/14/17 at 12:00; Stop 06/16/17 at 18:42; Status DC Quetiapine Fumarate (SEROquel) 25 mg BID@0600,1700 PO Last administered on 07/02at 17:19; Start 06/14/17 at 06:00 Quetiapine Fumarate (SEROquel) 25 mg 1X ONCE PO Last administered on 06/14/17at 07:07; Start 06/14/17 at 07:15; Stop 06/14/17 at 07:16; Status DC Lidocaine (Xylocaine) 1 feliciano 1X ONCE TP Last administered on 06/14/17at 13:30; Start 06/14/17 at 13:30; Stop 06/14/17 at 13:31; Status DC Lidocaine HCl 20 ml 1X ONCE INJ Last administered on 06/14/17at 17:47; Start 06/14/17 at 17:15; Stop 06/14/17 at 17:16; Status DC Neomycin/ Polymyxin/ Bacitracin (Triple Antibiotic Ointment) 1 pkt 1X ONCE TP Last administered on 06/14/17at 18:15; Start 06/14/17 at 18:15; Stop 06/14/17 at 18: 16; Status DC Divalproex Sodium (Depakote Sprinkles) 250 mg TID@0900,1300,1700 PO Last administered on 06/19/17at 16:55; Start 06/16/17 at 09:00; Stop 06/19/17 at 18:30; Status DC Fluvoxamine Maleate (Luvox) 75 mg DAILY PO Last administered on 06/23/17at 09:34 ; Start 06/17/17 at 09:00; Stop 06/23/17 at 19:27; Status DC Quetiapine Fumarate (SEROquel) 25 mg DAILY@1200 PO Last administered on at 11:58; Start 06/17/17 at 12:00 Hydrocortisone (Cortaid) 1 feliciano BID TP Last administered on 06/26/17at 09:12; Start 06/16/17 at 21:00; Stop 06/26/17 at 17:20; Status DC Trazodone HCl (Desyrel) 25 mg 1X ONCE PO Last administered on 06/17/17at 18:00; Start 06/17/17 at 18:00; Stop 06/17/17 at 18:02; Status DC Trazodone HCl (Desyrel) 12.5 mg TID@0900,1300,1700 PO Last administered on at 17:04; Start 06/18/17 at 09:00; Stop 06/18/17 at 18:09; Status DC Trazodone HCl (Desyrel) 12.5 mg BID@1300,1700 PO Last administered on 06/20/17at 12:12; Start 06/19/17 at 13:00; Stop 06/20/17 at 12:28; Status DC Trazodone HCl (Desyrel) 25 mg DAILY PO Last administered on 06/22/17at 09:03; Start 06/19/17 at 09:00; Stop 06/23/17 at 03:43; Status DC Divalproex Sodium (Depakote Sprinkles) 375 mg TID@0900,1300,1700 PO Last administered on 07/02/17at 17:19; Start 06/20/17 at 09:00 Trazodone HCl (Desyrel) 25 mg BID@1300,1700 PO Last administered on 06/22/17at 16:48; Start 06/20/17 at 13:00; Stop 06/23/17 at 03:43; Status DC Trazodone HCl (Desyrel) 25 mg TID@0900,1300,1700 PO Last administered on at 17:20; Start 06/23/17 at 09:00 Cephalexin HCl (Keflex) 500 mg TID PO Last administered on 06/30/17at 20:46; Start 06/23/17 at 21:00; Stop 06/30/17 at 21:00; Status DC Fluvoxamine Maleate (Luvox) 100 mg DAILY PO Last administered on 07/02/17at 08: 44; Start 06/24/17 at 09:00 Tramadol HCl (Ultram) 50 mg BID PO Last administered on 07/02/17 19:19; Start 06/26/17 at 21:00 Hydrocortisone (Cortaid) 1 feliciano PRN BID PRN TP ITCHING Last administered on 06/27at 21:07; Start 06/26/17 at 17:30 Lactobacillus Rhamnosus (Culturelle) 1 cap BID PO Last administered on at 19:17; Start 06/27/17 at 09:00 Active Scripts Active Reported Vitamin B Complex 1 Each Tablet 1 Tab PO DAILY Tramadol Hcl (Tramadol HCl) 50 Mg Tablet 50 Mg PO DAILY Tramadol Hcl (Tramadol HCl) 50 Mg Tablet 50 Mg PO PRN Q4HRS PRN Sotalol (Sotalol Hcl) 80 Mg Tablet 80 Mg PO BID Risperidone 1 Mg Tablet 1 Mg PO BID Polyethylene Glycol 3350 255 Gm Powder 17 Gm PO PRN DAILY PRN Nystatin 15 Gm Cream..g. 1 Feliciano TP BID Centrum Flavor Burst Adult (Multivit with Minerals No.55) 1 Each Tab.chew 1 Tab PO DAILY Melatonin 3 Mg Tablet 3 Mg PO PRN QHS PRN Losartan Potassium 25 Mg Tablet 25 Mg PO DAILY Lorazepam Intensol (Lorazepam) 2 Mg/1 Ml Oral.conc 0.5-1 Ml SL PRN Q2HR PRN Escitalopram Oxalate 10 Mg Tablet 10 Mg PO DAILY Levothyroxine Sodium 25 Mcg Tablet 25 Mcg PO DAILYAC Vitamin D2 (Ergocalciferol (Vitamin D2)) 50,000 Unit Capsule 50,000 Unit PO WEEKLY Eliquis (Apixaban) 5 Mg Tablet 5 Mg PO BID Atorvastatin Calcium 20 Mg Tablet 20 Mg PO QHS Amlodipine Besylate 10 Mg Tablet 10 Mg PO DAILY Tylenol (Acetaminophen) 325 Mg Tablet 650 Mg PO PRN Q4HRS PRN I have reviewed the current psychotropics carefully including drug interactions. Risk benefit ratio favors no change other than as noted in my dictated progress note. Diagnosis: Problems: (1) Anxiety disorder (2) Agitation (3) Confusion (4) Panic disorder with agoraphobia and severe panic attacks (5) Dementia in Alzheimer's disease with delusions (6) Dementia in Alzheimer's disease with depression (7) Dementia, vascular, with delusions (8) Dementia, vascular, with depression (9) Impulse control disorder HANDY RIZVI MD Jul 02, 2017 20:49
[2017-07-03] MEDS: QUEtiapine 25 MG TABLET. PO SCH ×3 (05:30→17:43)
[2017-07-03] MEDS: LEVOTHYROXINE 25 MCG TABLET. PO SCH (05:30)
[2017-07-03 05:54] VITALS: BP 138/75
[2017-07-03] MEDS: POLYETHYLENE GLYCOL 3350 17 GM PACKET. PO SCH (07:56)
[2017-07-03] MEDS: LOSARTAN 25 MG TABLET. PO SCH (07:57)
[2017-07-03] MEDS: VITAMIN B COMPLEX CAPSULE. PO SCH (08:00)
[2017-07-03] MEDS: MULTIVITAMIN with MINERAL TABLET. PO SCH (08:00)
[2017-07-03] MEDS: traZODone 50 MG TABLET. PO SCH ×3 (08:00→17:43)
[2017-07-03] MEDS: LACTOBACILLUS RHAMNOSUS GG 1 CAPSULE. PO SCH ×2 (08:01→19:47)
[2017-07-03] MEDS: amLODIPine BESYLATE 10 MG TABLET PO SCH (08:01)
[2017-07-03] MEDS: DOCUSATE SODIUM 100 MG CAPSULE PO SCH ×2 (08:01→19:46)
[2017-07-03] MEDS: CHOLECALCIFEROL (VITAMIN D3) 50,000 UNIT CAPSULE PO SCH (08:02)
[2017-07-03] MEDS: DIVALPROEX 125 MG CAP.SPRINK PO SCH ×3 (08:02→17:43)
[2017-07-03] MEDS: APIXABAN 5 MG TABLET. PO SCH ×2 (08:02→19:47)
[2017-07-03] MEDS: NYSTATIN TOPICAL POWDER 15GM BOTTLE. TP SCH ×2 (08:04→19:47)
[2017-07-03] MEDS: traMADol 50 MG TABLET PO SCH ×2 (08:04→19:48)
[2017-07-03] MEDS: SOTALOL 80 MG TABLET. PO SCH ×2 (08:05→19:46)
[2017-07-03 15:59] VITALS: BP 113/67
[2017-07-03] MEDS: MIRTAZAPINE 7.5 MG TABLET. PO SCH (19:47)
[2017-07-03] MEDS: ATORVASTATIN CALCIUM 20 MG TABLET PO SCH (19:47)
--- NOTE | 2017-07-03 20:20 | PN ---
DATE: 07/02/2017 This late entry 07/02/2017 covers elements not covered in my initial note 07/02/2017. Met with the patient in the evening of 07/02/2017. The patient slept 9 hours previous evening, has had a better day with less yelling, less agitation, confusion persists. REVIEW OF SYSTEMS: Ambulation impaired, in a Broda chair. No CV, , pulmonary, eye system symptoms on review. MENTAL STATUS EXAM: Oriented to himself. Insight, judgment, recent and remote memory, attention, concentration, fund of knowledge poor, consistent with his diagnosis. He is not very verbal. LABORATORY DATA: Reviewed. IMPRESSION: Unchanged from initial note. PLAN: Continue current psychotropics per initial note. Valproic acid level therapeutic at 65. MAN Laverne RIZVI MD DR: YESSENIA/linnette JOB#: [id number] / [id number]
--- NOTE | 2017-07-03 20:59 | PDOC ---
Exam Note: Jordy Note: Please also refer to the separate dictated note~for this date of service dictated separately.~Patient seen individually. Discussed the patient with Nursing staff reviewed the chart.~Reviewed interim history and current functioning. Reviewed vital signs,~Labs/ Radiology~and current medications noted below. Continue current treatment with the changes noted in the dictated addendum note Assessment: Vital Signs: Vital Signs Date Time Temp Pulse Resp B/P (MAP) Pulse Ox O2 Delivery O2 Flow Rate FiO2 07/03/17 19:48 18 96 Room Air 07/03/17 19:46 60 113/67 07/03/17 15:59 98.0 I&O Intake and Output 07/03/17 07:00 Intake Total 1320 ml Balance 1320 ml Intake Oral 1320 ml Current Medications: Meds: Current Medications Acetaminophen (Tylenol) 650 mg PRN Q6HRS PRN PO PAIN / TEMP; Start 06/05/17 at 22:15; Stop 06/14/17 at 13:43; Status DC Multi-Ingredient Ointment (Analgesic [place]) 1 feliciano PRN QID PRN TP MUSCLE PAIN; Start 06/05/17 at 22:15 Al Hydroxide/Mg Hydroxide (Mylanta Plus Xs) 15 ml PRN AFTMEALHC PRN PO DYSPEPSIA; Start 06/05/17 at 22:15 Magnesium Hydroxide (Milk Of Magnesia) 2,400 mg PRN QHS PRN PO CONSTIPATION Last administered on 06/11/17at 05:51; Start 06/05/17 at 22:15 Risperidone (RisperDAL) 1 mg BID PO Last administered on 06/07/17at 08:17; Start 06/06/17 at 09:00; Stop 06/07/17 at 17:15; Status DC Citalopram Hydrobromide (CeleXA) 20 mg DAILY PO Last administered on 06/07/17at 08:16; Start 06/06/17 at 09:00; Stop 06/07/17 at 18:54; Status DC Melatonin 3 mg PRN QHS PRN PO INSOMNIA Last administered on 06/16/17at 20:40; Start 06/05/17 at 22:30 Lorazepam (Ativan Intensol) Give 0.5 ml sublingually every ... PRN Q2HR PRN SL ANXIETY / AGITATION; Start 06/05/17 at 22:30; Status UNV Lorazepam (Ativan) 1 mg PRN Q2HR PRN PO ANXIETY / AGITATION; Start 06/05/17 at 22:45; Stop 06/10/17 at 18:30; Status DC Lorazepam (Ativan) 2 mg PRN Q2HR PRN PO ANXIETY / AGITATION; Start 06/05/17 at 22:45; Stop 06/10/17 at 18:30; Status DC Acetaminophen (Tylenol) 650 mg PRN Q4HRS PRN PO PAIN / TEMP Last administered on 06/18/17at 19:31; Start 06/06/17 at 10:30 Amlodipine Besylate (Norvasc) 10 mg DAILY PO Last administered on 07/03/17 08: 01; Start 06/06/17 at 12:00 Apixaban (Eliquis) 5 mg BID PO Last administered on 07/03/17at 19:47; Start at 21:00 Atorvastatin Calcium (Lipitor) 20 mg QHS PO Last administered on 07/03/17 19: 47; Start 06/06/17 at 21:00 Levothyroxine Sodium (Synthroid) 25 mcg DAILYAC PO Last administered on 07:49; Start 06/07/17 at 07:30; Stop 06/11/17 at 07:33; Status DC Losartan Potassium (Cozaar) 25 mg DAILY PO Last administered on 07/03/17at 07:57 ; Start 06/06/17 at 12:00 Nystatin (Mycostatin) 1 feliciano BID TP Last administered on 06/11/17at 09:15; Start 06/06/17 at 21:00; Stop 06/11/17 at 09:19; Status DC Polyethylene Glycol (miraLAX) 17 gm PRN DAILY PRN PO CONSTIPATION; Start at 10:39 Sotalol HCl (Betapace) 80 mg BID PO Last administered on 07/03/17at 19:46; Start 06/06/17 at 21:00 Tramadol HCl (Ultram) 50 mg DAILY PO Last administered on 06/26/17at 09:13; Start 06/06/17 at 12:00; Stop 06/26/17 at 17:20; Status DC Tramadol HCl (Ultram) 50 mg PRN Q8HRS PRN PO PAIN Last administered on 18:15; Start 06/06/17 at 10:30 Vitamin D (Vitamin D3) 50,000 unit WEEKLY PO Last administered on 07/03/17 08: 02; Start 06/12/17 at 09:00 Multivitamins/ Calcium (Thera-M Plus) 1 tab DAILY PO Last administered on 08:00; Start 06/06/17 at 12:00 Vitamin B Complex 1 cap DAILY PO Last administered on 07/03/17at 08:00; Start at 12:00 Warfarin Sodium (Coumadin Per Pharmacy) 1 each PRN DAILY PRN MC SEE COMMENTS; Start 06/07/17 at 14:00; Status UNV Risperidone (RisperDAL) 0.5 mg BID PO Last administered on 06/08/17at 08:03; Start 06/07/17 at 21:00; Stop 06/08/17 at 19:26; Status DC Mirtazapine (Remeron) 7.5 mg QHS PO Last administered on 07/03/17at 19:47; Start 06/07/17 at 21:00 Fluvoxamine Maleate (Luvox) 25 mg DAILY PO Last administered on 06/09/17 07:49 ; Start 06/08/17 at 09:00; Stop 06/10/17 at 08:59; Status DC Fluvoxamine Maleate (Luvox) 50 mg DAILY PO Last administered on 06/16/17at 07:41 ; Start 06/10/17 at 09:00; Stop 06/16/17 at 18:42; Status DC Risperidone (RisperDAL) 0.25 mg BID PO Last administered on 06/11/17at 19:10; Start 06/08/17 at 21:00; Stop 06/12/17 at 08:59; Status DC Lorazepam (Ativan) 0.25 mg PRN Q2HR PRN PO ANXIETY / AGITATION Last administered on 06/18/17 19:26; Start 06/10/17 at 18:30 Risperidone (RisperDAL) 0.25 mg DAILY PO Last administered on 06/14/17 10:22; Start 06/12/17 at 09:00; Stop 06/15/17 at 08:59; Status DC Levothyroxine Sodium (Synthroid) 25 mcg DAILY06 PO Last administered on at 05:30; Start 06/11/17 at 07:45 Nystatin (Nystop) 1 feliciano BID TP Last administered on 07/03/17at 19:47; Start at 09:30 Divalproex Sodium (Depakote Sprinkles) 125 mg TID@0900,1300,1700 PO Last administered on 06/15/17 18:34; Start 06/11/17 at 13:00; Stop 06/15/17 at 22:29; Status DC Docusate Sodium (Colace) 100 mg BID PO Last administered on 07/03/17 19:46; Start 06/11/17 at 21:00 Polyethylene Glycol (miraLAX) 17 gm DAILY PO Last administered on 07/03/17at 07: 56; Start 06/12/17 at 09:00 Magnesium Citrate (Citroma) 296 ml PRN 1X PRN PO CONSTIPATION; Start 06/11/17 at 18:15 Quetiapine Fumarate (SEROquel) 12.5 mg TID@0600,1200,1700 PO Last administered on 06/13/17at 16:57; Start 06/13/17 at 12:00; Stop 06/13/17 at 19:16; Status DC Quetiapine Fumarate (SEROquel) 12.5 mg DAILY@1200 PO Last administered on at 12:00; Start 06/14/17 at 12:00; Stop 06/16/17 at 18:42; Status DC Quetiapine Fumarate (SEROquel) 25 mg BID@0600,1700 PO Last administered on 07/03at 17:43; Start 06/14/17 at 06:00 Quetiapine Fumarate (SEROquel) 25 mg 1X ONCE PO Last administered on 06/14/17at 07:07; Start 06/14/17 at 07:15; Stop 06/14/17 at 07:16; Status DC Lidocaine (Xylocaine) 1 feliciano 1X ONCE TP Last administered on 06/14/17at 13:30; Start 06/14/17 at 13:30; Stop 06/14/17 at 13:31; Status DC Lidocaine HCl 20 ml 1X ONCE INJ Last administered on 3/2/18at 17:47; Start 06/14/17 at 17:15; Stop 06/14/17 at 17:16; Status DC Neomycin/ Polymyxin/ Bacitracin (Triple Antibiotic Ointment) 1 pkt 1X ONCE TP Last administered on 06/14/17at 18:15; Start 06/14/17 at 18:15; Stop 06/14/17 at 18: 16; Status DC Divalproex Sodium (Depakote Sprinkles) 250 mg TID@0900,1300,1700 PO Last administered on 06/19/17at 16:55; Start 06/16/17 at 09:00; Stop 06/19/17 at 18:30; Status DC Fluvoxamine Maleate (Luvox) 75 mg DAILY PO Last administered on 06/23/17at 09:34 ; Start 06/17/17 at 09:00; Stop 06/23/17 at 19:27; Status DC Quetiapine Fumarate (SEROquel) 25 mg DAILY@1200 PO Last administered on at 13:51; Start 06/17/17 at 12:00 Hydrocortisone (Cortaid) 1 feliciano BID TP Last administered on 06/26/17at 09:12; Start 06/16/17 at 21:00; Stop 06/26/17 at 17:20; Status DC Trazodone HCl (Desyrel) 25 mg 1X ONCE PO Last administered on 06/17/17at 18:00; Start 06/17/17 at 18:00; Stop 06/17/17 at 18:02; Status DC Trazodone HCl (Desyrel) 12.5 mg TID@0900,1300,1700 PO Last administered on at 17:04; Start 06/18/17 at 09:00; Stop 06/18/17 at 18:09; Status DC Trazodone HCl (Desyrel) 12.5 mg BID@1300,1700 PO Last administered on 06/20/17at 12:12; Start 06/19/17 at 13:00; Stop 06/20/17 at 12:28; Status DC Trazodone HCl (Desyrel) 25 mg DAILY PO Last administered on 06/22/17at 09:03; Start 06/19/17 at 09:00; Stop 06/23/17 at 03:43; Status DC Divalproex Sodium (Depakote Sprinkles) 375 mg TID@0900,1300,1700 PO Last administered on 07/03/17at 17:43; Start 06/20/17 at 09:00 Trazodone HCl (Desyrel) 25 mg BID@1300,1700 PO Last administered on 06/22/17at 16:48; Start 06/20/17 at 13:00; Stop 06/23/17 at 03:43; Status DC Trazodone HCl (Desyrel) 25 mg TID@0900,1300,1700 PO Last administered on at 17:43; Start 06/23/17 at 09:00 Cephalexin HCl (Keflex) 500 mg TID PO Last administered on 06/30/17at 20:46; Start 06/23/17 at 21:00; Stop 06/30/17 at 21:00; Status DC Fluvoxamine Maleate (Luvox) 100 mg DAILY PO Last administered on 07/03/17at 08: 02; Start 06/24/17 at 09:00 Tramadol HCl (Ultram) 50 mg BID PO Last administered on 07/03/17 19:48; Start 06/26/17 at 21:00 Hydrocortisone (Cortaid) 1 feliciano PRN BID PRN TP ITCHING Last administered on 06/27at 21:07; Start 06/26/17 at 17:30 Lactobacillus Rhamnosus (Culturelle) 1 cap BID PO Last administered on at 19:47; Start 06/27/17 at 09:00 Active Scripts Active Reported Vitamin B Complex 1 Each Tablet 1 Tab PO DAILY Tramadol Hcl (Tramadol HCl) 50 Mg Tablet 50 Mg PO DAILY Tramadol Hcl (Tramadol HCl) 50 Mg Tablet 50 Mg PO PRN Q4HRS PRN Sotalol (Sotalol Hcl) 80 Mg Tablet 80 Mg PO BID Risperidone 1 Mg Tablet 1 Mg PO BID Polyethylene Glycol 3350 255 Gm Powder 17 Gm PO PRN DAILY PRN Nystatin 15 Gm Cream..g. 1 Feliciano TP BID Centrum Flavor Burst Adult (Multivit with Minerals No.55) 1 Each Tab.chew 1 Tab PO DAILY Melatonin 3 Mg Tablet 3 Mg PO PRN QHS PRN Losartan Potassium 25 Mg Tablet 25 Mg PO DAILY Lorazepam Intensol (Lorazepam) 2 Mg/1 Ml Oral.conc 0.5-1 Ml SL PRN Q2HR PRN Escitalopram Oxalate 10 Mg Tablet 10 Mg PO DAILY Levothyroxine Sodium 25 Mcg Tablet 25 Mcg PO DAILYAC Vitamin D2 (Ergocalciferol (Vitamin D2)) 50,000 Unit Capsule 50,000 Unit PO WEEKLY Eliquis (Apixaban) 5 Mg Tablet 5 Mg PO BID Atorvastatin Calcium 20 Mg Tablet 20 Mg PO QHS Amlodipine Besylate 10 Mg Tablet 10 Mg PO DAILY Tylenol (Acetaminophen) 325 Mg Tablet 650 Mg PO PRN Q4HRS PRN I have reviewed the current psychotropics carefully including drug interactions. Risk benefit ratio favors no change other than as noted in my dictated progress note. 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
[2017-07-04 05:57] VITALS: BP 118/65
[2017-07-04] MEDS: QUEtiapine 25 MG TABLET. PO SCH ×3 (06:06→17:18)
[2017-07-04] MEDS: LEVOTHYROXINE 25 MCG TABLET. PO SCH (06:06)
[2017-07-04] MEDS: POLYETHYLENE GLYCOL 3350 17 GM PACKET. PO SCH (07:58)
[2017-07-04] MEDS: amLODIPine BESYLATE 10 MG TABLET PO SCH (08:00)
[2017-07-04] MEDS: LACTOBACILLUS RHAMNOSUS GG 1 CAPSULE. PO SCH ×2 (08:01→20:46)
[2017-07-04] MEDS: VITAMIN B COMPLEX CAPSULE. PO SCH (08:01)
[2017-07-04] MEDS: DOCUSATE SODIUM 100 MG CAPSULE PO SCH ×2 (08:01→20:46)
[2017-07-04] MEDS: MULTIVITAMIN with MINERAL TABLET. PO SCH (08:01)
[2017-07-04] MEDS: APIXABAN 5 MG TABLET. PO SCH ×2 (08:01→20:46)
[2017-07-04] MEDS: traZODone 50 MG TABLET. PO SCH ×3 (08:02→17:18)
[2017-07-04] MEDS: DIVALPROEX 125 MG CAP.SPRINK PO SCH ×3 (08:04→17:19)
[2017-07-04] MEDS: NYSTATIN TOPICAL POWDER 15GM BOTTLE. TP SCH ×2 (08:05→20:50)
[2017-07-04] MEDS: traMADol 50 MG TABLET PO SCH ×2 (08:05→20:49)
[2017-07-04] MEDS: SOTALOL 80 MG TABLET. PO SCH ×2 (08:06→20:49)
[2017-07-04] MEDS: LOSARTAN 25 MG TABLET. PO SCH (08:07)
[2017-07-04 16:06] VITALS: BP 100/52
[2017-07-04] MEDS: ATORVASTATIN CALCIUM 20 MG TABLET PO SCH (20:46)
[2017-07-04] MEDS: MIRTAZAPINE 7.5 MG TABLET. PO SCH (20:47)
--- NOTE | 2017-07-04 21:04 | PDOC ---
Exam Note: Jordy Note: Please also refer to the separate dictated note~for this date of service dictated separately.~Patient seen individually. Discussed the patient with Nursing staff reviewed the chart.~Reviewed interim history and current functioning. Reviewed vital signs,~Labs/ Radiology~and current medications noted below. Continue current treatment with the changes noted in the dictated addendum note Assessment: Vital Signs: Vital Signs Date Time Temp Pulse Resp B/P (MAP) Pulse Ox O2 Delivery O2 Flow Rate FiO2 07/04/17 20:49 16 94 Room Air 07/04/17 20:49 58 100/52 07/04/17 16:06 97.1 I&O Intake and Output 07/04/17 07:00 Intake Total 920 ml Balance 920 ml Intake Oral 920 ml # Voids 2 # Bowel Movements 1 Current Medications: Meds: Current Medications Acetaminophen (Tylenol) 650 mg PRN Q6HRS PRN PO PAIN / TEMP; Start 06/05/17 at 22:15; Stop 06/14/17 at 13:43; Status DC Multi-Ingredient Ointment (Analgesic [place]) 1 feliciano PRN QID PRN TP MUSCLE PAIN; Start 06/05/17 at 22:15 Al Hydroxide/Mg Hydroxide (Mylanta Plus Xs) 15 ml PRN AFTMEALHC PRN PO DYSPEPSIA; Start 06/05/17 at 22:15 Magnesium Hydroxide (Milk Of Magnesia) 2,400 mg PRN QHS PRN PO CONSTIPATION Last administered on 06/11/17at 05:51; Start 06/05/17 at 22:15 Risperidone (RisperDAL) 1 mg BID PO Last administered on 06/07/17at 08:17; Start 06/06/17 at 09:00; Stop 06/07/17 at 17:15; Status DC Citalopram Hydrobromide (CeleXA) 20 mg DAILY PO Last administered on 06/07/17at 08:16; Start 06/06/17 at 09:00; Stop 06/07/17 at 18:54; Status DC Melatonin 3 mg PRN QHS PRN PO INSOMNIA Last administered on 06/16/17at 20:40; Start 06/05/17 at 22:30 Lorazepam (Ativan Intensol) Give 0.5 ml sublingually every ... PRN Q2HR PRN SL ANXIETY / AGITATION; Start 06/05/17 at 22:30; Status UNV Lorazepam (Ativan) 1 mg PRN Q2HR PRN PO ANXIETY / AGITATION; Start 06/05/17 at 22:45; Stop 06/10/17 at 18:30; Status DC Lorazepam (Ativan) 2 mg PRN Q2HR PRN PO ANXIETY / AGITATION; Start 06/05/17 at 22:45; Stop 06/10/17 at 18:30; Status DC Acetaminophen (Tylenol) 650 mg PRN Q4HRS PRN PO PAIN / TEMP Last administered on 06/18/17at 19:31; Start 06/06/17 at 10:30 Amlodipine Besylate (Norvasc) 10 mg DAILY PO Last administered on 07/04/17at 08: 00; Start 06/06/17 at 12:00 Apixaban (Eliquis) 5 mg BID PO Last administered on 07/04/17at 20:46; Start at 21:00 Atorvastatin Calcium (Lipitor) 20 mg QHS PO Last administered on 07/04/17at 20: 46; Start 06/06/17 at 21:00 Levothyroxine Sodium (Synthroid) 25 mcg DAILYAC PO Last administered on 07:49; Start 06/07/17 at 07:30; Stop 06/11/17 at 07:33; Status DC Losartan Potassium (Cozaar) 25 mg DAILY PO Last administered on 07/04/17 08:07 ; Start 06/06/17 at 12:00 Nystatin (Mycostatin) 1 feliciano BID TP Last administered on 06/11/17at 09:15; Start 06/06/17 at 21:00; Stop 06/11/17 at 09:19; Status DC Polyethylene Glycol (miraLAX) 17 gm PRN DAILY PRN PO CONSTIPATION; Start at 10:39 Sotalol HCl (Betapace) 80 mg BID PO Last administered on 07/04/17at 08:06; Start 06/06/17 at 21:00 Tramadol HCl (Ultram) 50 mg DAILY PO Last administered on 06/26/17at 09:13; Start 06/06/17 at 12:00; Stop 06/26/17 at 17:20; Status DC Tramadol HCl (Ultram) 50 mg PRN Q8HRS PRN PO PAIN Last administered on 18:15; Start 06/06/17 at 10:30 Vitamin D (Vitamin D3) 50,000 unit WEEKLY PO Last administered on 07/03/17 08: 02; Start 06/12/17 at 09:00 Multivitamins/ Calcium (Thera-M Plus) 1 tab DAILY PO Last administered on 08:01; Start 06/06/17 at 12:00 Vitamin B Complex 1 cap DAILY PO Last administered on 07/04/17at 08:01; Start at 12:00 Warfarin Sodium (Coumadin Per Pharmacy) 1 each PRN DAILY PRN MC SEE COMMENTS; Start 06/07/17 at 14:00; Status UNV Risperidone (RisperDAL) 0.5 mg BID PO Last administered on 06/08/17 08:03; Start 06/07/17 at 21:00; Stop 06/08/17 at 19:26; Status DC Mirtazapine (Remeron) 7.5 mg QHS PO Last administered on 07/04/17at 20:47; Start 06/07/17 at 21:00 Fluvoxamine Maleate (Luvox) 25 mg DAILY PO Last administered on 06/09/17 07:49 ; Start 06/08/17 at 09:00; Stop 06/10/17 at 08:59; Status DC Fluvoxamine Maleate (Luvox) 50 mg DAILY PO Last administered on 06/16/17 07:41 ; Start 06/10/17 at 09:00; Stop 06/16/17 at 18:42; Status DC Risperidone (RisperDAL) 0.25 mg BID PO Last administered on 06/11/17 19:10; Start 06/08/17 at 21:00; Stop 06/12/17 at 08:59; Status DC Lorazepam (Ativan) 0.25 mg PRN Q2HR PRN PO ANXIETY / AGITATION Last administered on 06/18/17 19:26; Start 06/10/17 at 18:30 Risperidone (RisperDAL) 0.25 mg DAILY PO Last administered on 06/14/17 10:22; Start 06/12/17 at 09:00; Stop 06/15/17 at 08:59; Status DC Levothyroxine Sodium (Synthroid) 25 mcg DAILY06 PO Last administered on at 06:06; Start 06/11/17 at 07:45 Nystatin (Nystop) 1 feliciano BID TP Last administered on 07/04/17at 20:50; Start at 09:30 Divalproex Sodium (Depakote Sprinkles) 125 mg TID@0900,1300,1700 PO Last administered on 06/15/17at 18:34; Start 06/11/17 at 13:00; Stop 06/15/17 at 22:29; Status DC Docusate Sodium (Colace) 100 mg BID PO Last administered on 07/04/17at 20:46; Start 06/11/17 at 21:00 Polyethylene Glycol (miraLAX) 17 gm DAILY PO Last administered on 07/04/17at 07: 58; Start 06/12/17 at 09:00 Magnesium Citrate (Citroma) 296 ml PRN 1X PRN PO CONSTIPATION; Start 06/11/17 at 18:15 Quetiapine Fumarate (SEROquel) 12.5 mg TID@0600,1200,1700 PO Last administered on 06/13/17at 16:57; Start 06/13/17 at 12:00; Stop 06/13/17 at 19:16; Status DC Quetiapine Fumarate (SEROquel) 12.5 mg DAILY@1200 PO Last administered on at 12:00; Start 06/14/17 at 12:00; Stop 06/16/17 at 18:42; Status DC Quetiapine Fumarate (SEROquel) 25 mg BID@0600,1700 PO Last administered on 07/04at 17:18; Start 06/14/17 at 06:00 Quetiapine Fumarate (SEROquel) 25 mg 1X ONCE PO Last administered on 06/14/17at 07:07; Start 06/14/17 at 07:15; Stop 06/14/17 at 07:16; Status DC Lidocaine (Xylocaine) 1 feliciano 1X ONCE TP Last administered on 06/14/17at 13:30; Start 06/14/17 at 13:30; Stop 06/14/17 at 13:31; Status DC Lidocaine HCl 20 ml 1X ONCE INJ Last administered on 06/14/17at 17:47; Start 06/14/17 at 17:15; Stop 06/14/17 at 17:16; Status DC Neomycin/ Polymyxin/ Bacitracin (Triple Antibiotic Ointment) 1 pkt 1X ONCE TP Last administered on 06/14/17at 18:15; Start 06/14/17 at 18:15; Stop 06/14/17 at 18: 16; Status DC Divalproex Sodium (Depakote Sprinkles) 250 mg TID@0900,1300,1700 PO Last administered on 06/19/17at 16:55; Start 06/16/17 at 09:00; Stop 06/19/17 at 18:30; Status DC Fluvoxamine Maleate (Luvox) 75 mg DAILY PO Last administered on 06/23/17at 09:34 ; Start 06/17/17 at 09:00; Stop 06/23/17 at 19:27; Status DC Quetiapine Fumarate (SEROquel) 25 mg DAILY@1200 PO Last administered on at 13:47; Start 06/17/17 at 12:00 Hydrocortisone (Cortaid) 1 feliciano BID TP Last administered on 06/26/17at 09:12; Start 06/16/17 at 21:00; Stop 06/26/17 at 17:20; Status DC Trazodone HCl (Desyrel) 25 mg 1X ONCE PO Last administered on 06/17/17at 18:00; Start 06/17/17 at 18:00; Stop 06/17/17 at 18:02; Status DC Trazodone HCl (Desyrel) 12.5 mg TID@0900,1300,1700 PO Last administered on at 17:04; Start 06/18/17 at 09:00; Stop 06/18/17 at 18:09; Status DC Trazodone HCl (Desyrel) 12.5 mg BID@1300,1700 PO Last administered on 06/20/17at 12:12; Start 06/19/17 at 13:00; Stop 06/20/17 at 12:28; Status DC Trazodone HCl (Desyrel) 25 mg DAILY PO Last administered on 06/22/17at 09:03; Start 06/19/17 at 09:00; Stop 06/23/17 at 03:43; Status DC Divalproex Sodium (Depakote Sprinkles) 375 mg TID@0900,1300,1700 PO Last administered on 07/04/17at 17:19; Start 06/20/17 at 09:00 Trazodone HCl (Desyrel) 25 mg BID@1300,1700 PO Last administered on 06/22/17at 16:48; Start 06/20/17 at 13:00; Stop 06/23/17 at 03:43; Status DC Trazodone HCl (Desyrel) 25 mg TID@0900,1300,1700 PO Last administered on at 17:18; Start 06/23/17 at 09:00 Cephalexin HCl (Keflex) 500 mg TID PO Last administered on 06/30/17at 20:46; Start 06/23/17 at 21:00; Stop 06/30/17 at 21:00; Status DC Fluvoxamine Maleate (Luvox) 100 mg DAILY PO Last administered on 07/04/17at 08: 01; Start 06/24/17 at 09:00 Tramadol HCl (Ultram) 50 mg BID PO Last administered on 07/04/17at 20:49; Start 06/26/17 at 21:00 Hydrocortisone (Cortaid) 1 feliciano PRN BID PRN TP ITCHING Last administered on 06/27at 21:07; Start 06/26/17 at 17:30 Lactobacillus Rhamnosus (Culturelle) 1 cap BID PO Last administered on at 20:46; Start 06/27/17 at 09:00 Active Scripts Active Reported Vitamin B Complex 1 Each Tablet 1 Tab PO DAILY Tramadol Hcl (Tramadol HCl) 50 Mg Tablet 50 Mg PO DAILY Tramadol Hcl (Tramadol HCl) 50 Mg Tablet 50 Mg PO PRN Q4HRS PRN Sotalol (Sotalol Hcl) 80 Mg Tablet 80 Mg PO BID Risperidone 1 Mg Tablet 1 Mg PO BID Polyethylene Glycol 3350 255 Gm Powder 17 Gm PO PRN DAILY PRN Nystatin 15 Gm Cream..g. 1 Feliciano TP BID Centrum Flavor Burst Adult (Multivit with Minerals No.55) 1 Each Tab.chew 1 Tab PO DAILY Melatonin 3 Mg Tablet 3 Mg PO PRN QHS PRN Losartan Potassium 25 Mg Tablet 25 Mg PO DAILY Lorazepam Intensol (Lorazepam) 2 Mg/1 Ml Oral.conc 0.5-1 Ml SL PRN Q2HR PRN Escitalopram Oxalate 10 Mg Tablet 10 Mg PO DAILY Levothyroxine Sodium 25 Mcg Tablet 25 Mcg PO DAILYAC Vitamin D2 (Ergocalciferol (Vitamin D2)) 50,000 Unit Capsule 50,000 Unit PO WEEKLY Eliquis (Apixaban) 5 Mg Tablet 5 Mg PO BID Atorvastatin Calcium 20 Mg Tablet 20 Mg PO QHS Amlodipine Besylate 10 Mg Tablet 10 Mg PO DAILY Tylenol (Acetaminophen) 325 Mg Tablet 650 Mg PO PRN Q4HRS PRN I have reviewed the current psychotropics carefully including drug interactions. Risk benefit ratio favors no change other than as noted in my dictated progress note. Diagnosis: Problems: (1) Anxiety disorder (2) Agitation (3) Confusion (4) Panic disorder with agoraphobia and severe panic attacks (5) Dementia in Alzheimer's disease with delusions (6) Dementia in Alzheimer's disease with depression (7) Dementia, vascular, with delusions (8) Dementia, vascular, with depression (9) Impulse control disorder HANDY RIZVI MD Jul 04, 2017 21:04
[2017-07-05] MEDS ORDERED: DIVA125C PO (00:08)
[2017-07-05] MEDS ORDERED: DOCU100C28 PO (00:09)
[2017-07-05] MEDS ORDERED: HYDR42CR2 TP (00:12)
[2017-07-05] MEDS ORDERED: LACT1CAP21 PO (00:13)
[2017-07-05] MEDS ORDERED: MIRT15TA3 PO (00:14)
[2017-07-05] MEDS ORDERED: FLUV100T2 PO (00:17)
[2017-07-05] MEDS ORDERED: QUET25TA PO (00:17)
[2017-07-05] MEDS ORDERED: TRAZ50TA15 PO (00:18)
[2017-07-05] MEDS: LEVOTHYROXINE 25 MCG TABLET. PO SCH (05:52)
[2017-07-05] MEDS: QUEtiapine 25 MG TABLET. PO SCH (05:53)
[2017-07-05 05:56] VITALS: BP 116/66
[2017-07-05] MEDS ORDERED: CHOL500016 PO (08:17)
[2017-07-05 08:43] VITALS: BP 116/66
[2017-07-05] MEDS: amLODIPine BESYLATE 10 MG TABLET PO SCH (08:43)
[2017-07-05] MEDS: traZODone 50 MG TABLET. PO SCH (08:44)
[2017-07-05] MEDS: APIXABAN 5 MG TABLET. PO SCH (08:44)
[2017-07-05] MEDS: POLYETHYLENE GLYCOL 3350 17 GM PACKET. PO SCH (08:44)
[2017-07-05] MEDS: LACTOBACILLUS RHAMNOSUS GG 1 CAPSULE. PO SCH (08:44)
[2017-07-05] MEDS: DOCUSATE SODIUM 100 MG CAPSULE PO SCH (08:44)
[2017-07-05] MEDS: VITAMIN B COMPLEX CAPSULE. PO SCH (08:44)
[2017-07-05] MEDS: MULTIVITAMIN with MINERAL TABLET. PO SCH (08:44)
[2017-07-05] MEDS: DIVALPROEX 125 MG CAP.SPRINK PO SCH (08:45)
[2017-07-05] MEDS: NYSTATIN TOPICAL POWDER 15GM BOTTLE. TP SCH (08:46)
[2017-07-05] MEDS: traMADol 50 MG TABLET PO SCH (08:46)
[2017-07-05] MEDS: LOSARTAN 25 MG TABLET. PO SCH (09:00)
[2017-07-05] MEDS: SOTALOL 80 MG TABLET. PO SCH (09:00)
--- NOTE | 2017-07-05 10:17 | PN ---
DATE: 07/03/2017 This late entry 07/03/2017 covers elements not covered in my initial note 07/03/2017. Met with the patient in the evening of 07/03/2017. Overall, the patient has been less labile in his mood, less irritable, more redirectable. Ambulation impaired, in Broda chair. REVIEW OF SYSTEMS: No CV, , pulmonary, eye system symptoms on review. Reliability poor. MENTAL STATUS EXAM: Oriented to himself. Insight, judgment, recent and remote memory, attention, concentration, fund of knowledge poor, consistent with his diagnosis mentioned in my initial note. PLAN: Continue current psychotropics. Valproic acid level is 65. Adjust further as clinically indicated. MAN Laverne RIZVI MD DR: YESSENIA/linnette JOB#: [id number] / [id number]
--- NOTE | 2017-07-05 14:10 | PN ---
DATE: 07/04/2017 This is a late entry for 07/04/2017 and covers elements not covered in my initial note of 07/04/2017. I met with the patient evening of 07/04/2017 and he was staffed at a treatment team meeting with the entire team morning of 07/04/2017. We reviewed the patient's history at length with social service staff, placement options, progress. The patient slept 8-3/4 hours previous evening. REVIEW OF SYSTEMS: Ambulation impaired, in Broda chair, complained of some back pain. Nursing staff repositioned the Broda chair with relief of symptoms. No CV, , pulmonary, eye system symptoms on review. MENTAL STATUS EXAM: Oriented to himself. Insight, judgment, recent and remote memory, attention, concentration, fund of knowledge poor, consistent with his diagnosis as mentioned in my initial note. IMPRESSION: Major neurocognitive disorder, Alzheimer, vascular with depression, delusion, behavioral disturbance. Rest unchanged. PLAN: Continue current psychotropics as mentioned in my initial note. Adjust as indicated. MAN Laverne RIZVI MD DR: YESSENIA/linnette JOB#: [id number] / [id number]
--- NOTE | 2017-07-05 17:57 | PDOC ---
Exam Note: Jordy Note: Please also refer to the separate dictated note~for this date of service dictated separately.~Patient seen individually. Discussed the patient with Nursing staff reviewed the chart.~Reviewed interim history and current functioning. Reviewed vital signs,~Labs/ Radiology~and current medications noted below. Continue current treatment with the changes noted in the dictated addendum note Assessment: Vital Signs: Vital Signs Date Time Temp Pulse Resp B/P (MAP) Pulse Ox O2 Delivery O2 Flow Rate FiO2 07/05/17 10:31 100 07/05/17 08:43 60 116/66 07/05/17 05:56 98.0 18 07/04/17 21:49 Room Air I&O Intake and Output 07/05/17 07:00 Intake Total 800 ml Balance 800 ml Intake Oral 800 ml Current Medications: Meds: Current Medications Acetaminophen (Tylenol) 650 mg PRN Q6HRS PRN PO PAIN / TEMP; Start 06/05/17 at 22:15; Stop 06/14/17 at 13:43; Status DC Multi-Ingredient Ointment (Analgesic [place]) 1 feliciano PRN QID PRN TP MUSCLE PAIN; Start 06/05/17 at 22:15; Stop 07/05/17 at 12:46; Status DC Al Hydroxide/Mg Hydroxide (Mylanta Plus Xs) 15 ml PRN AFTMEALHC PRN PO DYSPEPSIA; Start 06/05/17 at 22:15; Stop 07/05/17 at 12:46; Status DC Magnesium Hydroxide (Milk Of Magnesia) 2,400 mg PRN QHS PRN PO CONSTIPATION Last administered on 06/11/17at 05:51; Start 06/05/17 at 22:15; Stop 07/05/17 at 12:46; Status DC Risperidone (RisperDAL) 1 mg BID PO Last administered on 06/07/17at 08:17; Start 06/06/17 at 09:00; Stop 06/07/17 at 17:15; Status DC Citalopram Hydrobromide (CeleXA) 20 mg DAILY PO Last administered on 06/07/17at 08:16; Start 06/06/17 at 09:00; Stop 06/07/17 at 18:54; Status DC Melatonin 3 mg PRN QHS PRN PO INSOMNIA Last administered on 06/16/17at 20:40; Start 06/05/17 at 22:30; Stop 07/05/17 at 12:46; Status DC Lorazepam (Ativan Intensol) Give 0.5 ml sublingually every ... PRN Q2HR PRN SL ANXIETY / AGITATION; Start 06/05/17 at 22:30; Status UNV Lorazepam (Ativan) 1 mg PRN Q2HR PRN PO ANXIETY / AGITATION; Start 06/05/17 at 22:45; Stop 06/10/17 at 18:30; Status DC Lorazepam (Ativan) 2 mg PRN Q2HR PRN PO ANXIETY / AGITATION; Start 06/05/17 at 22:45; Stop 06/10/17 at 18:30; Status DC Acetaminophen (Tylenol) 650 mg PRN Q4HRS PRN PO PAIN / TEMP Last administered on 06/18/17at 19:31; Start 06/06/17 at 10:30; Stop 07/05/17 at 12:46; Status DC Amlodipine Besylate (Norvasc) 10 mg DAILY PO Last administered on 07/05/17at 08: 43; Start 06/06/17 at 12:00; Stop 07/05/17 at 12:46; Status DC Apixaban (Eliquis) 5 mg BID PO Last administered on 07/05/17at 08:44; Start at 21:00; Stop 07/05/17 at 12:46; Status DC Atorvastatin Calcium (Lipitor) 20 mg QHS PO Last administered on 07/04/17at 20: 46; Start 06/06/17 at 21:00; Stop 07/05/17 at 12:46; Status DC Levothyroxine Sodium (Synthroid) 25 mcg DAILYAC PO Last administered on at 07:49; Start 06/07/17 at 07:30; Stop 06/11/17 at 07:33; Status DC Losartan Potassium (Cozaar) 25 mg DAILY PO Last administered on 07/04/17at 08:07 ; Start 06/06/17 at 12:00; Stop 07/05/17 at 12:46; Status DC Nystatin (Mycostatin) 1 feliciano BID TP Last administered on 06/11/17at 09:15; Start 06/06/17 at 21:00; Stop 06/11/17 at 09:19; Status DC Polyethylene Glycol (miraLAX) 17 gm PRN DAILY PRN PO CONSTIPATION; Start at 10:39; Stop 07/05/17 at 12:46; Status DC Sotalol HCl (Betapace) 80 mg BID PO Last administered on 07/04/17at 08:06; Start 06/06/17 at 21:00; Stop 07/05/17 at 12:46; Status DC Tramadol HCl (Ultram) 50 mg DAILY PO Last administered on 06/26/17at 09:13; Start 06/06/17 at 12:00; Stop 06/26/17 at 17:20; Status DC Tramadol HCl (Ultram) 50 mg PRN Q8HRS PRN PO PAIN Last administered on at 18:15; Start 06/06/17 at 10:30; Stop 07/05/17 at 12:46; Status DC Vitamin D (Vitamin D3) 50,000 unit WEEKLY PO Last administered on 07/03/17at 08: 02; Start 06/12/17 at 09:00; Stop 07/05/17 at 12:46; Status DC Multivitamins/ Calcium (Thera-M Plus) 1 tab DAILY PO Last administered on at 08:44; Start 06/06/17 at 12:00; Stop 07/05/17 at 12:46; Status DC Vitamin B Complex 1 cap DAILY PO Last administered on 07/05/17at 08:44; Start at 12:00; Stop 07/05/17 at 12:46; Status DC Warfarin Sodium (Coumadin Per Pharmacy) 1 each PRN DAILY PRN MC SEE COMMENTS; Start 06/07/17 at 14:00; Status UNV Risperidone (RisperDAL) 0.5 mg BID PO Last administered on 06/08/17at 08:03; Start 06/07/17 at 21:00; Stop 06/08/17 at 19:26; Status DC Mirtazapine (Remeron) 7.5 mg QHS PO Last administered on 07/04/17at 20:47; Start 06/07/17 at 21:00; Stop 07/05/17 at 12:46; Status DC Fluvoxamine Maleate (Luvox) 25 mg DAILY PO Last administered on 06/09/17 07:49 ; Start 06/08/17 at 09:00; Stop 06/10/17 at 08:59; Status DC Fluvoxamine Maleate (Luvox) 50 mg DAILY PO Last administered on 06/16/17 07:41 ; Start 06/10/17 at 09:00; Stop 06/16/17 at 18:42; Status DC Risperidone (RisperDAL) 0.25 mg BID PO Last administered on 06/11/17at 19:10; Start 06/08/17 at 21:00; Stop 06/12/17 at 08:59; Status DC Lorazepam (Ativan) 0.25 mg PRN Q2HR PRN PO ANXIETY / AGITATION Last administered on 06/18/17 19:26; Start 06/10/17 at 18:30; Stop 07/05/17 at 12:46 ; Status DC Risperidone (RisperDAL) 0.25 mg DAILY PO Last administered on 06/14/17 10:22; Start 06/12/17 at 09:00; Stop 06/15/17 at 08:59; Status DC Levothyroxine Sodium (Synthroid) 25 mcg DAILY06 PO Last administered on 05:52; Start 06/11/17 at 07:45; Stop 07/05/17 at 12:46; Status DC Nystatin (Nystop) 1 feliciano BID TP Last administered on 07/05/17 08:46; Start at 09:30; Stop 07/05/17 at 12:46; Status DC Divalproex Sodium (Depakote Sprinkles) 125 mg TID@0900,1300,1700 PO Last administered on 06/15/17 18:34; Start 06/11/17 at 13:00; Stop 06/15/17 at 22:29; Status DC Docusate Sodium (Colace) 100 mg BID PO Last administered on 07/05/17 08:44; Start 06/11/17 at 21:00; Stop 07/05/17 at 12:46; Status DC Polyethylene Glycol (miraLAX) 17 gm DAILY PO Last administered on 07/05/17 08: 44; Start 06/12/17 at 09:00; Stop 07/05/17 at 12:46; Status DC Magnesium Citrate (Citroma) 296 ml PRN 1X PRN PO CONSTIPATION; Start 06/11/17 at 18:15; Stop 07/05/17 at 12:46; Status DC Quetiapine Fumarate (SEROquel) 12.5 mg TID@0600,1200,1700 PO Last administered on 06/13/17at 16:57; Start 06/13/17 at 12:00; Stop 06/13/17 at 19:16; Status DC Quetiapine Fumarate (SEROquel) 12.5 mg DAILY@1200 PO Last administered on at 12:00; Start 06/14/17 at 12:00; Stop 06/16/17 at 18:42; Status DC Quetiapine Fumarate (SEROquel) 25 mg BID@0600,1700 PO Last administered on 07/05at 05:53; Start 06/14/17 at 06:00; Stop 07/05/17 at 12:46; Status DC Quetiapine Fumarate (SEROquel) 25 mg 1X ONCE PO Last administered on 06/14/17at 07:07; Start 06/14/17 at 07:15; Stop 06/14/17 at 07:16; Status DC Lidocaine (Xylocaine) 1 feliciano 1X ONCE TP Last administered on 06/14/17at 13:30; Start 06/14/17 at 13:30; Stop 06/14/17 at 13:31; Status DC Lidocaine HCl 20 ml 1X ONCE INJ Last administered on 06/14/17at 17:47; Start 06/14/17 at 17:15; Stop 06/14/17 at 17:16; Status DC Neomycin/ Polymyxin/ Bacitracin (Triple Antibiotic Ointment) 1 pkt 1X ONCE TP Last administered on 06/14/17at 18:15; Start 06/14/17 at 18:15; Stop 06/14/17 at 18: 16; Status DC Divalproex Sodium (Depakote Sprinkles) 250 mg TID@0900,1300,1700 PO Last administered on 06/19/17at 16:55; Start 06/16/17 at 09:00; Stop 06/19/17 at 18:30; Status DC Fluvoxamine Maleate (Luvox) 75 mg DAILY PO Last administered on 06/23/17at 09:34 ; Start 06/17/17 at 09:00; Stop 06/23/17 at 19:27; Status DC Quetiapine Fumarate (SEROquel) 25 mg DAILY@1200 PO Last administered on at 13:47; Start 06/17/17 at 12:00; Stop 07/05/17 at 12:46; Status DC Hydrocortisone (Cortaid) 1 feliciano BID TP Last administered on 06/26/17at 09:12; Start 06/16/17 at 21:00; Stop 06/26/17 at 17:20; Status DC Trazodone HCl (Desyrel) 25 mg 1X ONCE PO Last administered on 06/17/17at 18:00; Start 06/17/17 at 18:00; Stop 06/17/17 at 18:02; Status DC Trazodone HCl (Desyrel) 12.5 mg TID@0900,1300,1700 PO Last administered on at 17:04; Start 06/18/17 at 09:00; Stop 06/18/17 at 18:09; Status DC Trazodone HCl (Desyrel) 12.5 mg BID@1300,1700 PO Last administered on 06/20/17at 12:12; Start 06/19/17 at 13:00; Stop 06/20/17 at 12:28; Status DC Trazodone HCl (Desyrel) 25 mg DAILY PO Last administered on 06/22/17at 09:03; Start 06/19/17 at 09:00; Stop 06/23/17 at 03:43; Status DC Divalproex Sodium (Depakote Sprinkles) 375 mg TID@0900,1300,1700 PO Last administered on 07/05/17at 08:45; Start 06/20/17 at 09:00; Stop 07/05/17 at 12:46 ; Status DC Trazodone HCl (Desyrel) 25 mg BID@1300,1700 PO Last administered on 06/22/17at 16:48; Start 06/20/17 at 13:00; Stop 06/23/17 at 03:43; Status DC Trazodone HCl (Desyrel) 25 mg TID@0900,1300,1700 PO Last administered on at 08:44; Start 06/23/17 at 09:00; Stop 07/05/17 at 12:46; Status DC Cephalexin HCl (Keflex) 500 mg TID PO Last administered on 06/30/17at 20:46; Start 06/23/17 at 21:00; Stop 06/30/17 at 21:00; Status DC Fluvoxamine Maleate (Luvox) 100 mg DAILY PO Last administered on 07/05/17at 08: 44; Start 06/24/17 at 09:00; Stop 07/05/17 at 12:46; Status DC Tramadol HCl (Ultram) 50 mg BID PO Last administered on 07/05/17at 08:46; Start 06/26/17 at 21:00; Stop 07/05/17 at 12:46; Status DC Hydrocortisone (Cortaid) 1 feliciano PRN BID PRN TP ITCHING Last administered on 06/27at 21:07; Start 06/26/17 at 17:30; Stop 07/05/17 at 12:46; Status DC Lactobacillus Rhamnosus (Culturelle) 1 cap BID PO Last administered on at 08:44; Start 06/27/17 at 09:00; Stop 07/05/17 at 12:46; Status DC Active Scripts Active Reported Vitamin D3 (Cholecalciferol (Vitamin D3)) 5,000 Unit Tablet 50,000 Unit PO WEEKLY start date 06/12/17 Trazodone Hcl 50 Mg Tablet 25 Mg PO TID@0900,1300,1700 Fluvoxamine Maleate 100 Mg Tablet 100 Mg PO DAILY Quetiapine Fumarate 25 Mg Tablet 25 Mg PO TID@0600,1200,1700 Mirtazapine 15 Mg Tablet 7.5 Mg PO QHS Culturelle (Lactobacillus Rhamnosus Gg) 1 Each Capsule 1 Each PO BID Cortaid (Hydrocortisone) 42 Gm Cream..g. 1 Feliciano TP PRN BID PRN Docusate Sodium 100 Mg Capsule 100 Mg PO BID Depakote Sprinkle (Divalproex Sodium) 125 Mg Cap.sprink 375 Mg PO TID@0900,1300, 1700 Vitamin B Complex 1 Each Tablet 1 Tab PO DAILY Tramadol Hcl (Tramadol HCl) 50 Mg Tablet 50 Mg PO BID Tramadol Hcl (Tramadol HCl) 50 Mg Tablet 50 Mg PO PRN Q8HRS PRN Sotalol (Sotalol Hcl) 80 Mg Tablet 80 Mg PO BID Polyethylene Glycol 3350 255 Gm Powder 17 Gm PO PRN DAILY PRN Nystatin 15 Gm Cream..g. 1 [place] TP BID Centrum Flavor Burst Adult (Multivit with Minerals No.55) 1 Each Tab.chew 1 Tab PO DAILY Melatonin 3 Mg Tablet 3 Mg PO PRN QHS PRN Losartan Potassium 25 Mg Tablet 25 Mg PO DAILY Lorazepam Intensol (Lorazepam) 2 Mg/1 Ml Oral.conc 0.5-1 Ml SL PRN Q2HR PRN Levothyroxine Sodium 25 Mcg Tablet 25 Mcg PO DAILYAC Vitamin D2 (Ergocalciferol (Vitamin D2)) 50,000 Unit Capsule 50,000 Unit PO WEEKLY Eliquis (Apixaban) 5 Mg Tablet 5 Mg PO BID Atorvastatin Calcium 20 Mg Tablet 20 Mg PO QHS Amlodipine Besylate 10 Mg Tablet 10 Mg PO DAILY Tylenol (Acetaminophen) 325 Mg Tablet 650 Mg PO PRN Q4HRS PRN I have reviewed the current psychotropics carefully including drug interactions. Risk benefit ratio favors no change other than as noted in my dictated progress note. Diagnosis: Problems: (1) Impulse control disorder (2) Dementia, vascular, with depression (3) Dementia, vascular, with delusions (4) Dementia in Alzheimer's disease with depression (5) Dementia in Alzheimer's disease with delusions (6) Panic disorder with agoraphobia and severe panic attacks HANDY RIZVI MD Jul 05, 2017 17:56
--- NOTE | 2017-07-06 13:23 | DS ---
DATE OF DISCHARGE: 07/05/2017 DISCHARGE SUMMARY/PSYCHIATRIC PROGRESS NOTE REASON FOR ADMISSION: Please refer to the admission history for details. Briefly, the patient is a 77-year-old male, referred to us from the [facility] by his primary care physician on account of marked yelling, cursing at staff, throwing himself out of the wheelchair, refusing meals and showers, being extremely anxious, agitated with marked mood lability and failure of outpatient psychiatric interventions, status post CVA. He does have a history of chronic UTIs and did have a UTI diagnosed on 06/20/2017, treated on Keflex. SIGNIFICANT FINDINGS AND CLINICAL COURSE: Following admission, the patient was seen daily individually by myself, followed medically per Dr. Torres/Dr. Isidro. He was extremely loud, disruptive, yelling most of the time repeatedly. Redirection was ineffective. He was quite disruptive to the entire milieu of the unit. Adjustments were made in his psychotropics and he seemed to respond to a combination of Luvox 100 mg a day, Ativan p.r.n., melatonin 3 mg at bedtime, Remeron 7.5 mg at bedtime, Depakote 375 mg 3 times a day with a valproic acid level therapeutic at 65, Seroquel 25 mg 3 times a day, trazodone 25 mg 3 times a day. REVIEW OF SYSTEMS: Prior to discharge on 07/05/2017, ambulation impaired, in Broda chair. No CV, , pulmonary, eye, ENT system symptoms on review. MENTAL STATUS EXAM: Oriented to himself. Insight, judgment, recent and remote memory, attention, concentration, fund of knowledge poor, consistent with his diagnosis mentioned in my initial note. CONDITION AT DISCHARGE: Improved. FINAL DIAGNOSES: Major neurocognitive disorder, vascular with delusion, depression, behavioral disturbance; anxiety disorder, unspecified; impulse control disorder, unspecified. Rest unchanged from admission. DISCHARGE MEDICATIONS: Please refer to the EMRAD. DISCHARGE INSTRUCTIONS: Outpatient psychiatric medical followup at the [facility]. Time for discharge day management is greater than 30 minutes. MAN Laverne RIZVI MD DR: YESSENIA/linnette JOB#: [id number] / [id number]
== END 2017-07-05 12:45 | disposition home or self-care (01) | DRG 884 ==
LOC: ER 19:45 → GEROPSY 21:30 → ER 21:35
PROVIDERS: ADMIT Psychiatry & Neurology Psychiatry; ATTEND Psychiatry & Neurology Psychiatry
DX: F01.51 Vascular dementia, unspecified severity, with behavioral disturbance (principal); G30.9 Alzheimer's disease, unspecified; I69.354 Hemiplegia and hemiparesis following cerebral infarction affecting left non-dominant side; F02.81 Dementia in other diseases classified elsewhere, unspecified severity, with behavioral disturbance; N39.0 Urinary tract infection, site not specified; E03.9 Hypothyroidism, unspecified; E78.5 Hyperlipidemia, unspecified; F32.9 Major depressive disorder, single episode, unspecified; F40.01 Agoraphobia with panic disorder; F42.9 Obsessive-compulsive disorder, unspecified; F63.9 Impulse disorder, unspecified; G47.00 Insomnia, unspecified; R29.6 Repeated falls; I10 Essential (primary) hypertension; Z79.01 Long term (current) use of anticoagulants; Z79.899 Other long term (current) drug therapy; Z87.440 Personal history of urinary (tract) infections; Z91.81 History of falling
CPT/HCPCS: 36415; 80053; 80061; 80164; 80307; 81001; 82306; 82607; 83036; 83540; 83550; 83735; 84436; 84443; 84480; 85025; 85027; 85610; 86593; 87086; 87186; 93005; 99285-25; G0479